=== PATIENT | female | born 1960 | race Caucasian/White ===

== ENCOUNTER 2020-08-01 11:00 | Outpatient (REF) | payer OTHER, SELFPAY ==
--- NOTE | 2020-08-01 | XR_ITS ---
EXAMINATION: XR CALCANEUS, BILATERAL CLINICAL INFORMATION: Bilateral heel pain COMPARISON: None TECHNIQUE: AP and lateral views of the right and left calcaneus FINDINGS: Right calcaneus: Minimal posterior calcaneal enthesophyte. No heel spur. No fracture. Left calcaneus: Small heel spur and posterior calcaneal enthesophyte. No fracture. IMPRESSION: Right calcaneus: Minimal posterior calcaneal enthesophyte. No heel spur. No fracture. Left calcaneus: Small heel spur and posterior calcaneal enthesophyte. No fracture.
== END 2020-08-01 11:01 | disposition home or self-care (01) ==
LOC: HO.HMGCX 11:00
PROVIDERS: PCP Internal Medicine; Visit Provider Hospitalist
DX: M77.51 Other enthesopathy of right foot and ankle (principal); M77.52 Other enthesopathy of left foot and ankle; M79.672 Pain in left foot; M79.671 Pain in right foot
CPT/HCPCS: 73650

== ENCOUNTER 2021-06-16 09:29 | Emergency (ER) | payer OTHER, SELFPAY ==
--- NOTE | ~2021-06-16 | CT_ITS ---
EXAMINATION: CT HEAD WITHOUT CONTRAST CLINICAL INFORMATION: Weakness for 2 weeks. COMPARISON: CT head dated 07/10/2020. TECHNIQUE: Contiguous axial imaging was performed from the skull base to vertex without intravenous administration of contrast. This CT examination was performed using dose optimization techniques as appropriate, variously including the following: *Automated exposure control *Adjustment of mA and/or kV according to patient size (this includes techniques or standardized protocols for targeted exams where dose is matched to indication/reason for exam; i.e. extremities or head) *Use of iterative reconstruction technique DLP: 657 mGy-cm FINDINGS: There is no evidence of acute intracranial hemorrhage or territorial infarction. No abnormal mass effect or midline shift is seen. [place] to white matter differentiation is well preserved. No extra-axial fluid collections are identified. The ventricles are normal in size. There is no abnormal attenuation within the brain parenchyma. The osseous structures and soft tissues are normal. Defects within the maxillary sinus medial tejada, consistent with prior surgery. Opacification of the right maxillary sinus, consistent with chronic sinusitis. CT/CT head/brain wo con IMPRESSION: No acute intracranial hemorrhage or mass effect. Findings consistent with chronic right maxillary sinusitis.
--- NOTE | ~2021-06-16 | XR_ITS ---
EXAMINATION: XR CHEST CLINICAL INFORMATION: Question pneumonia. COMPARISON: Most recent chest radiographs dated 12/28/2019. TECHNIQUE: Frontal view of the chest was obtained. FINDINGS: The lungs are clear. The cardiomediastinal silhouette is normal in size. There is no pleural effusion or pneumothorax. No acute osseous abnormality. XR/XR chest 1V IMPRESSION: No acute cardiopulmonary findings.
[2021-06-16 09:38] VITALS: BP 160/81; BP 161/97; PULSE 86; PULSE 87; RESP 18; TEMP 36.6; O2SAT 95; O2SAT 98; BMI 37.4
--- NOTE | 2021-06-16 10:41 | ED.WEAKNESS ---
HPI - Weakness General Chief complaint: Weakness Stated complaint: GENERAL MALAISE [id number] Time Seen by Provider: 06/16/21 10:02 Source: patient Mode of arrival: ambulatory Limitations: no limitations History of Present Illness HPI Narrative: Patient presents to ED for generalized weakness for the past 2 weeks. Patient does feel tired. Patient denies any slurred speech, facial droop, chest pain, shortness of breath, or paralysis of extremities. Denies any change in diet. Patient states yesterday her glucose was 400 but today has been controlled. Patient admits to having uncontrolled diabetes. Patient states tingling in extremities. MD Complaint: generalized weakness Related Data Home Medications Medication Instructions Recorded Confirmed humidifiers #1 ea 08/29/20 11/28/20 loratadine 10 mg tablet 10 mg PO DAILY 08/29/20 11/28/20 sodium chloride 0.65 % nasal spray 2 spray INTRANASAL Q3H 08/29/20 11/28/20 aerosol Previous Rx's Medication Instructions Recorded albuterol sulfate 90 mcg/actuation 1 puff INHALATION Q4H PRN 30 Days 10/24/20 aerosol inhaler #8.5 g blood sugar diagnostic (FreeStyle #100 ea 11/28/20 Lite Strips) fluticasone propionate 50 1 spray INTRANASAL DAILY 30 Days 11/28/20 mcg/actuation nasal #16 g spray,suspension ibuprofen 800 mg tablet 800 mg PO TID PRN 30 Days #90 tab 11/28/20 lancets 28 gauge #100 ea 11/28/20 melatonin 5 mg capsule 5 mg PO .ONCE A DAY 90 Days #90 cap 11/28/20 metformin 500 mg tablet 500 mg PO BID 30 Days #60 tab 11/28/20 fluconazole 150 mg tablet 150 mg PO Q3D #2 tab 04/11/21 (Diflucan) glipizide 5 mg tablet 5 mg PO .bidcc 30 Days #60 tab 04/11/21 cephalexin 500 mg capsule 500 mg PO QID #28 cap 06/16/21 Allergies Allergy/AdvReac Type Severity Reaction Status Date / Time No Known Allergies Allergy Verified 04/11/21 13:09 Review of Systems Constitutional: Constitutional: Reports as per HPI and Reports no additional constitutional complaints Eyes: Eyes: Reports as per HPI and Reports no additional eye complaints ENT: Reports system reviewed and no additional complaints, except as documented and Reports as per HPI Cardiovascular: Cardiovascular: Reports as per HPI and Reports no additional cardiovascular complaints Respiratory: Respiratory: Reports as per HPI and Reports no additional respiratory complaints Gastrointestinal: Gastrointestinal: Reports as per HPI and Reports no additional gastrointestinal complaints Genitourinary: Genitourinary: Reports no additional female genitourinary complaints and Reports as per HPI Musculoskeletal: Musculoskeletal: Reports no additional musculoskeletal complaints and Reports as per HPI Integumentary/Breasts: Skin/Breast: Reports system reviewed and no additional complaints, except as docu and Reports as per HPI Neurologic: Reports system reviewed and no additional complaints, except as documented and Reports as per HPI Psychiatric: Psychiatric: Reports no additional psychiatric complaints and Reports as per HPI Endocrine: Endocrine: Reports no additional endocrine complaints and Reports as per HPI [facility] Past Medical History Medical History (Updated 06/16/21 @ 15:43 by ANDRES Pena) Obesity (Unknown) Surgical History History of cholecystectomy History of colonoscopy History of tonsillectomy Left patella fracture Family History Family History Father Prostate cancer Parkinsons Mother No problems noted. Son No problems noted. Son No problems noted. Daughter No problems noted. Social History Social History (Updated 11/28/20 @ 14:49 by ERIK Byers) Alcohol intake: never Advance Directives: No Advance Directives Information Provided: No Patient : No Physical Exam Vital Signs: Vital Signs: Last Vital Signs Temp 98.2 F 06/16/21 13:50 Pulse 72 06/16/21 13:50 Resp 18 06/16/21 13:50 BP 124/64 06/16/21 13:50 Pulse Ox 96 06/16/21 13:50 Body Mass Index 37.4 Const: General: cooperative, healthy appearing, comfortable, no acute distress, well developed, alert, awake and Physically active Orientation/consciousness: patient oriented x3 HENMT: Head: Yes normal to inspection, Yes No palpable skull fracture present, Yes normocephalic, Yes atraumatic and No abrasion Eyes: General: appearance normal, both eyes and all related structures Neck: Neck: Yes normal visual inspection, Yes full ROM, Yes no lymphadenopathy, Yes no meningeal signs, Yes trachea midline, Yes supple and No tender Chest: Chest palpation & inspection: normal inspection of the chest and normal palpation of entire chest wall Resp: Effort & Inspection: normal respiratory effort and able to speak in complete sentences Auscultation: clear to auscultation bilaterally Cardio: Jugular venous distension: no JVD Heart sounds: S1 normal heart sound present and S2 normal heart sound present GI: Inspection: Yes normal to inspection and No abdominal wall ecchymosis Palpation (GI): Soft to palpation, not firm, nontender, no guarding and not rigid : General: No CVA tenderness and Yes no CVA tenderness Back/Spine/Pelvis: Back: no CVA tenderness, No CVA tenderness and No back tenderness Skin: General skin exam: no rashes or lesions noted and elasticity normal Neuro: Other: Negative facial droop. Negative slurred speech. All extremities equal strength 5+. [id number] rapid hand movement intact. Negative Romberg General: patient oriented x3, gait normal, no meningeal signs and CN's II-XI intact bilaterally Cranial nerves: Yes CN's II-XII intact bilaterally Extrem: Other: All extremities motor/neural/vascular exam intact. All extremities good color and normal temperature. All extremities negative for any ecchymosis or crepitus to indicate any trauma. Negative for any tenderness. General: Yes normal to inspection and Yes full ROM Course Course Course Narrative: Negative for any neuro deficits. Patient denied any distress. We will look for source of infection, to cardiac evaluation, do a head CT. Reevaluation(s) Reevaluation #1: Patient walking around the ER. Patient alert oriented x3. Patient labs are normal. Patient's EKG negative STEMI. His CT scan came back normal. Chest x-ray negative for Pneumonia. Orthostatics negative. Urine shows mild UTI. patient is mildy hyperglycemic, but not in DKA, patient informed she needs better control of her diabetes and be compliant with a healthy diet. Her partner states patient eats lotsl cake and all types of sweets. Patient states sometimes she has tingling in her extremities. Patient educated on better control of her diabetes unless she will have poor vision, kidney failure, amputations, or peripheral neuropathy Time: 15:34 MDM - Weakness MDM Narrative Medical decision making narrative: Hyperglycemia Lab Data Result diagrams: 06/16/21 10:57 08/16/21 10:57 Labs: Lab Results 06/16/21 06/16/21 06/16/21 Range/Units 10:57 10:57 10:57 WBC 10.0 (4.8-10.8) X10*3/uL RBC 4.83 (4.20-5.50) X10*6/uL Hgb 14.9 (12.0-16.0) g/dl Hct 44.5 (37-47) % MCV 92.1 (80-98) fL MCH 30.8 (27.0-33.0) pg MCHC 33.5 (31.0-35.0) g/dl RDW 12.6 (11.0-16.0) % Plt Count 281 (160-400) X10*3/uL MPV 10.6 (9.4-12.3) fL Immature Gran % (Auto) 0.5 H (0.0-0.4) % Neut % (Auto) 60.0 (45-73) % Lymph % (Auto) 29.2 (20-40) % [place] % (Auto) 8.4 (2-11) % Eos % (Auto) 1.3 (0-4) % Baso % (Auto) 0.6 (0-2) % Lymph # (Auto) 2.9 (1.2-4.9) X10*3/uL [place] # (Auto) 0.8 (0.1-1.2) X10*3/uL Eos # (Auto) 0.1 (0.0-0.4) X10*3/uL Baso # (Auto) 0.1 (0.0-0.2) X10*3/uL Abs Immat Gran (auto) 0.05 H (0.00-0.03) X10*3/uL Absolute Neuts (auto) 6.0 (2.0-8.3) X10*3/uL Absolute Nucleated RBC 0.000 (0.0-0.012) X10*3/uL Nucleated RBC % (auto) 0.0 (0.0-0.2) /100WBC PT 10.2 (9.9-13.0) SEC INR 0.9 (0.9-1.1) APTT 35.6 (24.1-38.0) SEC Sodium 137 (135-145) mmol/L Potassium 4.4 (3.3-5.1) mmol/L Chloride 102 (96-108) mmol/L Carbon Dioxide 21 L (22-29) mmol/L Anion Gap 18 (12-20) BUN 14 (9-16) mg/dL Creatinine 0.84 (0.5-1.4) mg/dL Estim Creat Clear Calc 80.3 Estimated GFR > 60 Random Glucose 255 H (60-115) mg/dL Calcium 10.6 H (8.4-10.2) mg/dL Magnesium 1.8 (1.6-2.6) mg/dL Total Bilirubin 0.3 (0.0-1.0) mg/dL Direct Bilirubin 0.2 (0.0-0.5) mg/dL AST 24 (5-31) U/L ALT 30 (0-31) U/L Alkaline Phosphatase 137 H (39-117) U/L Total Creatine Kinase 51 (26-140) U/L Troponin I High Sens (<3.5-17.0) ng/L Total Protein 7.6 (6.5-8.0) g/dL Albumin 4.3 (3.5-5.0) g/dL Urine Color Urine Appearance Urine pH (5.0-8.0) Ur Specific [place] (1.005-1.025) Urine Protein (NEG-TRACE) MG/DL Urine Glucose (UA) (NEG) MG/DL Urine Ketones (NEG) MG/DL Urine Blood (NEG) Urine Nitrite (NEG) Ur Leukocyte Esterase (NEG) Urine RBC (0) /HPF Urine WBC (0-4) /HPF Ur Squamous Epith Cells /LPF Urine Bacteria /LPF Acetone, Qual Negative (Negative) COVID-19 ([facility]) (Negative) COVID-19 Clin Com 06/16/21 06/16/21 06/16/21 Range/Units 10:57 10:57 10:58 WBC (4.8-10.8) X10*3/uL RBC (4.20-5.50) X10*6/uL Hgb (12.0-16.0) g/dl Hct (37-47) % MCV (80-98) fL MCH (27.0-33.0) pg MCHC (31.0-35.0) g/dl RDW (11.0-16.0) % Plt Count (160-400) X10*3/uL MPV (9.4-12.3) fL Immature Gran % (Auto) (0.0-0.4) % Neut % (Auto) (45-73) % Lymph % (Auto) (20-40) % [place] % (Auto) (2-11) % Eos % (Auto) (0-4) % Baso % (Auto) (0-2) % Lymph # (Auto) (1.2-4.9) X10*3/uL [place] # (Auto) (0.1-1.2) X10*3/uL Eos # (Auto) (0.0-0.4) X10*3/uL Baso # (Auto) (0.0-0.2) X10*3/uL Abs Immat Gran (auto) (0.00-0.03) X10*3/uL Absolute Neuts (auto) (2.0-8.3) X10*3/uL Absolute Nucleated RBC (0.0-0.012) X10*3/uL Nucleated RBC % (auto) (0.0-0.2) /100WBC PT (9.9-13.0) SEC INR (0.9-1.1) APTT (24.1-38.0) SEC Sodium (135-145) mmol/L Potassium (3.3-5.1) mmol/L Chloride (96-108) mmol/L Carbon Dioxide (22-29) mmol/L Anion Gap (12-20) BUN (9-16) mg/dL Creatinine (0.5-1.4) mg/dL Estim Creat Clear Calc Estimated GFR Random Glucose (60-115) mg/dL Calcium (8.4-10.2) mg/dL Magnesium (1.6-2.6) mg/dL Total Bilirubin (0.0-1.0) mg/dL Direct Bilirubin (0.0-0.5) mg/dL AST (5-31) U/L ALT (0-31) U/L Alkaline Phosphatase (39-117) U/L Total Creatine Kinase (26-140) U/L Troponin I High Sens 4.5 (<3.5-17.0) ng/L Total Protein (6.5-8.0) g/dL Albumin (3.5-5.0) g/dL Urine Color YELLOW Urine Appearance CLOUDY Urine pH 6.0 (5.0-8.0) Ur Specific [place] >= 1.030 H (1.005-1.025) Urine Protein NEG (NEG-TRACE) MG/DL Urine Glucose (UA) 500 H (NEG) MG/DL Urine Ketones 5 (NEG) MG/DL Urine Blood NEG (NEG) Urine Nitrite NEG (NEG) Ur Leukocyte Esterase 1+ H (NEG) Urine RBC 0-2 (0) /HPF Urine WBC 10-14 H (0-4) /HPF Ur Squamous Epith Cells 3+ /LPF Urine Bacteria 1+ /LPF Acetone, Qual (Negative) COVID-19 ([facility]) Negative (Negative) COVID-19 Clin Com See Note Discharge Plan Discharge Clinical Impression: Hyperglycemia due to diabetes mellitus, Diabetic peripheral neuropathy Patient Disposition: Home, Self-Care Instructions: Urinary Tract Infection in Women (ED), Diabetic Peripheral Neuropathy (ED), Weakness (ED), Diabetic Hyperglycemia (ED) Additional Instructions: Your EKG and blowing for your heart troponin came back normal. Head CT scan came back for stroke. Urine shows mild UTI. Electrolytes came back normal. X-ray negative for pneumonia. COVID swab came back negative. Your blood cell count came back normal. You need better control of your diabetes. You need a better diet and cut down on carbs, soda, juice, and sweets. Please follow-up with your PCP Prescriptions: New cephalexin 500 mg capsule 500 mg PO QID Qty: 28 RF: 0 No Action albuterol sulfate 90 mcg/actuation HFA aerosol inhaler 1 puff inhalation Q4H PRN (Reason: shortness of breath or wheezing or broncospasm) 30 Days Qty: 8.5 RF: 6 fluticasone propionate 50 mcg/actuation spray,suspension 1 spray intranasal DAILY 30 Days Qty: 16 RF: 6 melatonin 5 mg capsule 5 mg PO .ONCE A DAY 90 Days Qty: 90 RF: 2 ibuprofen 800 mg tablet 800 mg PO TID PRN (Reason: pain) 30 Days Qty: 90 RF: 3 (DME) lancets 28 gauge misc See Rx Instructions ea topical BID Qty: 100 RF: 4 (DME) FreeStyle Lite Strips Strip See Rx Instructions .ROUTE .MEDSUPPLY Qty: 100 RF: 3 metformin 500 mg tablet 500 mg PO BID 30 Days Qty: 60 RF: 3 fluconazole [Diflucan] 150 mg tablet 150 mg PO Q3D Qty: 2 RF: 0 glipizide 5 mg tablet 5 mg PO .bidcc 30 Days Qty: 60 RF: 1 sodium chloride 0.65 % aerosol,spray 2 spray intranasal Q3H RF: 0 loratadine 10 mg tablet 10 mg PO DAILY RF: 0 (DME) humidifiers Misc See Rx Instructions ea .ROUTE DIRECTED Qty: 1 RF: 0 Interventions: ED Discharge Assessment Last Done: 06/16/21 16:28 Discharge Date/Time: 06/16/21 16:28 Print Language: Panamanian
[2021-06-16 11:10] LABS: MANUAL DIFF FLAG NO
[2021-06-16] MEDS: 0.9 % Sodium Chloride 1,000 ML 999 ML IV (11:10)
[2021-06-16 11:12] LABS: Glucose Urine UA 500 MG/DL (NEG); Leukocyte Esterase Urine 1+ (NEG); Nitrite Urine NEG (NEG); Specific Gravity - Urine >= 1.030 (1.005-1.025); UACC Culture Trigger YES; Urine Blood NEG (NEG); Urine Ketones 5 MG/DL (NEG); Urine Protein NEG (NEG-TRACE)
[2021-06-16 11:13] LABS: Basophils Absolute Auto 0.1 X10*3/uL (0.0-0.2); Basophils Percent Auto 0.6 % (0-2); Eosinophils Absolute Auto 0.1 X10*3/uL (0.0-0.4); Eosinophils Percent Auto 1.3 % (0-4); Hematocrit 44.5 % (37-47); Hemoglobin 14.9 g/dl (12.0-16.0); Imm Gran Abs Auto 0.05 X10*3/uL (0.00-0.03); Imm Gran Pct Auto 0.5 % (0.0-0.4); Lymphocytes Absolute Auto 2.9 X10*3/uL (1.2-4.9); Lymphocytes Percent Auto 29.2 % (20-40); Mean Corpuscular HGB Conc 33.5 g/dl (31.0-35.0); Mean Corpuscular Hemoglobin 30.8 pg (27.0-33.0); Mean Corpuscular Volume 92.1 fL (80-98); Mean Platelet Volume 10.6 fL (9.4-12.3); Monocytes Absolute Auto 0.8 X10*3/uL (0.1-1.2); Monocytes Percent Auto 8.4 % (2-11); Platelet Count 281 X10*3/uL (160-400); Red Blood Count 4.83 X10*6/uL (4.20-5.50); Red Cell Distribution Width 12.6 % (11.0-16.0)
[2021-06-16 11:13] LABS: Appearance Urine CLOUDY; Color Urine YELLOW
[2021-06-16 11:24] LABS: INTERNATIONAL NORM RATIO 0.9 (0.9-1.1); Prothrombin Time 10.2 SEC (9.9-13.0)
[2021-06-16 11:26] LABS: Partial Thromboplastin Time 35.6 SEC (24.1-38.0)
[2021-06-16 11:32] LABS: Bacteria Urine 1+ /LPF; RBC Urine 0-2 /HPF (0); Squamous Epithelial Cell Urine 3+ /LPF
[2021-06-16 11:33] LABS: COVID-19 Test Negative (Negative); IDNOW Serial# 9DD0AD1C
[2021-06-16 11:39] LABS: Troponin-I High Sensitivity 4.5 ng/L (<3.5-17.0)
[2021-06-16 11:41] LABS: Alanine Aminotransferase 30 U/L (0-31); Albumin Level 4.3 g/dL (3.5-5.0); Alkaline Phosphatase 137 U/L (39-117); Anion Gap 18 (12-20); Aspartate Amino Transferase 24 U/L (5-31); Bilirubin Direct 0.2 mg/dL (0.0-0.5); Bilirubin Total 0.3 mg/dL (0.0-1.0); Blood Urea Nitrogen 14 mg/dL (9-16); Calcium 10.6 mg/dL (8.4-10.2); Carbon Dioxide 21 mmol/L (22-29); Chloride 102 mmol/L (96-108); Creatinine Clr Calc Pharmacy 80.3; Estimated Glomerular Filt Rate > 60; Glucose Random 255 mg/dL (60-115); Magnesium 1.8 mg/dL (1.6-2.6); Potassium 4.4 mmol/L (3.3-5.1); Sodium 137 mmol/L (135-145); Total Protein 7.6 g/dL (6.5-8.0)
[2021-06-16 12:09] LABS: Acetone, serum QL Negative (Negative)
[2021-06-16 13:44] VITALS: BP 124/64; PULSE 72
[2021-06-16 13:47] VITALS: BP 119/64; PULSE 71
[2021-06-16 13:49] VITALS: BP 127/73; PULSE 79
[2021-06-16 13:50] VITALS: BP 124/64; PULSE 72; RESP 18; TEMP 36.8; O2SAT 96
--- NOTE | 2021-06-16 15:31 | ECG_ITS ---
Test Reason : WEAKNESS Blood Pressure : / mmHG Vent. Rate : 071 BPM Atrial Rate : 071 BPM P-R Int : 142 ms QRS Dur : 084 ms QT Int : 414 ms P-R-T Axes : 017 -39 015 degrees QTc Int : 449 ms Normal sinus rhythm Left axis deviation Abnormal ECG When compared with ECG of 10-JUL-2020 16:05, No significant change was found Referred By: Darrian Stone Electronically Signed By:CHRISTINA SHABAZZ
== END 2021-06-16 16:28 | disposition home or self-care (01) ==
PROVIDERS: Physician Assistant; Emergency Provider Internal Medicine
DX: R53.1 Weakness (principal); E11.65 Type 2 diabetes mellitus with hyperglycemia; E11.42 Type 2 diabetes mellitus with diabetic polyneuropathy; Z20.822 Contact with and (suspected) exposure to COVID-19
CPT/HCPCS: 36415; 70450; 71045; 80053; 81001; 82009; 82248; 82550; 83735; 84484; 85025; 85610; 85730; 87086; 87635; 93005; 96360; 99284

== ENCOUNTER 2021-06-26 10:54 | Outpatient (REF) | payer OTHER, SELFPAY ==
[2021-06-26 14:32] LABS: MANUAL DIFF FLAG NO
[2021-06-26 14:34] LABS: Basophils Absolute Auto 0.1 X10*3/uL (0.0-0.2); Basophils Percent Auto 0.8 % (0-2); Eosinophils Absolute Auto 0.1 X10*3/uL (0.0-0.4); Eosinophils Percent Auto 1.4 % (0-4); Hematocrit 46.5 % (37-47); Hemoglobin 15.2 g/dl (12.0-16.0); Imm Gran Abs Auto 0.02 X10*3/uL (0.00-0.03); Imm Gran Pct Auto 0.2 % (0.0-0.4); Lymphocytes Absolute Auto 3.2 X10*3/uL (1.2-4.9); Lymphocytes Percent Auto 34.8 % (20-40); Mean Corpuscular HGB Conc 32.7 g/dl (31.0-35.0); Mean Corpuscular Hemoglobin 30.6 pg (27.0-33.0); Mean Corpuscular Volume 93.6 fL (80-98); Mean Platelet Volume 10.8 fL (9.4-12.3); Monocytes Absolute Auto 0.9 X10*3/uL (0.1-1.2); Monocytes Percent Auto 9.3 % (2-11); Neutrophils Percent Auto 53.5 % (45-73); Platelet Count 312 X10*3/uL (160-400); Red Blood Count 4.97 X10*6/uL (4.20-5.50); Red Cell Distribution Width 12.6 % (11.0-16.0); White Blood Count 9.3 X10*3/uL (4.8-10.8)
[2021-06-26 15:01] LABS: Anion Gap 15 (12-20); Blood Urea Nitrogen 12 mg/dL (9-16); Calcium 9.8 mg/dL (8.4-10.2); Carbon Dioxide 24 mmol/L (22-29); Chloride 102 mmol/L (96-108); Estimated Glomerular Filt Rate > 60; Glucose Random 283 mg/dL (60-115); Potassium 4.4 mmol/L (3.3-5.1); Sodium 137 mmol/L (135-145)
== END 2021-06-26 10:55 | disposition home or self-care (01) ==
LOC: HO.WFDLDS 10:54
PROVIDERS: Visit Provider Family Medicine
DX: Z13.89 Encounter for screening for other disorder (principal)
CPT/HCPCS: 36415; 80048; 85025

== ENCOUNTER 2021-07-08 15:27 | Outpatient (REF) | payer OTHER, SELFPAY ==
[2021-07-09 07:38] LABS: Estimated Average Glucose 301 mg/dL; Hemoglobin A1c % 12.1 %
== END 2021-07-08 15:28 | disposition home or self-care (01) ==
LOC: HO.LAB 15:27
PROVIDERS: PCP Hospitalist; Visit Provider Family Medicine
DX: E11.65 Type 2 diabetes mellitus with hyperglycemia (principal)
CPT/HCPCS: 36415; 83036

== ENCOUNTER 2021-08-12 09:08 | Outpatient (REF) | payer OTHER, SELFPAY ==
[2021-08-12 12:20] LABS: Erythrocyte Sedimentation Rate 21 MM/HR (0-20)
== END 2021-08-12 09:09 | disposition home or self-care (01) ==
LOC: HO.WFDLDS 09:08
PROVIDERS: Visit Provider Family Medicine
DX: M25.511 Pain in right shoulder (principal); M25.512 Pain in left shoulder
CPT/HCPCS: 36415; 85652

== ENCOUNTER → 2021-09-30 09:59 | Outpatient (BNVA) | payer OTHER, SELFPAY | PROVIDERS: PCP Family Medicine; Referring Provider Family Medicine; Visit Provider Nurse Practitioner Family | DX: G47.19 Other hypersomnia (principal); G47.9 Sleep disorder, unspecified; R06.83 Snoring; E66.9 Obesity, unspecified; R53.83 Other fatigue | CPT/HCPCS: 99202 ==

== ENCOUNTER 2021-10-14 10:31 | Outpatient (REF) | payer OTHER, SELFPAY ==
[2021-10-14 14:05] LABS: Estimated Average Glucose 232 mg/dL; Hemoglobin A1c % 9.7 %
== END 2021-10-14 10:32 | disposition home or self-care (01) ==
LOC: HO.WFDLDS 10:31
PROVIDERS: Visit Provider Family Medicine
DX: R73.01 Impaired fasting glucose (principal)
CPT/HCPCS: 36415; 83036

== ENCOUNTER 2021-10-27 19:18 | Outpatient (REF) | payer OTHER, SELFPAY ==
[2021-10-27 20:01] LABS: Influenza A PCR NEGATIVE (Negative); Influenza B PCR NEGATIVE (Negative); Resp Syncy Virus RNA Qual PCR NEGATIVE (Negative); SARS COV2 PCR INHOUSE POSITIVE (Negative)
== END 2021-10-27 19:19 | disposition home or self-care (01) ==
LOC: HO.LNP 19:18
PROVIDERS: Visit Provider Family Medicine
DX: Z20.822 Contact with and (suspected) exposure to COVID-19 (principal); R05.9 Cough, unspecified
CPT/HCPCS: 0241U

== ENCOUNTER 2021-11-06 13:20 | Inpatient (IN) | payer OTHER, SELFPAY ==
--- NOTE | ~2021-11-06 | XR_ITS ---
EXAMINATION: XR CHEST CLINICAL INFORMATION: Covid 19. COMPARISON: Chest 06/16/2021 TECHNIQUE: Frontal view of the chest was obtained. FINDINGS: The lungs are hypoexpanded with slightly prominent bilateral interstitial markings bilateral peribronchial thickening likely airway disease or bronchitis. No consolidation or pleural effusion seen. Heart size and pulmonary vascularity is normal. No gross bony abnormality seen. XR/XR chest 1V IMPRESSION: Prominent bilateral interstitial markings and peribronchial thickening likely airway disease or bronchitis. No consolidation seen.
[2021-11-06 13:39] VITALS: BP 135/91; BP 136/68; PULSE 111; PULSE 96; RESP 24; TEMP 37.9; O2SAT 89; BMI 36.3
--- NOTE | 2021-11-06 13:41 | ECG_ITS ---
Test Reason : weakness Blood Pressure : / mmHG Vent. Rate : 099 BPM Atrial Rate : 099 BPM P-R Int : 146 ms QRS Dur : 084 ms QT Int : 336 ms P-R-T Axes : 054 -35 029 degrees QTc Int : 431 ms Normal sinus rhythm Left axis deviation Abnormal ECG When compared with ECG of 16-JUN-2021 15:37, No significant change was found Referred By: Cole Mallory Electronically Signed By:ALLAN ORTEGA MD
--- NOTE | 2021-11-06 13:42 | ED_ITS ---
HPI - SOB/Dyspnea General Chief Complaint: Dyspnea Stated Complaint: HEAD CONGESTION,BODY ACHES,+COVID Time Seen by Provider: 11/06/21 13:32 Source: patient and EMS Mode of arrival: EMS Limitations: no limitations History of Present Illness HPI Narrative: 60-year-old female presents emergency department complaining of head congestion body aches known COVID positive. She is unvaccinated. She states she has been thinking about getting the vaccinations so she held off. She states she did have pneumonia back in September as well. She denies any falls or injuries she denies nausea vomiting. States she has been feeling increasingly weak. Per EMS was 80% on room air 1-96 on 2 L. She denies any lung history. MD elicited complaint: shortness of breath, cough and pain with inspiration Related Data Home Medications Medication Instructions Recorded Confirmed loratadine 10 mg tablet 10 mg PO DAILY 08/29/20 09/30/21 sodium chloride 0.65 % nasal spray 2 spray INTRANASAL Q3H 08/29/20 09/30/21 aerosol azithromycin 250 mg tablet 0 mg PO 10/14/21 doxycycline hyclate 100 mg tablet 100 mg PO BID 10/14/21 prednisone 20 mg tablet 20 mg PO BID 10/14/21 Previous Rx's Medication Instructions Recorded albuterol sulfate 90 mcg/actuation 1 puff INHALATION Q4H PRN 30 Days 10/24/20 aerosol inhaler #8.5 g fluticasone propionate 50 1 spray INTRANASAL DAILY 30 Days 11/28/20 mcg/actuation nasal #16 g spray,suspension melatonin 5 mg capsule 5 mg PO .ONCE A DAY 90 Days #90 cap 11/28/20 clotrimazole-betamethasone 1 1 appl TOPICAL BID 14 Days #15 g 06/26/21 %-0.05 % topical cream ibuprofen 800 mg tablet 800 mg PO TID PRN 30 Days #90 tab 08/12/21 metformin 500 mg tablet 500 mg PO BID 30 Days #60 tab 08/12/21 citalopram 20 mg tablet 20 mg PO DAILY 30 Days #30 tab 10/14/21 glipizide 10 mg tablet, extended 10 mg PO DAILY #30 tab 10/20/21 release 24 hr albuterol sulfate 2.5 mg (3 mL) INHALATION Q4-6H PRN 10/27/21 30 Days #180 ml Allergies Allergy/AdvReac Type Severity Reaction Status Date / Time No Known Allergies Allergy Verified 10/27/21 14:11 Review of Systems Review of Systems: Review of systems: General: fever chills recent illness no falls Musculoskeletal: body achesDenies back pain or or other injuries HEENT: denies headache, runny nose, ear pain Respiratory: shortness of breath, cough Cardiovascular: no chest pain or palpitations : denies dysuria, frequency Abdomen: no nausea vomiting denies abdominal pain Extremities: no swelling, no pain Skin: no diaphoresis Yes all other systems are reviewed and are negative [facility] Past Medical History Medical History (Updated 11/06/21 @ 13:46 by Cole Mallory DO) Obesity (Unknown) Surgical History History of cholecystectomy History of colonoscopy History of tonsillectomy Left patella fracture Family History Family History Father Prostate cancer Parkinsons Mother Stroke Son No problems noted. Son No problems noted. Daughter No problems noted. Sister Lung cancer Social History Social History Housing: Apartment Alcohol intake: never Patient Tobacco Use Status: Never used Tobacco e-Cigarette/Vaping Use: Never Used Second Hand Smoke Exposure: No Use of substances other than those prescribed or required for medical reasons: No Advance Directives: No Advance Directives Information Provided: Yes Current occupational status: disabled Cognitive needs: No Hearing needs: No Vision needs: No Physical Exam Vital Signs: Vital Signs: Last Vital Signs Temp 100.2 F 11/06/21 13:39 Pulse 111 H 11/06/21 13:39 Resp 24 H 11/06/21 13:39 BP 136/68 11/06/21 13:39 Pulse Ox 89 L 11/06/21 13:39 BMI result Body Mass Index 36.3 General: Ill-appearing in mild to moderate signs of distress HEENT: Normocephalic atraumatic Neck: No signs of JVD, no masses no tenderness or lymphadenopathy Cardiovascular: Regular rate and rhythm Respiratory: no wheezing bilaterally Abdomen: Soft nontender no masses Extremities: Normal pedal pulses no signs of edema Skin: Dry warm no rashes Back: No tenderness full ROM MDM - SOB/Dyspnea MDM Narrative Medical decision making narrative: concern for COVID pneumonia patient has poorly-controlled diabetic with the benefit from steroids with the patient Tylenol Toradol fluids patient is requiring oxygen upon arrival. 1500 Patient with hypoxia at 89% requiring oxygen patient has been stable in the room x-ray does confirm COVID pneumonia I will admit the patient Medical Records Attestation: I reviewed the patient's medical records. Lab Data Result diagrams: 11/06/21 13:51 11/06/21 13:51 Labs: Lab Results 11/06/21 11/06/21 11/06/21 Range/Units 13:51 13:51 13:51 WBC 6.6 (4.8-10.8) X10*3/uL RBC 4.64 (4.20-5.50) X10*6/uL Hgb 14.0 (12.0-16.0) g/dl Hct 41.7 (37.0-47.0) % MCV 89.9 (80.0-98.0) fL MCH 30.2 (27.0-33.0) pg MCHC 33.6 (31.0-35.0) g/dl RDW 12.7 (11.0-16.0) % Plt Count 199 (160-400) X10*3/uL MPV 11.1 (9.4-12.3) fL Immature Gran % (Auto) 0.5 H (0.0-0.4) % Neut % (Auto) 71.4 (45-73) % Lymph % (Auto) 19.4 L (20-40) % [place] % (Auto) 8.2 (2-11) % Eos % (Auto) 0.2 (0-4) % Baso % (Auto) 0.3 (0-2) % Lymph # (Auto) 1.3 (1.2-4.9) X10*3/uL [place] # (Auto) 0.5 (0.1-1.2) X10*3/uL Eos # (Auto) 0.0 (0.0-0.4) X10*3/uL Baso # (Auto) 0.0 (0.0-0.2) X10*3/uL Abs Immat Gran (auto) 0.03 (0.00-0.03) X10*3/uL Absolute Neuts (auto) 4.6 (2.0-8.3) x10*3/uL Absolute Nucleated RBC 0.000 (0.0-0.012) X10*3/uL Nucleated RBC % (auto) 0.0 (0.0-0.2) /100WBC Smear Tech's Comments VERIFIED Sodium 135 (135-145) mmol/L Potassium 4.3 (3.3-5.1) mmol/L Chloride 99 (96-108) mmol/L Carbon Dioxide 23 (22-29) mmol/L Anion Gap 17 (12-20) BUN 11 (9-16) mg/dL Creatinine 0.77 (0.5-1.4) mg/dL Estim Creat Clear Calc 86.3 Estimated GFR > 60 Random Glucose 276 H (60-115) mg/dL Lactic Acid (0.5-2.0) mmol/L Calcium 8.9 D (8.4-10.2) mg/dL Total Bilirubin 0.5 (0.0-1.0) mg/dL Direct Bilirubin 0.3 (0.0-0.5) mg/dL AST 25 (5-31) U/L ALT 22 (0-31) U/L Alkaline Phosphatase 57 D (39-117) U/L Troponin I High Sens 10.0 (<3.5-17.0) ng/L Total Protein 7.0 (6.5-8.0) g/dL Albumin 3.7 (3.5-5.0) g/dL Lipase 84 H (8-78) U/L COVID-19 ([facility]) (Negative) COVID-19 Clin Com 11/06/21 11/06/21 Range/Units 13:51 14:09 WBC (4.8-10.8) X10*3/uL RBC (4.20-5.50) X10*6/uL Hgb (12.0-16.0) g/dl Hct (37.0-47.0) % MCV (80.0-98.0) fL MCH (27.0-33.0) pg MCHC (31.0-35.0) g/dl RDW (11.0-16.0) % Plt Count (160-400) X10*3/uL MPV (9.4-12.3) fL Immature Gran % (Auto) (0.0-0.4) % Neut % (Auto) (45-73) % Lymph % (Auto) (20-40) % [place] % (Auto) (2-11) % Eos % (Auto) (0-4) % Baso % (Auto) (0-2) % Lymph # (Auto) (1.2-4.9) X10*3/uL [place] # (Auto) (0.1-1.2) X10*3/uL Eos # (Auto) (0.0-0.4) X10*3/uL Baso # (Auto) (0.0-0.2) X10*3/uL Abs Immat Gran (auto) (0.00-0.03) X10*3/uL Absolute Neuts (auto) (2.0-8.3) x10*3/uL Absolute Nucleated RBC (0.0-0.012) X10*3/uL Nucleated RBC % (auto) (0.0-0.2) /100WBC Smear Tech's Comments Sodium (135-145) mmol/L Potassium (3.3-5.1) mmol/L Chloride (96-108) mmol/L Carbon Dioxide (22-29) mmol/L Anion Gap (12-20) BUN (9-16) mg/dL Creatinine (0.5-1.4) mg/dL Estim Creat Clear Calc Estimated GFR Random Glucose (60-115) mg/dL Lactic Acid 3.0 H* (0.5-2.0) mmol/L Calcium (8.4-10.2) mg/dL Total Bilirubin (0.0-1.0) mg/dL Direct Bilirubin (0.0-0.5) mg/dL AST (5-31) U/L ALT (0-31) U/L Alkaline Phosphatase (39-117) U/L Troponin I High Sens (<3.5-17.0) ng/L Total Protein (6.5-8.0) g/dL Albumin (3.5-5.0) g/dL Lipase (8-78) U/L COVID-19 ([facility]) Positive A (Negative) COVID-19 Clin Com See Note Critical Care Time Critical Care Time Critical Care Time: Yes Total Critical Care Time: 35 Attestation: patient hypoxic upon arrival multiple re-evaluations interpretation of x-ray and labs as well as discussion with hospitalist about admission. Discharge Plan Discharge Clinical Impression: 2019 novel coronavirus-infected pneumonia (NCIP), COVID, Hypoxia Patient Disposition: Admitted as Observation
[2021-11-06] MEDS: 0.9 % Sodium Chloride 1,000 ML 999 ML IV ×2 (13:58→16:37)
[2021-11-06] MEDS: Ketorolac Tromethamine 30 MG/ML VIAL 15 MG IVPUSH (13:58)
[2021-11-06] MEDS: dexAMETHasone sod phosphate 10 MG/ML VIAL IVPUSH (13:59)
[2021-11-06] MEDS: Benzonatate 100 MG CAPSULE PO (13:59)
[2021-11-06] MEDS: Acetaminophen 325 MG TABLET 650 MG PO (13:59)
[2021-11-06 14:02] LABS: Eosinophils Percent Auto 0.2 % (0-4); Imm Gran Abs Auto 0.03 X10*3/uL (0.00-0.03); Imm Gran Pct Auto 0.5 % (0.0-0.4); MANUAL DIFF FLAG SCAN; PLT CLUMP 1; Red Cell Distribution Width 12.7 % (11.0-16.0); SCAN SMEAR FLAG 1
[2021-11-06 14:03] LABS: Basophils Percent Auto 0.3 % (0-2); Hematocrit 41.7 % (37.0-47.0); Lymphocytes Absolute Auto 1.3 X10*3/uL (1.2-4.9); Lymphocytes Percent Auto 19.4 % (20-40); Mean Corpuscular HGB Conc 33.6 g/dl (31.0-35.0); Mean Corpuscular Hemoglobin 30.2 pg (27.0-33.0); Mean Corpuscular Volume 89.9 fL (80.0-98.0); Mean Platelet Volume 11.1 fL (9.4-12.3); Monocytes Absolute Auto 0.5 X10*3/uL (0.1-1.2); Monocytes Percent Auto 8.2 % (2-11); Neutrophils Absolute Auto 4.6 x10*3/uL (2.0-8.3); Neutrophils Percent Auto 71.4 % (45-73); Red Blood Count 4.64 X10*6/uL (4.20-5.50)
[2021-11-06 14:19] LABS: Alanine Aminotransferase 22 U/L (0-31); Albumin Level 3.7 g/dL (3.5-5.0); Alkaline Phosphatase 57 U/L (39-117); Anion Gap 17 (12-20); Aspartate Amino Transferase 25 U/L (5-31); Bilirubin Direct 0.3 mg/dL (0.0-0.5); Bilirubin Total 0.5 mg/dL (0.0-1.0); Blood Urea Nitrogen 11 mg/dL (9-16); Calcium 8.9 mg/dL (8.4-10.2); Carbon Dioxide 23 mmol/L (22-29); Chloride 99 mmol/L (96-108); Creatinine Clr Calc Pharmacy 86.3; Estimated Glomerular Filt Rate > 60; Glucose Random 276 mg/dL (60-115); Lipase 84 U/L (8-78); Potassium 4.3 mmol/L (3.3-5.1); Sodium 135 mmol/L (135-145)
[2021-11-06 14:31] LABS: COVID-19 Test Positive (Negative); IDNOW Serial# 9DD0AD1C
[2021-11-06 14:33] LABS: White Blood Count 6.6 X10*3/uL (4.8-10.8)
[2021-11-06 14:34] LABS: Platelet Count 199 X10*3/uL (160-400)
[2021-11-06 14:35] LABS: SLIDE REVIEW VERIFIED
--- NOTE | 2021-11-06 15:48 | PHA.MEDREC ---
Pharmacy Consult ? Medication Reconciliation Pharmacy has completed the medication reconciliation.
[2021-11-06 15:56] LABS: Reflex Lactate? Lactic Acid Added
--- NOTE | 2021-11-06 15:56 | P.HPHOSP_ITS ---
History of Present Illness Date of Service: 11/06/21 Chief Complaint: Shortness of breath and weak 60 year female with diabetes, obesity unvaccinated for covid who tested positive for covid on 10/27/21 and comes in today with weakness, shortness of breath, cough and diaphoressis with low grade fever. Reports no cough. She called EMS and found to have O2 of 80% on room air and improved with O2, has low grade temp , tachy to 111. Normal WBC, lymphopenia Review of Systems Review of Systems: Gen: + fever Resp: + sob, + cough CV: no chest, + FAGAN, no leg edema GI: No n/v, no abd pain Neuro: No confusion Yes all other systems are reviewed and are negative [facility] Medical History (Updated 11/06/21 @ 16:13 by Melvin Galvan MD) Bilateral shoulder pain Chronic back pain Depression with anxiety Diabetes Diabetic peripheral neuropathy Excessive daytime sleepiness Obesity (Unknown) Pneumonia Seasonal allergic rhinitis Sleep apnea Vaginal dryness Family History Father Prostate cancer Parkinsons Mother Stroke Son No problems noted. Son No problems noted. Daughter No problems noted. Sister Lung cancer Surgical History History of cholecystectomy History of colonoscopy History of tonsillectomy Left patella fracture Social History Housing: Apartment Alcohol intake: never Patient Tobacco Use Status: Never used Tobacco e-Cigarette/Vaping Use: Never Used Second Hand Smoke Exposure: No Use of substances other than those prescribed or required for medical reasons: No Advance Directives: No Advance Directives Information Provided: Yes service: No Current occupational status: disabled Cognitive needs: No Hearing needs: No Vision needs: No Meds Allergies Allergy/AdvReac Type Severity Reaction Status Date / Time No Known Allergies Allergy Verified 10/27/21 14:11 Active Medications: Current Medications Pharmacy Consult (Consult Rx Perform Med Rec) 1 each MISCELLANE ONCE PRN PRN Reason: Consult order Home Medications Medication Instructions Recorded Confirmed Last Taken Type loratadine 10 mg tablet 10 mg PO DAILY 08/29/20 11/06/21 Unknown History sodium chloride 0.65 % nasal spray 2 spray INTRANASAL Q3H 08/29/20 11/06/21 Unknown History aerosol Physical Exam Vital Signs and Narrative: Vital Signs: Last Vital Signs Temp 100.2 F 11/06/21 13:39 Pulse 111 H 11/06/21 13:39 Resp 24 H 11/06/21 13:39 BP 136/68 11/06/21 13:39 Pulse Ox 89 L 11/06/21 13:39 BMI result Body Mass Index 36.3 Const: Other: Constitutional: Alert, in no distress, overweight Mental Status: Oriented to person, place and time. Eyes: normal sclera Ear, Nose and Throat:Trachea midline, no nose or ear deformity Respiratory: Auscultation avoded to minimize risk of covid exposure, normal respiratory efforts speeaks in full sentences. Cardiovascular: S1 S2 regular. No murmurs, rubs or gallops. Gastrointestinal: Abdomen soft, non-tender, non-distended. Normal bowel sounds.? Neurologic: Cranial nerves II-XII grossly intact. No focal neurological deficits. Moves all extremities spontaneously.? Skin: No rashes or lesions.? Musculoskeletal: No cyanosis or clubbing. Psychiatric: Normal mood and affect? Results Labs CBC and Chem 7: 11/06/21 13:51 11/06/21 13:51 Labs: Laboratory Results - last 24 hr 11/06/21 11/06/21 11/06/21 13:51 13:51 13:51 MCV 89.9 MCH 30.2 MCHC 33.6 RDW 12.7 Plt Count 199 MPV 11.1 Immature Gran % (Auto) 0.5 H Neut % (Auto) 71.4 Lymph % (Auto) 19.4 L [place] % (Auto) 8.2 Eos % (Auto) 0.2 Baso % (Auto) 0.3 Lymph # (Auto) 1.3 [place] # (Auto) 0.5 Eos # (Auto) 0.0 Baso # (Auto) 0.0 Abs Immat Gran (auto) 0.03 Absolute Neuts (auto) 4.6 Absolute Nucleated RBC 0.000 Nucleated RBC % (auto) 0.0 Smear Tech's Comments VERIFIED Anion Gap 17 Estim Creat Clear Calc 86.3 Estimated GFR > 60 Random Glucose 276 H Lactic Acid Calcium 8.9 D Total Bilirubin 0.5 Direct Bilirubin 0.3 AST 25 ALT 22 Alkaline Phosphatase 57 D Troponin I High Sens 10.0 Total Protein 7.0 Albumin 3.7 Lipase 84 H COVID-19 (ABRAHAM) COVID-19 Clin Com 11/06/21 11/06/21 13:51 14:09 MCV MCH MCHC RDW Plt Count MPV Immature Gran % (Auto) Neut % (Auto) Lymph % (Auto) [place] % (Auto) Eos % (Auto) Baso % (Auto) Lymph # (Auto) [place] # (Auto) Eos # (Auto) Baso # (Auto) Abs Immat Gran (auto) Absolute Neuts (auto) Absolute Nucleated RBC Nucleated RBC % (auto) Smear Tech's Comments Anion Gap Estim Creat Clear Calc Estimated GFR Random Glucose Lactic Acid 3.0 H* Calcium Total Bilirubin Direct Bilirubin AST ALT Alkaline Phosphatase Troponin I High Sens Total Protein Albumin Lipase COVID-19 (ABRAHAM) Positive A COVID-19 Clin Com See Note Imaging Radiologist's Impressions: Impressions Chest X-Ray 11/06/21 13:58 IMPRESSION: Prominent bilateral interstitial markings and peribronchial thickening likely airway disease or bronchitis. No consolidation seen. Assessment and Plan (1) Acute hypoxemic respiratory failure due to COVID-19: Status: Acute (2) Diabetes: Status: Acute (3) Obesity: Qualifiers: Body mass index: BMI 37.0-37.9 Obesity classification: adult class 2 (BMI 35 - 39.9) Obesity type: due to excess calories Serious obesity comorbidity presence: with serious comorbidity Qualified Code(s): E66.01 - Morbid (severe) obesity due to excess calories; Z68.37 - Body mass index [BMI] 37.0-37.9, adult Status: Acute 60 year female with diabetes, obesity unvaccinated for covid who tested positive for covid on 10/27/21 and comes in today with weakness, shortness of breath, cough and diaphoressis with low grade fever and found to be hypOxic 1/Acute Hypoxemic respiratory failure due to COVID-19 -CXR no consolidation -Out of timeframe for effectiveness of Remdesevir -Dexamethasone 6 daily/D1 -O2 by nasal canula and adjust to sat of 90% or better -Incentive spirometry -Proning if able -Vitamins and minieral (Zinc, Vitamin) -Pepcid to mitigate gastritis from steroid. -ID or pulmonology consult if getting worse 2. Diabetes--Uncontrolled -continue Metformin -SSI -Diabetes diet 3. Obesity-Patient is aware of th need to maintain and then make an effort to loose weight DVT prophylaxis--Levenox Quality Stroke Does the patient have a stroke diagnosis?: No VTE Prior VTE?: No VTE Risk Level:: Medical - moderate - high VTE Device Contraindication: Treatment Not Indicated VTE Drug Contraindication: N/A - Med Ordered
[2021-11-06 16:40] VITALS: BP 123/74; PULSE 75; RESP 20; TEMP 36.9; O2SAT 96
[2021-11-06 17:42] LABS: ~Lactic Acid-LAB USE ONLY 1.2 mmol/L (0.5-2.0)
[2021-11-06 18:02] VITALS: BP 108/60; PULSE 71; RESP 24; O2SAT 98
[2021-11-06] MEDS: Famotidine 20 MG TABLET PO (18:03)
[2021-11-06] MEDS: Ascorbic Acid 500 MG TABLET PO (18:03)
[2021-11-06] MEDS: guaiFENesin 100 MG/5 ML LIQUID PO (18:03)
[2021-11-06] MEDS: Enoxaparin Sodium 40 MG/0.4 ML SYRINGE SUBCUT (18:36)
[2021-11-06] MEDS: Zinc Sulfate 220 MG CAPSULE PO (18:37)
[2021-11-06 21:05] LABS: Glucose, Whole Blood 323 mg/dL (60-115)
[2021-11-06] MEDS: metFORMIN HCl 500 MG TABLET PO (21:33)
--- NOTE | 2021-11-06 22:41 | MHC.CM.PN ---
CM met with admitted patient with bed assignment pending. A&Ox3 No IMM necessary. Pt Covid positive on 10/27/2022. Pt is not vaccinated. No HCP on file. HCP reviewed, completed, and signed per protocol. Copies given and uploaded into [employer] and [facility] [employer]. HCP/Son Abel Grover ([phone]) and alternate HCP/son Frank Souza ([phone]). Pt lives alone. Is independent. Has no services or DME. D/C plan is home without services. Will re-assess closer to D/C . May need home oxygen. Will need RT evaluation. Pt will try to arrange transportation home. May need transportation. CM to follow for d/c needs.
[2021-11-06 22:53] VITALS: BP 129/74; PULSE 71; RESP 16; O2SAT 96
[2021-11-07] VITALS (9 sets, daily range): BP systolic 122–159; BP diastolic 65–84; PULSE 64–96; RESP 15–27; TEMP 36.2–36.9; O2SAT 84–98; BMI 36.1
[2021-11-07 07:42] LABS: Glucose, Whole Blood 275 mg/dL (60-115)
[2021-11-07] MEDS: 0.9 % Sodium Chloride Flush 3 ML SYRINGE IVFLUSH ×2 (08:01→21:33)
--- NOTE | 2021-11-07 09:21 | P.CDIC_ITS ---
CDI Concurrent Query Documentation Clarification: PHYSICIAN'S DOCUMENTATION REQUEST Date of Query: 11/07/21920 Patient Name: Emily Lawson Admit Date: 11/06/21 Dear Doctor, A review of the medical record indicates additional documentation may be needed. Please review below and update the documentation accordingly. Clinical Indicators: The diagnosis of [Diagnosis] was documented on [date] but is not consistently noted in subsequent documentation. Risk Factors/Clinical Indicators/Treatments ED: 11/06 novel coronavirus-infected pneumonia. Xray does confirm covid pneumonia. Cxr: bilateral peribronchial thickening likely airway disease or bronchitis. H&P: Acute hypoxic respiratory failure due to Covid-19. Please clarify the following: Pneumonia * [Diagnosis] was present on admission and is now resolved * [Diagnosis] was present on admission and is still being monitored, evaluated, or treated * [Diagnosis] was ruled out * [Diagnosis] is still a likely, suspected, probable diagnosis * Other (please specify) * Unable to determine Use of terms such as suspected, likely, concern for, or probable (associated with a specific diagnosis that is being evaluated, monitored, or treated as if it exists) are acceptable and can be coded in the inpatient setting, when documented at the time of discharge. Thank you, No[address] Way [facility], CDIS Extension: [phone] Please use your independent medical judgment in providing your response. THIS QUERY IS PART OF THE PERMANENT MEDICAL RECORD Provider Response: Other Other Diagnosis: ED assessment is inacurate, go by my H and P
[2021-11-07 09:28] LABS: Appearance Urine CLEAR; Color Urine YELLOW; Glucose Urine UA >=1000 MG/DL (NEG); Leukocyte Esterase Urine NEG (NEG); Nitrite Urine NEG (NEG); Urine Blood NEG (NEG); Urine Ketones 15 MG/DL (NEG); Urine Protein TRACE MG/DL (NEG-TRACE)
[2021-11-07 09:41] LABS: Bacteria Urine TRACE /LPF; RBC Urine 0-2 /HPF (0); Squamous Epithelial Cell Urine 3+ /LPF; WBC Urine 0-2 /HPF (0-4)
[2021-11-07] MEDS: Docusate Sodium 100 MG CAPSULE PO (09:54)
[2021-11-07] MEDS: glipiZIDE XL 10 MG TAB.ER.24 PO (09:54)
[2021-11-07] MEDS: Sodium Chloride 0.65 % Nasal 44 ML SPRBTL 2 SPRAY NOSTRIL-B ×2 (09:54→20:58)
[2021-11-07] MEDS: Zinc Sulfate 220 MG CAPSULE PO (09:55)
[2021-11-07] MEDS: Famotidine 20 MG TABLET PO ×2 (09:55→21:30)
[2021-11-07] MEDS: Escitalopram Oxalate 10 MG TABLET PO (09:55)
[2021-11-07] MEDS: guaiFENesin 100 MG/5 ML LIQUID PO (09:55)
[2021-11-07] MEDS: Ascorbic Acid 500 MG TABLET PO (09:55)
[2021-11-07] MEDS: Fluticasone Propionate Nasal 16 GM SPRAY 1 SPRAY NOSTRIL-B (09:55)
[2021-11-07] MEDS: metFORMIN HCl 500 MG TABLET PO ×2 (09:55→21:30)
[2021-11-07] MEDS: Loratadine 10 MG TABLET PO (09:55)
[2021-11-07] MEDS: Nystatin/Triamcinolone Cream 15 GM TUBE 1 APPL TOPICAL (09:56)
--- NOTE | 2021-11-07 11:18 | HO.PM.IMPN ---
Subjective Subjective Date of Service: 11/07/21 Interval History: f/u on covid, hypoxia, less O2 need Review of Systems no fever sob gen weakness Physical Exam Vital Signs: Vital Signs: Last Vital Signs Temp 98.4 F 11/07/21 09:11 Pulse 81 11/07/21 10:00 Resp 16 11/07/21 10:00 BP 122/70 11/07/21 10:00 Pulse Ox 92 11/07/21 10:00 BMI result Body Mass Index 36.3 Const: Other: General: AO X 3, no acute distress Resp: normal respiratory effort CVS: S1,S2,RRR GI: +BS, NT, no distention Skin: No rash Neuro: motor grossly intact Psych: appropriate affect Objective Data Active Medications Acetaminophen (Acetaminophen 325 Mg Tablet) 650 mg PO Q6H PRN PRN Reason: Pain, Mild (Pain Scale 1-3) Albuterol Sulfate (Albuterol Sulfate (0.083%) 2.5 Mg/3 Ml Vial.Neb) 2.5 mg INHALE Q4H PRN PRN Reason: shortness of breath or wheezing Albuterol Sulfate (Albuterol Sulfate 90 Mcg 8 Gm Inhaler) 1 puff INHALE Q4H PRN PRN Reason: shortness of breath or wheezing or broncospasm Ascorbic Acid (Ascorbic Acid 500 Mg Tablet) 500 mg PO DAILY [facility] Last Admin: 11/07/21 09:55 Dose: 500 mg Documented by: INOCENCIA Docusate Sodium (Docusate Sodium 100 Mg Capsule) 100 mg PO BID [facility] Last Admin: 11/07/21 09:54 Dose: 100 mg Documented by: INOCENCIA Enoxaparin Sodium (Enoxaparin Sodium 40 Mg/0.4 Ml Syringe) 40 mg SUBCUT Q24H [facility] Last Admin: 11/06/21 18:36 Dose: 40 mg Documented by: COOPEB Escitalopram Oxalate (Escitalopram Oxalate 10 Mg Tablet) 10 mg PO DAILY [facility] Last Admin: 11/07/21 09:55 Dose: 10 mg Documented by: INOCENCIA Famotidine (Famotidine 20 Mg Tablet) 20 mg PO BID [facility] Last Admin: 11/07/21 09:55 Dose: 20 mg Documented by: INOCENCIA Fluticasone Propionate (Fluticasone Propionate Nasal 16 Gm [place]) 1 spray NOSTRIL-B DAILY [facility] Last Admin: 11/07/21 09:55 Dose: 1 spray Documented by: INOCENCIA Glipizide (Glipizide Xl 10 Mg Tab.Er.24) 10 mg PO DAILY [facility] Last Admin: 11/07/21 09:54 Dose: 10 mg Documented by: INOCENCIA Guaifenesin (Guaifenesin 100 Mg/5 Ml Liquid) 5 ml PO DAILY [facility] Last Admin: 11/07/21 09:55 Dose: 5 ml Documented by: INOCENCIA Insulin Human Lispro (Insulin Lispro 100 Unit/Ml 3 Ml Vial) 0 unit SUBCUT QIDACHS [facility]; Protocol Last Admin: 11/07/21 08:00 Dose: Not Given Documented by: INOCENCIA Non-Admin Reason: Patient Refused Loratadine (Loratadine 10 Mg Tablet) 10 mg PO DAILY [facility] Last Admin: 11/07/21 09:55 Dose: 10 mg Documented by: INOCENCIA Magnesium Hydroxide (Milk Of Magnesia 30 Ml Oral.Susp) 30 ml PO DAILY PRN PRN Reason: Constipation Melatonin (Melatonin 3 Mg Tablet) 6 mg PO BEDTIME PRN PRN Reason: Insomnia Metformin HCl (Metformin Hcl 500 Mg Tablet) 500 mg PO BID [facility] Last Admin: 11/07/21 09:55 Dose: 500 mg Documented by: INOCENCIA Nystatin/Triamcinolone Acetonide (Nystatin/Triamcinolone Cream 15 Gm Tube) 1 appl TOPICAL BID [facility] Last Admin: 11/07/21 09:56 Dose: 1 appl Documented by: INOCENCIA Oxycodone HCl (Oxycodone Hcl Immed Release 5 Mg Tablet) 5 mg PO Q6H PRN PRN Reason: Pain, Severe (Pain Scale 7-10) Pharmacy Consult (Consult Rx Perform Med Rec) 1 each MISCELLANE ONCE PRN PRN Reason: Consult order Sodium Chloride (0.9 % Sodium Chloride Flush 3 Ml Syringe) 3 ml IVFLUSH QSHIFT [facility] Last Admin: 11/07/21 08:01 Dose: 3 ml Documented by: INOCENCIA Sodium Chloride (Sodium Chloride 0.65 % Nasal 44 Ml Sprbtl) 2 spray NOSTRIL-B Q3H [facility] Last Admin: 11/07/21 09:54 Dose: 2 spray Documented by: INOCENCIA Zinc Sulfate (Zinc Sulfate 220 Mg Capsule) 220 mg PO DAILY [facility] Last Admin: 11/07/21 09:55 Dose: 220 mg Documented by: SCOC Labs CBC & Chem 7: 11/06/21 13:51 11/06/21 13:51 Labs: Laboratory Results - last 24 hr 11/06/21 11/06/21 11/06/21 13:51 13:51 13:51 MCV 89.9 MCH 30.2 MCHC 33.6 RDW 12.7 Plt Count 199 MPV 11.1 Immature Gran % (Auto) 0.5 H Neut % (Auto) 71.4 Lymph % (Auto) 19.4 L [place] % (Auto) 8.2 Eos % (Auto) 0.2 Baso % (Auto) 0.3 Lymph # (Auto) 1.3 [place] # (Auto) 0.5 Eos # (Auto) 0.0 Baso # (Auto) 0.0 Abs Immat Gran (auto) 0.03 Absolute Neuts (auto) 4.6 Absolute Nucleated RBC 0.000 Nucleated RBC % (auto) 0.0 Smear Tech's Comments VERIFIED Anion Gap 17 Estim Creat Clear Calc 86.3 Estimated GFR > 60 POC Glucose Random Glucose 276 H Lactic Acid Lactic Acid F/U @ 2Hr Calcium 8.9 D Total Bilirubin 0.5 Direct Bilirubin 0.3 AST 25 ALT 22 Alkaline Phosphatase 57 D Troponin I High Sens 10.0 Total Protein 7.0 Albumin 3.7 Lipase 84 H Urine Color Urine Appearance Urine pH Ur Specific [place] Urine Protein Urine Glucose (UA) Urine Ketones Urine Blood Urine Nitrite Ur Leukocyte Esterase Urine RBC Urine WBC Ur Squamous Epith Cells Urine Bacteria COVID-19 (ABRAHAM) COVID-19 Clin Com 11/06/21 11/06/21 11/06/21 13:51 14:09 17:12 MCV MCH MCHC RDW Plt Count MPV Immature Gran % (Auto) Neut % (Auto) Lymph % (Auto) [place] % (Auto) Eos % (Auto) Baso % (Auto) Lymph # (Auto) [place] # (Auto) Eos # (Auto) Baso # (Auto) Abs Immat Gran (auto) Absolute Neuts (auto) Absolute Nucleated RBC Nucleated RBC % (auto) Smear Tech's Comments Anion Gap Estim Creat Clear Calc Estimated GFR POC Glucose Random Glucose Lactic Acid 3.0 H* Lactic Acid F/U @ 2Hr 1.2 Calcium Total Bilirubin Direct Bilirubin AST ALT Alkaline Phosphatase Troponin I High Sens Total Protein Albumin Lipase Urine Color Urine Appearance Urine pH Ur Specific [place] Urine Protein Urine Glucose (UA) Urine Ketones Urine Blood Urine Nitrite Ur Leukocyte Esterase Urine RBC Urine WBC Ur Squamous Epith Cells Urine Bacteria COVID-19 (ABRAHAM) Positive A COVID-19 Clin Com See Note 11/06/21 11/07/21 11/07/21 21:02 07:37 09:22 MCV MCH MCHC RDW Plt Count MPV Immature Gran % (Auto) Neut % (Auto) Lymph % (Auto) [place] % (Auto) Eos % (Auto) Baso % (Auto) Lymph # (Auto) [place] # (Auto) Eos # (Auto) Baso # (Auto) Abs Immat Gran (auto) Absolute Neuts (auto) Absolute Nucleated RBC Nucleated RBC % (auto) Smear Tech's Comments Anion Gap Estim Creat Clear Calc Estimated GFR POC Glucose 323 H 275 H Random Glucose Lactic Acid Lactic Acid F/U @ 2Hr Calcium Total Bilirubin Direct Bilirubin AST ALT Alkaline Phosphatase Troponin I High Sens Total Protein Albumin Lipase Urine Color YELLOW Urine Appearance CLEAR Urine pH 6.0 Ur Specific [place] 1.020 Urine Protein TRACE Urine Glucose (UA) >=1000 H Urine Ketones 15 Urine Blood NEG Urine Nitrite NEG Ur Leukocyte Esterase NEG Urine RBC 0-2 Urine WBC 0-2 Ur Squamous Epith Cells 3+ Urine Bacteria TRACE COVID-19 (ABRAHAM) COVID-19 Clin Com Assessment and Plan (1) Acute hypoxemic respiratory failure due to COVID-19: Status: Acute (2) COVID: Status: Acute (3) Diabetes: Status: Acute Assessment and Plan: 60 year female with diabetes, obesity unvaccinated for covid who tested positive for covid on 10/27/21 and comes in today with weakness, shortness of breath, cough and diaphoressis with low grade fever and found to be hypOxic 1/Acute Hypoxemic respiratory failure due to COVID-19 -No PNA on CXR -Out of timeframe for effectiveness of Remdesevir -Dexamethasone 6 daily/D2 -O2 by nasal canula and adjust to sat of 90% or better, wean -Incentive spirometry -Proning if able -Vitamins and minieral (Zinc, Vitamin) -Pepcid to mitigate gastritis from steroid. -ID or pulmonology consult if getting worse 2. Diabetes--Uncontrolled -continue Metformin -SSI -Diabetes diet 3. Obesity-Patient is aware of th need to maintain and then make an effort to loose weight DVT prophylaxis--Levenox Quality Stroke Does the patient have a stroke diagnosis?: No VTE Prior VTE?: No VTE Risk Level:: Medical - moderate - high VTE Device Contraindication: Treatment Not Indicated VTE Drug Contraindication: N/A - Med Ordered
[2021-11-07 12:23] LABS: Glucose, Whole Blood 255 mg/dL (60-115)
--- NOTE | 2021-11-07 14:07 | PC.NURSE ---
ana (rn, caretaker [facility], ) [place] [facility] [place] status. 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
[2021-11-07 17:12] LABS: Glucose, Whole Blood 204 mg/dL (60-115)
--- NOTE | 2021-11-07 19:40 | PC.NURSE ---
patient ate 100 % of supper .
[2021-11-07] MEDS: Enoxaparin Sodium 40 MG/0.4 ML SYRINGE SUBCUT (21:30)
[2021-11-07] MEDS: Acetaminophen 325 MG TABLET 650 MG PO (21:58)
[2021-11-07] MEDS: Melatonin 3 MG TABLET 6 MG PO (21:58)
[2021-11-07 22:46] LABS: Glucose, Whole Blood 277 mg/dL (60-115)
[2021-11-08] VITALS (8 sets, daily range): BP systolic 116–127; BP diastolic 56–89; PULSE 69–108; RESP 16–20; TEMP 36.2–37.4; O2SAT 87–96
[2021-11-08 07:40] LABS: Glucose, Whole Blood 224 mg/dL (60-115)
[2021-11-08] MEDS: Famotidine 20 MG TABLET PO ×2 (08:33→21:15)
[2021-11-08] MEDS: Loratadine 10 MG TABLET PO (08:33)
[2021-11-08] MEDS: 0.9 % Sodium Chloride Flush 3 ML SYRINGE IVFLUSH ×3 (08:33→21:15)
[2021-11-08] MEDS: Zinc Sulfate 220 MG CAPSULE PO (08:33)
[2021-11-08] MEDS: metFORMIN HCl 500 MG TABLET PO ×2 (08:34→21:15)
[2021-11-08] MEDS: glipiZIDE XL 10 MG TAB.ER.24 PO (08:34)
[2021-11-08] MEDS: guaiFENesin 100 MG/5 ML LIQUID PO (08:34)
[2021-11-08] MEDS: Ascorbic Acid 500 MG TABLET PO (08:34)
[2021-11-08] MEDS: Escitalopram Oxalate 10 MG TABLET PO (08:34)
[2021-11-08] MEDS: Sodium Chloride 0.65 % Nasal 44 ML SPRBTL 2 SPRAY NOSTRIL-B ×3 (08:34→21:16)
[2021-11-08] MEDS: Nystatin/Triamcinolone Cream 15 GM TUBE 1 APPL TOPICAL ×2 (08:35→21:16)
--- NOTE | 2021-11-08 10:45 | P.PNIM_ITS ---
Subjective Subjective Date of Service: 11/08/21 Interval History: f/u on covid, hypoxia, feels better and generally well, desat on room air and requiring little O2 Review of Systems no fever sob gen weakness Physical Exam Vital Signs: Vital Signs: Last Vital Signs Temp 99.4 F 11/08/21 07:24 Pulse 82 11/08/21 07:24 Resp 16 11/08/21 07:24 BP 118/56 L 11/08/21 07:24 Pulse Ox 91 L 11/08/21 08:45 BMI result Body Mass Index 36.1 Const: Other: General: AO X 3, no acute distress Resp: normal respiratory effort CVS: S1,S2,RRR GI: +BS, NT, no distention Skin: No rash Neuro: motor grossly intact Psych: appropriate affect Objective Data Active Medications Acetaminophen (Acetaminophen 325 Mg Tablet) 650 mg PO Q6H PRN PRN Reason: Pain, Mild (Pain Scale 1-3) Last Admin: 11/07/21 21:58 Dose: 650 mg Documented by: REAL Albuterol Sulfate (Albuterol Sulfate (0.083%) 2.5 Mg/3 Ml Vial.Neb) 2.5 mg INHALE Q4H PRN PRN Reason: shortness of breath or wheezing Albuterol Sulfate (Albuterol Sulfate 90 Mcg 8 Gm Inhaler) 1 puff INHALE Q4H PRN PRN Reason: shortness of breath or wheezing or broncospasm Ascorbic Acid (Ascorbic Acid 500 Mg Tablet) 500 mg PO DAILY [facility] Last Admin: 11/08/21 08:34 Dose: 500 mg Documented by: BERT Docusate Sodium (Docusate Sodium 100 Mg Capsule) 100 mg PO BID [facility] Last Admin: 11/08/21 08:39 Dose: Not Given Documented by: BERT Non-Admin Reason: diarrhea Enoxaparin Sodium (Enoxaparin Sodium 40 Mg/0.4 Ml Syringe) 40 mg SUBCUT Q24H [facility] Last Admin: 11/07/21 21:30 Dose: 40 mg Documented by: REAL Escitalopram Oxalate (Escitalopram Oxalate 10 Mg Tablet) 10 mg PO DAILY [facility] Last Admin: 11/08/21 08:34 Dose: 10 mg Documented by: BERT Famotidine (Famotidine 20 Mg Tablet) 20 mg PO BID [facility] Last Admin: 11/08/21 08:33 Dose: 20 mg Documented by: BERT Fluticasone Propionate (Fluticasone Propionate Nasal 16 Gm [place]) 1 spray NOSTRIL-B DAILY [facility] Last Admin: 11/08/21 08:35 Dose: Not Given Documented by: BERT Non-Admin Reason: Patient Refused Glipizide (Glipizide Xl 10 Mg Tab.Er.24) 10 mg PO DAILY [facility] Last Admin: 11/08/21 08:34 Dose: 10 mg Documented by: BERT Guaifenesin (Guaifenesin 100 Mg/5 Ml Liquid) 5 ml PO DAILY [facility] Last Admin: 11/08/21 08:34 Dose: 5 ml Documented by: BERT Insulin Human Lispro (Insulin Lispro 100 Unit/Ml 3 Ml Vial) 0 unit SUBCUT QIDACHS [facility]; Protocol Last Admin: 11/08/21 08:32 Dose: Not Given Documented by: BERT Non-Admin Reason: Patient Refused Loratadine (Loratadine 10 Mg Tablet) 10 mg PO DAILY [facility] Last Admin: 11/08/21 08:33 Dose: 10 mg Documented by: BERT Magnesium Hydroxide (Milk Of Magnesia 30 Ml Oral.Susp) 30 ml PO DAILY PRN PRN Reason: Constipation Melatonin (Melatonin 3 Mg Tablet) 6 mg PO BEDTIME PRN PRN Reason: Insomnia Last Admin: 11/07/21 21:58 Dose: 6 mg Documented by: REAL Metformin HCl (Metformin Hcl 500 Mg Tablet) 500 mg PO BID [facility] Last Admin: 11/08/21 08:34 Dose: 500 mg Documented by: BERT Nystatin/Triamcinolone Acetonide (Nystatin/Triamcinolone Cream 15 Gm Tube) 1 appl TOPICAL BID [facility] Last Admin: 11/08/21 08:35 Dose: 1 appl Documented by: BERT Oxycodone HCl (Oxycodone Hcl Immed Release 5 Mg Tablet) 5 mg PO Q6H PRN PRN Reason: Pain, Severe (Pain Scale 7-10) Pharmacy Consult (Consult Rx Perform Med Rec) 1 each MISCELLANE ONCE PRN PRN Reason: Consult order Sodium Chloride (0.9 % Sodium Chloride Flush 3 Ml Syringe) 3 ml IVFLUSH QSHIFT [facility] Last Admin: 11/08/21 08:33 Dose: 3 ml Documented by: BERT Sodium Chloride (Sodium Chloride 0.65 % Nasal 44 Ml Sprbtl) 2 spray NOSTRIL-B Q3H [facility] Last Admin: 11/08/21 08:34 Dose: 2 spray Documented by: BERT Zinc Sulfate (Zinc Sulfate 220 Mg Capsule) 220 mg PO DAILY [facility] Last Admin: 11/08/21 08:33 Dose: 220 mg Documented by: BERT Labs CBC & Chem 7: 11/06/21 13:51 11/06/21 13:51 Labs: Laboratory Results - last 24 hr 11/07/21 11/07/21 11/07/21 12:13 16:52 21:27 POC Glucose 255 H 204 H 277 H 11/08/21 07:23 POC Glucose 224 H Microbiology Microbiology Results: Microbiology 11/06/21 14:09 Blood Culture - Preliminary Blood - Venous No growth after 24 hours. 11/06/21 13:51 Blood Culture - Preliminary Blood - Venous No growth after 24 hours. Assessment and Plan (1) Acute hypoxemic respiratory failure due to COVID-19: Status: Acute (2) COVID: Status: Acute (3) Diabetes: Status: Acute Assessment and Plan: 60 year female with diabetes, obesity unvaccinated for covid who tested positive for covid on 10/27/21 and comes in today with weakness, shortness of breath, cough and diaphoressis with low grade fever and found to be hypOxic 1/Acute Hypoxemic respiratory failure due to COVID-19 -No PNA on CXR -Out of timeframe for effectiveness of Remdesevir -Dexamethasone 6 daily/D3 -O2 by nasal canula and adjust to sat of 90% or better, wean -Incentive spirometry -Proning if able -Vitamins and minieral (Zinc, Vitamin) -Pepcid to mitigate gastritis from steroid. -Home O2 eval and possible home today 2. Diabetes--Uncontrolled -continue Metformin -SSI -Diabetes diet 3. Obesity-Patient is aware of th need to maintain and then make an effort to loose weight DVT prophylaxis--Levenox Quality Stroke Does the patient have a stroke diagnosis?: No VTE Prior VTE?: No VTE Risk Level:: Medical - moderate - high VTE Device Contraindication: Treatment Not Indicated VTE Drug Contraindication: N/A - Med Ordered
[2021-11-08 11:46] LABS: Glucose, Whole Blood 189 mg/dL (60-115)
--- NOTE | 2021-11-08 12:07 | PM.DS ---
DS: Providers Provider Date of Service: 11/08/21 Date of admission: 11/06/21 16:24 Primary care physician: Jean Carlos Page MD DS: Diagnosis Discharge Diagnosis (1) Acute hypoxemic respiratory failure due to COVID-19: Status: Acute (2) COVID: Status: Acute (3) Diabetes: Status: Acute DS: Summary Hospital Course Hospital Course: Admission HPI: Chief Complaint: Shortness of breath and weak 60 year female with diabetes, obesity unvaccinated for covid who tested positive for covid on 10/27/21 and comes in today with weakness, shortness of breath, cough and diaphoressis with low grade fever. Reports no cough. She called EMS and found to have O2 of 80% on room air and improved with O2, has low grade temp, tachy to 111. Normal WBC, lymphopenia Patient was admitted and treated with O2, IV steroid and has been doing well, feeling good, breathing easy and is weaned to 1 liter of oxygenand feels comfortable going home. Will discharge to complete course of Dexamethasone and home O2 at 1 liters and probably be able get off fairly soon. Final diagnoses: Acute hypoxic respiratory failure due to covid-19 Time Spent with Patient Time attestation: Total time spent providing and/or coordinating discharge services: Discharge coordination time: Greater than 30 minutes Quality: Stroke Does the patient have a stroke diagnosis?: No Physical Exam Vital Signs: Vital Signs: Last Vital Signs Temp 98.7 F 11/08/21 11:45 Pulse 98 11/08/21 11:45 Resp 18 11/08/21 11:45 BP 116/59 L 11/08/21 11:45 Pulse Ox 94 11/08/21 11:45 BMI result Body Mass Index 36.1 General: AO X 3, no acute distress Resp: CTA bilateral CVS: S1,S2,RRR GI: +BS, NT, no distention Skin: No rash Neuro: motor grossly intact Psych: appropriate affect DS: Data Data Completed and Pending Labs on day of discharge: Laboratory Results - last 24 hr 11/07/21 11/07/21 11/07/21 12:13 16:52 21:27 POC Glucose 255 H 204 H 277 H 11/08/21 11/08/21 07:23 11:43 POC Glucose 224 H 189 H Preliminary micro results at discharge 11/06/21 14:09 Blood Culture - Preliminary Blood - Venous No growth after 24 hours. 11/06/21 13:51 Blood Culture - Preliminary Blood - Venous No growth after 24 hours. Discharge Plan Discharge Anticipated Discharge Date/Time: 11/08/21 11:57 Patient Disposition: Home, Self-Care Discharge Diagnosis: hypoxia due to covid Referrals: Jean Carlos Page MD [Primary Care Provider] - 1 Week Discharge Medications: New dexamethasone [Decadron] 6 mg tablet 6 mg PO DAILY Qty: 7 RF: 0 Continued albuterol sulfate 90 mcg/actuation HFA aerosol inhaler 1 puff inhalation Q4H PRN (Reason: shortness of breath or wheezing or broncospasm) 30 Days Qty: 8.5 RF: 6 fluticasone propionate 50 mcg/actuation spray,suspension 1 spray intranasal DAILY 30 Days Qty: 16 RF: 6 melatonin 5 mg capsule 5 mg PO .ONCE A DAY 90 Days Qty: 90 RF: 2 metformin 500 mg tablet 500 mg PO BID 30 Days Qty: 60 RF: 3 glipizide 10 mg tablet extended release 24hr 10 mg PO DAILY Qty: 30 RF: 2 sodium chloride 0.65 % aerosol,spray 2 spray intranasal Q3H RF: 0 loratadine 10 mg tablet 10 mg PO DAILY RF: 0 clotrimazole-betamethasone 1-0.05 % cream 1 appl topical BID 14 Days Qty: 15 RF: 0 ibuprofen 800 mg tablet 800 mg PO TID PRN (Reason: pain) 30 Days Qty: 90 RF: 3 citalopram 20 mg tablet 20 mg PO DAILY 30 Days Qty: 30 RF: 2 albuterol sulfate 2.5 mg /3 mL (0.083 %) solution for nebulization 2.5 mg inhalation Q4-6H PRN (Reason: shortness of breath or wheezing) 30 Days Qty: 180 RF: 1 Diet: advance to usual diet Activity on Discharge: As tolerated Stand Alone Forms: Patient Portal Discharge page Care Plan Goals: Ful recovery from covid Health Concerns: covid Plan of Treatment: Take Dexamethasone as directed, follow isolation guidelines and follow up with your Doctor in a week Use oxygen as directed and follow up with your Doctor in a week Follow CDC covid isolation guidiline, isolation for 5 days Assessment: as above
[2021-11-08] MEDS: Enoxaparin Sodium 40 MG/0.4 ML SYRINGE SUBCUT (18:02)
[2021-11-08] MEDS: Acetaminophen 325 MG TABLET 650 MG PO (18:03)
[2021-11-08 20:58] LABS: Glucose, Whole Blood 108 mg/dL (60-115)
[2021-11-08] MEDS: Melatonin 3 MG TABLET 6 MG PO (21:15)
[2021-11-09 03:50] VITALS: BP 109/67; PULSE 73; RESP 18; TEMP 36.2; O2SAT 94
[2021-11-09] MEDS: Acetaminophen 325 MG TABLET 650 MG PO (04:00)
[2021-11-09] MEDS: Sodium Chloride 0.65 % Nasal 44 ML SPRBTL 2 SPRAY NOSTRIL-B ×2 (04:01→09:37)
[2021-11-09 07:42] LABS: Glucose, Whole Blood 112 mg/dL (60-115)
[2021-11-09 08:00] VITALS: BP 123/56; PULSE 72; RESP 16; TEMP 36.4; O2SAT 94
--- NOTE | 2021-11-09 08:41 | P.EN_ITS ---
Event Note Date of Service: 11/09/21 Event Note: Patient was discharged on 11/08/21 and last minutes said her ride co uld not get and stay overnight for that purpose, no issue overnight. Vitals reviewed and stable. Her effective discharge date remains 11/08/21.
[2021-11-09] MEDS: Ascorbic Acid 500 MG TABLET PO (09:35)
[2021-11-09] MEDS: Zinc Sulfate 220 MG CAPSULE PO (09:35)
[2021-11-09] MEDS: guaiFENesin 100 MG/5 ML LIQUID PO (09:35)
[2021-11-09] MEDS: glipiZIDE XL 10 MG TAB.ER.24 PO (09:35)
[2021-11-09] MEDS: 0.9 % Sodium Chloride Flush 3 ML SYRINGE IVFLUSH (09:36)
[2021-11-09] MEDS: Famotidine 20 MG TABLET PO (09:36)
[2021-11-09] MEDS: Loratadine 10 MG TABLET PO (09:36)
[2021-11-09] MEDS: Escitalopram Oxalate 10 MG TABLET PO (09:36)
[2021-11-09] MEDS: metFORMIN HCl 500 MG TABLET PO (09:37)
[2021-11-09] MEDS: Fluticasone Propionate Nasal 16 GM SPRAY 1 SPRAY NOSTRIL-B (09:37)
[2021-11-09] MEDS: Nystatin/Triamcinolone Cream 15 GM TUBE 1 APPL TOPICAL (09:37)
--- NOTE | 2021-11-09 10:05 | MHC.CM.PN ---
CM INFORMED PT WAS DISCHARGED YESTERDAY HOWEVER WAS UNABLE TO FIND A RIDE HOME. PT APPEARS TO QUALIFY FOR BLS TRANSPORT BLS WAS REQUESTED FOR 1100 HOURS.
== END 2021-11-09 11:50 | disposition home or self-care (01) | DRG 137 ==
LOC: HO.ED 14:23 → HO.EDOVER 16:46 → HO.IMC 11-07 19:31
PROVIDERS: Admitting Provider Internal Medicine; Emergency Provider Student in an Organized Health Care Education/Training Program; PCP Family Medicine; Visit Provider Internal Medicine
DX: U07.1 COVID-19 (principal); J96.01 Acute respiratory failure with hypoxia; E11.9 Type 2 diabetes mellitus without complications; E66.9 Obesity, unspecified; Z68.36 Body mass index [BMI] 36.0-36.9, adult; Z79.1 Long term (current) use of non-steroidal anti-inflammatories (NSAID); Z87.01 Personal history of pneumonia (recurrent); Z79.51 Long term (current) use of inhaled steroids; Z79.84 Long term (current) use of oral hypoglycemic drugs; Z79.899 Other long term (current) drug therapy
CPT/HCPCS: 36415; 71045; 80048; 80076; 81001; 82947; 83605; 83690; 84484; 85025; 87040; 87635; 93005; 96361; 96374; 96375; 99285; 99291; J1100; J1650; J1885

== ENCOUNTER 2022-02-05 03:26 | Emergency (ER) | payer OTHER, SELFPAY ==
[2022-02-05 03:33] VITALS: BP 152/85; PULSE 85; RESP 16; TEMP 36.6; O2SAT 95; BMI 35.6
[2022-02-05 03:50] LABS: Glucose, Whole Blood 441 mg/dL (60-115)
--- NOTE | 2022-02-05 03:58 | ED.GENADULT ---
HPI - General Adult General Chief complaint: General Medical Stated complaint: high blood glucose 500+ ; urinating frequently Time Seen by Provider: 02/05/22 03:47 Source: patient Mode of arrival: ambulatory Limitations: no limitations History of Present Illness MD complaint: hyperglycemia reading HI at home Onset (ago): hour(s) (approx 12 hours) Severity: moderate Relieving factors: none Exacerbating factors: eating and other (hasn't been good with her DM diet, didn't take metformin at night) Associated symptoms: other (frequent urination) Treatments prior to arrival: none Related Data Previous Rx's Medication Instructions Recorded albuterol sulfate 90 mcg/actuation 1 puff INHALATION Q4H PRN 30 Days 10/24/20 aerosol inhaler #8.5 g albuterol sulfate 2.5 mg (3 mL) INHALATION Q4-6H PRN 10/27/21 30 Days #180 ml melatonin 5 mg capsule 5 mg PO .ONCE A DAY 90 Days #90 cap 11/20/21 nebulizers #1 ea 11/24/21 metformin 500 mg tablet 500 mg PO BID 30 Days #60 tab 12/15/21 lancets 28 gauge (FreeStyle #100 ea 12/18/21 Lancets) ibuprofen 800 mg tablet 800 mg PO TID PRN 30 Days #90 tab 12/23/21 glipizide 10 mg tablet, extended 10 mg PO DAILY #30 tab 01/20/22 release 24 hr Allergies Allergy/AdvReac Type Severity Reaction Status Date / Time No Known Allergies Allergy Verified 01/22/22 11:27 Review of Systems Review of Systems: Constitutional : No Weight loss, No Fever, No Chills, No Fatigue, No Malaise ENT/Mouth : No sore throat, No Rhinorrhea Eyes: No Eye Pain, No Swelling, No Redness Cardiovascular : No Chest Pain, No SOB, No Dyspnea on Exertion, No Orthopnea, No Edema, No Palpitations Respiratory : No Cough, No Sputum, No Wheezing Gastrointestinal : No Nausea, No Vomiting, No Diarrhea, No Constipation, No abdominal Pain, No Hematochezia, No Melena Genitourinary : No Dysuria, No Urinary Frequency, No Hematuria, Musculoskeletal : No joint pain, No Myalgias, No Joint Swelling Skin : No Skin Lesions, No rash Neuro : No Weakness, No Numbness, No Dizziness, No Headache Psych : No Anxiety/Panic, No Depression Heme/Lymph: No Bruising, No Bleeding,No Lymphadenopathy Endocrine : pos Polyuria, pos Polydipsia All other systems reviewed and are negative [facility] Past Medical History Attestation statement: The following information was validated with the patient. Medical History Bilateral shoulder pain Chronic back pain Depression with anxiety Diabetes Diabetic peripheral neuropathy Excessive daytime sleepiness Obesity (Unknown) Pneumonia Seasonal allergic rhinitis Sleep apnea Vaginal dryness Surgical History History of cholecystectomy History of colonoscopy History of tonsillectomy Left patella fracture Family History Family History Father Prostate cancer Parkinsons Mother Stroke Son No problems noted. Son No problems noted. Daughter No problems noted. Sister Lung cancer Social History Social History Household Members: None Housing: Apartment Do you presently have visiting nurse or other home services: No Alcohol intake: never Patient Tobacco Use Status: Never used Tobacco e-Cigarette/Vaping Use: Never Used Second Hand Smoke Exposure: No Advance Directives: Yes Advance Directives on File: Yes Advance Directives Date on File: 11/07/21 Patient : No service: No Current occupational status: disabled Cognitive needs: No Hearing needs: No Vision needs: No Physical Exam ED Vital Signs: Vital Signs - 24 hr 02/05/22 03:33 02/05/22 04:06 Temperature 97.9 F 97.7 F Pulse Rate 85 86 Respiratory Rate 16 12 Blood Pressure 152/85 H 132/83 Pulse Oximetry 95 98 BMI result Body Mass Index 35.6 Appearance: Alert. Oriented X3. No acute distress. Eyes: Pupils equal, round and reactive to light. ENT: Pharynx normal. Neck: Normal inspection. Neck supple. CVS: Normal heart rate and rhythm. Pulses normal. Respiratory: No respiratory distress. Breath sounds normal. Abdomen: Soft and non-tender. Skin: Skin warm and dry. Normal skin color. Normal skin turgor. Extremities: No lower extremity edema. No calf ttp Neuro: Oriented X 3. No motor deficit. No sensory deficit. Course Course Course Narrative: BS decreased. stable for DC Medical Decision Making MDM Narrative Medical decision making narrative: 61 yo female with hx of poorly controlled DM due to diet comes in with blood sugar reading high - denies CP or infectious symptoms she notes she is not eating well and missed taking her metformin at night. At this time will obtain basic labs, UA, IVF and IV insulin. Discussed eating better and taking her metformin, c/o some vaginal itching - will order diflucan. Lab Data Result diagrams: 02/05/22 03:58 02/05/22 03:58 Labs: Lab Results 02/05/22 02/05/22 02/05/22 Range/Units 03:46 03:58 03:58 WBC 8.5 (4.8-10.8) X10*3/uL RBC 4.93 (4.20-5.50) X10*6/uL Hgb 14.8 (12.0-16.0) g/dl Hct 44.2 (37.0-47.0) % MCV 89.7 (80.0-98.0) fL MCH 30.0 (27.0-33.0) pg MCHC 33.5 (31.0-35.0) g/dl RDW 12.7 (11.0-16.0) % Plt Count 246 (160-400) X10*3/uL MPV 11.0 (9.4-12.3) fL Immature Gran % (Auto) 0.2 (0.0-0.4) % Neut % (Auto) 47.5 (45-73) % Lymph % (Auto) 41.0 H (20-40) % [place] % (Auto) 9.4 (2-11) % Eos % (Auto) 1.3 (0-4) % Baso % (Auto) 0.6 (0-2) % Lymph # (Auto) 3.5 (1.2-4.9) X10*3/uL [place] # (Auto) 0.8 (0.1-1.2) X10*3/uL Eos # (Auto) 0.1 (0.0-0.4) X10*3/uL Baso # (Auto) 0.1 (0.0-0.2) X10*3/uL Abs Immat Gran (auto) 0.02 (0.00-0.03) X10*3/uL Absolute Neuts (auto) 4.0 (2.0-8.3) x10*3/uL Absolute Nucleated RBC 0.000 (0.0-0.012) X10*3/uL Nucleated RBC % (auto) 0.0 (0.0-0.2) /100WBC Sodium 134 L (135-145) mmol/L Potassium 4.2 (3.3-5.1) mmol/L Chloride 97 (96-108) mmol/L Carbon Dioxide 24 (22-29) mmol/L Anion Gap 17 (12-20) BUN 12 (9-16) mg/dL Creatinine 0.86 (0.5-1.4) mg/dL Estim Creat Clear Calc 75.5 Estimated GFR > 60 POC Glucose 441 H* (60-115) mg/dL Random Glucose 480 H* (60-115) mg/dL Calcium 9.8 D (8.4-10.2) mg/dL Magnesium 2.0 (1.6-2.6) mg/dL Total Bilirubin 0.5 (0.0-1.0) mg/dL Direct Bilirubin 0.2 (0.0-0.5) mg/dL AST 20 (5-31) U/L ALT 27 (0-31) U/L Alkaline Phosphatase 149 H D (39-117) U/L Total Protein 7.5 (6.5-8.0) g/dL Albumin 4.2 (3.5-5.0) g/dL Urine Color Urine Appearance Urine pH (5.0-8.0) Ur Specific [place] (1.005-1.025) Urine Protein (NEG-TRACE) MG/DL Urine Glucose (UA) (NEG) MG/DL Urine Ketones (NEG) MG/DL Urine Blood (NEG) Urine Nitrite (NEG) Ur Leukocyte Esterase (NEG) Urine RBC (0) /HPF Urine WBC (0-4) /HPF Ur Squamous Epith Cells /LPF Urine Bacteria /LPF 02/05/22 Range/Units 04:12 WBC (4.8-10.8) X10*3/uL RBC (4.20-5.50) X10*6/uL Hgb (12.0-16.0) g/dl Hct (37.0-47.0) % MCV (80.0-98.0) fL MCH (27.0-33.0) pg MCHC (31.0-35.0) g/dl RDW (11.0-16.0) % Plt Count (160-400) X10*3/uL MPV (9.4-12.3) fL Immature Gran % (Auto) (0.0-0.4) % Neut % (Auto) (45-73) % Lymph % (Auto) (20-40) % [place] % (Auto) (2-11) % Eos % (Auto) (0-4) % Baso % (Auto) (0-2) % Lymph # (Auto) (1.2-4.9) X10*3/uL [place] # (Auto) (0.1-1.2) X10*3/uL Eos # (Auto) (0.0-0.4) X10*3/uL Baso # (Auto) (0.0-0.2) X10*3/uL Abs Immat Gran (auto) (0.00-0.03) X10*3/uL Absolute Neuts (auto) (2.0-8.3) x10*3/uL Absolute Nucleated RBC (0.0-0.012) X10*3/uL Nucleated RBC % (auto) (0.0-0.2) /100WBC Sodium (135-145) mmol/L Potassium (3.3-5.1) mmol/L Chloride (96-108) mmol/L Carbon Dioxide (22-29) mmol/L Anion Gap (12-20) BUN (9-16) mg/dL Creatinine (0.5-1.4) mg/dL Estim Creat Clear Calc Estimated GFR POC Glucose (60-115) mg/dL Random Glucose (60-115) mg/dL Calcium (8.4-10.2) mg/dL Magnesium (1.6-2.6) mg/dL Total Bilirubin (0.0-1.0) mg/dL Direct Bilirubin (0.0-0.5) mg/dL AST (5-31) U/L ALT (0-31) U/L Alkaline Phosphatase (39-117) U/L Total Protein (6.5-8.0) g/dL Albumin (3.5-5.0) g/dL Urine Color YELLOW Urine Appearance CLEAR Urine pH 5.5 (5.0-8.0) Ur Specific [place] 1.010 (1.005-1.025) Urine Protein NEG (NEG-TRACE) MG/DL Urine Glucose (UA) >=1000 H (NEG) MG/DL Urine Ketones NEG (NEG) MG/DL Urine Blood NEG (NEG) Urine Nitrite NEG (NEG) Ur Leukocyte Esterase NEG (NEG) Urine RBC 0 (0) /HPF Urine WBC 0-2 (0-4) /HPF Ur Squamous Epith Cells 1+ /LPF Urine Bacteria NONE /LPF Discharge Plan Discharge Clinical Impression: Acute hyperglycemia, Vaginal yeast infection Patient Disposition: Home, Self-Care Instructions: Yeast Infection (ED), Diabetic Hyperglycemia (ED), Diabetes and Nutrition (ED) Additional Instructions: take your medications today. please try to eat a better diet follow up with your doctor as needed Prescriptions: No Action albuterol sulfate 90 mcg/actuation HFA aerosol inhaler 1 puff inhalation Q4H PRN (Reason: shortness of breath or wheezing or broncospasm) 30 Days Qty: 8.5 6RF (DME) nebulizers Misc See Rx Instructions .Route Qty: 1 0RF Rx Instructions: Use every 4-6 hours prn for wheezing, shortness of breath metformin 500 mg tablet 500 mg PO BID 30 Days Qty: 60 3RF (DME) lancets [FreeStyle Lancets] [facility] See Rx Instructions .ROUTE .MEDSUPPLY Qty: 100 5RF Rx Instructions: bid and prn glucose testing glipizide 10 mg tablet extended release 24hr 10 mg PO DAILY Qty: 30 2RF melatonin 5 mg capsule 5 mg PO .ONCE A DAY 90 Days Qty: 90 2RF albuterol sulfate 2.5 mg /3 mL (0.083 %) solution for nebulization 2.5 mg inhalation Q4-6H PRN (Reason: shortness of breath or wheezing) 30 Days Qty: 180 1RF ibuprofen 800 mg tablet 800 mg PO TID PRN (Reason: pain) 30 Days Qty: 90 3RF
[2022-02-05 04:04] LABS: Basophils Absolute Auto 0.1 X10*3/uL (0.0-0.2); Basophils Percent Auto 0.6 % (0-2); Eosinophils Absolute Auto 0.1 X10*3/uL (0.0-0.4); Eosinophils Percent Auto 1.3 % (0-4); Hematocrit 44.2 % (37.0-47.0); Hemoglobin 14.8 g/dl (12.0-16.0); Imm Gran Abs Auto 0.02 X10*3/uL (0.00-0.03); Imm Gran Pct Auto 0.2 % (0.0-0.4); Lymphocytes Absolute Auto 3.5 X10*3/uL (1.2-4.9); MANUAL DIFF FLAG NO; Mean Corpuscular HGB Conc 33.5 g/dl (31.0-35.0); Mean Corpuscular Volume 89.7 fL (80.0-98.0); Monocytes Absolute Auto 0.8 X10*3/uL (0.1-1.2); Monocytes Percent Auto 9.4 % (2-11); Neutrophils Percent Auto 47.5 % (45-73); Platelet Count 246 X10*3/uL (160-400); Red Blood Count 4.93 X10*6/uL (4.20-5.50); Red Cell Distribution Width 12.7 % (11.0-16.0); White Blood Count 8.5 X10*3/uL (4.8-10.8)
[2022-02-05 04:06] VITALS: BP 132/83; PULSE 86; RESP 12; TEMP 36.5; O2SAT 98
[2022-02-05] MEDS: Insulin Regular, Human 100 UNIT/ML 3 ML VIAL IVPUSH (04:14)
[2022-02-05] MEDS: 0.9 % Sodium Chloride 1,000 ML 999 ML IVCONT (04:15)
[2022-02-05 04:19] LABS: Appearance Urine CLEAR; Color Urine YELLOW; Glucose Urine UA >=1000 MG/DL (NEG); Leukocyte Esterase Urine NEG (NEG); Nitrite Urine NEG (NEG); PH 5.5 (5.0-8.0); Urine Blood NEG (NEG); Urine Ketones NEG (NEG); Urine Protein NEG (NEG-TRACE)
[2022-02-05 04:24] LABS: RBC Urine 0 /HPF (0); Squamous Epithelial Cell Urine 1+ /LPF; WBC Urine 0-2 /HPF (0-4)
[2022-02-05 04:31] LABS: Alanine Aminotransferase 27 U/L (0-31); Albumin Level 4.2 g/dL (3.5-5.0); Alkaline Phosphatase 149 U/L (39-117); Anion Gap 17 (12-20); Aspartate Amino Transferase 20 U/L (5-31); Bilirubin Direct 0.2 mg/dL (0.0-0.5); Bilirubin Total 0.5 mg/dL (0.0-1.0); Blood Urea Nitrogen 12 mg/dL (9-16); Calcium 9.8 mg/dL (8.4-10.2); Carbon Dioxide 24 mmol/L (22-29); Chloride 97 mmol/L (96-108); Creatinine Clr Calc Pharmacy 75.5; Estimated Glomerular Filt Rate > 60; Glucose Random 480 mg/dL (60-115); Potassium 4.2 mmol/L (3.3-5.1); Sodium 134 mmol/L (135-145); Total Protein 7.5 g/dL (6.5-8.0)
[2022-02-05] MEDS: Fluconazole 100 MG TABLET PO (04:35)
[2022-02-05 05:07] LABS: Glucose, Whole Blood 294 mg/dL (60-115)
[2022-02-05 05:28] VITALS: BP 124/78; PULSE 75; RESP 16; TEMP 37.1; O2SAT 96
== END 2022-02-05 05:33 | disposition home or self-care (01) ==
PROVIDERS: Emergency Provider Emergency Medicine; PCP Family Medicine
DX: E11.65 Type 2 diabetes mellitus with hyperglycemia (principal); B37.3 Candidiasis of vulva and vagina
CPT/HCPCS: 36415; 80048; 80076; 81001; 82947; 83735; 85025; 96361; 96374; 99283; 99284

== ENCOUNTER 2022-03-16 15:22 | Emergency (ER) | payer OTHER, SELFPAY ==
--- NOTE | 2022-03-16 | ECG_ITS ---
Test Reason : diffivulty breathing Blood Pressure : / mmHG Vent. Rate : 088 BPM Atrial Rate : 088 BPM P-R Int : 148 ms QRS Dur : 086 ms QT Int : 362 ms P-R-T Axes : 032 -48 026 degrees QTc Int : 438 ms Normal sinus rhythm Left axis deviation Abnormal ECG When compared with ECG of 06-NOV-2021 14:11, No significant change was found Referred By: Generic ED Physician Electronically Signed By:KAVON EASON
--- NOTE | ~2022-03-16 | XR_ITS ---
EXAMINATION: XR CHEST CLINICAL INFORMATION: Pain COMPARISON: 11/06/2021 TECHNIQUE: Frontal view of the chest was obtained. FINDINGS: Normal symmetric lung volumes. No parenchymal consolidation. No pleural effusion. No pneumothorax. Cardiomediastinal silhouette and pulmonary vascularity are within normal limits. Aorta is atherosclerotic. No acute osseous abnormalities. XR/XR chest 1V IMPRESSION: No acute findings
[2022-03-16 15:44] VITALS: BP 128/74; PULSE 97; RESP 18; TEMP 36.9; O2SAT 95; BMI 34.3
[2022-03-16 16:20] LABS: MANUAL DIFF FLAG NO
[2022-03-16 16:24] LABS: Basophils Absolute Auto 0.1 X10*3/uL (0.0-0.2); Basophils Percent Auto 0.5 % (0-2); Eosinophils Absolute Auto 0.1 X10*3/uL (0.0-0.4); Eosinophils Percent Auto 0.9 % (0-4); Hematocrit 44.8 % (37.0-47.0); Imm Gran Abs Auto 0.03 X10*3/uL (0.00-0.03); Imm Gran Pct Auto 0.3 % (0.0-0.4); Lymphocytes Absolute Auto 3.5 X10*3/uL (1.2-4.9); Lymphocytes Percent Auto 35.5 % (20-40); Mean Corpuscular HGB Conc 33.5 g/dl (31.0-35.0); Mean Corpuscular Hemoglobin 30.1 pg (27.0-33.0); Mean Corpuscular Volume 89.8 fL (80.0-98.0); Mean Platelet Volume 10.5 fL (9.4-12.3); Monocytes Absolute Auto 0.9 X10*3/uL (0.1-1.2); Monocytes Percent Auto 8.7 % (2-11); Neutrophils Absolute Auto 5.3 x10*3/uL (2.0-8.3); Neutrophils Percent Auto 54.1 % (45-73); Platelet Count 290 X10*3/uL (160-400); Red Blood Count 4.99 X10*6/uL (4.20-5.50); Red Cell Distribution Width 12.8 % (11.0-16.0); White Blood Count 9.7 X10*3/uL (4.8-10.8)
[2022-03-16 16:37] LABS: D Dimer High Sensitivity 170 NG/ML
[2022-03-16 16:43] LABS: Anion Gap 15 (12-20); Blood Urea Nitrogen 17 mg/dL (9-16); Calcium 10.8 mg/dL (8.4-10.2); Carbon Dioxide 23 mmol/L (22-29); Chloride 105 mmol/L (96-108); Creatinine Clr Calc Pharmacy 66.2; Estimated Glomerular Filt Rate 59; Glucose Random 274 mg/dL (60-115); Potassium 4.5 mmol/L (3.3-5.1); Sodium 138 mmol/L (135-145)
[2022-03-17 00:19] LABS: COVID-19 Test Negative (Negative); IDNOW Serial# 55D5AD1C
[2022-03-17 00:20] LABS: Influenza A Negative (Negative); Influenza B2 Negative (Negative)
[2022-03-17 01:50] VITALS: BP 130/65; PULSE 74; RESP 18; O2SAT 99
[2022-03-17 02:41] VITALS: BP 132/68; PULSE 71; RESP 18; O2SAT 99
--- NOTE | 2022-03-17 02:45 | ED_ITS ---
HPI - SOB/Dyspnea General Chief Complaint: Dyspnea Stated Complaint: diff breathing Time Seen by Provider: 03/17/22 02:32 Source: patient Mode of arrival: ambulatory History of Present Illness HPI Narrative: 61-year-old female with right posterior chest wall pain that is been chronic in nature for months and then over the past 3 weeks the patient states it has worsened. Patient is status post cholecystectomy, and denies any associated fever, chills, nausea, vomiting and denies any chest pain/palpitations/shortness of breath but states that sometimes the pain makes her ?catch her breath?. Related Data Previous Rx's Medication Instructions Recorded albuterol sulfate 90 mcg/actuation 1 puff INHALATION Q4H PRN 30 Days 10/24/20 aerosol inhaler #8.5 g albuterol sulfate 2.5 mg (3 mL) INHALATION Q4-6H PRN 10/27/21 30 Days #180 ml melatonin 5 mg capsule 5 mg PO .ONCE A DAY 90 Days #90 cap 11/20/21 nebulizers #1 ea 11/24/21 metformin 500 mg tablet 500 mg PO BID 30 Days #60 tab 12/15/21 lancets 28 gauge (FreeStyle #100 ea 12/18/21 Lancets) ibuprofen 800 mg tablet 800 mg PO TID PRN 30 Days #90 tab 12/23/21 glipizide 10 mg tablet, extended 10 mg PO DAILY #30 tab 01/20/22 release 24 hr cyclobenzaprine 5 mg tablet 5 mg PO BEDTIME PRN #4 tab 03/17/22 ketorolac 10 mg tablet 10 mg PO Q6H PRN 5 Days #20 tab 03/17/22 Allergies Allergy/AdvReac Type Severity Reaction Status Date / Time No Known Allergies Allergy Verified 03/16/22 15:44 Review of Systems Review of Systems: Pertinent positives and negatives as stated in HPI and 10 point review of systems is otherwise negative. [facility] Past Medical History Source: nursing notes reviewed Medical History Bilateral shoulder pain Chronic back pain Depression with anxiety Diabetes Diabetic peripheral neuropathy Excessive daytime sleepiness Obesity (Unknown) Pneumonia Seasonal allergic rhinitis Sleep apnea Vaginal dryness Surgical History History of cholecystectomy History of colonoscopy History of tonsillectomy Left patella fracture Family History Family History Father Prostate cancer Parkinsons Mother Stroke Son No problems noted. Son No problems noted. Daughter No problems noted. Sister Lung cancer Social History Social History Household Members: None Housing: Apartment Do you presently have visiting nurse or other home services: No Alcohol intake: never Patient Tobacco Use Status: Never used Tobacco e-Cigarette/Vaping Use: Never Used Second Hand Smoke Exposure: No Advance Directives: Yes Advance Directives on File: Yes Advance Directives Date on File: 11/07/21 service: No Current occupational status: disabled Cognitive needs: No Hearing needs: No Vision needs: No Physical Exam Vital Signs: Vital Signs: Last Vital Signs Temp 98.5 F 03/16/22 15:44 Pulse 71 03/17/22 02:41 Resp 18 03/17/22 02:41 BP 132/68 03/17/22 02:41 Pulse Ox 99 03/17/22 02:41 BMI result Body Mass Index 34.3 VITAL SIGNS: Reviewed. GENERAL: Well developed, well nourished, in no acute distress. HEAD: Normocephalic/atraumatic EYES: PERRLA, EOMI EARS: Ext canals without abnormality OROPHARYNX: no oral lesions noted, posterior pharynx clear LUNGS: Normal breath sounds. No adventitious sounds or accessory muscle use. SpO2<99> CARDIOVASCULAR: Regular rate and rhythm without noted murmurs ABDOMEN: Soft, non-tender, non-distended with bowel sounds, no CVA tenderness BACK: No midline vertebral tenderness, muscle spasm noted at the infra scapular area at the posterior axillary line MUSCULOSKELETAL: No tenderness, deformities, or effusions noted on gross inspection. EXTREMITIES: No cyanosis, clubbing or edema. SKIN: Inspection of the skin reveals no rashes NEUROLOGIC: Alert and oriented x 4. Strength and sensation to light touch were grossly intact x 4. Course Course Course Narrative: This is a 61-year-old female with history and clinical presentation most consistent with muscle spasm/back pain and low clinical suspicion after review of all investigations of any pyelonephritis, renal colic, pneumonia, pancreatitis or gastritis. Review of all investigations otherwise negative for acute findings, results discussed with patient at bedside and she was otherwise discharged home in stable condition MDM - SOB/Dyspnea Lab Data Result diagrams: 03/16/22 16:13 03/16/22 16:13 Labs: Lab Results 03/16/22 03/16/22 03/16/22 Range/Units 16:13 16:13 16:13 WBC 9.7 (4.8-10.8) X10*3/uL RBC 4.99 (4.20-5.50) X10*6/uL Hgb 15.0 (12.0-16.0) g/dl Hct 44.8 (37.0-47.0) % MCV 89.8 (80.0-98.0) fL MCH 30.1 (27.0-33.0) pg MCHC 33.5 (31.0-35.0) g/dl RDW 12.8 (11.0-16.0) % Plt Count 290 (160-400) X10*3/uL MPV 10.5 (9.4-12.3) fL Immature Gran % (Auto) 0.3 (0.0-0.4) % Neut % (Auto) 54.1 (45-73) % Lymph % (Auto) 35.5 (20-40) % [place] % (Auto) 8.7 (2-11) % Eos % (Auto) 0.9 (0-4) % Baso % (Auto) 0.5 (0-2) % Lymph # (Auto) 3.5 (1.2-4.9) X10*3/uL [place] # (Auto) 0.9 (0.1-1.2) X10*3/uL Eos # (Auto) 0.1 (0.0-0.4) X10*3/uL Baso # (Auto) 0.1 (0.0-0.2) X10*3/uL Abs Immat Gran (auto) 0.03 (0.00-0.03) X10*3/uL Absolute Neuts (auto) 5.3 (2.0-8.3) x10*3/uL Absolute Nucleated RBC 0.000 (0.0-0.012) X10*3/uL Nucleated RBC % (auto) 0.0 (0.0-0.2) /100WBC D-Dimer High Sensitivty 170 NG/ML Sodium 138 (135-145) mmol/L Potassium 4.5 (3.3-5.1) mmol/L Chloride 105 (96-108) mmol/L Carbon Dioxide 23 (22-29) mmol/L Anion Gap 15 (12-20) BUN 17 H (9-16) mg/dL Creatinine 0.96 (0.5-1.4) mg/dL Estim Creat Clear Calc 66.2 Estimated GFR 59 Random Glucose 274 H (60-115) mg/dL Calcium 10.8 H D (8.4-10.2) mg/dL B-Natriuretic Peptide (<100) pg/mL Urine Color Urine Appearance Urine pH (5.0-8.0) Ur Specific [place] (1.005-1.025) Urine Protein (NEG-TRACE) MG/DL Urine Glucose (UA) (NEG) MG/DL Urine Ketones (NEG) MG/DL Urine Blood (NEG) Urine Nitrite (NEG) Ur Leukocyte Esterase (NEG) COVID-19 (ABRAHAM) (Negative) COVID-19 Clin Com Influenza Type A (STEVEN) (Negative) Influenza Type B (STEVEN) (Negative) Influenza A & B Note 03/16/22 03/16/22 03/17/22 Range/Units 23:28 23:28 02:51 WBC (4.8-10.8) X10*3/uL RBC (4.20-5.50) X10*6/uL Hgb (12.0-16.0) g/dl Hct (37.0-47.0) % MCV (80.0-98.0) fL MCH (27.0-33.0) pg MCHC (31.0-35.0) g/dl RDW (11.0-16.0) % Plt Count (160-400) X10*3/uL MPV (9.4-12.3) fL Immature Gran % (Auto) (0.0-0.4) % Neut % (Auto) (45-73) % Lymph % (Auto) (20-40) % [place] % (Auto) (2-11) % Eos % (Auto) (0-4) % Baso % (Auto) (0-2) % Lymph # (Auto) (1.2-4.9) X10*3/uL [place] # (Auto) (0.1-1.2) X10*3/uL Eos # (Auto) (0.0-0.4) X10*3/uL Baso # (Auto) (0.0-0.2) X10*3/uL Abs Immat Gran (auto) (0.00-0.03) X10*3/uL Absolute Neuts (auto) (2.0-8.3) x10*3/uL Absolute Nucleated RBC (0.0-0.012) X10*3/uL Nucleated RBC % (auto) (0.0-0.2) /100WBC D-Dimer High Sensitivty NG/ML Sodium (135-145) mmol/L Potassium (3.3-5.1) mmol/L Chloride (96-108) mmol/L Carbon Dioxide (22-29) mmol/L Anion Gap (12-20) BUN (9-16) mg/dL Creatinine (0.5-1.4) mg/dL Estim Creat Clear Calc Estimated GFR Random Glucose (60-115) mg/dL Calcium (8.4-10.2) mg/dL B-Natriuretic Peptide < 10 (<100) pg/mL Urine Color Urine Appearance Urine pH (5.0-8.0) Ur Specific [place] (1.005-1.025) Urine Protein (NEG-TRACE) MG/DL Urine Glucose (UA) (NEG) MG/DL Urine Ketones (NEG) MG/DL Urine Blood (NEG) Urine Nitrite (NEG) Ur Leukocyte Esterase (NEG) COVID-19 (ABRAHAM) Negative (Negative) COVID-19 Clin Com See Note Influenza Type A (STEVEN) Negative (Negative) Influenza Type B (STEVEN) Negative (Negative) Influenza A & B Note See Note 03/17/22 Range/Units 03:02 WBC (4.8-10.8) X10*3/uL RBC (4.20-5.50) X10*6/uL Hgb (12.0-16.0) g/dl Hct (37.0-47.0) % MCV (80.0-98.0) fL MCH (27.0-33.0) pg MCHC (31.0-35.0) g/dl RDW (11.0-16.0) % Plt Count (160-400) X10*3/uL MPV (9.4-12.3) fL Immature Gran % (Auto) (0.0-0.4) % Neut % (Auto) (45-73) % Lymph % (Auto) (20-40) % [place] % (Auto) (2-11) % Eos % (Auto) (0-4) % Baso % (Auto) (0-2) % Lymph # (Auto) (1.2-4.9) X10*3/uL [place] # (Auto) (0.1-1.2) X10*3/uL Eos # (Auto) (0.0-0.4) X10*3/uL Baso # (Auto) (0.0-0.2) X10*3/uL Abs Immat Gran (auto) (0.00-0.03) X10*3/uL Absolute Neuts (auto) (2.0-8.3) x10*3/uL Absolute Nucleated RBC (0.0-0.012) X10*3/uL Nucleated RBC % (auto) (0.0-0.2) /100WBC D-Dimer High Sensitivty NG/ML Sodium (135-145) mmol/L Potassium (3.3-5.1) mmol/L Chloride (96-108) mmol/L Carbon Dioxide (22-29) mmol/L Anion Gap (12-20) BUN (9-16) mg/dL Creatinine (0.5-1.4) mg/dL Estim Creat Clear Calc Estimated GFR Random Glucose (60-115) mg/dL Calcium (8.4-10.2) mg/dL B-Natriuretic Peptide (<100) pg/mL Urine Color YELLOW Urine Appearance HAZY Urine pH 5.5 (5.0-8.0) Ur Specific [place] >= 1.030 H (1.005-1.025) Urine Protein NEG (NEG-TRACE) MG/DL Urine Glucose (UA) 100 H (NEG) MG/DL Urine Ketones NEG (NEG) MG/DL Urine Blood NEG (NEG) Urine Nitrite NEG (NEG) Ur Leukocyte Esterase NEG (NEG) COVID-19 (ABRAHAM) (Negative) COVID-19 Clin Com Influenza Type A (STEVEN) (Negative) Influenza Type B (STEVEN) (Negative) Influenza A & B Note Discharge Plan Discharge Clinical Impression: Back pain, Muscle spasm Patient Disposition: Home, Self-Care Instructions: Muscle Spasm (ED), Back Pain (ED) Additional Instructions: 1. Resume all home medications as prescribed. 2. Tylenol 1000 mg, orally, every 6 hours as needed for pain control. Do not exceed 4000 mg within 24 hours. 3. Lidocaine patch, apply to area of maximal tenderness as directed on the outside packaging. 4. Follow-up with your primary care provider in the next 1-2 days for re- evaluation further outpatient management. Return to the ER for worsening symptoms. Prescriptions: New cyclobenzaprine 5 mg tablet 5 mg PO BEDTIME PRN (Reason: muscle spasm) Qty: 4 0RF ketorolac 10 mg tablet 10 mg PO Q6H PRN (Reason: pain) 5 Days Qty: 20 0RF Rx Instructions: Patient received medication in the emergency room. Please direct patient to avoid all other NSAIDs while taking this medication. No Action albuterol sulfate 90 mcg/actuation HFA aerosol inhaler 1 puff inhalation Q4H PRN (Reason: shortness of breath or wheezing or broncospasm) 30 Days Qty: 8.5 6RF (DME) nebulizers Misc See Rx Instructions .Route Qty: 1 0RF Rx Instructions: Use every 4-6 hours prn for wheezing, shortness of breath metformin 500 mg tablet 500 mg PO BID 30 Days Qty: 60 3RF (DME) lancets [FreeStyle Lancets] 28 gauge misc See Rx Instructions .ROUTE .MEDSUPPLY Qty: 100 5RF Rx Instructions: bid and prn glucose testing glipizide 10 mg tablet extended release 24hr 10 mg PO DAILY Qty: 30 2RF melatonin 5 mg capsule 5 mg PO .ONCE A DAY 90 Days Qty: 90 2RF albuterol sulfate 2.5 mg /3 mL (0.083 %) solution for nebulization 2.5 mg inhalation Q4-6H PRN (Reason: shortness of breath or wheezing) 30 Days Qty: 180 1RF ibuprofen 800 mg tablet 800 mg PO TID PRN (Reason: pain) 30 Days Qty: 90 3RF Referrals: Jean Carlos Page MD [Primary Care Provider] -
[2022-03-17 03:09] LABS: Appearance Urine HAZY; Color Urine YELLOW; Glucose Urine UA 100 MG/DL (NEG); Leukocyte Esterase Urine NEG (NEG); Nitrite Urine NEG (NEG); PH 5.5 (5.0-8.0); Specific Gravity - Urine >= 1.030 (1.005-1.025); Urine Blood NEG (NEG); Urine Ketones NEG (NEG); Urine Protein NEG (NEG-TRACE)
[2022-03-17 03:14] LABS: B Type Natriuretic Peptide < 10 pg/mL (<100)
[2022-03-17] MEDS: Acetaminophen 325 MG TABLET 975 MG PO (03:50)
[2022-03-17] MEDS: Ibuprofen 400 MG TABLET PO (03:50)
[2022-03-17] MEDS: Lidocaine 4 % Patch ADH..PATCH 1 PATCH TRANSDERMA (03:51)
[2022-03-17] MEDS: Cyclobenzaprine HCl 5 MG TABLET PO (03:51)
== END 2022-03-17 04:08 | disposition home or self-care (01) ==
PROVIDERS: Emergency Provider Student in an Organized Health Care Education/Training Program; PCP Family Medicine
DX: R07.89 Other chest pain (principal); M54.50 Low back pain, unspecified; R06.02 Shortness of breath; M62.838 Other muscle spasm; Z79.899 Other long term (current) drug therapy; Z20.822 Contact with and (suspected) exposure to COVID-19
CPT/HCPCS: 36415; 71045; 80048; 81003; 83880; 85025; 85379; 87502; 87635; 93005; 99283; 99284

== ENCOUNTER 2022-06-17 11:05 | Outpatient (REF) | payer OTHER, SELFPAY ==
[2022-06-17 12:16] LABS: Estimated Average Glucose 278 mg/dL; Hemoglobin A1c % 11.3 %
== END 2022-06-17 11:06 | disposition home or self-care (01) ==
LOC: HO.LAB 11:05
PROVIDERS: PCP Family Medicine; Visit Provider Family Medicine
DX: R73.01 Impaired fasting glucose (principal)
CPT/HCPCS: 36415; 83036

== ENCOUNTER → 2022-07-24 10:43 | Outpatient (BNVA) | payer OTHER, SELFPAY | PROVIDERS: PCP Family Medicine; Visit Provider Internal Medicine Endocrinology, Diabetes & Metabolism | DX: E11.65 Type 2 diabetes mellitus with hyperglycemia (principal) | CPT/HCPCS: 82947; 99202 ==

== ENCOUNTER 2022-07-27 12:12 | Outpatient (REF) | payer OTHER, SELFPAY ==
[2022-07-27 14:40] LABS: Creatinine Urine 96.95 mg/dL; Microalbum/Creatinine Ratio Ur 17.5 ug/mg cr
[2022-07-27 14:43] LABS: Cholesterol 184 mg/dL; HDL Cholesterol 37 mg/dL; LDL Cholesterol Calculated 112 mg/dl; Triglycerides 176 mg/dL
[2022-07-30 13:22] LABS: Glutamic acid decarboxylase Ab <5 IU/mL (<5)
== END 2022-07-27 12:13 | disposition home or self-care (01) ==
LOC: HO.WFDLDS 12:12
PROVIDERS: Visit Provider Internal Medicine Endocrinology, Diabetes & Metabolism
DX: E11.65 Type 2 diabetes mellitus with hyperglycemia (principal)
CPT/HCPCS: 36415; 80061; 82043; 86341

== ENCOUNTER 2022-08-03 12:39 | Outpatient (REF) | payer OTHER, SELFPAY ==
[2022-08-03 13:00] LABS: MANUAL DIFF FLAG NO
[2022-08-03 13:32] LABS: Basophils Absolute Auto 0.1 X10*3/uL (0.0-0.2); Basophils Percent Auto 0.6 % (0-2); Eosinophils Absolute Auto 0.1 X10*3/uL (0.0-0.4); Eosinophils Percent Auto 1.2 % (0-4); Hematocrit 47.4 % (37.0-47.0); Hemoglobin 15.5 g/dl (12.0-16.0); Imm Gran Abs Auto 0.05 X10*3/uL (0.00-0.03); Imm Gran Pct Auto 0.5 % (0.0-0.4); Lymphocytes Absolute Auto 3.5 X10*3/uL (1.2-4.9); Lymphocytes Percent Auto 32.4 % (20-40); Mean Corpuscular HGB Conc 32.7 g/dl (31.0-35.0); Mean Corpuscular Hemoglobin 30.2 pg (27.0-33.0); Mean Corpuscular Volume 92.4 fL (80.0-98.0); Mean Platelet Volume 10.1 fL (9.4-12.3); Monocytes Absolute Auto 0.7 X10*3/uL (0.1-1.2); Monocytes Percent Auto 6.6 % (2-11); Neutrophils Absolute Auto 6.4 x10*3/uL (2.0-8.3); Neutrophils Percent Auto 58.7 % (45-73); Platelet Count 342 X10*3/uL (160-400); Red Blood Count 5.13 X10*6/uL (4.20-5.50); Red Cell Distribution Width 12.5 % (11.0-16.0); White Blood Count 10.8 X10*3/uL (4.8-10.8)
[2022-08-03 14:00] LABS: Alanine Aminotransferase 26 U/L (0-31); Albumin Level 4.8 g/dL (3.5-5.0); Alkaline Phosphatase 73 U/L (39-117); Anion Gap 16 (12-20); Aspartate Amino Transferase 23 U/L (5-31); Bilirubin Total 0.5 mg/dL (0.0-1.0); Blood Urea Nitrogen 13 mg/dL (9-16); Calcium 10.3 mg/dL (8.4-10.2); Carbon Dioxide 25 mmol/L (22-29); Chloride 102 mmol/L (96-108); Estimated Glomerular Filt Rate > 60; Glucose Random 149 mg/dL (60-115); Lipase 38 U/L (8-78); Potassium 4.6 mmol/L (3.3-5.1); Sodium 138 mmol/L (135-145); Total Protein 8.1 g/dL (6.5-8.0)
[2022-08-03 14:13] LABS: TSH reflex Free T4 4.61 uIU/mL (0.32-4.0)
[2022-08-03 15:00] LABS: Free T4 (Free Thyroxine) 0.89 ng/dL (0.71-1.85)
[2022-08-04 08:10] LABS: HBS Num1 1.17 mIU/mL (0-7.99); HBc Num1 0.07 S/CO (0.00-0.79); HBsAGNum1 0.16 S/CO (0.00-0.99); HIV AB/AG Nonreactive (Nonreactive); HIV Num 1 0.06 S/CO (0.00-0.99); Hepatitis B Core Antibody Nonreactive (Nonreactive); Hepatitis B Surface Antigen Negative (Negative); ~HepC Num1 5.17 S/CO (0.00-0.79); ~Hepatitis B Surface Antibody NONREACTIVE (Nonreactive); ~Hepatitis C Antibody Reactive (Nonreactive)
[2022-08-04 14:48] LABS: H Pylori Breath Test Negative (Negative)
[2022-08-05 08:20] LABS: Hepatitis A Antibody IgM 0.11 Index (0-0.79); ~Hepatitis A Antibody IgM Nonreactive (Nonreactive)
[2022-08-05 20:51] LABS: HCV Log PCR <1.18 NOT DETECTED Log IU/mL (NOT DETECTED); HepC Viral Load <15 NOT DETECTED IU/mL (NOT DETECTED)
[2022-08-06 10:32] LABS: Transglutaminase IgA <1.0 U/mL
== END 2022-08-03 12:40 | disposition home or self-care (01) ==
LOC: HO.LAB 12:39
PROVIDERS: PCP Family Medicine; Visit Provider Nurse Practitioner Family
DX: Z00.00 Encounter for general adult medical examination without abnormal findings (principal); R79.89 Other specified abnormal findings of blood chemistry; R40.0 Somnolence; R19.7 Diarrhea, unspecified; E78.5 Hyperlipidemia, unspecified; R10.31 Right lower quadrant pain; K58.2 Mixed irritable bowel syndrome; K21.9 Gastro-esophageal reflux disease without esophagitis; K59.00 Constipation, unspecified; Z86.19 Personal history of other infectious and parasitic diseases
CPT/HCPCS: 36415; 80053; 83013; 83690; 84439; 84443; 85025; 86364; 86704; 86706; 86709; 86803; 87340; 87389; 87522; 99202; 99212

== ENCOUNTER 2022-08-04 10:49 | Outpatient (REF) | payer OTHER, SELFPAY ==
--- NOTE | ~2022-08-04 | CT_ITS ---
EXAMINATION: CT ABDOMEN AND PELVIS WITH CONTRAST CLINICAL INFORMATION: Unspecified abdominal pain COMPARISON: None TECHNIQUE: Multidetector volumetric images were obtained from the superior aspect of the liver through the pubic symphysis following administration 85 mL of Omnipaque 350 intravenous contrast. Sagittal and coronal reformatted images were obtained on the technologist's workstation. Oral contrast: Yes This CT examination was performed using dose optimization techniques as appropriate, variously including the following: *Automated exposure control *Adjustment of mA and/or kV according to patient size (this includes techniques or standardized protocols for targeted exams where dose is matched to indication/reason for exam; i.e. extremities or head) *Use of iterative reconstruction technique DLP: 576 mGy-cm FINDINGS: LUNG BASES: The visualized lung bases are unremarkable. LIVER, GALLBLADDER, AND BILIARY TREE: Hepatic enlargement at 19 cm craniocaudal. Hepatic fatty infiltration. Status post cholecystectomy. PANCREAS: Unremarkable. SPLEEN: 2 splenic hypodense foci, largest at 2.2 cm and 27 Hounsfield units. If no cancer history, follow-up CT/MRI in 6 months suggested. ADRENAL GLANDS: Unremarkable. KIDNEYS AND URETERS: Occasional tiny hypodense foci, too small to characterize. No nephrolithiasis or distinct abnormal enhancing mass. BLADDER: Unremarkable. GASTROINTESTINAL TRACT: Colonic diverticula without any inflammatory changes. Moderate to large colonic fecal material. No focal appendix abnormality. Small sliding-type hiatal hernia. No small bowel obstructive process or abnormal omental thickening. ABDOMINAL WALL: Small fatty paraumbilical and inguinal hernias. LYMPH NODES: No suspiciously enlarged lymphadenopathy. VASCULAR: Unremarkable. PELVIC VISCERA: No suspicious ovarian masses. Right lateral 2 cm calcific fibroid. OSSEOUS STRUCTURES: Degenerative disc space narrowing L5-S1. CT/CT abdomen pelvis w IV con IMPRESSION: No CT evidence for acute inflammatory or obstructive process. Hepatomegaly with fatty infiltration. Right lateral partially calcific uterine fibroid. 2 splenic hypodense foci as noted above. If no history of malignancy, follow-up CT/MRI in 6 months recommended to assess stability. Other incidental findings as noted above. Fleischner guidelines were followed.
[2022-08-04] MEDS: Barium Sulfate Oral (Vanilla) 450 ML ORAL.SUSP 900 ML PO (13:57)
[2022-08-04] MEDS: iohexoL 350 MG/ML 100 ML INFUS..BTL IV (13:58)
[2022-08-11 21:47] LABS: Pancreatic Elastase-1 >500 mcg/g
== END 2022-08-04 10:50 | disposition home or self-care (01) ==
LOC: HO.CT 10:49
PROVIDERS: PCP Family Medicine; Visit Provider Nurse Practitioner Family
DX: R10.31 Right lower quadrant pain (principal)
CPT/HCPCS: 74177; 82656; Q9967

== ENCOUNTER → 2022-08-12 10:36 | Outpatient (BNVA) | payer OTHER, SELFPAY | PROVIDERS: PCP Family Medicine; Visit Provider Registered Nurse Diabetes Educator | DX: E11.65 Type 2 diabetes mellitus with hyperglycemia (principal) | CPT/HCPCS: 99211 ==

== ENCOUNTER → 2022-08-31 10:43 | Outpatient (BNVA) | payer OTHER, SELFPAY | PROVIDERS: PCP Family Medicine; Referring Provider Family Medicine; Visit Provider Nurse Practitioner Family | DX: Z23 Encounter for immunization (principal); K58.2 Mixed irritable bowel syndrome; K21.9 Gastro-esophageal reflux disease without esophagitis | CPT/HCPCS: 90471; 90746; 99212 ==

== ENCOUNTER 2022-09-18 14:53 | Outpatient (REF) | payer OTHER, SELFPAY ==
[2022-09-18 15:44] LABS: Estimated Average Glucose 180 mg/dL; Hemoglobin A1c % 7.9 %
[2022-09-18 16:29] LABS: Anion Gap 14 (12-20); Blood Urea Nitrogen 10 mg/dL (9-16); Calcium 10.3 mg/dL (8.4-10.2); Carbon Dioxide 27 mmol/L (22-29); Chloride 104 mmol/L (96-108); Cholesterol 139 mg/dL; Estimated Glomerular Filt Rate > 60; Glucose Random 196 mg/dL (60-115); HDL Cholesterol 34 mg/dL; LDL Cholesterol Calculated 66 mg/dl; Potassium 4.5 mmol/L (3.3-5.1); Sodium 140 mmol/L (135-145); Thyroid Stimulating Hormone 4.68 uIU/mL (0.32-4.0); Triglycerides 195 mg/dL
[2022-09-18 16:31] LABS: Free T4 (Free Thyroxine) 0.79 ng/dL (0.71-1.85)
[2022-09-19 20:47] LABS: Triiodothyronine T3 Total 125 ng/dL (76-181)
== END 2022-09-18 14:54 | disposition home or self-care (01) ==
LOC: HO.LAB 14:53
PROVIDERS: Internal Medicine Endocrinology, Diabetes & Metabolism; PCP Family Medicine; Visit Provider Family Medicine
DX: Z00.00 Encounter for general adult medical examination without abnormal findings (principal); E11.65 Type 2 diabetes mellitus with hyperglycemia; E03.9 Hypothyroidism, unspecified
CPT/HCPCS: 36415; 80048; 80061; 83036; 84439; 84443; 84480

== ENCOUNTER → 2022-09-22 09:41 | Outpatient (BNVA) | payer OTHER, SELFPAY | PROVIDERS: PCP Family Medicine; Visit Provider Nurse Practitioner Family | DX: M54.2 Cervicalgia (principal); R40.0 Somnolence; G47.9 Sleep disorder, unspecified; R06.83 Snoring | CPT/HCPCS: 99202 ==

== ENCOUNTER 2022-09-28 04:39 | Emergency (ER) | payer OTHER, SELFPAY ==
--- NOTE | ~2022-09-28 | CT_ITS ---
EXAMINATION: CT ABDOMEN AND PELVIS WITH CONTRAST CLINICAL INFORMATION: Right upper quadrant, right lower quadrant, and left lower quadrant tenderness. COMPARISON: 08/04/2022 TECHNIQUE: Multidetector volumetric images were obtained from the superior aspect of the liver through the pubic symphysis following administration 85 mL of Omnipaque 350 intravenous contrast. Sagittal and coronal reformatted images were obtained on the technologist's workstation. Oral contrast: No This CT examination was performed using dose optimization techniques as appropriate, variously including the following: *Automated exposure control *Adjustment of mA and/or kV according to patient size (this includes techniques or standardized protocols for targeted exams where dose is matched to indication/reason for exam; i.e. extremities or head) *Use of iterative reconstruction technique DLP: 878 mGy-cm FINDINGS: LUNG BASES: The visualized lung bases are unremarkable. LIVER, GALLBLADDER, AND BILIARY TREE: The liver is normal in size and shape with decreased attenuation. No focal hepatic lesion or biliary ductal dilatation is present. Cholecystectomy. PANCREAS: Unremarkable. SPLEEN: Normal size spleen. 2.1 cm hypoattenuating lesion within the spleen is unchanged from prior. Additional smaller more superior hypoattenuating lesion is also unchanged. ADRENAL GLANDS: Unremarkable. KIDNEYS AND URETERS: The kidneys are normal in size, shape, and attenuation. No hydronephrosis, hydroureter, or calculi seen. No perinephric stranding. A few subcentimeter hypoattenuating lesions are noted which are too small to fully characterize, unchanged. BLADDER: Unremarkable. GASTROINTESTINAL TRACT: Tiny hiatal hernia. The stomach is otherwise unremarkable. Normal caliber small bowel. No obstruction. Normal appendix. No colonic wall thickening or acute inflammation. Diverticulosis scattered throughout the left hemicolon. No diverticulitis. No free air or free fluid. ABDOMINAL WALL: No significant hernia is appreciated. LYMPH NODES: Normal. VASCULAR: Normal caliber aorta with mild atherosclerotic calcification. PELVIC VISCERA: Anteverted uterus. No adnexal mass. Bilateral tubal ligation clips. Multiple pelvic phleboliths. OSSEOUS STRUCTURES: No acute or suspicious osseous abnormality. Mild degenerative change throughout the spine. CT/CT abdomen pelvis w IV con IMPRESSION: 1. No acute findings in the abdomen or pelvis. No inflammatory changes. Normal appendix. 2. Hepatic steatosis. Fleischner guidelines were followed.
[2022-09-28 04:48] VITALS: BP 139/82; PULSE 111; RESP 16; TEMP 36.4; O2SAT 93; BMI 35.3
--- NOTE | 2022-09-28 05:23 | ED.ABDPAIN ---
HPI - Abdominal Pain General Chief Complaint: Abdominal Pain Stated Complaint: abd pain Time Seen by Provider: 09/28/22 05:06 Source: patient Mode of arrival: ambulatory Limitations: no limitations History of Present Illness HPI narrative: 61-year-old female who presents emergency department for evaluation of abdominal pain. She states that she had a sudden onset of abdominal pain yesterday at around 17:30 hours. She describes the pain as a ?pain ?. The pain is constant but waxes wanes in intensity. The pain is 10/10 at its worst. The patient points to her umbilical area and her left and right lower quadrant areas when asked to localize the pain. The patient states that she also developed diarrhea yesterday. She states she had frequent watery brown stools and now her stools are yellow. She did not notice any blood in the diarrhea. She denied fever but has been experiencing chills. She denied chest pain shortness of breath dyspnea on exertion. She states she had nausea and had 1 or 2 episodes of vomiting. The patient is followed by GI for abdominal pain and diarrhea. She had a CT scan of the abdomen pelvis on 08/04/2022 with IV contrast which revealed 2 splenic hypodense foci, largest at 2.2 cm, hepatomegaly with fatty infiltration, colonic diverticula with diverticulitis. Related Data Home Medications Medication Instructions Recorded Confirmed blood sugar diagnostic (FreeStyle #10 ea 06/17/22 09/22/22 Lite Strips) blood-glucose meter (FreeStyle 07/24/22 09/22/22 Lite Meter kit) Previous Rx's Medication Instructions Recorded albuterol sulfate 90 mcg/actuation 1 puff inhalation Q4H PRN 10/24/20 aerosol inhaler shortness of breath or wheezing or broncospasm 1 month #8.5 grams albuterol sulfate 2.5 mg/3 mL 2.5 mg (3 mL) inhalation Q4-6H PRN 10/27/21 (0.083 %) solution for nebulization shortness of breath or wheezing 30 days #180 mL nebulizers #1 ea 11/24/21 lancets 28 gauge (FreeStyle #100 ea 12/18/21 Lancets) fluticasone propionate 50 1 spray intranasal Q12H 30 days 06/17/22 mcg/actuation nasal #16 grams spray,suspension (Flonase Allergy Relief) atorvastatin 10 mg tablet 10 mg PO DAILY #30 tabs 07/28/22 glipizide 5 mg tablet, extended 5 mg PO DAILY #90 tabs 08/07/22 release 24 hr bisacodyl 5 mg tablet,delayed 10 mg PO BEDTIME #180 tabs 08/31/22 release (Dulcolax (bisacodyl)) methylcellulose (laxative) 500 mg 1,000 mg PO DAILY #60 tabs 08/31/22 tablet (Citrucel) metformin 1,000 mg tablet,extended 1,000 mg PO DAILY 90 days #90 tabs 09/11/22 release 24hr cetirizine 10 mg tablet (Zyrtec) 10 mg PO DAILY 30 days #30 tabs 09/14/22 dulaglutide 0.75 mg/0.5 mL 0.75 mg (0.5 mL) subcut QWEEK #2 mL 09/16/22 subcutaneous pen injector (Trulicity) amitriptyline 10 mg tablet 10 mg PO BEDTIME 30 days #30 tabs 09/22/22 Allergies Allergy/AdvReac Type Severity Reaction Status Date / Time No Known Allergies Allergy Verified 09/22/22 10:12 Review of Systems Review of Systems Yes all other systems are reviewed and are negative [facility] Past Medical History [facility] Narrative: Social history: She denies tobacco, alcohol and drug use. Medical History Bilateral shoulder pain Chronic back pain Depression with anxiety Diabetes Diabetic peripheral neuropathy Excessive daytime sleepiness History of hepatitis C Obesity (Unknown) Pneumonia Seasonal allergic rhinitis Sleep apnea Vaginal dryness Surgical History History of cholecystectomy History of colonoscopy History of tonsillectomy Left patella fracture Family History Family History Father Prostate cancer Parkinsons Mother Stroke Son No problems noted. Son No problems noted. Daughter No problems noted. Sister Lung cancer Social History Social History Household Members: None Housing: Apartment Do you presently have visiting nurse or other home services: No Alcohol intake: never Patient Tobacco Use Status: Never used Tobacco e-Cigarette/Vaping Use: Never Used Second Hand Smoke Exposure: No Advance Directives: Yes Advance Directives on File: Yes Advance Directives Date on File: 11/07/21 service: No Current occupational status: disabled Current occupational exposures/hazards: No Cognitive needs: No Hearing needs: No Vision needs: No Physical Exam ED Vital Signs: Vital Signs - 24 hr 09/28/22 04:48 Temperature 97.6 F Pulse Rate 111 H Respiratory Rate 16 Blood Pressure 139/82 Pulse Oximetry 93 Oxygen Delivery Method Room Air BMI result Body Mass Index 35.3 Const General: cooperative and no acute distress Orientation/consciousness: oriented to person and oriented to place Limitations: no limitations HENMT Head: Yes normal to inspection, Yes normocephalic and Yes atraumatic Ears: external ears normal General nose exam: Normal external nose present Face and sinus: Yes normal facial exam Mouth: Normal oral and palatal mucosa present Throat: Yes posterior oropharynx normal Eyes General: appearance normal, both eyes and all related structures Pupils: Equal, round and reactive pupils present Neck Neck: Yes normal visual inspection, Yes no lymphadenopathy, Yes trachea midline and Yes supple Chest Chest palpation & inspection: normal inspection of the chest and normal palpation of entire chest wall Resp Effort & Inspection: normal respiratory effort and able to speak in complete sentences Auscultation: clear to auscultation bilaterally Cardio Rate: regular rate Rhythm: regular rhythm Heart sounds: S1 normal heart sound present, S2 normal heart sound present and no murmurs GI Inspection: Yes normal to inspection Palpation (GI): Soft to palpation, Tenderness to palpation present (GI) in the LLQ (Moderate), in the RLQ (Moderate to severe) and in the RUQ ([id number]) and no guarding Auscultation: normal bowel sounds General: Yes no CVA tenderness Back/Spine/Pelvis Back: no CVA tenderness Skin General skin exam: no rashes or lesions noted Neuro General: oriented to person and oriented to place Cranial nerves: Yes CN's II-XII intact bilaterally and Yes Equal, round and reactive pupils present Cognition (Neuro): normal cognition Motor exam (neuro): 5/5 motor strength present throughout Extrem General: Yes normal to inspection Psych Appearance: grossly normal Speech and movement: Normal speech and movement present Affect: normal affect Attitude: cooperative Thought process: Normal thought process present Thought content: Normal thought content present Course Course Course Narrative: 61-year-old female who presents emergency department for evaluation of sudden onset of abdominal pain that occurred yesterday at around 17:30 hours. Patient states that the pain is been constant but waxing and waning intensity with the pain being 10/10 at its worst. Patient had associated nausea and vomiting. She also had watery diarrheal stools. The patient denied being on antibiotics for traveling anywhere recently. In reviewing her record, the patient has been seen by GI for abdominal pain and diarrhea and had a CT scan on 08/04/2022 which revealed to splenic lesions, diverting and fatty liver otherwise there was no specific cause for her pain. I did order laboratory evaluation to include CBC, BMP, lipase, urinalysis, C diff, COVID, flu, RSV. The patient's pain will be treated with Toradol 15 mg IV and Zofran 4 mg IV. She is also ordered to get normal saline x1 L. I will obtain a CT scan of the abdomen pelvis with IV contrast. 0645: Patient did get improvement with the IV Toradol and Zofran, her pain is now 5/10[place] [address], labs are still pending. Patient's CT scan of the abdomen pelvis is also pending. At the end of my shift, the patient's care was turned over to my colleague, Dr. Thomas Masters. Medications Administered Discontinued Medications Generic Name Dose Route Start Last Admin Trade Name Freq PRN Reason Stop Dose Admin Ketorolac Tromethamine 15 mg 09/28/22 05:21 09/28/22 06:14 Ketorolac Tromethamine 15 Mg/Ml Vial IVPUSH 09/28/22 05:22 15 mg ONCE STA Administration Ondansetron HCl 4 mg 09/28/22 05:21 09/28/22 06:15 Ondansetron Hcl 4 Mg/2 Ml Vial IVPUSH 09/28/22 05:22 4 mg ONCE ONE Administration MDM - Abdominal Pain Lab Data Result diagrams: 09/28/22 05:18 09/28/22 05:18 Labs: Lab Results 09/28/22 09/28/22 09/28/22 Range/Units 05:18 05:18 05:27 WBC 15.8 H (4.8-10.8) X10*3/uL RBC 5.12 (4.20-5.50) X10*6/uL Hgb 15.4 (12.0-16.0) g/dl Hct 47.1 H (37.0-47.0) % MCV 92.0 (80.0-98.0) fL MCH 30.1 (27.0-33.0) pg MCHC 32.7 (31.0-35.0) g/dl RDW 12.6 (11.0-16.0) % Plt Count 290 (160-400) X10*3/uL MPV 10.3 (9.4-12.3) fL Immature Gran % (Auto) 0.4 (0.0-0.4) % Neut % (Auto) 70.1 (45-73) % Lymph % (Auto) 20.2 (20-40) % [place] % (Auto) 7.1 (2-11) % Eos % (Auto) 1.8 (0-4) % Baso % (Auto) 0.4 (0-2) % Lymph # (Auto) 3.2 (1.2-4.9) X10*3/uL [place] # (Auto) 1.1 (0.1-1.2) X10*3/uL Eos # (Auto) 0.3 (0.0-0.4) X10*3/uL Baso # (Auto) 0.1 (0.0-0.2) X10*3/uL Abs Immat Gran (auto) 0.07 H (0.00-0.03) X10*3/uL Absolute Neuts (auto) 11.0 H (2.0-8.3) x10*3/uL Absolute Nucleated RBC 0.000 (0.0-0.012) X10*3/uL Nucleated RBC % (auto) 0.0 (0.0-0.2) /100WBC Sodium 137 (135-145) mmol/L Potassium 3.8 (3.3-5.1) mmol/L Chloride 103 (96-108) mmol/L Carbon Dioxide 23 (22-29) mmol/L Anion Gap 15 (12-20) BUN 16 (9-16) mg/dL Creatinine 0.83 (0.5-1.4) mg/dL Estim Creat Clear Calc 77.9 Estimated GFR > 60 Random Glucose 253 H (60-115) mg/dL Calcium 9.9 (8.4-10.2) mg/dL Lipase 43 (8-78) U/L Urine Color Yellow Urine Appearance Clear Urine pH 5.5 (5.0-9.0) Ur Specific [place] >= 1.030 H (1.005-1.025) Urine Protein Trace (Neg-Trace) mg/dL Urine Glucose (UA) Negative (Negative) mg/dL Urine Ketones Trace (Negative) mg/dL Urine Blood Negative (Negative) Urine Nitrite Negative (Negative) Ur Leukocyte Esterase Small (1+) H (Negative) Urine RBC 3-5 H (0-2) /HPF Urine WBC 6-10 H (0-5) /HPF Ur Squamous Epith Cells 11-20 (0-2) /HPF Urine Bacteria Trace (None Seen) Hyaline Casts 0-2 (0-2) /LPF Influenza Type A (PCR) (Negative) Influenza Type B (PCR) (Negative) RSV RNA Qual (PCR) (Negative) SARS-CoV-2 RNA (RT-PCR) (Negative) 09/28/22 Range/Units 05:27 WBC (4.8-10.8) X10*3/uL RBC (4.20-5.50) X10*6/uL Hgb (12.0-16.0) g/dl Hct (37.0-47.0) % MCV (80.0-98.0) fL MCH (27.0-33.0) pg MCHC (31.0-35.0) g/dl RDW (11.0-16.0) % Plt Count (160-400) X10*3/uL MPV (9.4-12.3) fL Immature Gran % (Auto) (0.0-0.4) % Neut % (Auto) (45-73) % Lymph % (Auto) (20-40) % [place] % (Auto) (2-11) % Eos % (Auto) (0-4) % Baso % (Auto) (0-2) % Lymph # (Auto) (1.2-4.9) X10*3/uL [place] # (Auto) (0.1-1.2) X10*3/uL Eos # (Auto) (0.0-0.4) X10*3/uL Baso # (Auto) (0.0-0.2) X10*3/uL Abs Immat Gran (auto) (0.00-0.03) X10*3/uL Absolute Neuts (auto) (2.0-8.3) x10*3/uL Absolute Nucleated RBC (0.0-0.012) X10*3/uL Nucleated RBC % (auto) (0.0-0.2) /100WBC Sodium (135-145) mmol/L Potassium (3.3-5.1) mmol/L Chloride (96-108) mmol/L Carbon Dioxide (22-29) mmol/L Anion Gap (12-20) BUN (9-16) mg/dL Creatinine (0.5-1.4) mg/dL Estim Creat Clear Calc Estimated GFR Random Glucose (60-115) mg/dL Calcium (8.4-10.2) mg/dL Lipase (8-78) U/L Urine Color Urine Appearance Urine pH (5.0-9.0) Ur Specific [place] (1.005-1.025) Urine Protein (Neg-Trace) mg/dL Urine Glucose (UA) (Negative) mg/dL Urine Ketones (Negative) mg/dL Urine Blood (Negative) Urine Nitrite (Negative) Ur Leukocyte Esterase (Negative) Urine RBC (0-2) /HPF Urine WBC (0-5) /HPF Ur Squamous Epith Cells (0-2) /HPF Urine Bacteria (None Seen) Hyaline Casts (0-2) /LPF Influenza Type A (PCR) NEGATIVE (Negative) Influenza Type B (PCR) NEGATIVE (Negative) RSV RNA Qual (PCR) NEGATIVE (Negative) SARS-CoV-2 RNA (RT-PCR) NEGATIVE (Negative) Discharge Plan Discharge Clinical Impression: Abdominal pain Patient Disposition: Still a Patient Prescriptions: No Action albuterol sulfate 90 mcg/actuation HFA aerosol inhaler 1 puff inhalation Q4H PRN (Reason: shortness of breath or wheezing or broncospasm) 30 Days Qty: 8.5 6RF (DME) nebulizers Misc See Rx Instructions .Route Qty: 1 0RF Rx Instructions: Use every 4-6 hours prn for wheezing, shortness of breath (DME) lancets [FreeStyle Lancets] 28 gauge misc See Rx Instructions .ROUTE .MEDSUPPLY Qty: 100 5RF Rx Instructions: bid and prn glucose testing atorvastatin 10 mg tablet 10 mg PO DAILY Qty: 30 5RF glipizide 5 mg tablet extended release 24hr 5 mg PO DAILY Qty: 90 0RF metformin 1,000 mg tablet extended release 24 hr 1,000 mg PO DAILY 90 Days Qty: 90 3RF cetirizine [Zyrtec] 10 mg tablet 10 mg PO DAILY 30 Days Qty: 30 0RF Trulicity 0.75 mg/0.5 mL pen injector 0.75 mg subcut QWEEK Qty: 2 2RF albuterol sulfate 2.5 mg /3 mL (0.083 %) solution for nebulization 2.5 mg inhalation Q4-6H PRN (Reason: shortness of breath or wheezing) 30 Days Qty: 180 1RF (DME) FreeStyle Lite Strips Strip See Rx Instructions Not Applicable BID Qty: 10 Rx Instructions: As directed fluticasone propionate [Flonase Allergy Relief] 50 mcg/actuation spray,suspension 1 spray intranasal Q12H 30 Days Qty: 16 0RF Rx Instructions: administer into each nostril (DME) blood-glucose meter [FreeStyle Lite Meter] Kit See Rx Instructions .Route Rx Instructions: As directed amitriptyline 10 mg tablet 10 mg PO BEDTIME 30 Days Qty: 30 2RF Citrucel 500 mg tablet 1,000 mg PO DAILY Qty: 60 2RF Rx Instructions: take it with full glass of water bisacodyl [Dulcolax (bisacodyl)] 5 mg tablet,delayed release (DR/EC) 10 mg PO BEDTIME Qty: 180 4RF
[2022-09-28 05:34] LABS: MANUAL DIFF FLAG NO
[2022-09-28 05:36] LABS: Basophils Absolute Auto 0.1 X10*3/uL (0.0-0.2); Basophils Percent Auto 0.4 % (0-2); Eosinophils Absolute Auto 0.3 X10*3/uL (0.0-0.4); Eosinophils Percent Auto 1.8 % (0-4); Hematocrit 47.1 % (37.0-47.0); Hemoglobin 15.4 g/dl (12.0-16.0); Imm Gran Abs Auto 0.07 X10*3/uL (0.00-0.03); Imm Gran Pct Auto 0.4 % (0.0-0.4); Lymphocytes Absolute Auto 3.2 X10*3/uL (1.2-4.9); Lymphocytes Percent Auto 20.2 % (20-40); Mean Corpuscular HGB Conc 32.7 g/dl (31.0-35.0); Mean Corpuscular Hemoglobin 30.1 pg (27.0-33.0); Mean Platelet Volume 10.3 fL (9.4-12.3); Monocytes Absolute Auto 1.1 X10*3/uL (0.1-1.2); Monocytes Percent Auto 7.1 % (2-11); Neutrophils Percent Auto 70.1 % (45-73); Platelet Count 290 X10*3/uL (160-400); Red Blood Count 5.12 X10*6/uL (4.20-5.50); Red Cell Distribution Width 12.6 % (11.0-16.0); White Blood Count 15.8 X10*3/uL (4.8-10.8)
[2022-09-28 05:44] LABS: Appearance Urine Clear; Color Urine Yellow; Glucose Urine UA Negative (Negative); Leukocyte Esterase Urine Small (1+) (Negative); Nitrite Urine Negative (Negative); PH 5.5 (5.0-9.0); Specific Gravity - Urine >= 1.030 (1.005-1.025); UMIC TRIGGER UACC YES; Urine Blood Negative (Negative); Urine Ketones Trace mg/dL (Negative); Urine Protein Trace mg/dL (Neg-Trace)
[2022-09-28 05:46] LABS: Bacteria Urine Trace (None Seen); Hyaline Casts Urine 0-2 /LPF (0-2); UACC Culture Trigger YES
[2022-09-28 05:56] LABS: Anion Gap 15 (12-20); Blood Urea Nitrogen 16 mg/dL (9-16); Calcium 9.9 mg/dL (8.4-10.2); Carbon Dioxide 23 mmol/L (22-29); Chloride 103 mmol/L (96-108); Creatinine Clr Calc Pharmacy 77.9; Estimated Glomerular Filt Rate > 60; Glucose Random 253 mg/dL (60-115); Lipase 43 U/L (8-78); Potassium 3.8 mmol/L (3.3-5.1); Sodium 137 mmol/L (135-145)
[2022-09-28 06:14] LABS: Influenza A PCR NEGATIVE (Negative); Influenza B PCR NEGATIVE (Negative); Resp Syncy Virus RNA Qual PCR NEGATIVE (Negative); SARS COV2 PCR INHOUSE NEGATIVE (Negative)
[2022-09-28] MEDS: Ketorolac Tromethamine 15 MG/ML VIAL IVPUSH (06:14)
[2022-09-28] MEDS: ondansetron HCL 4 MG/2 ML VIAL IVPUSH (06:15)
--- NOTE | 2022-09-28 06:17 | PC.NURSE ---
Administered ketorolac and zofran IV push per DEC.
--- NOTE | 2022-09-28 06:39 | PC.NURSE ---
Pt currently with CT will begin NS per MAR upon her return to her room.
[2022-09-28 06:45] LABS: Alanine Aminotransferase 25 U/L (0-31); Albumin Level 4.4 g/dL (3.5-5.0); Alkaline Phosphatase 77 U/L (39-117); Aspartate Amino Transferase 19 U/L (5-31); Bilirubin Direct 0.2 mg/dL (0.0-0.5); Bilirubin Total 0.5 mg/dL (0.0-1.0); Total Protein 7.8 g/dL (6.5-8.0)
[2022-09-28] MEDS: iohexoL 350 MG/ML 100 ML INFUS..BTL 85 ML IV (06:46)
[2022-09-28 07:14] LABS: CDiff Gene PCR NEGATIVE (Negative)
[2022-09-28] MEDS: 0.9 % Sodium Chloride 1,000 ML 999 ML IV (07:25)
--- NOTE | 2022-09-28 07:25 | PC.NURSE ---
NS IV started per DEC.
[2022-09-28 07:30] VITALS: BP 98/59; PULSE 89; RESP 17; TEMP 36.9; O2SAT 95
== END 2022-09-28 09:52 | disposition home or self-care (01) ==
PROVIDERS: Emergency Provider Emergency Medicine Emergency Medical Services; PCP Family Medicine
DX: R10.9 Unspecified abdominal pain (principal); E11.9 Type 2 diabetes mellitus without complications; Z79.84 Long term (current) use of oral hypoglycemic drugs; Z79.899 Other long term (current) drug therapy; Z20.822 Contact with and (suspected) exposure to COVID-19
CPT/HCPCS: 0241U; 36415; 74177; 80048; 80076; 81001; 83690; 85025; 87086; 87493; 96361; 96374; 96375; 99284; 99285; J1885; J2405; Q9967

== ENCOUNTER → 2022-10-01 11:03 | Outpatient (BNVA) | payer OTHER, SELFPAY | PROVIDERS: PCP Family Medicine; Visit Provider Internal Medicine Gastroenterology | DX: Z23 Encounter for immunization (principal); Z72.89 Other problems related to lifestyle | CPT/HCPCS: 90471; 90746 ==

== ENCOUNTER → 2022-10-28 09:46 | Outpatient (BNVA) | payer OTHER, SELFPAY | PROVIDERS: PCP Family Medicine; Visit Provider Registered Nurse Diabetes Educator | DX: E11.65 Type 2 diabetes mellitus with hyperglycemia (principal); Z79.84 Long term (current) use of oral hypoglycemic drugs; Z79.85 Long-term (current) use of injectable non-insulin antidiabetic drugs | CPT/HCPCS: 82947; 99211; 99212 ==

== ENCOUNTER 2022-11-06 11:24 | Outpatient (REF) | payer OTHER, SELFPAY ==
[2022-11-06 14:22] LABS: Alanine Aminotransferase 21 U/L (0-31); Albumin Level 4.6 g/dL (3.5-5.0); Alkaline Phosphatase 83 U/L (39-117); Aspartate Amino Transferase 22 U/L (5-31); Bilirubin Direct 0.2 mg/dL (0.0-0.5); Bilirubin Total 0.5 mg/dL (0.0-1.0); Lipase 30 U/L (8-78); Total Protein 7.9 g/dL (6.5-8.0)
[2022-11-06 18:56] LABS: CDiff Gene PCR NEGATIVE (Negative)
[2022-11-06 19:02] LABS: Leukocytes Stool Qualitative NEGATIVE (NEGATIVE)
[2022-11-07 10:11] LABS: Campylobacter Not Detected (Not Detect.); E. coli EAEC Not Detected (Not Detect.); E. coli EPEC Not Detected (Not Detect.); E. coli ETEC Not Detected (Not Detect.); E. coli STEC Not Detected (Not Detect.); Plesiomonas shigelloides Not Detected (Not Detect.); Salmonella Not Detected (Not Detect.); Vibrio Not Detected (Not Detect.); Vibrio Cholerae Not Detected (Not Detect.); Yersinia enterocolitica Not Detected (Not Detect.)
[2022-11-07 10:12] LABS: Adenovirus F 40/41 Not Detected (Not Detect.); Astrovirus Not Detected (Not Detect.); Cryptosporidium Not Detected (Not Detect.); Cyclospora cayetanensis Not Detected (Not Detect.); Entamoeba histolytica Not Detected (Not Detect.); Giardia lamblia Not Detected (Not Detect.); Norovirus GI/GII Not Detected (Not Detect.); Rotavirus A Not Detected (Not Detect.); Sapovirus Not Detected (Not Detect.); Shigella sp./EIEC Not Detected (Not Detect.)
== END 2022-11-06 11:25 | disposition home or self-care (01) ==
LOC: HO.LAB 11:24
PROVIDERS: PCP Family Medicine; Visit Provider Nurse Practitioner Family
DX: R10.9 Unspecified abdominal pain (principal); R19.7 Diarrhea, unspecified
CPT/HCPCS: 36415; 80076; 83690; 87177; 87209; 87493; 87507; 89055; 99212

== ENCOUNTER 2023-01-01 11:13 | Emergency (ER) | payer OTHER, SELFPAY ==
--- NOTE | ~2023-01-01 | XR_ITS ---
EXAMINATION: XR CHEST CLINICAL INFORMATION: Posterior rib pain. COMPARISON: 01/14/2022 chest radiographs. TECHNIQUE: 2 views of the chest were obtained. FINDINGS: No significant abnormality is noted involving the heart, lungs, mediastinum, bony thorax or soft tissues. XR/XR chest 2V IMPRESSION: No acute cardiopulmonary process. No acute rib fracture. If suspicion remains high for acute rib fracture, a dedicated right rib series is recommended.
--- NOTE | 2023-01-01 11:55 | ED.CHESTPAIN ---
HPI - Chest Pain General Chief Complaint: Back Pain/Injury <Britta Wilder CNP - Last Filed: 01/01/23 12:00> Stated Complaint: severe L rib pain <Britta Wilder CNP - Last Filed: 01/01/23 12:00> Time Seen by Provider: 01/01/23 12:05 <Britta Wilder CNP - Last Filed: 01/01/23 12:00> Source: patient <ANDRES Guardado - Last Filed: 01/01/23 17:58> Mode of arrival: ambulatory <ANDRES Guardado - Last Filed: 01/01/23 17:58> Limitations: no limitations <ANDRES Guardado Last Filed: 01/01/23 17:58> History of Present Illness HPI narrative: Patient is a 62 year old assigned female at with a history of chronic dizziness and DM presenting to the emergency department today with left sided back pain. Patient states that over the last 2 days she has had left sided back pain and rib pain. Patient denies any current dizziness, lightheadedness, abdominal pain, nausea, vomiting, fever, chills, blurry vision, double vision, loss of vision, chest pain, difficulty breathing, shortness of breath, night sweats, pain with urination, increased urinary frequency, increased urinary urgency, blood in her urine or stool, syncope or a near syncopal episode, recent trauma or falls, bowel incontinence, bladder incontinence, bowel retention, bladder retention, or any other complaints at this time. <ANDRES Guardado - Last Filed: 01/01/23 17:58> Severity: mild <ANDRES Guardado - Last Filed: 01/01/23 17:58> Pain scale (0-10): 3 <ANDRES Guardado - Last Filed: 01/01/23 17:58> Treatment prior to arrival: none <ANDRES Guardado Last Filed: 01/01/23 17:58> Related Data Home Medications: Home Medications Medication Instructions Recorded Confirmed blood-glucose meter (FreeStyle 07/24/22 09/22/22 Lite Meter kit) blood sugar diagnostic (FreeStyle #10 ea 10/28/22 Lite Strips) Previous Rx's Medication Instructions Recorded nebulizers #1 ea 11/24/21 lancets 28 gauge (FreeStyle #100 ea 12/18/21 Lancets) fluticasone propionate 50 1 spray intranasal Q12H 30 days 06/17/22 mcg/actuation nasal #16 grams spray,suspension (Flonase Allergy Relief) atorvastatin 10 mg tablet 10 mg PO DAILY #30 tabs 07/28/22 bisacodyl 5 mg tablet,delayed 10 mg PO BEDTIME #180 tabs 08/31/22 release (Dulcolax (bisacodyl)) methylcellulose (laxative) 500 mg 1,000 mg PO DAILY #60 tabs 08/31/22 tablet (Citrucel) metformin 1,000 mg tablet,extended 1,000 mg PO DAILY 90 days #90 tabs 09/11/22 release 24hr cetirizine 10 mg tablet (Zyrtec) 10 mg PO DAILY 30 days #30 tabs 09/14/22 dulaglutide 0.75 mg/0.5 mL 0.75 mg (0.5 mL) subcut QWEEK #2 mL 09/16/22 subcutaneous pen injector (Trulicity) amitriptyline 10 mg tablet 10 mg PO BEDTIME 30 days #30 tabs 09/22/22 miscellaneous medical supply See Rx Instructions miscellaneous 10/01/22 .COMPLEX #2 ea albuterol sulfate 2.5 mg/3 mL 2.5 mg (3 mL) inhalation Q4-6H PRN 10/08/22 (0.083 %) solution for nebulization shortness of breath or wheezing 30 days #180 mL albuterol sulfate 90 mcg/actuation 1 puff inhalation Q4H PRN 10/08/22 aerosol inhaler shortness of breath or wheezing or broncospasm 1 month #8.5 grams diabetic shoes #1 ea 10/28/22 dulaglutide 1.5 mg/0.5 mL 1.5 mg (0.5 mL) subcut QWEEK #2 mL 10/28/22 subcutaneous pen injector (Trulicity) glipizide 5 mg tablet, extended 5 mg PO DAILY #90 tabs 12/25/22 release 24 hr cyclobenzaprine 5 mg tablet 5 mg PO TID PRN muscle spasm 7 01/01/23 days #21 tabs <Britta Wilder, [facility] - Last Filed: 01/01/23 12:00> Allergies/Adverse Reactions: Allergies Allergy/AdvReac Type Severity Reaction Status Date / Time No Known Allergies Allergy Verified 11/06/22 11:58 <Britta Wilder CNP - Last Filed: 01/01/23 12:00> Review of Systems Constitutional: Constitutional: Reports no additional constitutional complaints, Denies chills, Denies fever(s) and Denies night sweats <ANDRES Guardado - Last Filed: 01/01/23 17:58> Eyes: Eyes: Reports no additional eye complaints, Denies blurry vision, Denies change in vision, Denies diplopia, Denies eye discharge, Denies loss of vision and Denies eye pain <ANDRES Guardado - Last Filed: 01/01/23 17:58> ENT: Denies dizziness <ANDRES Guardado - Last Filed: 01/01/23 17:58> Cardiovascular: Cardiovascular: Reports no additional cardiovascular complaints, Denies chest pain, Denies lightheadedness, Denies Loss of Consciousness and Denies dyspnea <ANDRES Guardado - Last Filed: 01/01/23 17:58> Respiratory: Respiratory: Reports no additional respiratory complaints and Denies dyspnea <ANDRES Guardado - Last Filed: 01/01/23 17:58> Gastrointestinal: Gastrointestinal: Reports no additional gastrointestinal complaints, Denies abdominal pain, Denies melena, Denies hematochezia, Denies change in bowel habits and Denies change in stool character <ANDRES Guardado - Last Filed: 01/01/23 17:58> Genitourinary: Genitourinary: Denies hematuria, Denies urinary frequency, Denies dysuria, Denies urinary incontinence, Denies urinary hesitancy and Denies urinary urgency <ANDRES Guardado - Last Filed: 01/01/23 17:58> Musculoskeletal: Musculoskeletal: Reports no additional musculoskeletal complaints, Reports back pain, Denies numbness and Denies tingling <ANDRES Guardado Last Filed: 01/01/23 17:58> Neurologic: Denies dizziness, Denies loss of vision, Denies numbness and Denies tingling <ANDRES Guardado - Last Filed: 01/01/23 17:58> Psychiatric: Psychiatric: Reports no additional psychiatric complaints <ANDRES Guardado - Last Filed: 01/01/23 17:58> Endocrine: Endocrine: Reports no additional endocrine complaints <ANDRES Guardado - Last Filed: 01/01/23 17:58> Hematologic/Lymphatic: Hematologic/Lymphatic: Reports no additional hematologic/lymphatic complaints <ANDRES Guardado - Last Filed: 01/01/23 17:58> Allergic/Immunologic: Allergic/Immunologic: Reports no additional allergic/immunologic complaints <ANDRES Guardado - Last Filed: 01/01/23 17:58> [facility]LY [facility] Past Medical History Attestation statement: The following information was validated with the patient. <ANDRES Guardado - Last Filed: 01/01/23 17:58> Source: old records reviewed and nursing notes reviewed <ANDRES Guardado - Last Filed: 01/01/23 17:58> Medical History: Medical History Bilateral shoulder pain Chronic back pain Depression with anxiety Diabetes Diabetic peripheral neuropathy Excessive daytime sleepiness History of hepatitis C Obesity (Unknown) Pneumonia Seasonal allergic rhinitis Sleep apnea Vaginal dryness <Britta Wilder CNP - Last Filed: 01/01/23 12:00> Surgical History: Surgical History History of cholecystectomy History of colonoscopy History of tonsillectomy Left patella fracture <Britta Wilder CNP - Last Filed: 01/01/23 12:00> Family History Family History: Family History Father Prostate cancer Parkinsons Mother Stroke Son No problems noted. Son No problems noted. Daughter No problems noted. Sister Lung cancer <Britta Wilder CNP - Last Filed: 01/01/23 12:00> Social History Social History: Social History Household Members: None Housing: Apartment Do you presently have visiting nurse or other home services: No Alcohol intake: never Patient Tobacco Use Status: Never used Tobacco Smoked in Last 30 Days: No e-Cigarette/Vaping Use: Never Used Second Hand Smoke Exposure: No Use of substances other than those prescribed or required for medical reasons: No Any prior treatment program specific to substance use: No Advance Directives: Yes Advance Directives on File: Yes Advance Directives Date on File: 11/07/21 Patient : No service: No Current occupational status: disabled Current occupational exposures/hazards: No Cognitive needs: No Hearing needs: No Vision needs: No <Britta Wilder CNP - Last Filed: 01/01/23 12:00> Physical Exam Vital Signs: Vital Signs: Last Vital Signs Temp 96.7 F L 01/01/23 11:57 Pulse 88 01/01/23 11:57 Resp 20 01/01/23 11:57 BP 188/88 H 01/01/23 11:57 Pulse Ox 96 01/01/23 11:57 O2 Del Method 01/01/23 11:57 BMI result Body Mass Index 35.0 <Britta Wilder CNP - Last Filed: 01/01/23 12:00> Vital Signs: Last Vital Signs Temp 96.7 F L 01/01/23 11:57 Pulse 88 01/01/23 11:57 Resp 20 01/01/23 11:57 BP 188/88 H 01/01/23 11:57 Pulse Ox 96 01/01/23 11:57 O2 Del Method 01/01/23 11:57 BMI result Body Mass Index 35.0 <ANDRES Guardado - Last Filed: 01/01/23 17:58> Const: General: cooperative, no acute distress, alert and awake <ANDRES Guardado Last Filed: 01/01/23 17:58> Nutritional Appearance: well nourished <ANDRES Guardado Last Filed: 01/01/23 17:58> Orientation/consciousness: patient oriented x3 <ANDRES Guardado Last Filed: 01/01/23 17:58> Limitations: no limitations <ANDRES Guardado Last Filed: 01/01/23 17:58> HEENT: Head: Yes normal to inspection and Yes atraumatic <ANDRES Guardado Last Filed: 01/01/23 17:58> Ears: hearing grossly normal bilaterally and external ears normal <ANDRES Guardado Last Filed: 01/01/23 17:58> General nose exam: Normal external nose present, no nasal discharge noted and no epistaxis <Heather Denise [facility] - Last Filed: 01/01/23 17:58> Face and sinus: Yes normal facial exam, No abrasion and No laceration <Heather Denise [facility] - Last Filed: 01/01/23 17:58> Mouth: Normal oral and palatal mucosa present, no drooling and no muffled voice <Heather Denise [facility] - Last Filed: 01/01/23 17:58> Eyes: General: appearance normal, both eyes and all related structures <Heather Denise [facility] - Last Filed: 01/01/23 17:58> Periorbital: periorbital findings normal <Heather Denise [facility] - Last Filed: 01/01/23 17:58> Eyelids: Yes eyelids normal <Heather Denise VA - Last Filed: 01/01/23 17:58> Conjunctivae: conjunctivae normal <Heather Denise [facility] - Last Filed: 01/01/23 17:58> Pupils: Equal, round and reactive pupils present <Heather Denise [facility] - Last Filed: 01/01/23 17:58> EOM: EOMs intact bilaterally <Heather Denise [facility] - Last Filed: 01/01/23 17:58> Neck: Neck: Yes normal visual inspection, Yes full ROM and Yes no lymphadenopathy <Heather Denise [facility] - Last Filed: 01/01/23 17:58> Chest: Chest palpation & inspection: normal inspection of the chest <Heather Denise VA - Last Filed: 01/01/23 17:58> Resp: Effort & Inspection: normal respiratory effort and able to speak in complete sentences <ANDRES Guardado - Last Filed: 01/01/23 17:58> Auscultation: clear to auscultation bilaterally <ANDRES Guardado - Last Filed: 01/01/23 17:58> Cardio: Rate: regular rate <Heather Denise [facility] - Last Filed: 01/01/23 17:58> Rhythm: regular rhythm <Heather Denise [facility] - Last Filed: 01/01/23 17:58> GI: Inspection: Yes normal to inspection <Heather Denise PA - Last Filed: 01/01/23 17:58> : General: Yes no CVA tenderness <Heather Denise PA - Last Filed: 01/01/23 17:58> Back/Spine/Pelvis: Back: no CVA tenderness <Heather Denise PA - Last Filed: 01/01/23 17:58> Cervical Spine: normal cervical lordosis and cervical ROM normal <Heather Denise PA - Last Filed: 01/01/23 17:58> Thoracic/Lumbar Spine: thoracic and lumbar spine normal to inspection and thoraco-lumbar ROM normal <Heather Denise PA - Last Filed: 01/01/23 17:58> Neuro: General: patient oriented x3 and moves all extremities <Heather Denise PA - Last Filed: 01/01/23 17:58> Cranial nerves: Yes Equal, round and reactive pupils present <Heather Denise PA - Last Filed: 01/01/23 17:58> Cognition (Neuro): normal cognition <Heather Denise PA - Last Filed: 01/01/23 17:58> Motor exam (neuro): 5/5 motor strength present throughout <Heather Denise PA - Last Filed: 01/01/23 17:58> Sensory Exam: Normal double simultaneous stimulation for sensation <Heather Denise PA - Last Filed: 01/01/23 17:58> Coordination: [id number] test normal <Heather Denise PA - Last Filed: 01/01/23 17:58> Extrem: General: Yes normal to inspection, Yes full ROM and Yes capillary refill normal <Heather Denise PA - Last Filed: 01/01/23 17:58> Psych: Appearance: grossly normal <Heather Terrellodalys PA - Last Filed: 01/01/23 17:58> Mental Status: mental status grossly normal <Heather TerrellANDRES morrow - Last Filed: 01/01/23 17:58> Affect: normal affect <Heather Terrellodalys PA - Last Filed: 01/01/23 17:58> Attitude: cooperative <Heathersean Terrellodalys PA - Last Filed: 01/01/23 17:58> Thought process: Normal thought process present <ANDRES Guardado - Last Filed: 01/01/23 17:58> Thought content: Normal thought content present <ANDRES Guardado - Last Filed: 01/01/23 17:58> Insight: Good insight present (Psych) <ANDRES Guardado - Last Filed: 01/01/23 17:58> Course Course Course Narrative: This is an RME: Additional HPI, ROS, PE not included below will be deferred to primary provider. Patient is a 62 year old female who presents to the ED for evaluation of left posterior rib pain. Onset was 3 days ago, but reports today that it is severe. Denies any injury or fall. When asked if she is experiencing shortness of breath she states that it feels ?tight?. In addition she expresses that her left arm feels cold, this is been ongoing for the past 3 days as well. Denies personal history of DVT/PE, malignancy, tobacco usage. Denies anterior chest pain, URI symptoms PE: bilateral upper extremities neurovascularly intact distally Plan: labs, EKG, CXR, viral testing <Britta Wilder CNP - Last Filed: 01/01/23 12:00> Medications Administered Discontinued Medications Generic Name Dose Route Start Last Admin Trade Name Freq PRN Reason Stop Dose Admin Cyclobenzaprine HCl 5 mg 01/01/23 13:05 01/01/23 13:11 Cyclobenzaprine Hcl 5 Mg Tablet PO 01/01/23 13:06 5 mg ONCE ONE Administration Ketorolac Tromethamine 15 mg 01/01/23 13:05 01/01/23 13:11 Ketorolac Tromethamine 15 Mg/Ml Vial IM 01/01/23 13:06 15 mg ONCE ONE Administration <Britta Wilder CNP - Last Filed: 01/01/23 12:00> Medications Administered Discontinued Medications Generic Name Dose Route Start Last Admin Trade Name Freq PRN Reason Stop Dose Admin Cyclobenzaprine HCl 5 mg 01/01/23 13:05 01/01/23 13:11 Cyclobenzaprine Hcl 5 Mg Tablet PO 01/01/23 13:06 5 mg ONCE ONE Administration Ketorolac Tromethamine 15 mg 01/01/23 13:05 01/01/23 13:11 Ketorolac Tromethamine 15 Mg/Ml Vial IM 01/01/23 13:06 15 mg ONCE ONE Administration <ANDRES Guardado - Last Filed: 01/01/23 17:58> Medical Decision Making Medical Decision Making [facility] Narrative: Patient is a 62 year old assigned female at with a history of DM and chronic dizziness presenting to the emergency department today with left sided back and rib pain. Patient's physical exam was unremarkable. Patient's blood work was unremarkable. Patient's EKG was unremarkable. Patient's chest x-ray showed no acute process. I explained my physical exam findings as well as all test results to the patient. I answered all questions asked by the patient. I stressed the importance of the patient taking her medication as prescribed. I stressed the importance of the patient following up with her primary care provider. I stressed the importance of the patient returning to the emergency department immediately if her symptoms were to worsen or if she were to develop any dizziness, shortness of breath, difficulty breathing, chest pain, blurry vision, loss of vision, nausea, vomiting, abdominal pain, fever, chills, back pain, or any other complaints. Patient verbalized agreement and understanding with this treatment plan and discharge. <ANDRES Guardado - Last Filed: 01/01/23 17:58> Differential Diagnosis Differential Diagnoses: The differential diagnosis associated with the presentation includes <ANDRES Guardado - Last Filed: 01/01/23 17:58> muscle spasm <ANDRES Guardado - Last Filed: 01/01/23 17:58> Lab Data [facility] Lab Attestation statement: I reviewed the patient's lab results. <ANDRES Guardado - Last Filed: 01/01/23 17:58> Result Diagrams: 01/01/23 12:18 01/01/23 12:18 <Britta Wilder CNP - Last Filed: 01/01/23 12:00> Labs: Lab Results 01/01/23 01/01/23 01/01/23 Range/Units 12:18 12:18 12:18 WBC 10.6 (4.8-10.8) X10*3/uL RBC 4.87 (4.20-5.50) X10*6/uL Hgb 14.7 (12.0-16.0) g/dl Hct 44.7 (37.0-47.0) % MCV 91.8 (80.0-98.0) fL MCH 30.2 (27.0-33.0) pg MCHC 32.9 (31.0-35.0) g/dl RDW 12.6 (11.0-16.0) % Plt Count 294 (160-400) X10*3/uL MPV 10.1 (9.4-12.3) fL Immature Gran % (Auto) 0.3 (0.0-0.4) % Neut % (Auto) 58.8 (45-73) % Lymph % (Auto) 31.5 (20-40) % Martin % (Auto) 7.7 (2-11) % Eos % (Auto) 1.0 (0-4) % Baso % (Auto) 0.7 (0-2) % Lymph # (Auto) 3.3 (1.2-4.9) X10*3/uL Martin # (Auto) 0.8 (0.1-1.2) X10*3/uL Eos # (Auto) 0.1 (0.0-0.4) X10*3/uL Baso # (Auto) 0.1 (0.0-0.2) X10*3/uL Abs Immat Gran (auto) 0.03 (0.00-0.03) X10*3/uL Absolute Neuts (auto) 6.2 (2.0-8.3) x10*3/uL Absolute Nucleated RBC 0.000 (0.0-0.012) X10*3/uL Nucleated RBC % (auto) 0.0 (0.0-0.2) /100WBC Sodium 140 (135-145) mmol/L Potassium 4.4 (3.3-5.1) mmol/L Chloride 102 (96-108) mmol/L Carbon Dioxide 29 (22-29) mmol/L Anion Gap 13 (12-20) BUN 19 H (9-16) mg/dL Creatinine 0.87 (0.5-1.4) mg/dL Estim Creat Clear Calc 72.9 Estimated GFR > 60 Random Glucose 213 H (60-115) mg/dL Calcium 9.8 (8.4-10.2) mg/dL Total Bilirubin 0.4 (0.0-1.0) mg/dL AST 17 (5-31) U/L ALT 20 (0-31) U/L Alkaline Phosphatase 109 (39-117) U/L Troponin I High Sens (<3.5-17.0) ng/L Total Protein 7.6 (6.5-8.0) g/dL Albumin 4.4 (3.5-5.0) g/dL COVID-19 (ABRAHAM) Negative (Negative) COVID-19 Clin Com See Note Influenza Type A (STEVEN) (Negative) Influenza Type B (STEVEN) (Negative) Influenza A & B Note 01/01/23 01/01/23 Range/Units 12:18 12:18 WBC (4.8-10.8) X10*3/uL RBC (4.20-5.50) X10*6/uL Hgb (12.0-16.0) g/dl Hct (37.0-47.0) % MCV (80.0-98.0) fL MCH (27.0-33.0) pg MCHC (31.0-35.0) g/dl RDW (11.0-16.0) % Plt Count (160-400) X10*3/uL MPV (9.4-12.3) fL Immature Gran % (Auto) (0.0-0.4) % Neut % (Auto) (45-73) % Lymph % (Auto) (20-40) % Martin % (Auto) (2-11) % Eos % (Auto) (0-4) % Baso % (Auto) (0-2) % Lymph # (Auto) (1.2-4.9) X10*3/uL Martin # (Auto) (0.1-1.2) X10*3/uL Eos # (Auto) (0.0-0.4) X10*3/uL Baso # (Auto) (0.0-0.2) X10*3/uL Abs Immat Gran (auto) (0.00-0.03) X10*3/uL Absolute Neuts (auto) (2.0-8.3) x10*3/uL Absolute Nucleated RBC (0.0-0.012) X10*3/uL Nucleated RBC % (auto) (0.0-0.2) /100WBC Sodium (135-145) mmol/L Potassium (3.3-5.1) mmol/L Chloride (96-108) mmol/L Carbon Dioxide (22-29) mmol/L Anion Gap (12-20) BUN (9-16) mg/dL Creatinine (0.5-1.4) mg/dL Estim Creat Clear Calc Estimated GFR Random Glucose (60-115) mg/dL Calcium (8.4-10.2) mg/dL Total Bilirubin (0.0-1.0) mg/dL AST (5-31) U/L ALT (0-31) U/L Alkaline Phosphatase (39-117) U/L Troponin I High Sens < 3.5 (<3.5-17.0) ng/L Total Protein (6.5-8.0) g/dL Albumin (3.5-5.0) g/dL COVID-19 (ABRAHAM) (Negative) COVID-19 Clin Com Influenza Type A (STEVEN) Negative (Negative) Influenza Type B (STEVEN) Negative (Negative) Influenza A & B Note See Note <Britta Wilder, [employer] - Last Filed: 01/01/23 12:00> Lab Results 01/01/23 01/01/23 01/01/23 Range/Units 12:18 12:18 12:18 WBC 10.6 (4.8-10.8) X10*3/uL RBC 4.87 (4.20-5.50) X10*6/uL Hgb 14.7 (12.0-16.0) g/dl Hct 44.7 (37.0-47.0) % MCV 91.8 (80.0-98.0) fL MCH 30.2 (27.0-33.0) pg MCHC 32.9 (31.0-35.0) g/dl RDW 12.6 (11.0-16.0) % Plt Count 294 (160-400) X10*3/uL MPV 10.1 (9.4-12.3) fL Immature Gran % (Auto) 0.3 (0.0-0.4) % Neut % (Auto) 58.8 (45-73) % Lymph % (Auto) 31.5 (20-40) % Martin % (Auto) 7.7 (2-11) % Eos % (Auto) 1.0 (0-4) % Baso % (Auto) 0.7 (0-2) % Lymph # (Auto) 3.3 (1.2-4.9) X10*3/uL Martin # (Auto) 0.8 (0.1-1.2) X10*3/uL Eos # (Auto) 0.1 (0.0-0.4) X10*3/uL Baso # (Auto) 0.1 (0.0-0.2) X10*3/uL Abs Immat Gran (auto) 0.03 (0.00-0.03) X10*3/uL Absolute Neuts (auto) 6.2 (2.0-8.3) x10*3/uL Absolute Nucleated RBC 0.000 (0.0-0.012) X10*3/uL Nucleated RBC % (auto) 0.0 (0.0-0.2) /100WBC Sodium 140 (135-145) mmol/L Potassium 4.4 (3.3-5.1) mmol/L Chloride 102 (96-108) mmol/L Carbon Dioxide 29 (22-29) mmol/L Anion Gap 13 (12-20) BUN 19 H (9-16) mg/dL Creatinine 0.87 (0.5-1.4) mg/dL Estim Creat Clear Calc 72.9 Estimated GFR > 60 Random Glucose 213 H (60-115) mg/dL Calcium 9.8 (8.4-10.2) mg/dL Total Bilirubin 0.4 (0.0-1.0) mg/dL AST 17 (5-31) U/L ALT 20 (0-31) U/L Alkaline Phosphatase 109 (39-117) U/L Troponin I High Sens (<3.5-17.0) ng/L Total Protein 7.6 (6.5-8.0) g/dL Albumin 4.4 (3.5-5.0) g/dL COVID-19 (ABRAHAM) Negative (Negative) COVID-19 Clin Com See Note Influenza Type A (STEVEN) (Negative) Influenza Type B (STEVEN) (Negative) Influenza A & B Note 01/01/23 01/01/23 Range/Units 12:18 12:18 WBC (4.8-10.8) X10*3/uL RBC (4.20-5.50) X10*6/uL Hgb (12.0-16.0) g/dl Hct (37.0-47.0) % MCV (80.0-98.0) fL MCH (27.0-33.0) pg MCHC (31.0-35.0) g/dl RDW (11.0-16.0) % Plt Count (160-400) X10*3/uL MPV (9.4-12.3) fL Immature Gran % (Auto) (0.0-0.4) % Neut % (Auto) (45-73) % Lymph % (Auto) (20-40) % Martin % (Auto) (2-11) % Eos % (Auto) (0-4) % Baso % (Auto) (0-2) % Lymph # (Auto) (1.2-4.9) X10*3/uL Martin # (Auto) (0.1-1.2) X10*3/uL Eos # (Auto) (0.0-0.4) X10*3/uL Baso # (Auto) (0.0-0.2) X10*3/uL Abs Immat Gran (auto) (0.00-0.03) X10*3/uL Absolute Neuts (auto) (2.0-8.3) x10*3/uL Absolute Nucleated RBC (0.0-0.012) X10*3/uL Nucleated RBC % (auto) (0.0-0.2) /100WBC Sodium (135-145) mmol/L Potassium (3.3-5.1) mmol/L Chloride (96-108) mmol/L Carbon Dioxide (22-29) mmol/L Anion Gap (12-20) BUN (9-16) mg/dL Creatinine (0.5-1.4) mg/dL Estim Creat Clear Calc Estimated GFR Random Glucose (60-115) mg/dL Calcium (8.4-10.2) mg/dL Total Bilirubin (0.0-1.0) mg/dL AST (5-31) U/L ALT (0-31) U/L Alkaline Phosphatase (39-117) U/L Troponin I High Sens < 3.5 (<3.5-17.0) ng/L Total Protein (6.5-8.0) g/dL Albumin (3.5-5.0) g/dL COVID-19 (ABRAHAM) (Negative) COVID-19 Clin Com Influenza Type A (STEVEN) Negative (Negative) Influenza Type B (STEVEN) Negative (Negative) Influenza A & B Note See Note <ANDRES Guardado - Last Filed: 01/01/23 17:58> Independent Interpretation I performed an independent interpretation of an: EKG <ANDRES Guardado - Last Filed: 01/01/23 17:58> Interpretation: Vent. Rate: 078 BPM ? ? Atrial Rate: 078 BPM P-R Int: 158 ms? QRS Dur: 088 ms QT Int: 376 ms ? ? ? P-R-T Axes: 052 -42 045 degrees QTc Int: 428 ms ? Normal sinus rhythm Left axis deviation Pulmonary disease pattern Abnormal ECG When compared with ECG of 16-MAR-2022 16:03, No significant change was found ? DD/ 1226 <ANDRES Guardado - Last Filed: 01/01/23 17:58> Radiology Impression Radiologist Impression: My interpretation is in agreement with the radiologist's impression of this imaging study. EXAMINATION: XR CHEST CLINICAL INFORMATION: Posterior rib pain. COMPARISON: 01/14/2022 chest radiographs. TECHNIQUE: 2 views of the chest were obtained. FINDINGS: No significant abnormality is noted involving the heart, lungs, mediastinum, bony thorax or soft tissues. XR/XR chest 2V IMPRESSION: No acute cardiopulmonary process. No acute rib fracture. If suspicion remains high for acute rib fracture, a dedicated right rib series is recommended. Dictated By: Porter Lr MD Signed By: Electronically signed by Porter Lr MD 01/01/23 1220 <ANDRES Guardado - Last Filed: 01/01/23 17:58> Discharge Plan Discharge Clinical Impression: Muscle spasm <Britta Wilder CNP - Last Filed: 01/01/23 12:00> Patient Disposition: Home, Self-Care <Britta Wilder CNP - Last Filed: 01/01/23 12:00> Instructions: Muscle Spasm (ED) <Britta Wilder CNP - Last Filed: 01/01/23 12:00> Additional Instructions: Follow up with your primary care provider. Return to the emergency department immediately if your symptoms worsen or if you develop any dizziness, shortness of breath, difficulty breathing, chest pain, blurry vision, loss of vision, nausea, vomiting, abdominal pain, fever, chills, back pain, or any other complaints. <Britta Wilder CNP - Last Filed: 01/01/23 12:00> Prescriptions: New cyclobenzaprine 5 mg tablet 5 mg PO TID PRN (Reason: muscle spasm) 7 Days Qty: 21 0RF No Action (DME) nebulizers [facility] See Rx Instructions .Route Qty: 1 0RF Rx Instructions: Use every 4-6 hours prn for wheezing, shortness of breath (DME) lancets [FreeStyle Lancets] 28 gauge misc See Rx Instructions .ROUTE .MEDSUPPLY Qty: 100 5RF Rx Instructions: bid and prn glucose testing atorvastatin 10 mg tablet 10 mg PO DAILY Qty: 30 5RF metformin 1,000 mg tablet extended release 24 hr 1,000 mg PO DAILY 90 Days Qty: 90 3RF cetirizine [Zyrtec] 10 mg tablet 10 mg PO DAILY 30 Days Qty: 30 0RF Trulicity 0.75 mg/0.5 mL pen injector 0.75 mg subcut QWEEK Qty: 2 2RF miscellaneous medical supply Misc See Rx Instructions miscellaneous .COMPLEX Qty: 2 1RF Rx Instructions: diabetic shoes as directed; albuterol sulfate 2.5 mg /3 mL (0.083 %) solution for nebulization 2.5 mg inhalation Q4-6H PRN (Reason: shortness of breath or wheezing) 30 Days Qty: 180 1RF albuterol sulfate 90 mcg/actuation HFA aerosol inhaler 1 puff inhalation Q4H PRN (Reason: shortness of breath or wheezing or broncospasm) 30 Days Qty: 8.5 6RF (DME) diabetic shoes See Rx Instructions .ROUTE .MEDSUPPLY Qty: 1 0RF Rx Instructions: extra depth orthopedic shoes ( 1 pair ) with customize heat molded multi density inner soles ( 3 pair) Dispense 1 Sig: As directed DX: And IDDM /polyneuropathy ( E11 0.42 ); hammertoe foot deformity ( M 20.41, and 20.42 ) pre ulcerative skin lesion ( L 85.1 ) Diagnosis ( E11 0.42 ) type 2 diabetes with polyneuropathy glipizide 5 mg tablet extended release 24hr 5 mg PO DAILY Qty: 90 0RF fluticasone propionate [Flonase Allergy Relief] 50 mcg/actuation spray,suspension 1 spray intranasal Q12H 30 Days Qty: 16 0RF Rx Instructions: administer into each nostril (DME) FreeStyle Lite Strips Strip See Rx Instructions Not Applicable BID Qty: 10 Rx Instructions: As directed twice a day (DME) blood-glucose meter [FreeStyle Lite Meter] Kit See Rx Instructions .Route Rx Instructions: As directed Trulicity 1.5 mg/0.5 mL pen injector 1.5 mg subcut QWEEK Qty: 2 5RF amitriptyline 10 mg tablet 10 mg PO BEDTIME 30 Days Qty: 30 2RF Citrucel 500 mg tablet 1,000 mg PO DAILY Qty: 60 2RF Rx Instructions: take it with full glass of water bisacodyl [Dulcolax (bisacodyl)] 5 mg tablet,delayed release (DR/EC) 10 mg PO BEDTIME Qty: 180 4RF <Britta Wilder CNP - Last Filed: 01/01/23 12:00> Referrals: Jean Carlos Page MD [Primary Care Provider] - <Britta Wilder CNP - Last Filed: 01/01/23 12:00> Interventions: ED Discharge Assessment Last Done: 01/01/23 13:17 <Britta Wilder CNP - Last Filed: 01/01/23 12:00> Discharge Date/Time: 01/01/23 13:17 <Britta Wilder CNP - Last Filed: 01/01/23 12:00> Print Language: Singaporean <Britta Wilder CNP - Last Filed: 01/01/23 12:00>
[2023-01-01 11:57] VITALS: BP 188/88; PULSE 88; RESP 20; TEMP 35.9; O2SAT 96; BMI 35.0
--- NOTE | 2023-01-01 11:59 | ECG_ITS ---
Test Reason : BACK PAIN Blood Pressure : / mmHG Vent. Rate : 078 BPM Atrial Rate : 078 BPM P-R Int : 158 ms QRS Dur : 088 ms QT Int : 376 ms P-R-T Axes : 052 -42 045 degrees QTc Int : 428 ms Normal sinus rhythm Left axis deviation Pulmonary disease pattern Abnormal ECG When compared with ECG of 16-MAR-2022 16:03, No significant change was found Referred By: Britta Wilder Electronically Signed By:ALLAN ORTEGA MD
[2023-01-01 12:24] LABS: MANUAL DIFF FLAG NO
[2023-01-01 12:29] LABS: Basophils Absolute Auto 0.1 X10*3/uL (0.0-0.2); Basophils Percent Auto 0.7 % (0-2); Eosinophils Absolute Auto 0.1 X10*3/uL (0.0-0.4); Hematocrit 44.7 % (37.0-47.0); Hemoglobin 14.7 g/dl (12.0-16.0); Imm Gran Abs Auto 0.03 X10*3/uL (0.00-0.03); Imm Gran Pct Auto 0.3 % (0.0-0.4); Lymphocytes Absolute Auto 3.3 X10*3/uL (1.2-4.9); Lymphocytes Percent Auto 31.5 % (20-40); Mean Corpuscular HGB Conc 32.9 g/dl (31.0-35.0); Mean Corpuscular Hemoglobin 30.2 pg (27.0-33.0); Mean Corpuscular Volume 91.8 fL (80.0-98.0); Mean Platelet Volume 10.1 fL (9.4-12.3); Monocytes Absolute Auto 0.8 X10*3/uL (0.1-1.2); Monocytes Percent Auto 7.7 % (2-11); Neutrophils Absolute Auto 6.2 x10*3/uL (2.0-8.3); Neutrophils Percent Auto 58.8 % (45-73); Platelet Count 294 X10*3/uL (160-400); Red Blood Count 4.87 X10*6/uL (4.20-5.50); Red Cell Distribution Width 12.6 % (11.0-16.0); White Blood Count 10.6 X10*3/uL (4.8-10.8)
[2023-01-01 12:45] LABS: Alanine Aminotransferase 20 U/L (0-31); Albumin Level 4.4 g/dL (3.5-5.0); Alkaline Phosphatase 109 U/L (39-117); Anion Gap 13 (12-20); Aspartate Amino Transferase 17 U/L (5-31); Bilirubin Total 0.4 mg/dL (0.0-1.0); Blood Urea Nitrogen 19 mg/dL (9-16); Calcium 9.8 mg/dL (8.4-10.2); Carbon Dioxide 29 mmol/L (22-29); Chloride 102 mmol/L (96-108); Creatinine Clr Calc Pharmacy 72.9; Estimated Glomerular Filt Rate > 60; Glucose Random 213 mg/dL (60-115); IDNOW Serial# 9DB6401D; Potassium 4.4 mmol/L (3.3-5.1); Sodium 140 mmol/L (135-145); Total Protein 7.6 g/dL (6.5-8.0)
[2023-01-01 12:46] LABS: COVID-19 Test Negative (Negative)
[2023-01-01 12:52] LABS: IDNOW Serial# 08D9AD1C; Influenza A Negative (Negative); Influenza B2 Negative (Negative)
[2023-01-01 12:53] LABS: Troponin-I High Sensitivity < 3.5 ng/L (<3.5-17.0)
[2023-01-01] MEDS: Ketorolac Tromethamine 15 MG/ML VIAL IM (13:11)
[2023-01-01] MEDS: Cyclobenzaprine HCl 5 MG TABLET PO (13:11)
== END 2023-01-01 13:17 | disposition home or self-care (01) ==
PROVIDERS: Nurse Practitioner Family; Emergency Provider Emergency Medicine Emergency Medical Services; PCP Family Medicine
DX: M54.50 Low back pain, unspecified (principal); R07.81 Pleurodynia; M62.838 Other muscle spasm; Z20.822 Contact with and (suspected) exposure to COVID-19; Z20.828 Contact with and (suspected) exposure to other viral communicable diseases; Z79.899 Other long term (current) drug therapy
CPT/HCPCS: 71046; 80053; 84484; 85025; 87502; 87635; 93005; 96372; 99284; 99285; J1885

== ENCOUNTER → 2023-02-26 09:57 | Outpatient (BNVA) | payer OTHER, SELFPAY | PROVIDERS: PCP Family Medicine; Visit Provider Internal Medicine Endocrinology, Diabetes & Metabolism | DX: E11.65 Type 2 diabetes mellitus with hyperglycemia (principal) | CPT/HCPCS: 82947; 83036; 99212 ==

== ENCOUNTER → 2023-03-01 11:19 | Outpatient (BNVA) | payer OTHER, SELFPAY | PROVIDERS: PCP Family Medicine; Visit Provider Nurse Practitioner Family | DX: Z23 Encounter for immunization (principal) | CPT/HCPCS: 90471; 90746; 99211 ==

== ENCOUNTER 2023-04-12 10:14 | Day surgery (SDC) | payer OTHER, SELFPAY ==
[2023-04-12 10:25] VITALS: BP 122/78; PULSE 77; RESP 16; TEMP 36.6; O2SAT 96; BMI 34.1; BMI 34.3
--- NOTE | 2023-04-12 10:32 | MHC.SHP ---
Pre-Procedural Eval Section A Date of Service: 04/12/23 The patient is an INPATIENT: No The History & Physical has been completed within 30 days and I have reviewed it.: No Section B Chief Complaint: Dysphagia, abdominal cramps, diarrhea Relevant Family History (Specify if Yes): No Relevant Social History: None Present Medications: see Short Stay Collaborative assessment Medical History: Significant History (Bilateral shoulder pain Chronic back pain Depression with anxiety Diabetes Diabetic peripheral neuropathy Excessive daytime sleepiness History of hepatitis C Obesity (Unknown) Pneumonia Seasonal allergic rhinitis Sleep apnea Vaginal dryness) History of Previous Operations: Relevant previous surgery/procedure and date(s) (History of cholecystectomy History of colonoscopy History of tonsillectomy Left patella fracture) Allergies: Allergies Allergy/AdvReac Type Severity Reaction Status Date / Time No Known Allergies Allergy Verified 02/26/23 10:04 Review of Systems Sugical H&P ROS: Negative: Constitution, Cardiovascular and Respiratory and Yes, Specify: Gastrointestinal (dysphagia) Exam Surgical H&P Exam: Normal: Heart, Normal: Lungs, Normal: Extremities and Normal: Abdomen Plan Diagnosis/Plan: Change (schedule EGD with possible dilation for dysphagia) I have reviewed the history and physical and performed a pertinent physical examination on my patient. No changes have occurred unless specified. Time Spent With Patient Time: Total time managing care of this patient today ____ minutes.
[2023-04-12 10:37] LABS: Glucose, Whole Blood 138 mg/dL (60-115)
--- NOTE | 2023-04-12 10:39 | P.OP_ITS ---
Operative Note Operative Note Date of Service: 04/12/23 Narrative: FLEXIBLE TRANSORAL UPPER GASTROINTESTINAL ENDOSCOPY WITH BIOPSIES AND ESOPHAGEAL BALLOON DILATION Pre-op diagnosis: Dysphagia to solids, abdominal cramps and diarrhea Post-op diagnosis: GERD, gastritis, gastric polyp Endoscopist:? Anna Vigil MD Anesthesia:?MAC Consent: Indications for the procedure and potential complications of bleeding, perforation, reaction to medications and missed diagnosis were discussed with the patient and informed consent was obtained. Instrument: Olympus GIF H 190 mid size upper endoscope Monitoring: Vital signs and clinical assessment, continuous EKG monitoring, Pulse oximetry, Carbon Dioxide monitoring and blood pressure monitoring were done throughout the procedure. Procedure: The patient was placed in the left lateral decubitis position and pre-procedure medications were administered and a bite block was placed. The endoscope was inserted into the mouth and advanced under direct vision to the third part of duodenum. A careful inspection was made as the upper endoscope was withdrawn including a retroflexed examination of the proximal stomach; Findings and interventions are described below. Findings: Larynx: Normal Esophagus: GE junction at 35 cms. Minimal focal esophagitis at GE junction. No stricture or ring noted. Biopsies were obtained from proximal esophagus to check for EOE. Esophageal balloon dilation was performed with a 20 mm CRE balloon x 60 seconds Stomach: Moderate diffuse gastric erythema. Biopsies were obtained from the gastric antrum and body. A 10-15 mm benign appearing polyp/nodule at 50 cms in the gastric body - biopsied. Grade 2 flap valve on retroflexed examination of the cardia. Duodenum: Normal bulb and descending duodenum. Biopsies were obtained from 3rd part of the duodenum to check for celiac sprue Intervention: Biopsies and esophageal balloon dilation as noted above Impression and Post Procedure Diagnosis: Endoscopy Findings: ESOPHAGUS: Minimal focal esophagitis at GE junction. No stricture or ring noted. Biopsies were obtained from proximal esophagus to check for EOE. Esophageal balloon dilation was performed with a 20 mm CRE balloon x 60 seconds STOMACH: moderate diffuse gastritis and benign-appearing gastric polyp/ nodule. DUODENUM: Normal - biopsied to check for celiac sprue Plan: Await pathology results Patient to schedule a FU appointment in the GI Clinic with Violet Vaughan FNP- [facility]. Above findings were reviewed with the patient and GERD and Gastric polyps handouts were given in the discharge area
--- NOTE | 2023-04-12 10:40 | HO.ANESPROP2 ---
Documented by User: Roshni Post NP 04/09/23 12:52 HPI - Anesthesia Eval Consult details Narrative: 62yo F for Upper Endoscopy PMFSH Active Problems Active Problems: All Active Problems (Updated 02/18/23 @ 17:40 by Jean Carlos Page MD) Lower extremity weakness (Acute) Diabetic neuropathy (Acute) Chronic back pain (Acute) Restless legs syndrome (Acute) Cervicalgia (Acute) Elevated TSH (Acute) Low HDL (under 40) (Acute) History of hepatitis C (Acute) Elbow pain (Acute) Daytime sleepiness (Acute) Weakness of upper extremity (Acute) Otitis media (Acute) Viral upper respiratory illness (Acute) Back pain (Acute) 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 hauler manifesting chronic dyspnea (Acute) Physical deconditioning (Acute) Supplemental oxygen dependent (Acute) COVID (Acute) Left arm weakness (Acute) Cough (Acute) Sleep disorder (Acute) Snoring (Acute) Fatigue (Acute) Dizziness (Acute) Poorly controlled diabetes mellitus (Acute) Rash (Acute) Vaginal yeast infection (Acute) Blepharitis (Acute) Diarrhea (Acute ~12/2018) Poorly controlled diabetes mellitus (Acute ~08/01/20) Past Medical History Medical History (Updated 02/18/23 @ 17:40 by Jean Carlos Page MD) Bilateral shoulder pain Chronic back pain Depression with anxiety Diabetes Diabetic peripheral neuropathy Excessive daytime sleepiness History of hepatitis C Obesity (Unknown) Pneumonia Seasonal allergic rhinitis Sleep apnea Vaginal dryness Family History Family History Father Prostate cancer Parkinsons Mother Stroke Son No problems noted. Son No problems noted. Daughter No problems noted. Sister Lung cancer Surgical History Surgical History History of cholecystectomy History of colonoscopy History of tonsillectomy Left patella fracture Social History Social History Household Members: None Housing: Apartment Do you presently have visiting nurse or other home services: No Alcohol intake: never Patient Tobacco Use Status: Never used Tobacco e-Cigarette/Vaping Use: Never Used Second Hand Smoke Exposure: No Advance Directives: No Advance Directives Information Provided: Yes Advance Directives Date on File: 11/07/21 service: No Current occupational status: disabled Current occupational exposures/hazards: No Cognitive needs: No Hearing needs: No Vision needs: No Meds Allergies Allergy/AdvReac Type Severity Reaction Status Date / Time No Known Allergies Allergy Verified 02/26/23 10:04 Exam Exam Date and Time: April 09, 2023 1251 Pertinent Lab Results Pertinent Lab Results: Laboratory Tests 01/01/23 01/01/23 12:18 12:18 WBC 10.6 Hgb 14.7 Hct 44.7 Plt Count 294 Sodium 140 Potassium 4.4 Chloride 102 Carbon Dioxide 29 BUN 19 H Creatinine 0.87 Narrative Narrative: EKG 12/2022 Vent. Rate : 078 BPM ? ? Atrial Rate : 078 BPM ?? P-R Int : 158 ms? QRS Dur : 088 ms ? ? QT Int : 376 ms ? ? ? P-R-T Axes : 052 -42 045 degrees ?? QTc Int : 428 ms ? Normal sinus rhythm Left axis deviation Pulmonary disease pattern Abnormal ECG When compared with ECG of 16-MAR-2022 16:03, No significant change was found Assessment and Plan Assessment Anesthesia Assessment: Chart Reviewed Documented by User: Rosemarie Rdogers DO 04/12/23 10:41 PMFSH Past Medical History Medical History (Updated 02/18/23 @ 17:40 by Jean Carlos Page MD) Bilateral shoulder pain Chronic back pain Depression with anxiety Diabetes Diabetic peripheral neuropathy Excessive daytime sleepiness History of hepatitis C Obesity (Unknown) Pneumonia Seasonal allergic rhinitis Sleep apnea Vaginal dryness Family History Family History Father Prostate cancer Parkinsons Mother Stroke Son No problems noted. Son No problems noted. Daughter No problems noted. Sister Lung cancer Surgical History Surgical History History of cholecystectomy History of colonoscopy History of tonsillectomy Left patella fracture History of Problems with Anesthesia: No Social History Social History Household Members: None Housing: Apartment Do you presently have visiting nurse or other home services: No Alcohol intake: never Patient Tobacco Use Status: Never used Tobacco e-Cigarette/Vaping Use: Never Used Second Hand Smoke Exposure: No Advance Directives: No Advance Directives Information Provided: Yes Advance Directives Date on File: 11/07/21 service: No Current occupational status: disabled Current occupational exposures/hazards: No Cognitive needs: No Hearing needs: No Vision needs: No Meds Allergies Allergy/AdvReac Type Severity Reaction Status Date / Time No Known Allergies Allergy Verified 02/26/23 10:04 Exam Exam Date and Time: April 12, 2023 1036 Airway Mallampati Class: I TM Dist: >3cm Neck ROM: Full Loose/Missing/Broken Teeth: No Heart: S1S2 Lungs: CTAB Assessment and Plan Assessment Anesthesia Assessment: Anesthesia Plan Discussed and Chart Reviewed Final Anesthetic Review History of Problems with Anesthesia: No NPO: Yes ASA Class: III Final Preanesthetic Review: No Changes in Pt Med Stat, Meds/Allgs Chart Reviewed, Consent Obtained/Reviewed and Anes Risks/Benef Reviewed Patient Risk: Intermediate Procedure Risk: Low Anesthetic Plan Anesthetic Plan: MAC: and Agree w/ Assess. and Plan Disposition: Standard PACU
[2023-04-12 11:12] VITALS: BP 97/58; PULSE 90; RESP 14; TEMP 36.1; O2SAT 95
[2023-04-12 11:27] VITALS: BP 107/57; PULSE 84; RESP 15; O2SAT 94
[2023-04-12 11:42] VITALS: BP 116/60; PULSE 77; RESP 17; TEMP 36.3; O2SAT 96
--- NOTE | 2023-04-12 12:47 | PC.NURSE ---
discharge instructions given by sherly lee rn.
== END 2023-04-12 12:20 | disposition home or self-care (01) ==
PROVIDERS: PCP Family Medicine; Visit Provider Internal Medicine Gastroenterology
PROC: 0DJ08ZZ Inspection of Upper Intestinal Tract, Via Natural or Artificial Opening Endoscopic (ICD-10-PCS; CPT 43235; principal; 2023-04-12 13:40)
DX: R13.10 Dysphagia, unspecified (principal); K20.80 Other esophagitis without bleeding; C7A.092 Malignant carcinoid tumor of the stomach; K29.50 Unspecified chronic gastritis without bleeding; K21.9 Gastro-esophageal reflux disease without esophagitis; K58.2 Mixed irritable bowel syndrome; E11.40 Type 2 diabetes mellitus with diabetic neuropathy, unspecified; J30.9 Allergic rhinitis, unspecified; Z86.19 Personal history of other infectious and parasitic diseases; Z79.85 Long-term (current) use of injectable non-insulin antidiabetic drugs; Z79.899 Other long term (current) drug therapy; Z90.49 Acquired absence of other specified parts of digestive tract
CPT/HCPCS: 43249; 43239; 82947; 88305; 88341; 88342; 88360; C1726

== ENCOUNTER → 2023-04-13 14:42 | Outpatient (BNVA) | payer OTHER, SELFPAY | PROVIDERS: PCP Family Medicine; Visit Provider Internal Medicine Endocrinology, Diabetes & Metabolism | DX: E11.65 Type 2 diabetes mellitus with hyperglycemia (principal); E11.42 Type 2 diabetes mellitus with diabetic polyneuropathy; E03.9 Hypothyroidism, unspecified; R79.89 Other specified abnormal findings of blood chemistry; Z79.4 Long term (current) use of insulin | CPT/HCPCS: 82947; 99212 ==

== ENCOUNTER 2023-04-21 12:57 | Outpatient (REF) | payer OTHER, SELFPAY ==
[2023-04-21 15:02] LABS: Free T4 (Free Thyroxine) 0.91 ng/dL (0.71-1.85); Thyroid Stimulating Hormone 4.21 uIU/mL (0.32-4.0)
[2023-04-23 10:13] LABS: Triiodothyronine T3 Total 121 ng/dL (76-181)
[2023-04-28 22:49] LABS: Gastrin <15 pg/mL (<=100)
[2023-04-29 11:44] LABS: Chromogranin A 151 ng/mL (ADULTS: <311)
== END 2023-04-21 12:58 | disposition home or self-care (01) ==
LOC: HO.LAB 12:57
PROVIDERS: Absent Provider Family Medicine; PCP Family Medicine; Visit Provider Internal Medicine Gastroenterology
DX: E03.9 Hypothyroidism, unspecified (principal); R79.89 Other specified abnormal findings of blood chemistry
CPT/HCPCS: 36415; 82941; 84439; 84443; 84480; 86316

== ENCOUNTER 2023-05-07 14:14 | Outpatient (AMB) | payer OTHER, SELFPAY ==
--- NOTE | 2023-05-07 14:19 | A.OFFVIS_ITS ---
Intake Vital Signs 05/07/23 14:22 Height 5 ft 5 in Weight 208 lb 8.917 oz BMI 34.7 BP 137/74 Blood Pressure Location Lt brachial Position Sitting Pulse 90 Intake Visit Reasons: Follow up Intake Note: Emily presents in office as a est.patient for a f/u diarrhea PT CC: Pt states that she is nervous after her endoscopy. Here for the results and complains of stomach pain. Goes back and forthetween constipation and diarrhea. 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 Patient states that that stool is foul smelling. Even though she has a history of diarrhea since going back to 2019 this could be infectious. Will rule out by doing GI panel, ova, parasite C diff, leukocyte stool qualitative. Discussed with patient again the diet and possibility that t his is related also to the food that she eats. New list of low FODMAP diet recommendations given to patient's that included also food that is not recommended. IBS (irritable bowel syndrome) Continue Citrucel and laxatives. Low FODMAP diet discussed again with patient. Last 3 days diarrhea with abdominal cramping. As mentioned above will do stool studies, however I do believe that this is related to the food the patient eat and poor glucose control. Discussed with patient better food choices. I will see her in 2 months, sooner on as needed basis. Patient is agreeable to this plan and verbalizes understanding of instructions. She was given the opportunity to ask questions and all questions answered. ? Thank you for allowing me to participate in her care Plan Orders Orders Ova and Parasite Today R19.7 Lipase Today R10.9 Liver Panel Today R10.9 CDiff Gene PCR Today R19.7 GI Panel Today R19.7 Leukocytes Stool Qualitative Today R19.7 UPPER ENDOSCOPY ADDENDUMBiopsies showed: A.? Small bowel, biopsy:? Small intestinal mucosa within normal limits; negative for celiac disease. B.? Stomach, antrum, biopsy:? Antral-type and oxyntic mucosa with mild chronic inactive inflammation; no Helicobacter organisms seen. C.? Stomach, body, biopsy:? Oxyntic mucosa with mild chronic inactive inflamma tion; no Helicobacter organisms seen. D.? Esophagus, proximal, biopsy:? Squamous epithelium within normal limits; no inflammation seen; negative for eosinophilic esophagitis. E.? Stomach, polyp:??Well-differentiated neuroendocrine tumor (carcinoid); negative for H pylori. Pt called to discuss bx results, LMTCB. Pt likely has type 1 or type 2 gastric carcinoid. Needs to have a fasting serum gastrin checked and a contrast enhanced CT scan - order placed Repeat EGD in 3-4 weeks for endoscopic resection. From UTD: Stomach???Gastric NETs are subdivided into three categories, with differing biologic behavior and prognoses: ?Type 1 gastric NETs, which represent 70 to 80 percent of all gastric NETs, are associated with chronic atrophic gastritis. In this condition, serum gastrin rises in response to gastric achlorhydria. The elevated gastrin, in turn, stimulates neuroendocrine cell hyperplasia in the stomach and development of multifocal polypoid NETs. The clinical behavior of these tumors is usually indolent. Most are grade 1 tumors with stage I (superficially invasive and/or <1 cm in diameter) disease and no mortality with prolonged follow-up ?Type 2 gastric NETs, which represent approximately 5 percent of gastric NETs, also occur as a result of elevated serum gastrin levels stimulating multifocal gastric NETs. The underlying cause of type 2 gastric NETs is a pancreatic or duodenal gastrinoma (Placido-Zuluaga syndrome). The clinical behavior is usually indolent. ?Type 3 (sporadic) gastric NETs occur in the absence of atrophic gastritis or the Placido-Zuluaga syndrome. They account for 20 percent of gastric NETs and are the most aggressive; local or hepatic metastases are present in up to 65 percent of patients who come to resection. For type 1 and 2 gastric NETs smaller than 1 to 2 cm, endoscopic resection is the treatment of choice. More aggressive surgical therapy is rarely needed for type 1 gastric NETs unless there is extensive tumor involvement of the gastric wall (which increases the risk for a coexisting adenocarcinoma), tumor size >2 cm, or emergent bleeding. Findings: Larynx:? Normal Esophagus: GE junction at 35 cms. Minimal focal esophagitis at GE junction. No stricture or ring noted.? Biopsies were obtained from? proximal esophagus to check for EOE. Esophageal balloon dilation was performed with a 20 mm CRE balloon x 60 seconds Stomach: Moderate diffuse gastric erythema. Biopsies were obtained from the gastric antrum and body.? A 10-15 mm benign appearing polyp/nodule at 50 cms in the gastric body - biopsied. Grade 2 flap valve on retroflexed examination of the cardia. Duodenum: Normal bulb and descending duodenum. Biopsies were obtained from 3rd part of the duodenum to check for celiac sprue Intervention: Biopsies? and esophageal balloon dilation as noted above Impression and Post Procedure Diagnosis: Endoscopy Findings: ESOPHAGUS: Minimal focal esophagitis at GE junction. No stricture or ring noted.? Biopsies were obtained from? proximal esophagus to check for EOE. Esophageal balloon dilation was performed with a 20 mm CRE balloon x 60 seconds STOMACH: ? moderate diffuse gastritis and benign-appearing gastric polyp/ nodule. DUODENUM: Normal -? biopsied to check for celiac sprue Plan: Above findings were reviewed with the patient and GERD and Gastric polyps handouts were given in the discharge area PATHOLOGY RESULTS Diagnosis A.? Small bowel, biopsy:? Small intestinal mucosa within normal limits; negative for celiac disease. B.? Stomach, antrum, biopsy:? Antral-type and oxyntic mucosa with mild chronic inactive inflammation; no Helicobacter organisms seen. C.? Stomach, body, biopsy:? Oxyntic mucosa with mild chronic inactive inflammation; no Helicobacter organisms seen. D.? Esophagus, proximal, biopsy:? Squamous epithelium within normal limits; no inflammation seen; negative for eosinophilic esophagitis. E.? Stomach, polyp:??Well-differentiated neuroendocrine tumor (carcinoid); negative for H pylori. TODAY'S VISIT Patient is here today for follow-up and to discuss upper endoscopy results. Patient nervous about the results. Discussed with her in detail biopsy results and upper endoscopy results. Patient will be booked for upper endoscopy again for resection. Patient continues to have epigastric discomfort postprandially. Reports to have occasional postprandial abdominal bloating as well as occasional postprandial loose stools and then constipation. Patient denies melena, hematochezia, unintentional weight loss or ribbon like stools. Patient denies dyspepsia, dysphagia or odynophagia. PENDING SALE TO [facility] Medical History Bilateral shoulder pain Chronic back pain Depression with anxiety Diabetes Diabetic peripheral neuropathy Excessive daytime sleepiness History of hepatitis C Obesity (Unknown) Pneumonia Seasonal allergic rhinitis Sleep apnea Vaginal dryness Surgical History History of cholecystectomy History of colonoscopy History of esophagogastroduodenoscopy (EGD) History of tonsillectomy Left patella fracture Family History Father Prostate cancer Parkinsons Mother Stroke Son No problems noted. Son No problems noted. Daughter No problems noted. Sister Lung cancer Social History Household Members: None Housing: Apartment Do you presently have visiting nurse or other home services: No Alcohol intake: never Patient Tobacco Use Status: Never used Tobacco e-Cigarette/Vaping Use: Never Used Second Hand Smoke Exposure: No Advance Directives Date on File: 11/07/21 service: No Current occupational status: disabled Current occupational exposures/hazards: No Cognitive needs: No Hearing needs: No Vision needs: No Review of Systems Const Denies weight gain and Denies weight loss ENT Reports no additional complaints, Denies dysphagia and Denies odynophagia Card Reports no additional complaints Resp Reports no additional complaints GI Reports abdominal pain (Epigastric), Denies belching, Denies melena, Reports bloating, Reports constipation, Denies dysphagia, Denies excessive flatus, Denies dyspepsia, Reports heartburn, Denies diarrhea, Reports loose stools, Denies nausea, Denies odynophagia and Denies vomiting Musc Reports no additional complaints Neuro Reports no additional complaints Psych Reports no additional complaints Endo Reports no additional complaints Physical Exam Vital Signs: Last Vital Signs Pulse 90 05/07/23 14:22 BP 137/74 05/07/23 14:22 BMI result Body Mass Index 34.7 Const General: healthy appearing, no acute distress and well developed Nutritional Appearance: obese Orientation/consciousness: patient oriented x3 HEENT Head: Yes normal to inspection, Yes normocephalic and Yes atraumatic Face and sinus: Yes normal facial exam Mouth: Normal oral and palatal mucosa present Throat: Yes posterior oropharynx normal, Yes tonsils normal and Yes uvula midline Eyes General: appearance normal, both eyes and all related structures Neck Neck: Yes normal visual inspection, Yes full ROM and Yes trachea midline Thyroid: Thyroid normal Resp Effort & Inspection: normal respiratory effort, able to speak in complete sentences, no tracheal deviation and symmetric chest movement Auscultation: clear to auscultation bilaterally Cardio Rate: regular rate Heart sounds: S1 normal heart sound present and S2 normal heart sound present GI Inspection: Yes normal to inspection, No distended and Yes obesity Palpation (GI): Soft to palpation, not firm, nontender and No hepatosplenomegaly present Auscultation: normal bowel sounds General: Yes no CVA tenderness Back/Spine/Pelvis Back: no CVA tenderness Skin General skin exam: elasticity normal, turgor normal and dry skin Neuro General: patient oriented x3 Psych Appearance: grossly normal Mental Status: mental status grossly normal Speech and movement: Normal speech and movement present Assessment & Plan Assessment & Plan (1) Carcinoid tumor of stomach: Code(s): D3A.092 - Benign carcinoid tumor of the stomach Plan: Will schedule patient for upper endoscopy with resection (2) IBS (irritable bowel syndrome): Code(s): K58.9 - Irritable bowel syndrome without diarrhea Qualifiers: Irritable bowel syndrome type: with both diarrhea and constipation Qualified Code(s): K58.2 - Mixed irritable bowel syndrome Plan: Low FODMAP diet discussed with patient. List of food recommended as well as list of food to avoid given to patient. Patient was encouraged to eat small amount and more often. Patient has constipation, however occasionally she will have loose stools. Will give her script for Linzess. (3) GERD (gastroesophageal reflux disease): Code(s): K21.9 - Gastro-esophageal reflux disease without esophagitis Qualifiers: Esophagitis presence: without esophagitis Qualified Code(s): K21.9 - Gastro-esophageal reflux disease without esophagitis Plan: Will start patient on pantoprazole. Discussed with patient avoiding dietary triggers and late night snacking. Staying upright for minimum 3 hours after meals discussed with patient. Please schedule patient for upper endoscopy end of this month. I will see her after the procedure, sooner on as needed basis. Patient is agreeable to this plan and verbalizes understanding of instructions. She was given the opportunity to ask questions and all questions answered. Thank you for allowing me to participate in her care Medications: New pantoprazole 40 mg PO QAM 90 tabs 0RF linaclotide (Linzess) 145 mcg PO DAILY 30 caps 2RF Coding Level of Care Code Est Pt Level 4 (94781) Diagnoses Carcinoid tumor of stomach D3A.092 IBS (irritable bowel syndrome) K58.2 Irritable bowel syndrome type: with both diarrhea and constipation GERD (gastroesophageal reflux disease) K21.9 Esophagitis presence: without esophagitis Time Spent (min) 40 Comment 25 minutes spent with patient and additional 15 minutes spent reviewing her records
[2023-05-07 14:22] VITALS: BP 137/74; PULSE 90; BMI 34.7
== END 2023-05-07 15:09 | disposition home or self-care (01) ==
PROVIDERS: PCP Family Medicine; Visit Provider Nurse Practitioner Family
DX: D3A.092 Benign carcinoid tumor of the stomach (principal); K58.2 Mixed irritable bowel syndrome; K21.9 Gastro-esophageal reflux disease without esophagitis
CPT/HCPCS: 99214

== ENCOUNTER → 2023-05-07 14:14 | Outpatient (BNVA) | payer OTHER, SELFPAY | PROVIDERS: PCP Family Medicine; Visit Provider Nurse Practitioner Family | DX: D3A.092 Benign carcinoid tumor of the stomach (principal); K58.2 Mixed irritable bowel syndrome; K21.9 Gastro-esophageal reflux disease without esophagitis | CPT/HCPCS: 99212 ==

== ENCOUNTER 2023-05-19 10:51 | Outpatient (AMB) | payer OTHER, SELFPAY ==
--- NOTE | 2023-05-19 11:34 | A.OFFVIS_ITS ---
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: No Accompanied by: Daughter Allergies No Known Allergies Allergy (Verified 05/07/23 14:23) HPI Comprehensive Diabetes Asmnt Most Recent Diabetes Results: No Data to Display [facility] Medical History Bilateral shoulder pain Chronic back pain Depression with anxiety Diabetes Diabetic peripheral neuropathy Excessive daytime sleepiness History of hepatitis C Obesity (Unknown) Pneumonia Seasonal allergic rhinitis Sleep apnea Vaginal dryness Surgical History History of cholecystectomy History of colonoscopy History of esophagogastroduodenoscopy (EGD) History of tonsillectomy Left patella fracture Family History Father Prostate cancer Parkinsons Mother Stroke Son No problems noted. Son No problems noted. Daughter No problems noted. Sister Lung cancer Social History Household Members: None Housing: Apartment Do you presently have visiting nurse or other home services: No Alcohol intake: never Patient Tobacco Use Status: Never used Tobacco e-Cigarette/Vaping Use: Never Used Second Hand Smoke Exposure: No Advance Directives Date on File: 11/07/21 service: No Current occupational status: disabled Current occupational exposures/hazards: No Cognitive needs: No Hearing needs: No Vision needs: No Assessment & Plan Assessment & Plan (1) Poorly controlled diabetes mellitus: Code(s): E11.65 - Type 2 diabetes mellitus with hyperglycemia Plan: Learning objectives: The patient was provided with verbal and written education on the following topics as outlined below. The patient met all learning objectives and was able to verbalize understanding and provide teach back of education topics discussed . The patient was provided with the opportunity to ask questions and all questions were answered. Patient Assessment Assess patient education level/literacy/barriers Patient questions/concerns, patient at Education visit with her daughter. Patient's meter only had 1 reading in the last 2 weeks. Patient reports she recently had diagnosis stomach carcinoma, and has been feeling very anxious regarding this diagnosis. Recommended to patient that she discuss anxiety with her current therapist. Discussed the feelings that she is feeling at this time are not unusual with such series diagnosis, recommended to patient to pick and activity or goal that she does have control over with at this time. Patient reports she had been participating in exercise program at [facility] in [facility] but has stopped since diagnosis. Patient agreed that resuming exercise program, would make her feel better Exercise Medical clearance Effect of exercise on blood sugar Start slowly and gradually increase pace/duration over time Goal amount of exercise Checking blood glucose/have a source of carbs with you Medications (If applicable) * Name of medication * Dosing/administration instructions * Mechanism of action * Potential side effects * Potential adverse reaction and appropriate treatment * Review onset, peak, duration Assess for concerns re: insurance coverage, cost, barriers to compliance Insulin/Injectables (If applicable) * Storage/care of insulin * Injection sites * Site rotation * Onset, peak, duration * Drawing up insulin * Injecting insulin/other injectables * Sharps disposal Continuous blood glucose monitoring (if applicable) Hypoglycemia and Hyperglycemia * Signs and symptoms * Causes * Treatment * Preventing hypoglycemia * When to seek medical attention Medical alert bracelet Lifestyle * Work * Travel * Stress management * Problem solving Know your goals * A1C * Blood sugar targets * Blood pressure * Cholesterol/LDL Urine microalbumin Smart Goal Assessment: Patient will test glucose numbers 3 times daily Less than 25% the time: New Goal:? Patient will resume exercise program at [facility] on Wednesday, Wednesday, Wednesday morning Educational Materials: The patient was provided with the following written educational materials: Patient Response to instructions: Comprehension of Instructions: Good Readiness to make changes: Contemplation How confident they feel about making changes: Fair Patient Instructions: Include regular daily activity. ADA recommends 30 minutes of exercise 5 days a week. Weight loss talk to PCP or Salvager Helper before starting new plan. Test blood sugar as directed; Fasting and 2hpp largest meal. Watch trends in results. Utilize results and to assess how food, physical activity and medications affect blood sugar results. Bring glucometer or CGM to next visit. Be knowledgeable about diabetes medication, its action, side effects, efficacy, toxicity, prescribed dosage, appropriate timing and frequency of administration, effect of missed and delayed doses and instructions for storage, travel and safety. Patient will follow-up with press maintainer in 2 months Coding Level of Care Code Est Pt Level 1 (55253) Diagnoses Poorly controlled diabetes mellitus E11.65
== END 2023-05-19 11:42 | disposition home or self-care (01) ==
PROVIDERS: PCP Family Medicine; Visit Provider Registered Nurse Diabetes Educator
DX: E11.65 Type 2 diabetes mellitus with hyperglycemia (principal)

== ENCOUNTER → 2023-05-19 10:51 | Outpatient (BNVA) | payer OTHER, SELFPAY | PROVIDERS: Visit Provider Registered Nurse Diabetes Educator | DX: E11.65 Type 2 diabetes mellitus with hyperglycemia (principal); E11.42 Type 2 diabetes mellitus with diabetic polyneuropathy | CPT/HCPCS: 99211 ==

== ENCOUNTER 2023-05-25 09:51 | Day surgery (SDC) | payer OTHER, SELFPAY ==
[2023-05-21 16:04] VITALS: BMI 34.7
--- NOTE | 2023-05-24 10:24 | HO.ANESPROP2 ---
Documented by User: Roshni Post NP 05/24/23 10:25 HPI - Anesthesia Eval Consult details Narrative: 62yo F for Upper Endoscopy with Balloon Dilitation PMFSH Active Problems Active Problems: All Active Problems (Updated 04/19/23 @ 18:29 by Anna Vigil MD) Carcinoid tumor of stomach (Acute) Lower extremity weakness (Acute) Diabetic neuropathy (Acute) Chronic back pain (Acute) Restless legs syndrome (Acute) Cervicalgia (Acute) Elevated TSH (Acute) Low HDL (under 40) (Acute) History of hepatitis C (Acute) Elbow pain (Acute) Daytime sleepiness (Acute) Weakness of upper extremity (Acute) Otitis media (Acute) Viral upper respiratory illness (Acute) Back pain (Acute) 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 hauler manifesting chronic dyspnea (Acute) Physical deconditioning (Acute) Supplemental oxygen dependent (Acute) COVID (Acute) Left arm weakness (Acute) Cough (Acute) Sleep disorder (Acute) Snoring (Acute) Fatigue (Acute) Dizziness (Acute) Poorly controlled diabetes mellitus (Acute) Rash (Acute) Vaginal yeast infection (Acute) Blepharitis (Acute) Diarrhea (Acute ~12/2018) Poorly controlled diabetes mellitus (Acute ~08/01/20) Past Medical History Medical History Asthma Bilateral shoulder pain Chronic back pain Depression with anxiety Diabetes Diabetic peripheral neuropathy Elevated cholesterol Excessive daytime sleepiness GERD (gastroesophageal reflux disease) History of hepatitis C HTN (hypertension) Obesity (Unknown) Osteoarthritis Pneumonia Seasonal allergic rhinitis Sleep apnea Thyroid disease Vaginal dryness Family History Family History Father Prostate cancer Parkinsons Mother Stroke Son No problems noted. Son No problems noted. Daughter No problems noted. Sister Lung cancer Surgical History Surgical History History of cholecystectomy History of colonoscopy History of esophagogastroduodenoscopy (EGD) History of tonsillectomy Hx of tubal ligation Left patella fracture History of Problems with Anesthesia: No Social History Social History Household Members: None Housing: Apartment Do you presently have visiting nurse or other home services: No Alcohol intake: never Patient Tobacco Use Status: Never used Tobacco e-Cigarette/Vaping Use: Never Used Second Hand Smoke Exposure: No Advance Directives Date on File: 11/07/21 service: No Current occupational status: disabled Current occupational exposures/hazards: No Cognitive needs: No Hearing needs: No Vision needs: No Meds Allergies Allergy/AdvReac Type Severity Reaction Status Date / Time No Known Allergies Allergy Verified 05/07/23 14:23 Home Medications Medication Instructions Recorded Confirmed Last Taken Type metformin 500 mg tablet,extended 500 mg PO BID 05/07/23 05/25/23 Unknown History release 24 hr Exam Exam Date and Time: May 24, 2023 1024 Height,Weight and Vital Signs: Height 5 ft 5 in Weight 94.6 kg Pertinent Lab Results Pertinent Lab Results: Laboratory Tests 01/01/23 01/01/23 12:18 12:18 WBC 10.6 Hgb 14.7 Hct 44.7 Plt Count 294 Sodium 140 Potassium 4.4 Chloride 102 Carbon Dioxide 29 BUN 19 H Creatinine 0.87 Narrative Narrative: EKG 12/2022 Vent. Rate : 078 BPM ? ? Atrial Rate : 078 BPM ?? P-R Int : 158 ms? QRS Dur : 088 ms ? ? QT Int : 376 ms ? ? ? P-R-T Axes : 052 -42 045 degrees ?? QTc Int : 428 ms ? Normal sinus rhythm Left axis deviation Pulmonary disease pattern Abnormal ECG When compared with ECG of -2021 16:03, No significant change was found Assessment and Plan Assessment Anesthesia Assessment: Chart Reviewed Final Anesthetic Review History of Problems with Anesthesia: No Documented by User: Noemí Lindquist MD 05/25/23 12:09 HPI - Anesthesia Eval Consult details Narrative: 62yo F for Upper Endoscopy with Balloon Dilatation PMFSH Active Problems Active Problems: All Active Problems (Updated 05/25/23 @ 10:48 by Nomeí Lindquist MD) Carcinoid tumor of stomach (Acute) Lower extremity weakness (Acute) Diabetic neuropathy (Acute) Chronic back pain (Acute) Restless legs syndrome (Acute) Cervicalgia (Acute) Elevated TSH (Acute) Low HDL (under 40) (Acute) History of hepatitis C (Acute) Elbow pain (Acute) Daytime sleepiness (Acute) Weakness of upper extremity (Acute) Otitis media (Acute) Viral upper respiratory illness (Acute) Back pain (Acute) 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 hauler manifesting chronic dyspnea (Acute) Physical deconditioning (Acute) COVID (Acute) Left arm weakness (Acute) Cough (Acute) Sleep disorder (Acute)- denies SANDEEP Snoring (Acute) Fatigue (Acute) Dizziness (Acute) Poorly controlled diabetes mellitus (Acute) Rash (Acute) Vaginal yeast infection (Acute) Blepharitis (Acute) Diarrhea (Acute ~12/2018) Poorly controlled diabetes mellitus (Acute ~08/01/20) Past Medical History Medical History Asthma Bilateral shoulder pain Chronic back pain Depression with anxiety Diabetes Diabetic peripheral neuropathy Elevated cholesterol Excessive daytime sleepiness GERD (gastroesophageal reflux disease) History of hepatitis C HTN (hypertension) Obesity (Unknown) Osteoarthritis Pneumonia Seasonal allergic rhinitis Sleep apnea Thyroid disease Vaginal dryness Family History Family History Father Prostate cancer Parkinsons Mother Stroke Son No problems noted. Son No problems noted. Daughter No problems noted. Sister Lung cancer Family history of problems with anesthesia: No Surgical History Surgical History History of cholecystectomy History of colonoscopy History of esophagogastroduodenoscopy (EGD) History of tonsillectomy Hx of tubal ligation Left patella fracture Social History Social History Household Members: None Housing: Apartment Do you presently have visiting nurse or other home services: No Alcohol intake: never Patient Tobacco Use Status: Never used Tobacco e-Cigarette/Vaping Use: Never Used Second Hand Smoke Exposure: No Advance Directives Date on File: 11/07/21 service: No Current occupational status: disabled Current occupational exposures/hazards: No Cognitive needs: No Hearing needs: No Vision needs: No Meds Allergies Allergy/AdvReac Type Severity Reaction Status Date / Time No Known Allergies Allergy Verified 05/07/23 14:23 Home Medications Medication Instructions Recorded Confirmed Last Taken Type metformin 500 mg tablet,extended 500 mg PO BID 05/07/23 05/25/23 Unknown History release 24 hr Exam Height,Weight and Vital Signs: Height 5 ft 5 in Weight 94.6 kg Vital Signs Temp Pulse Resp BP Pulse Ox O2 Del Method 05/25/23 10:36 97.1 F 87 16 120/73 97 Room Air Pertinent Lab Results Pertinent Lab Results: Laboratory Tests 01/01/23 01/01/23 12:18 12:18 WBC 10.6 Hgb 14.7 Hct 44.7 Plt Count 294 Sodium 140 Potassium 4.4 Chloride 102 Carbon Dioxide 29 BUN 19 H Creatinine 0.87 Lab Results 05/25/23 Range/Units 10:46 POC Glucose 128 H (60-115) mg/dL Airway Mallampati Class: II TM Dist: >3cm Neck ROM: Full Loose/Missing/Broken Teeth: Yes (Broken tooth back, some missing back. Denies loose teeth) and No Heart: RRR Lungs: CTAB Assessment and Plan Assessment Anesthesia Assessment: Anesthesia Plan Discussed Final Anesthetic Review Family History of Problems with Anesthesia: No NPO: Yes ASA Class: III Final Preanesthetic Review: No Changes in Pt Med Stat, Meds/Allgs Chart Reviewed, Consent Obtained/Reviewed and Anes Risks/Benef Reviewed Patient Risk: Intermediate Procedure Risk: Low Assessment/Block/Sedation in SS: Assess/Block/Sedation-SS Anesthetic Plan Anesthetic Plan: MAC: Disposition: Standard PACU
[2023-05-25 10:18] VITALS: BMI 33.9
--- NOTE | 2023-05-25 10:22 | MHC.SHP ---
Pre-Procedural Eval Section A Date of Service: 05/25/23 The patient is an INPATIENT: No Changes since office visit: Yes Patient answered all questions; No Cold of Flu in the past 2 weeks, No New Medical Problems and No Changes in Medication The History & Physical has been completed within 30 days and I have reviewed it.: Yes Section B Chief Complaint: FU of Gastric carcinboid Allergies: Allergies Allergy/AdvReac Type Severity Reaction Status Date / Time No Known Allergies Allergy Verified 05/07/23 14:23 Plan I have reviewed the history and physical and performed a pertinent physical examination on my patient. No changes have occurred unless specified. Time Spent With Patient Time: Total time managing care of this patient today ____ minutes.
[2023-05-25 10:36] VITALS: BP 120/73; PULSE 87; RESP 16; TEMP 36.2; O2SAT 97
[2023-05-25] MEDS: Lactated Ringers 1,000 ML 100 ML IVCONT (10:48)
[2023-05-25 10:51] LABS: Glucose, Whole Blood 128 mg/dL (60-115)
--- NOTE | 2023-05-25 11:03 | P.OP_ITS ---
Operative Note Operative Note Date of Service: 05/25/23 Narrative: FLEXIBLE TRANSORAL UPPER GASTROINTESTINAL ENDOSCOPY WITH SNARE POLYPECTOMY, SUBMUCOSAL INJECTION AND HEMOCLIP PLACEMENT Pre-op diagnosis: FU of a small gastric carcinoid. (normal serum gastrin and chromogranin A) Post-op diagnosis: Gastric carcinoid, gastric polyp, gastritis Endoscopist:? Anna Vigil MD Anesthesia:?MAC Consent: Indications for the procedure and potential complications of bleeding, perforation, reaction to medications and missed diagnosis were discussed with the patient and informed consent was obtained. Instrument: Olympus GIF H 190 mid size upper endoscope Monitoring: Vital signs and clinical assessment, continuous EKG monitoring, Pulse oximetry, Carbon Dioxide monitoring and blood pressure monitoring were done throughout the procedure. Procedure: The patient was placed in the left lateral decubitis position and pre-procedure medications were administered and a bite block was placed. The endoscope was inserted into the mouth and advanced under direct vision to the third part of duodenum. A careful inspection was made as the upper endoscope was withdrawn including a retroflexed examination of the proximal stomach; Findings and interventions are described below. Findings: Larynx: Normal Esophagus: GE junction at 35 cms. No esophagitis or Olvera's. Stomach: Moderate diffuse gastric erythema. Biopsies were obtained from the gastric antrum and body during previous EGD.? A 10-15 mm nodule at 50 cms in the gastric body - well differentiated carcinoid on previous biopsies Nodule was raised with 6 cc of saline and removed with a stiff hot snare. Polypectomy site was closed with a hemoclip and marked with Gem ink Grade 2 flap valve on retroflexed examination of the cardia. Duodenum: Normal bulb and descending duodenum. Intervention: Biopsies and snare polypectomy as noted above Impression and Post Procedure Diagnosis: Endoscopy Findings: STOMACH: A 10-15 mm nodule at 50 cms in the gastric body - well differentiated carcinoid on previous biopsies Nodule was raised with 6 cc of saline and removed with a stiff hot snare. Polypectomy site was closed with a hemoclip and marked with Gem ink Plan: Await pathology results. If biopsies show incomplete removal of carcinoid, she will need surgery for removal. Pt is scheduled for an Abd CT scan on 05/26/23. Patient has an appointment on 06/04/23 in the [facility] with Violet Vaughan FNP- [facility]. Above findings were reviewed with the patient. FU EGD in 4 months for FU of gastric carcinoid
[2023-05-25 12:05] VITALS: BP 148/66; PULSE 74; RESP 16; TEMP 36.6; O2SAT 96
[2023-05-25] MEDS: ondansetron HCL 4 MG/2 ML VIAL IVPUSH (12:13)
[2023-05-25 12:20] VITALS: BP 153/66; PULSE 78; RESP 16; O2SAT 95
[2023-05-25 12:35] VITALS: BP 146/73; PULSE 74; RESP 16; O2SAT 96
[2023-05-25 12:49] VITALS: BP 121/71; PULSE 74; RESP 16; TEMP 36.4; O2SAT 96
[2023-05-25 13:05] VITALS: BP 135/97; PULSE 72; RESP 16; TEMP 36.2; O2SAT 96
== END 2023-05-25 14:15 | disposition home or self-care (01) ==
PROVIDERS: PCP Family Medicine; Visit Provider Internal Medicine Gastroenterology
PROC: (CPT 43239; principal; 2023-05-25 11:20)
DX: D3A.092 Benign carcinoid tumor of the stomach (principal); K29.70 Gastritis, unspecified, without bleeding; K31.9 Disease of stomach and duodenum, unspecified; R19.7 Diarrhea, unspecified; E11.9 Type 2 diabetes mellitus without complications; I10 Essential (primary) hypertension; E78.5 Hyperlipidemia, unspecified; E66.9 Obesity, unspecified; Z68.34 Body mass index [BMI] 34.0-34.9, adult; Z90.49 Acquired absence of other specified parts of digestive tract; Z79.4 Long term (current) use of insulin; Z79.899 Other long term (current) drug therapy
CPT/HCPCS: 43239; 43251; 82947; 88305; 88341; 88342; 88360; J2370; J2371; J2405

== ENCOUNTER → 2023-05-25 09:51 | Outpatient (BNV) | payer OTHER, SELFPAY | PROVIDERS: PCP Family Medicine; Visit Provider Internal Medicine Gastroenterology | DX: K31.7 Polyp of stomach and duodenum (principal); K29.70 Gastritis, unspecified, without bleeding; C7A.092 Malignant carcinoid tumor of the stomach | CPT/HCPCS: 43236; 43239; 43249; 43251 ==

== ENCOUNTER 2023-05-26 07:26 | Outpatient (REF) | payer OTHER, SELFPAY ==
--- NOTE | ~2023-05-26 | CT_ITS ---
EXAMINATION: CT ABDOMEN AND PELVIS WITH CONTRAST CLINICAL INFORMATION: Gastric carcinoid. COMPARISON: CT abdomen and pelvis from 09/28/2022. TECHNIQUE: Multidetector volumetric images were obtained from the superior aspect of the liver through the pubic symphysis following administration 85 mL of Omnipaque 350 intravenous contrast. Sagittal and coronal reformatted images were obtained on the technologist's workstation. Oral contrast: Yes This CT examination was performed using dose optimization techniques as appropriate, variously including the following: *Automated exposure control *Adjustment of mA and/or kV according to patient size (this includes techniques or standardized protocols for targeted exams where dose is matched to indication/reason for exam; i.e. extremities or head) *Use of iterative reconstruction technique DLP: 632 mGy-cm FINDINGS: LUNG BASES: Linear opacities of mild atelectasis of lower lobes. No pulmonary consolidation or pleural effusion. LIVER: Diffuse hepatic steatosis. Otherwise, liver is unremarkable. No hepatic mass. GALLBLADDER AND BILIARY TREE: Gallbladder is surgically absent. No dilated bile ducts. PANCREAS: Normal. No edema, pancreatic ductal dilatation or mass. SPLEEN: Spleen is normal in size. 2 cm hypodense, cystic-appearing focus within the spleen is stable compared to 10/01/2018. ADRENAL GLANDS: Normal. KIDNEYS AND URETERS: The kidneys have normal size and cortical thickness. No perinephric edema or fluid collection. No urolithiasis or hydroureteronephrosis. BLADDER: Normal. No calculi or wall thickening. BOWEL AND PERITONEUM: There is a clip along the inner wall of the anterior gastric body. No CT imaging evidence of a gastric mass. No dilated bowel loops. Small bowel is unremarkable. Multiple diverticula colon without evidence of diverticulitis. The appendix is normal. No abdominal free fluid or pneumoperitoneum. No peritoneal nodularity. ABDOMINAL WALL: Minimal protrusion of fat into the umbilicus. VASCULATURE: Mild atherosclerosis of the abdominal aorta without aneurysm. LYMPH NODES: No pathologic sized lymph nodes in the abdomen or pelvis. No inguinal lymphadenopathy. PELVIC VISCERA: 2 cm partially calcified right-sided subserosal leiomyoma of the uterus. Metallic clips noted in adnexal areas. No adnexal mass. No pelvic free fluid. Multiple phleboliths within the pelvis. MUSCULOSKELETAL: No acute or suspicious osseous abnormality. Moderate degenerative loss of disc height and facet arthropathy at L5-S1. CT/CT abdomen pelvis w IV con IMPRESSION: * There is a clip of the anterior gastric wall. * No evidence of metastatic disease within the abdomen or pelvis. * Diffuse hepatic steatosis. * 2 cm hypodense cystic-appearing focus within the spleen has not significantly changed in size compared to 10/01/2018. * Colonic diverticulosis without diverticulitis.
[2023-05-26] MEDS: iohexoL 350 MG/ML 100 ML INFUS..BTL IV (11:19)
[2023-05-28 08:35] LABS: Creatinine POC 0.7 mg/dL (0.5-1.4); GFR POC > 60
== END 2023-05-26 07:27 | disposition home or self-care (01) ==
LOC: HO.CT 07:26
PROVIDERS: PCP Family Medicine; Visit Provider Internal Medicine Gastroenterology
DX: D3A.092 Benign carcinoid tumor of the stomach (principal)
CPT/HCPCS: 74177; 82565; Q9967

== ENCOUNTER 2023-06-04 10:41 | Outpatient (AMB) | payer OTHER, SELFPAY ==
[2023-06-04 10:52] VITALS: BP 137/85; PULSE 89; BMI 35.0
--- NOTE | 2023-06-04 10:52 | MHC.OFFVIS ---
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 List of food recommended as well as list of food to avoid given to patient. Patient was encouraged to eat small amount and more often. Patient has constipation, however occasionally she will have loose stools. Will give her script for Linzess. GERD (gastroesophageal reflux disease) Will start patient on pantoprazole. Discussed with patient avoiding dietary triggers and late night snacking. Staying upright for minimum 3 hours after meals discussed with patient. Please schedule patient for upper endoscopy end of this month. I will see her after the procedure, sooner on as needed basis. Patient is agreeable to this plan and verbalizes understanding of instructions. She was given the opportunity to ask questions and all questions answered. ? Thank you for allowing me to participate in her care Plan Medications New pantoprazole 40 mg PO QAM 90 tabs 0RF linaclotide (Linzess) 145 mcg PO DAILY 30 caps 2RF UPPER ENDOSCOPY: Findings: Larynx:? Normal Esophagus: GE junction at 35 cms. No esophagitis or Olvera's. Stomach: Moderate diffuse gastric erythema. Biopsies were obtained from the gastric antrum and body during previous EGD.? A 10-15 mm nodule at 50 cms in the gastric body - well differentiated carcinoid on previous biopsies Nodule was raised with 6 cc of saline and removed with a stiff hot snare. Polypectomy site was closed with a hemoclip and marked with Gem ink Grade 2 flap valve on retroflexed examination of the cardia. Duodenum: Normal bulb and descending duodenum. Intervention: Biopsies and snare polypectomy as noted above Impression and Post Procedure Diagnosis: Endoscopy Findings: STOMACH: A 10-15 mm nodule at 50 cms in the gastric body - well differentiated carcinoid on previous biopsies Nodule was raised with 6 cc of saline and removed with a stiff hot snare. Polypectomy site was closed with a hemoclip and marked with Gem ink Plan: Await pathology results.? If biopsies show incomplete removal of carcinoid, she will need surgery for removal. Pt is scheduled for an Abd CT scan on 05/26/23. Patient has an appointment on 06/04/23 in the GI [facility] with Violet Vaughan FNP-BC. Above findings were reviewed with the patient. CT SCAN 05/26/2023 FINDINGS: LUNG BASES: Linear opacities of mild atelectasis of lower lobes. No pulmonary consolidation or pleural effusion.? LIVER: Diffuse hepatic steatosis. Otherwise, liver is unremarkable. No hepatic mass. GALLBLADDER AND BILIARY TREE: Gallbladder is surgically absent. No dilated bile ducts. PANCREAS: Normal. No edema, pancreatic ductal dilatation or mass.? SPLEEN: Spleen is normal in size. 2 cm hypodense, cystic-appearing focus within the spleen is stable compared to 10/01/2018.? ADRENAL GLANDS: Normal.? KIDNEYS AND URETERS: The kidneys have normal size and cortical thickness. No perinephric edema or fluid collection. No urolithiasis or hydroureteronephrosis. BLADDER:? Normal. No calculi or wall thickening. BOWEL AND PERITONEUM: There is a clip along the inner wall of the anterior gastric body. No CT imaging evidence of a gastric mass. No dilated bowel loops. Small bowel is unremarkable. Multiple diverticula colon without evidence of diverticulitis. The appendix is normal. No abdominal free fluid or pneumoperitoneum. No peritoneal nodularity. ABDOMINAL WALL: Minimal protrusion of fat into the umbilicus.? VASCULATURE: Mild atherosclerosis of the abdominal aorta without aneurysm. LYMPH NODES: No pathologic sized lymph nodes in the abdomen or pelvis. No inguinal lymphadenopathy. PELVIC VISCERA: 2 cm partially calcified right-sided subserosal leiomyoma of the uterus. Metallic clips noted in adnexal areas. No adnexal mass. No pelvic free fluid. Multiple phleboliths within the pelvis. MUSCULOSKELETAL: No acute or suspicious osseous abnormality. Moderate degenerative loss of disc height and facet arthropathy at L5-S1.? CT/CT abdomen pelvis w IV con IMPRESSION: *? There is a clip of the anterior gastric wall. *? No evidence of metastatic disease within the abdomen or pelvis. *? Diffuse hepatic steatosis. *? 2 cm hypodense cystic-appearing focus within the spleen has not significantly changed in size compared to 10/01/2018. *? Colonic diverticulosis without diverticulitis. PATHOLOGY: Diagnosis A.? Stomach, polyp:? Oxyntic mucosa within normal limits; no Helicobacter organism seen; negative for carcinoid tumor. B.? Stomach, nodules:??Well-differentiated neuroendocrine tumor (carcinoid); negative for H pylori.? See description. C.? Stomach, polypectomy site, biopsy:? Oxyntic mucosa within normal limits; no Helicobacter organism seen; negative for carcinoid tumor. TODAY'S VISIT Patient is here today for follow-up and to discuss upper endoscopy results. Patient had neuroendocrine tumor removed on upper endoscopy. Well-differentiated carcinoid. CT scan did not show any other involvement. Patient reports that she has been quite anxious since the procedure. Patient reports occasional postprandial bloating with dyspepsia. Patient denies any nausea or vomiting. [facility] Medical History Asthma Bilateral shoulder pain Chronic back pain Depression with anxiety Diabetes Diabetic peripheral neuropathy Elevated cholesterol Excessive daytime sleepiness GERD (gastroesophageal reflux disease) History of hepatitis C HTN (hypertension) Obesity (Unknown) Osteoarthritis Pneumonia Seasonal allergic rhinitis Sleep apnea Thyroid disease Vaginal dryness Surgical History History of cholecystectomy History of colonoscopy History of esophagogastroduodenoscopy (EGD) History of tonsillectomy Hx of tubal ligation Left patella fracture Family History Father Prostate cancer Parkinsons Mother Stroke Son No problems noted. Son No problems noted. Daughter No problems noted. Sister Lung cancer Social History Household Members: None Housing: Apartment Do you presently have visiting nurse or other home services: No Alcohol intake: never Patient Tobacco Use Status: Never used Tobacco e-Cigarette/Vaping Use: Never Used Second Hand Smoke Exposure: No Advance Directives Date on File: 11/07/21 service: No Current occupational status: disabled Current occupational exposures/hazards: No Cognitive needs: No Hearing needs: No Vision needs: No Review of Systems Const Denies weight gain and Denies weight loss ENT Reports no additional complaints, Denies dysphagia and Denies odynophagia Card Reports no additional complaints Resp Reports no additional complaints GI Denies abdominal pain, Denies belching, Denies melena, Reports bloating, Denies change in bowel habits, Reports constipation, Denies dysphagia, Denies excessive flatus, Denies dyspepsia, Reports heartburn, Denies diarrhea, Reports loose stools, Denies nausea, Denies odynophagia and Denies vomiting Reports no additional complaints Musc Reports no additional complaints Neuro Reports no additional complaints Psych Reports no additional complaints Endo Reports no additional complaints Physical Exam Vital Signs: Last Vital Signs Pulse 89 06/04/23 10:52 BP 137/85 06/04/23 10:52 BMI result Body Mass Index 35.0 Const General: healthy appearing, no acute distress and well developed Nutritional Appearance: obese Orientation/consciousness: patient oriented x3 HEENT Head: Yes normal to inspection, Yes normocephalic and Yes atraumatic Face and sinus: Yes normal facial exam Mouth: Normal oral and palatal mucosa present Throat: Yes posterior oropharynx normal, Yes tonsils normal and Yes uvula midline Eyes General: appearance normal, both eyes and all related structures Neck Neck: Yes normal visual inspection, Yes full ROM and Yes trachea midline Thyroid: Thyroid normal Resp Effort & Inspection: normal respiratory effort, able to speak in complete sentences, no tracheal deviation and symmetric chest movement Auscultation: clear to auscultation bilaterally Cardio Rate: regular rate Heart sounds: S1 normal heart sound present and S2 normal heart sound present GI Inspection: Yes normal to inspection, No distended and Yes obesity Palpation (GI): Soft to palpation, not firm, nontender and No hepatosplenomegaly present Auscultation: normal bowel sounds General: Yes no CVA tenderness Back/Spine/Pelvis Back: no CVA tenderness Skin General skin exam: elasticity normal, turgor normal and dry skin Neuro General: patient oriented x3 Psych Appearance: grossly normal Mental Status: mental status grossly normal Speech and movement: Normal speech and movement present Affect: Anxious affect present Assessment & Plan Assessment & Plan (1) 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: Code(s): D3A.092 - Benign carcinoid tumor of the stomach Plan: Well differentiated carcinoid tumor found on biopsy. Will repeat upper endoscopy in 4-6 months (2) Postprandial abdominal bloating: Code(s): R14.0 - Abdominal distension (gaseous) Plan: Postprandial abdominal bloating. Patient also reviewed ports epigastric pain on sure if it is related to the stress that she has been going through. Patient can continue pantoprazole. Avoid dietary triggers. Low FODMAP diet discussed with patient. (3) IBS (irritable bowel syndrome): Code(s): K58.9 - Irritable bowel syndrome without diarrhea Qualifiers: Irritable bowel syndrome type: with both diarrhea and constipation Qualified Code(s): K58.2 - Mixed irritable bowel syndrome Plan: Patient reports both new stools occasionally as well as constipation. Continue avoiding dietary triggers. Patient was encouraged to watch her carbohydrate intake. Checking her blood sugars. I will see her in 5 weeks, sooner on as needed basis. Patient is agreeable to this plan and verbalizes understanding of instructions. She was given the opportunity to ask questions and all questions answered. Thank you for allowing me to participate in her care Coding Level of Care Code Est Pt Level 4 (20553) Diagnoses 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 D3A.092 Postprandial abdominal bloating R14.0 IBS (irritable bowel syndrome) K58.2 Irritable bowel syndrome type: with both diarrhea and constipation Time Spent (min) 40 Comment 25 minutes spent with patient and additional 15 minutes spent reviewing her records
== END 2023-06-04 11:29 | disposition home or self-care (01) ==
PROVIDERS: PCP Family Medicine; Visit Provider Nurse Practitioner Family
DX: D3A.092 Benign carcinoid tumor of the stomach (principal); R14.0 Abdominal distension (gaseous); K58.2 Mixed irritable bowel syndrome
CPT/HCPCS: 99214

== ENCOUNTER → 2023-06-04 10:41 | Outpatient (BNVA) | payer OTHER, SELFPAY | PROVIDERS: PCP Family Medicine; Visit Provider Nurse Practitioner Family | DX: K58.2 Mixed irritable bowel syndrome (principal); R14.0 Abdominal distension (gaseous); D3A.092 Benign carcinoid tumor of the stomach | CPT/HCPCS: 99212 ==

== ENCOUNTER 2023-07-09 10:27 | Outpatient (AMB) | payer OTHER, SELFPAY ==
[2023-07-09 10:36] VITALS: BMI 34.8
--- NOTE | 2023-07-09 10:36 | MHC.OFFVIS ---
Intake Vital Signs 07/09/23 10:36 Height 5 ft 4 in Weight 203 lb BMI 34.8 Intake Visit Reasons: 5 week fu Intake Note: Patient is present for 5 week follow up Patient reports no Medication changes. Does not request any refills Complaint: Stomach pain after eating and drinking Patient states: When she drinks or eats something she will have some stomach discomfort. She states that it is not as bad as it was in the past. She is having normal bowel movements. No other complaints. Allergies No Known Allergies Allergy (Verified 07/09/23 10:43) HPI 5 week fu HPI Details LAST VISIT 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 Well differentiated carcinoid tumor found on biopsy. Will repeat upper endoscopy in 4-6 months Postprandial abdominal bloating Postprandial abdominal bloating. Patient also reviewed ports epigastric pain on sure if it is related to the stress that she has been going through. Patient can continue pantoprazole. Avoid dietary triggers. Low FODMAP diet discussed with patient. IBS (irritable bowel syndrome) Patient reports both new stools occasionally as well as constipation. Continue avoiding dietary triggers. Patient was encouraged to watch her carbohydrate intake. Checking her blood sugars. I will see her in 5 weeks, sooner on as needed basis. Patient is agreeable to this plan and verbalizes understanding of instructions. She was given the opportunity to ask questions and all questions answered. TODAY'S VISIT: Patient is here today for follow-up. Patient reports that she continues to have epigastric pain occasionally after meals. Patient denies any nausea or vomiting. Patient reports that she will have pain in the left upper quadrant as well. We ruled out pancreatic insufficiency. Patient reports postprandial abdominal bloating as well. Patient states that she is moving her bowels better now. Patient states that her symptoms of epigastric discomfort and dyspepsia are better, however occasionally depending on what she eats she will have epigastric pain. Her A1c was 8.6% in January. Patient reports that she has not been checking her blood sugars. Patient is not following up with navigation nurse anymore. Patient did lose couple lb not much. Carcinoid tumor was found in her stomach and removed CT scan confirming no malignancies or margins left. She will be due to go for repeat upper endoscopy in September/October. Patient denies melena, hematochezia, unintentional weight loss or ribbon like stools. [facility] Medical History Thyroid disease GERD (gastroesophageal reflux disease) Asthma Elevated cholesterol HTN (hypertension) Osteoarthritis History of hepatitis C Diabetes Pneumonia Depression with anxiety Excessive daytime sleepiness Diabetic peripheral neuropathy Bilateral shoulder pain Sleep apnea Vaginal dryness Chronic back pain Seasonal allergic rhinitis Obesity (Unknown) Surgical History Hx of tubal ligation History of esophagogastroduodenoscopy (EGD) History of colonoscopy Left patella fracture History of cholecystectomy History of tonsillectomy Family History Father Prostate cancer Parkinsons Mother Stroke Son No problems noted. Son No problems noted. Daughter No problems noted. Sister Lung cancer Social History Household Members: None Housing: Apartment Do you presently have visiting nurse or other home services: No Alcohol intake: never Patient Tobacco Use Status: Never used Tobacco e-Cigarette/Vaping Use: Never Used Second Hand Smoke Exposure: No Advance Directives Date on File: 11/07/21 service: No Current occupational status: disabled Current occupational exposures/hazards: No Cognitive needs: No Hearing needs: No Vision needs: No Review of Systems Const Denies weight gain and Denies weight loss ENT Reports no additional complaints, Denies dysphagia and Denies odynophagia Card Reports no additional complaints Resp Reports no additional complaints GI Reports abdominal pain (Epigastric, occasional), Denies belching, Denies melena, Reports bloating, Denies change in bowel habits, Denies dysphagia, Denies excessive flatus, Denies dyspepsia, Reports heartburn, Denies diarrhea, Denies loose stools, Denies nausea, Denies odynophagia and Denies vomiting Reports no additional complaints Musc Reports no additional complaints Neuro Reports no additional complaints Psych Reports no additional complaints Endo Reports no additional complaints Physical Exam Vital Signs: BMI result Body Mass Index 34.8 Const General: healthy appearing, no acute distress and well developed Nutritional Appearance: obese Orientation/consciousness: patient oriented x3 HEENT Head: Yes normal to inspection, Yes normocephalic and Yes atraumatic Face and sinus: Yes normal facial exam Mouth: Normal oral and palatal mucosa present Throat: Yes posterior oropharynx normal, Yes tonsils normal and Yes uvula midline Eyes General: appearance normal, both eyes and all related structures Neck Neck: Yes normal visual inspection, Yes full ROM and Yes trachea midline Thyroid: Thyroid normal Resp Effort & Inspection: normal respiratory effort, able to speak in complete sentences, no tracheal deviation and symmetric chest movement Auscultation: clear to auscultation bilaterally Cardio Rate: regular rate Heart sounds: S1 normal heart sound present and S2 normal heart sound present GI Inspection: Yes normal to inspection, No distended and Yes obesity Palpation (GI): Soft to palpation, not firm, nontender and No hepatosplenomegaly present Auscultation: normal bowel sounds General: Yes no CVA tenderness Back/Spine/Pelvis Back: no CVA tenderness Skin General skin exam: elasticity normal, turgor normal and dry skin Neuro General: patient oriented x3 Psych Appearance: grossly normal Mental Status: mental status grossly normal Speech and movement: Normal speech and movement present Results Reviewed Results Reviewed: CT OF ABDOMEN AND PELVIS 05/26/2023 FINDINGS: LUNG BASES: Linear opacities of mild atelectasis of lower lobes. No pulmonary consolidation or pleural effusion. LIVER: Diffuse hepatic steatosis. Otherwise, liver is unremarkable. No hepatic mass. GALLBLADDER AND BILIARY TREE: Gallbladder is surgically absent. No dilated bile ducts. PANCREAS: Normal. No edema, pancreatic ductal dilatation or mass. SPLEEN: Spleen is normal in size. 2 cm hypodense, cystic-appearing focus within the spleen is stable compared to 10/01/2018. ADRENAL GLANDS: Normal. KIDNEYS AND URETERS: The kidneys have normal size and cortical thickness. No perinephric edema or fluid collection. No urolithiasis or hydroureteronephrosis. BLADDER: Normal. No calculi or wall thickening. BOWEL AND PERITONEUM: There is a clip along the inner wall of the anterior gastric body. No CT imaging evidence of a gastric mass. No dilated bowel loops. Small bowel is unremarkable. Multiple diverticula colon without evidence of diverticulitis. The appendix is normal. No abdominal free fluid or pneumoperitoneum. No peritoneal nodularity. ABDOMINAL WALL: Minimal protrusion of fat into the umbilicus. VASCULATURE: Mild atherosclerosis of the abdominal aorta without aneurysm. LYMPH NODES: No pathologic sized lymph nodes in the abdomen or pelvis. No inguinal lymphadenopathy. PELVIC VISCERA: 2 cm partially calcified right-sided subserosal leiomyoma of the uterus. Metallic clips noted in adnexal areas. No adnexal mass. No pelvic free fluid. Multiple phleboliths within the pelvis. MUSCULOSKELETAL: No acute or suspicious osseous abnormality. Moderate degenerative loss of disc height and facet arthropathy at L5-S1. CT/CT abdomen pelvis w IV con IMPRESSION: * There is a clip of the anterior gastric wall. * No evidence of metastatic disease within the abdomen or pelvis. * Diffuse hepatic steatosis. * 2 cm hypodense cystic-appearing focus within the spleen has not significantly changed in size compared to 10/01/2018. * Colonic diverticulosis without diverticulitis. Assessment & Plan Assessment & Plan (1) 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: Code(s): D3A.092 - Benign carcinoid tumor of the stomach Plan: Will be sending patient for repeat upper endoscopy in . Continue current PPI treatment (2) Postprandial abdominal bloating: Code(s): R14.0 - Abdominal distension (gaseous) Plan: Discussed with patient avoiding dietary triggers. Low FODMAP diet discussed with patient. List of food recommended as well as list of food to avoid given to patient. (3) IBS (irritable bowel syndrome): Code(s): K58.9 - Irritable bowel syndrome without diarrhea Qualifiers: Irritable bowel syndrome type: with both diarrhea and constipation Qualified Code(s): K58.2 - Mixed irritable bowel syndrome Plan: Occasional loose stools, however patient reports that she is constipated for the most part. Now better with Linzess. She can continue taking the same dose. I will see patient after upper endoscopy, sooner on as needed basis. Patient is agreeable to this plan and verbalizes understanding of instructions. She was given the opportunity to ask questions and all questions answered. Thank you for allowing me to participate in her care Orders: Orders Liver Panel 07/09/23 R10.9 - Unspecified abdominal pain Hemoglobin A1c 07/09/23 E11.9 - Type 2 diabetes mellitus without complications Lipase 07/09/23 R10.9 - Unspecified abdominal pain Coding Level of Care Code Est Pt Level 4 (75405) Diagnoses 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 D3A.092 Postprandial abdominal bloating R14.0 Irritable bowel syndrome with both constipation and diarrhea K58.2 Irritable bowel syndrome type: with both diarrhea and constipation Time Spent (min) 35 Comment 25 minutes spent with patient and additional 10 minutes spent reviewing her records
== END 2023-07-09 11:39 | disposition home or self-care (01) ==
PROVIDERS: PCP Family Medicine; Visit Provider Nurse Practitioner Family
DX: D3A.092 Benign carcinoid tumor of the stomach (principal); R14.0 Abdominal distension (gaseous); K58.2 Mixed irritable bowel syndrome
CPT/HCPCS: 99214

== ENCOUNTER → 2023-07-09 10:27 | Outpatient (BNVA) | payer OTHER, SELFPAY | PROVIDERS: PCP Family Medicine; Visit Provider Nurse Practitioner Family | DX: D3A.092 Benign carcinoid tumor of the stomach (principal); R14.0 Abdominal distension (gaseous); K58.2 Mixed irritable bowel syndrome | CPT/HCPCS: 99212 ==

== ENCOUNTER 2023-07-20 09:38 | Emergency (ER) | payer OTHER, SELFPAY ==
--- NOTE | ~2023-07-20 | CT_ITS ---
EXAMINATION: CT ABDOMEN AND PELVIS WITHOUT CONTRAST CLINICAL INFORMATION: Abdominal pain and diarrhea COMPARISON: 05/26/2023 TECHNIQUE: Multidetector volumetric imaging was performed from the superior aspect of the liver through the pubic symphysis. Sagittal and coronal reformatted images were obtained on the technologist's workstation. This CT examination was performed using dose optimization techniques as appropriate, variously including the following: *Automated exposure control *Adjustment of mA and/or kV according to patient size (this includes techniques or standardized protocols for targeted exams where dose is matched to indication/reason for exam; i.e. extremities or head) *Use of iterative reconstruction technique DLP: 768 mGy-cm FINDINGS: SPECIAL EDUCATION 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 Lateral left upper quadrant hyperdensity. Nonobstructive bowel pattern. LUNG BASES: Mild atelectasis. Nonenlarged heart. No pericardial effusion. Diffuse hepatic hypodensity LIVER, GALLBLADDER, AND BILIARY TREE: The liver is normal in size, shape, and attenuation. No focal hepatic lesion or biliary ductal dilatation is present. The the gallbladder has been surgically removed. PANCREAS: Unremarkable. SPLEEN: 1.7 cm hypodensity corresponding to cysts stable back to 10/01/2018. Splenule. ADRENAL GLANDS: Unremarkable. KIDNEYS AND URETERS: The kidneys are normal in size, shape, and attenuation. No hydronephrosis, hydroureter, or calculi seen. Nonspecific mild perinephric stranding. BLADDER: Decompressed. GASTROINTESTINAL TRACT: Moderately distended stomach. Nonobstructive bowel pattern. Unremarkable terminal ileum and appendix. Diverticulosis without diverticulitis. Fluid-filled colon. No wall thickening or pericolonic inflammatory changes. ABDOMINAL WALL: Fat filled umbilical hernia. LYMPH NODES: Normal. VASCULAR: Nonaneurysmal aorta. Small caliber inferior vena cava. PELVIC VISCERA: Fibroid uterus with prominent endometrium given age. Tubal ligation clips. No adnexal masses. Phleboliths. OSSEOUS STRUCTURES: L5-S1 disc space narrowing. CT/CT abdomen pelvis wo IV con IMPRESSION: Fluid-filled colon consistent with patient's history of diarrhea. Diverticulosis without diverticulitis. Hepatic steatosis. Slitlike inferior vena cava, correlate with volume status/possible dehydration. Thickened endometrium given age. Pelvic ultrasound recommended. Fleischner guidelines were followed.
[2023-07-20 09:47] VITALS: BP 179/89; PULSE 120; RESP 18; TEMP 36.8; O2SAT 96; BMI 35.6
--- NOTE | 2023-07-20 10:08 | ED_ITS ---
HPI - Abdominal Pain General Chief Complaint: Abdominal Pain Stated Complaint: Stomach Pain Time Seen by Provider: 07/20/23 10:02 Source: patient, family and old records reviewed Mode of arrival: ambulatory Limitations: no limitations History of Present Illness HPI narrative: 62 yo female with history of DM w. neuropathy, hepatitis C, chronic back pain, obesity, depression, anxiety, hx cholecystectomy who presents to the ER from home c/o diffuse abdominal pain that started at 8am today. She also reports 2 episodes of non-bloody watery diarrhea today. She last ate fish, rice and beans last night. No one else has similar symptoms. She reports maybe once a week she gets severe cramping in her abdomen and is sweating with the pain. The pain was worse today prompting ER evaluation. She follows with GI here, cannot recall last colonoscopy. She denies any urinary symptoms, fever, chills, or vomiting. She is nauseated but has not thrown up. She has not eaten yet today. MD elicited complaint: abdominal pain Onset (ago): hour(s) (2) Pain Consistency: constant Location: diffuse Severity: severe Quality: cramping Radiation: none Migration to: no migration Exacerbating factors: nothing Relieving factors: nothing Context: history of similar episodes Associated symptoms: nausea Related Data Home Medications Medication Instructions Recorded Confirmed metformin 500 mg tablet,extended 500 mg PO BID 05/07/23 05/25/23 release 24 hr Previous Rx's Medication Instructions Recorded nebulizers #1 ea 11/24/21 methylcellulose (laxative) 500 mg 1,000 mg (2 x 500 mg) PO DAILY #60 08/31/22 tablet (Citrucel) tabs miscellaneous medical supply See Rx Instructions miscellaneous 10/01/22 .COMPLEX #2 ea albuterol sulfate 2.5 mg/3 mL 2.5 mg (3 mL) inhalation Q4-6H PRN 10/08/22 (0.083 %) solution for nebulization shortness of breath or wheezing 30 days #180 mL albuterol sulfate 90 mcg/actuation 1 puff inhalation Q4H PRN 10/08/22 aerosol inhaler shortness of breath or wheezing or broncospasm 1 month #8.5 grams diabetic shoes #1 ea 10/28/22 cyclobenzaprine 5 mg tablet 5 mg PO TID PRN muscle spasm 7 01/01/23 days #21 tabs dulaglutide 1.5 mg/0.5 mL 1.5 mg (0.5 mL) subcut QWEEK 28 02/18/23 subcutaneous pen injector days #2 mL lancets 28 gauge (FreeStyle #100 ea 02/19/23 Lancets) blood sugar diagnostic (FreeStyle #100 ea 02/26/23 Lite Strips) blood-glucose meter (FreeStyle #1 ea 02/28/23 Lite Meter kit) levothyroxine 25 mcg capsule 25 mcg PO DAILY 30 days #30 caps 04/05/23 glipizide 5 mg tablet, extended 5 mg PO DAILY #90 tabs 05/05/23 release 24 hr linaclotide 145 mcg capsule 145 mcg PO DAILY #30 caps 05/07/23 (Linzess) pantoprazole 40 mg tablet,delayed 40 mg PO QAM #90 tabs 05/07/23 release lisinopril 10 mg tablet 10 mg PO DAILY 30 days #30 tabs 05/27/23 atorvastatin 10 mg tablet 10 mg PO DAILY #30 tabs 06/14/23 dicyclomine 20 mg tablet 20 mg PO TID PRN abdominal pain 07/20/23 #20 tabs ondansetron 4 mg disintegrating 4 mg PO Q8H PRN nausea and 07/20/23 tablet vomiting #10 tabs Allergies Allergy/AdvReac Type Severity Reaction Status Date / Time No Known Allergies Allergy Verified 07/09/23 10:43 Review of Systems Review of Systems Yes all other systems are reviewed and are negative [facility] Past Medical History Medical History Thyroid disease GERD (gastroesophageal reflux disease) Asthma Elevated cholesterol HTN (hypertension) Osteoarthritis History of hepatitis C Diabetes Pneumonia Depression with anxiety Excessive daytime sleepiness Diabetic peripheral neuropathy Bilateral shoulder pain Sleep apnea Vaginal dryness Chronic back pain Seasonal allergic rhinitis Obesity (Unknown) Surgical History Hx of tubal ligation History of esophagogastroduodenoscopy (EGD) History of colonoscopy Left patella fracture History of cholecystectomy History of tonsillectomy Family History Family History Father Prostate cancer Parkinsons Mother Stroke Son No problems noted. Son No problems noted. Daughter No problems noted. Sister Lung cancer Social History Social History Household Members: None Housing: Apartment Do you presently have visiting nurse or other home services: No Alcohol intake: never Patient Tobacco Use Status: Never used Tobacco e-Cigarette/Vaping Use: Never Used Second Hand Smoke Exposure: No Advance Directives: Yes Advance Directives on File: Yes Advance Directives Date on File: 11/07/21 service: No Current occupational status: disabled Current occupational exposures/hazards: No Cognitive needs: No Hearing needs: No Vision needs: No Physical Exam ED Vital Signs: Vital Signs - 24 hr 07/20/23 09:47 07/20/23 10:54 Temperature 98.3 F 98.9 F Pulse Rate 120 H 79 Respiratory Rate 18 16 Blood Pressure 179/89 H 126/67 Pulse Oximetry 96 95 Oxygen Delivery Method Room Air Room Air BMI result Body Mass Index 35.6 Appearance: Alert. Oriented X3. Appears uncomfortable. Head: normocephalic, atraumatic. Eyes: Pupils equal, round and reactive to light. ENT: Pharynx normal. No tonsillar swelling or exudate. Neck: Normal inspection. Neck supple. CVS: Normal heart rate and rhythm. Pulses normal. Respiratory: No respiratory distress. Breath sounds normal. Abdomen: Obese, Soft with moderate periumbilical tenderness without rebound or guarding. normal active +BS x4 Skin: Skin warm and dry. Normal skin color. Normal skin turgor. No rashes. Extremities: No lower extremity edema. No joint swelling. Neuro/psych: Oriented X 3. No motor deficit. No sensory deficit. CN II-XII intact. Normal speech and cognition. Medical Decision Making Medical Decision Making MDM Narrative: 62 yo female with history of DM w. neuropathy, hepatitis C, chronic back pain, obesity, depression, anxiety, hx cholecystectomy who presents to the ER from home c/o diffuse abdominal pain that started at 8am today. She also reports 2 episodes of non-bloody watery diarrhea today. Periumbilical tenderness on exam and patient uncomfortable on arrival to the ER. Labs show very mild leukocytosis, wbc 11.4, otherwise unremarkable. LFTs ok and lipase normal. CT scan showing fluid filled colon c/w diarrhea. no acute causes of her pain She was given IVF, morphine and zofran with improvement in her pain. no BMs while in the ER. She is feeling better on re-evaluation At this time comfortable w/ discharge home with GI follow up and PCP follow up. will start PRN bentyl and zofran. dietary modifications discussed. all questions answered and return precautions reviewed Differential Diagnosis Differential Diagnoses: The differential diagnosis associated with the presentation includes viral gastoenteritis, bacterial gastroenteritis, viral syndrome, food poisoning, C diff Admission/Observation Consideration of admission/observation: Escalation of care including admission/observation considered considered admission given pain, however improved with medications Lab Data MDM Lab Attestation statement: I reviewed the patient's lab results. mild leukocytosis 07/20/23 11:00 07/20/23 11:00 Labs: Lab Results 07/20/23 07/20/23 Range/Units 11:00 12:13 WBC 11.4 H (4.8-10.8) X10*3/uL RBC 4.88 (4.20-5.50) X10*6/uL Hgb 15.2 (12.0-16.0) g/dl Hct 46.3 (37.0-47.0) % MCV 94.9 (80.0-98.0) fL MCH 31.1 (27.0-33.0) pg MCHC 32.8 (31.0-35.0) g/dl RDW 12.7 (11.0-16.0) % Plt Count 285 (160-400) X10*3/uL MPV 10.2 (9.4-12.3) fL Immature Gran % (Auto) 0.4 (0.0-0.4) % Neut % (Auto) 78.9 H (45-73) % Lymph % (Auto) 14.5 L (20-40) % [place] % (Auto) 5.3 (2-11) % Eos % (Auto) 0.5 (0-4) % Baso % (Auto) 0.4 (0-2) % Lymph # (Auto) 1.7 (1.2-4.9) X10*3/uL [place] # (Auto) 0.6 (0.1-1.2) X10*3/uL Eos # (Auto) 0.1 (0.0-0.4) X10*3/uL Baso # (Auto) 0.0 (0.0-0.2) X10*3/uL Abs Immat Gran (auto) 0.05 H (0.00-0.03) X10*3/uL Absolute Neuts (auto) 9.0 H (2.0-8.3) x10*3/uL Absolute Nucleated RBC 0.000 (0.0-0.012) X10*3/uL Nucleated RBC % (auto) 0.0 (0.0-0.2) /100WBC Sodium 140 (135-145) mmol/L Potassium 4.7 (3.3-5.1) mmol/L Chloride 108 (96-108) mmol/L Carbon Dioxide 25 (22-29) mmol/L Anion Gap 12 (12-20) BUN 13 (9-16) mg/dL Creatinine 0.87 (0.5-1.4) mg/dL Estim Creat Clear Calc 73.5 Estimated GFR > 60 Random Glucose 223 H (60-115) mg/dL Calcium 10.0 (8.4-10.2) mg/dL Magnesium 1.8 (1.6-2.6) mg/dL Total Bilirubin 0.4 (0.0-1.0) mg/dL Direct Bilirubin 0.2 (0.0-0.5) mg/dL AST 18 (5-31) U/L ALT 20 (0-31) U/L Alkaline Phosphatase 81 (39-117) U/L Total Protein 7.8 (6.5-8.0) g/dL Albumin 4.3 (3.5-5.0) g/dL Lipase 30 (8-78) U/L Urine Color Yellow Urine Appearance Clear Urine pH 5.5 (5.0-9.0) Ur Specific [place] 1.020 (1.005-1.025) Urine Protein Negative (Neg-Trace) mg/dL Urine Glucose (UA) Negative (Negative) mg/dL Urine Ketones Negative (Negative) mg/dL Urine Blood Negative (Negative) Urine Nitrite Negative (Negative) Ur Leukocyte Esterase Negative (Negative) Independent Interpretation I performed an independent interpretation of an: CT Scan Interpretation: no acute obstruction, no significant pericolonic stranding, agree w/ radiology read Radiology Impression Discussion of test interpretation with radiology: I have reviewed the radiologist's reading. Radiologist Impression: EXAMINATION: CT ABDOMEN AND PELVIS WITHOUT CONTRAST CLINICAL INFORMATION: Abdominal pain and diarrhea COMPARISON: 05/26/2023 TECHNIQUE: Multidetector volumetric imaging was performed from the superior aspect of the liver through the pubic symphysis. Sagittal and coronal reformatted images were obtained on the technologist's workstation. This CT examination was performed using dose optimization techniques as appropriate, variously including the following: *Automated exposure control *Adjustment of mA and/or kV according to patient size (this includes techniques or standardized protocols for targeted exams where dose is matched to indication/reason for exam; i.e. extremities or head) *Use of iterative reconstruction technique DLP: 768 mGy-cm FINDINGS: IT COMPLIANCE ANALYST: Surgical clips and tubal ligation clips. Lateral left upper quadrant hyperdensity. Nonobstructive bowel pattern. LUNG BASES: Mild atelectasis. Nonenlarged heart. No pericardial effusion. Diffuse hepatic hypodensity LIVER, GALLBLADDER, AND BILIARY TREE: The liver is normal in size, shape, and attenuation. No focal hepatic lesion or biliary ductal dilatation is present. The the gallbladder has been surgically removed. PANCREAS: Unremarkable. SPLEEN: 1.7 cm hypodensity corresponding to cysts stable back to 10/01/2018. Splenule. ADRENAL GLANDS: Unremarkable. KIDNEYS AND URETERS: The kidneys are normal in size, shape, and attenuation. No hydronephrosis, hydroureter, or calculi seen. Nonspecific mild perinephric stranding. BLADDER: Decompressed. GASTROINTESTINAL TRACT: Moderately distended stomach. Nonobstructive bowel pattern. Unremarkable terminal ileum and appendix. Diverticulosis without diverticulitis. Fluid-filled colon. No wall thickening or pericolonic inflammatory changes. ABDOMINAL WALL: Fat filled umbilical hernia. LYMPH NODES: Normal. VASCULAR: Nonaneurysmal aorta. Small caliber inferior vena cava. PELVIC VISCERA: Fibroid uterus with prominent endometrium given age. Tubal ligation clips. No adnexal masses. Phleboliths. OSSEOUS STRUCTURES: L5-S1 disc space narrowing. CT/CT abdomen pelvis wo IV con IMPRESSION: Fluid-filled colon consistent with patient's history of diarrhea. Diverticulosis without diverticulitis. Hepatic steatosis. Slitlike inferior vena cava, correlate with volume status/possible dehydration. Thickened endometrium given age. Pelvic ultrasound recommended. External Record Review External record reviewed: Office record, Outpatient record, Prior outpatient labs and Prior outpatient radiology Prescription Management I considered prescription management with: Pain Medication and Antibiotic Medications Administered Discontinued Medications Generic Name Dose Route Start Last Admin Trade Name Freq PRN Reason Stop Dose Admin Sodium Chloride 1,000 mls @ 999 mls/hr 07/20/23 10:15 07/20/23 11:08 Ns IVCONT 07/20/23 11:15 999 mls/hr .Q1H1M DIANA Administration Morphine Sulfate 4 mg 07/20/23 10:07 07/20/23 11:08 Morphine Sulfate 4 Mg/Ml Cartridge IVPUSH 07/20/23 10:08 4 mg ONCE ONE Administration Protocol Ondansetron HCl 4 mg 07/20/23 10:02 07/20/23 11:07 Ondansetron Hcl 4 Mg/2 Ml Vial IVPUSH 07/20/23 10:03 4 mg ONCE ONE Administration Critical Care Time Critical Care Time Critical Care Time: No Discharge Plan Discharge Clinical Impression: Gastroenteritis Patient Disposition: Home, Self-Care Instructions: Gastroenteritis (DC) Additional Instructions: You lab workup today was unremarkable. Your CT scan did not show any acute causes of your pain. You most likely have a viral GI bug also known as gastroenteritis. Treatment is supportive care, symptoms usually resolve on their own in 48-72 hours. Recommend rest and plenty of oral hydration. Stick to a bland diet like soup and toast while you are not feeling well. Take the prescribed medications as needed for nausea and abdominal cramping. Recommend over the counter Pepto Bismol or Imodium for upset stomach and diarrhea. Follow up with your doctor as well as GI for further evaluation and treatment. If you develop new or worsening symptoms call 911 or come back to the ER for further evaluation. Prescriptions: New ondansetron 4 mg tablet,disintegrating 4 mg PO Q8H PRN (Reason: nausea and vomiting) Qty: 10 0RF dicyclomine 20 mg tablet 20 mg PO TID PRN (Reason: abdominal pain) Qty: 20 0RF No Action (DME) nebulizers Misc See Rx Instructions .Route Qty: 1 0RF Rx Instructions: Use every 4-6 hours prn for wheezing, shortness of breath miscellaneous medical supply Misc See Rx Instructions miscellaneous .COMPLEX Qty: 2 1RF Rx Instructions: diabetic shoes as directed; albuterol sulfate 2.5 mg /3 mL (0.083 %) solution for nebulization 2.5 mg inhalation Q4-6H PRN (Reason: shortness of breath or wheezing) 30 Days Qty: 180 1RF albuterol sulfate 90 mcg/actuation HFA aerosol inhaler 1 puff inhalation Q4H PRN (Reason: shortness of breath or wheezing or broncospasm) 30 Days Qty: 8.5 6RF (DME) diabetic shoes See Rx Instructions .ROUTE .MEDSUPPLY Qty: 1 0RF Rx Instructions: extra depth orthopedic shoes ( 1 pair ) with customize heat molded multi density inner soles ( 3 pair) Dispense 1 Sig: As directed DX: And IDDM /polyneuropathy ( E11 0.42 ); hammertoe foot deformity ( M 20.41, and 20.42 ) pre ulcerative skin lesion ( L 85.1 ) Diagnosis ( E11 0.42 ) type 2 diabetes with polyneuropathy (DME) lancets [FreeStyle Lancets] 28 gauge misc See Rx Instructions .ROUTE .MEDSUPPLY Qty: 100 5RF Rx Instructions: bid and prn glucose testing (DME) blood-glucose meter [FreeStyle Lite Meter] Kit See Rx Instructions .Route Qty: 1 3RF Rx Instructions: Test blood sugar 4-5x a day, As directed, 999 days levothyroxine 25 mcg capsule 25 mcg PO DAILY 30 Days Qty: 30 2RF glipizide 5 mg tablet extended release 24hr 5 mg PO DAILY Qty: 90 0RF lisinopril 10 mg tablet 10 mg PO DAILY 30 Days Qty: 30 3RF atorvastatin 10 mg tablet 10 mg PO DAILY Qty: 30 5RF cyclobenzaprine 5 mg tablet 5 mg PO TID PRN (Reason: muscle spasm) 7 Days Qty: 21 0RF dulaglutide 1.5 mg/0.5 mL pen injector 1.5 mg subcut QWEEK 28 Days Qty: 2 5RF Citrucel 500 mg tablet 1,000 mg PO DAILY Qty: 60 2RF Rx Instructions: take it with full glass of water (DME) FreeStyle Lite Strips Strip See Rx Instructions Not Applicable BID Qty: 100 5RF Rx Instructions: As directed 4-5 X day metformin 500 mg tablet extended release 24 hr 500 mg PO BID pantoprazole 40 mg tablet,delayed release (DR/EC) 40 mg PO QAM Qty: 90 0RF Linzess 145 mcg capsule 145 mcg PO DAILY Qty: 30 2RF Referrals: [facility] [place] [facility] [Provider Group] Jean Carlos Page MD [Primary Care Provider] -
[2023-07-20 10:54] VITALS: BP 126/67; PULSE 79; RESP 16; TEMP 37.2; O2SAT 95
[2023-07-20 11:06] LABS: MANUAL DIFF FLAG NO
[2023-07-20 11:07] LABS: Basophils Percent Auto 0.4 % (0-2); Eosinophils Absolute Auto 0.1 X10*3/uL (0.0-0.4); Eosinophils Percent Auto 0.5 % (0-4); Hematocrit 46.3 % (37.0-47.0); Hemoglobin 15.2 g/dl (12.0-16.0); Imm Gran Abs Auto 0.05 X10*3/uL (0.00-0.03); Imm Gran Pct Auto 0.4 % (0.0-0.4); Lymphocytes Absolute Auto 1.7 X10*3/uL (1.2-4.9); Lymphocytes Percent Auto 14.5 % (20-40); Mean Corpuscular HGB Conc 32.8 g/dl (31.0-35.0); Mean Corpuscular Hemoglobin 31.1 pg (27.0-33.0); Mean Corpuscular Volume 94.9 fL (80.0-98.0); Mean Platelet Volume 10.2 fL (9.4-12.3); Monocytes Absolute Auto 0.6 X10*3/uL (0.1-1.2); Monocytes Percent Auto 5.3 % (2-11); Neutrophils Percent Auto 78.9 % (45-73); Platelet Count 285 X10*3/uL (160-400); Red Blood Count 4.88 X10*6/uL (4.20-5.50); Red Cell Distribution Width 12.7 % (11.0-16.0); White Blood Count 11.4 X10*3/uL (4.8-10.8)
[2023-07-20] MEDS: ondansetron HCL 4 MG/2 ML VIAL IVPUSH (11:07)
[2023-07-20] MEDS: 0.9 % Sodium Chloride 1,000 ML 999 ML IVCONT (11:08)
[2023-07-20] MEDS: Morphine Sulfate 4 MG/ML CARTRIDGE IVPUSH (11:08)
--- NOTE | 2023-07-20 11:17 | PC.NURSE ---
pt reports n/v/d, denies cp/sob. iv established, labs drawn, ivf infusing, pt medicated per mar. +bs x 4. awaiting lab results.
[2023-07-20 11:24] LABS: Alanine Aminotransferase 20 U/L (0-31); Albumin Level 4.3 g/dL (3.5-5.0); Alkaline Phosphatase 81 U/L (39-117); Anion Gap 12 (12-20); Aspartate Amino Transferase 18 U/L (5-31); Bilirubin Direct 0.2 mg/dL (0.0-0.5); Bilirubin Total 0.4 mg/dL (0.0-1.0); Blood Urea Nitrogen 13 mg/dL (9-16); Carbon Dioxide 25 mmol/L (22-29); Chloride 108 mmol/L (96-108); Creatinine Clr Calc Pharmacy 73.5; Estimated Glomerular Filt Rate > 60; Glucose Random 223 mg/dL (60-115); Lipase 30 U/L (8-78); Magnesium 1.8 mg/dL (1.6-2.6); Potassium 4.7 mmol/L (3.3-5.1); Sodium 140 mmol/L (135-145); Total Protein 7.8 g/dL (6.5-8.0)
[2023-07-20 12:19] LABS: Appearance Urine Clear; Color Urine Yellow; Glucose Urine UA Negative (Negative); Leukocyte Esterase Urine Negative (Negative); Nitrite Urine Negative (Negative); PH 5.5 (5.0-9.0); Urine Blood Negative (Negative); Urine Ketones Negative (Negative); Urine Protein Negative (Neg-Trace)
[2023-07-20 12:26] VITALS: BP 125/62; PULSE 77; RESP 14; O2SAT 96
[2023-07-20 12:33] LABS: Glucose, Whole Blood 176 mg/dL (60-115)
== END 2023-07-20 14:00 | disposition home or self-care (01) ==
PROVIDERS: Physician Assistant; Emergency Provider Emergency Medicine; PCP Family Medicine
DX: K52.9 Noninfective gastroenteritis and colitis, unspecified (principal); R10.9 Unspecified abdominal pain; I10 Essential (primary) hypertension; E11.9 Type 2 diabetes mellitus without complications; E78.5 Hyperlipidemia, unspecified; E66.9 Obesity, unspecified; Z68.35 Body mass index [BMI] 35.0-35.9, adult; Z79.899 Other long term (current) drug therapy; Z79.85 Long-term (current) use of injectable non-insulin antidiabetic drugs
CPT/HCPCS: 36415; 74176; 80048; 80076; 81003; 82947; 83690; 83735; 85025; 96361; 96374; 96375; 99284; 99285; J2270; J2405

== ENCOUNTER 2023-07-30 10:16 | Emergency (ER) | payer OTHER, SELFPAY ==
--- NOTE | ~2023-07-30 | XR_ITS ---
EXAMINATION: XR CHEST CLINICAL INFORMATION: Cough and shortness of breath COMPARISON: 01/01/2023 06/16/2021. TECHNIQUE: 2 views of the chest were obtained. FINDINGS: Heart, mediastinum, coronary vessels and lung boothe within normal limits. Mid dorsal sclerosis and spurring again seen. XR/XR chest 2V IMPRESSION: No acute cardiopulmonary disease or interval change.
[2023-07-30 10:19] VITALS: BP 159/84; PULSE 115; RESP 20; TEMP 39.3; O2SAT 95; BMI 35.2
--- NOTE | 2023-07-30 10:32 | ED.GENADULT ---
HPI - General Adult General Chief complaint: Upper Respiratory Symptoms Stated complaint: fever, ear ache Time Seen by Provider: 07/30/23 10:29 Source: patient Mode of arrival: ambulatory Limitations: no limitations History of Present Illness HPI narrative: This is a 62-year-old female history of poorly-controlled diabetes, obesity, hyperlipidemia history of hepatitis-C presenting to the emergency department with fatigue, malaise, body aches and pains, cough, myalgias for the past 3 days worsening. Patient denies sick contacts. Reports nonproductive cough, when she coughs she feels short of breath however no shortness of breath at rest or with exertion. Patient denies chest pain. Vaccinated against COVID. Denies headache, vision changes, weakness, nausea, vomiting, abdominal pain. Related Data Home Medications Medication Instructions Recorded Confirmed metformin 500 mg tablet,extended 500 mg PO BID 05/07/23 05/25/23 release 24 hr Previous Rx's Medication Instructions Recorded nebulizers #1 ea 11/24/21 methylcellulose (laxative) 500 mg 1,000 mg (2 x 500 mg) PO DAILY #60 08/31/22 tablet (Citrucel) tabs miscellaneous medical supply See Rx Instructions miscellaneous 10/01/22 .COMPLEX #2 ea albuterol sulfate 2.5 mg/3 mL 2.5 mg (3 mL) inhalation Q4-6H PRN 10/08/22 (0.083 %) solution for nebulization shortness of breath or wheezing 30 days #180 mL albuterol sulfate 90 mcg/actuation 1 puff inhalation Q4H PRN 10/08/22 aerosol inhaler shortness of breath or wheezing or broncospasm 1 month #8.5 grams diabetic shoes #1 ea 10/28/22 cyclobenzaprine 5 mg tablet 5 mg PO TID PRN muscle spasm 7 01/01/23 days #21 tabs dulaglutide 1.5 mg/0.5 mL 1.5 mg (0.5 mL) subcut QWEEK 28 02/18/23 subcutaneous pen injector days #2 mL lancets 28 gauge (FreeStyle #100 ea 02/19/23 Lancets) blood sugar diagnostic (FreeStyle #100 ea 02/26/23 Lite Strips) blood-glucose meter (FreeStyle #1 ea 02/28/23 Lite Meter kit) levothyroxine 25 mcg capsule 25 mcg PO DAILY 30 days #30 caps 04/05/23 glipizide 5 mg tablet, extended 5 mg PO DAILY #90 tabs 05/05/23 release 24 hr linaclotide 145 mcg capsule 145 mcg PO DAILY #30 caps 05/07/23 (Linzess) pantoprazole 40 mg tablet,delayed 40 mg PO QAM #90 tabs 05/07/23 release lisinopril 10 mg tablet 10 mg PO DAILY 30 days #30 tabs 05/27/23 atorvastatin 10 mg tablet 10 mg PO DAILY #30 tabs 06/14/23 dicyclomine 20 mg tablet 20 mg PO TID PRN abdominal pain 07/20/23 #20 tabs ondansetron 4 mg disintegrating 4 mg PO Q8H PRN nausea and 07/20/23 tablet vomiting #10 tabs Allergies Allergy/AdvReac Type Severity Reaction Status Date / Time No Known Allergies Allergy Verified 07/30/23 10:19 Review of Systems Review of Systems: Constitutional : No Weight loss, + Fever, + Chills, + Fatigue, + Malaise ENT/Mouth : + sore throat, No Rhinorrhea Eyes: No Eye Pain, No Swelling, No Redness, + ear pain Cardiovascular : No Chest Pain, No SOB, No Dyspnea on Exertion, No Orthopnea, No Edema, No Palpitations Respiratory : + Cough, No Sputum, No Wheezing Gastrointestinal : No Nausea, No Vomiting, No Diarrhea, No Constipation, No abdominal Pain, No Hematochezia, No Melena Genitourinary : No Dysuria, No Urinary Frequency, No Hematuria, Musculoskeletal : No joint pain, + Myalgias, No Joint Swelling Skin : No Skin Lesions, No rash Neuro : No Weakness, No Numbness, No Dizziness, No Headache Psych : No Anxiety/Panic, No Depression All other systems reviewed and are negative Yes all other systems are reviewed and are negative [facility] Past Medical History Attestation statement: The following information was validated with the patient. Source: old records reviewed and nursing notes reviewed Medical History Thyroid disease GERD (gastroesophageal reflux disease) Asthma Elevated cholesterol HTN (hypertension) Osteoarthritis History of hepatitis C Diabetes Pneumonia Depression with anxiety Excessive daytime sleepiness Diabetic peripheral neuropathy Bilateral shoulder pain Sleep apnea Vaginal dryness Chronic back pain Seasonal allergic rhinitis Obesity (Unknown) Surgical History Hx of tubal ligation History of esophagogastroduodenoscopy (EGD) History of colonoscopy Left patella fracture History of cholecystectomy History of tonsillectomy Family History Family History Father Prostate cancer Parkinsons Mother Stroke Son No problems noted. Son No problems noted. Daughter No problems noted. Sister Lung cancer Social History Social History Household Members: None Housing: Apartment Do you presently have visiting nurse or other home services: No Alcohol intake: never Patient Tobacco Use Status: Never used Tobacco e-Cigarette/Vaping Use: Never Used Second Hand Smoke Exposure: No Advance Directives: Yes Advance Directives on File: Yes Advance Directives Date on File: 11/07/21 service: No Current occupational status: disabled Current occupational exposures/hazards: No Cognitive needs: No Hearing needs: No Vision needs: No Physical Exam ED Vital Signs: Vital Signs - 24 hr 07/30/23 10:19 Temperature 102.8 F H Pulse Rate 115 H Respiratory Rate 20 Blood Pressure 159/84 H Pulse Oximetry 95 Oxygen Delivery Method Room Air BMI result Body Mass Index 35.2 Patient febrile and tachycardic likely secondary to viral illness I do not suspect sepsis Appearance: Alert.? Oriented X3.? No acute distress.? Head: Normocephalic, atraumatic, no step-offs or deformities Eyes: Pupils equal, round and reactive to light.? ENT: Pharynx normal.?B/l EC and TM wnl. No pain w/ manipulation of b/l ears. No mastoid tenderness Neck: Normal inspection.? Neck supple.? CVS: Rapid rate normal rhythm likely sinus tach.? Pulses normal.? Respiratory: No respiratory distress.? Breath sounds normal.? Abdomen: Soft and nontender.? Skin: Skin warm and dry.? Normal skin color.? Normal skin turgor.? Extremities: No lower extremity edema.? No calf ttp. 5/5 strength to bilateral upper and lower extremities Neuro: Oriented X 3.? No motor deficit.? No sensory deficit. CN 2-12 intact Course Reevaluation(s) Reevaluation #1: X-ray with no acute cardiopulmonary disease or interval change. Serology positive for COVID-19. Educated on CDC guidelines and recommendations. Will have her follow-up with PCP if she changes her mind on Paxlovid. Educated patient on diagnosis and treatment plan, answered all question, patient verbalizes understanding. At this time patient will be discharged home, advised to return with new or worsening symptoms. Educated on worrisome signs and symptoms and when to return. At this time I feel comfortable discharge home. Time: 11:31 Medications Administered Discontinued Medications Generic Name Dose Route Start Last Admin Trade Name Freq PRN Reason Stop Dose Admin Acetaminophen 975 mg 07/30/23 10:25 07/30/23 10:45 Acetaminophen 325 Mg Tablet PO 07/30/23 10:26 975 mg ONCE ONE Administration Medical Decision Making Medical Decision Making [facility] Narrative: 1054 62-year-old female presents with fatigue, malaise, dry cough, myalgias, fevers, chills, sore throat times 3 days worsening. Physical examination normal throat, ears, no mastoid tenderness. Regular rate past rhythm likely sinus tachycardia. Lungs clear. Tachycardia and fever likely secondary to viral illness. Unlikely sepsis. This is likely viral illness versus upper respiratory infection versus pneumonia. Unlikely PE, ACS, sepsis. Unlikely metabolic derangements. No signs of otitis media, otitis externa, malignant otitis, mastoiditis. No signs of epiglottitis, retropharyngeal abscess, peritonsillar abscess, threat to airway. Plan viral testing, x-ray and will give Tylenol for fever Differential Diagnosis Differential Diagnoses: The differential diagnosis associated with the presentation includes This is likely viral illness versus upper respiratory infection versus pneumonia. Unlikely PE, ACS, sepsis. Unlikely metabolic derangements. No signs of otitis media, otitis externa, malignant otitis, mastoiditis. No signs of epiglottitis, retropharyngeal abscess, peritonsillar abscess, threat to airway. Admission/Observation Consideration of admission/observation: Escalation of care including admission/observation considered unlikely Lab Data Labs: Lab Results 07/30/23 Range/Units 10:29 Influenza Type A (PCR) NEGATIVE (Negative) Influenza Type B (PCR) NEGATIVE (Negative) RSV RNA Qual (PCR) NEGATIVE (Negative) SARS-CoV-2 RNA (RT-PCR) POSITIVE A (Negative) Independent Interpretation I performed an independent interpretation of an: Plain X-Ray Radiology Impression Discussion of test interpretation with radiology: I have reviewed the radiologist's reading. Critical Care Time Critical Care Time Critical Care Time: No Discharge Plan Discharge Clinical Impression: COVID-19 Patient Disposition: Home, Self-Care Instructions: COVID-19 (Coronavirus Disease 2019) (ED) Additional Instructions: Take your medications as prescribed. If you were prescribed antibiotics today, it is important that you take your medication to their entirety, do not skip any doses, do not finish them early. Today you tested positive for COVID-19. Take Ibuprofen or Tylenol as needed for fevers or body aches. Quarantine for 5 days and ensure you wear a mask. After 5 days you should wear a mask for 5 days after that. Practice social distancing and good hand hygiene. Drink plenty of fluids. Follow-up with your primary care provider this week. Return to the emergency department with new or worsening symptoms. In case of emergency call 911 You can purchase a pulse oximeter from your local pharmacy or grocery store, and monitor your oxygen saturation if it goes below 94% you should return to the emergency department for further evaluation. Please follow-up with your PCP if you would like [place] within the next day or 2. XR/XR chest 2V IMPRESSION: No acute cardiopulmonary disease or interval change. Prescriptions: No Action (DME) nebulizers Misc See Rx Instructions .Route Qty: 1 0RF Rx Instructions: Use every 4-6 hours prn for wheezing, shortness of breath miscellaneous medical supply Misc See Rx Instructions miscellaneous .COMPLEX Qty: 2 1RF Rx Instructions: diabetic shoes as directed; albuterol sulfate 2.5 mg /3 mL (0.083 %) solution for nebulization 2.5 mg inhalation Q4-6H PRN (Reason: shortness of breath or wheezing) 30 Days Qty: 180 1RF albuterol sulfate 90 mcg/actuation HFA aerosol inhaler 1 puff inhalation Q4H PRN (Reason: shortness of breath or wheezing or broncospasm) 30 Days Qty: 8.5 6RF (DME) diabetic shoes See Rx Instructions .ROUTE .MEDSUPPLY Qty: 1 0RF Rx Instructions: extra depth orthopedic shoes ( 1 pair ) with customize heat molded multi density inner soles ( 3 pair) Dispense 1 Sig: As directed DX: And IDDM /polyneuropathy ( E11 0.42 ); hammertoe foot deformity ( M 20.41, and 20.42 ) pre ulcerative skin lesion ( L 85.1 ) Diagnosis ( E11 0.42 ) type 2 diabetes with polyneuropathy (DME) lancets [FreeStyle Lancets] [facility] See Rx Instructions .ROUTE .MEDSUPPLY Qty: 100 5RF Rx Instructions: bid and prn glucose testing (DME) blood-glucose meter [FreeStyle Lite Meter] Kit See Rx Instructions .Route Qty: 1 3RF Rx Instructions: Test blood sugar 4-5x a day, As directed, 999 days levothyroxine 25 mcg capsule 25 mcg PO DAILY 30 Days Qty: 30 2RF glipizide 5 mg tablet extended release 24hr 5 mg PO DAILY Qty: 90 0RF lisinopril 10 mg tablet 10 mg PO DAILY 30 Days Qty: 30 3RF atorvastatin 10 mg tablet 10 mg PO DAILY Qty: 30 5RF cyclobenzaprine 5 mg tablet 5 mg PO TID PRN (Reason: muscle spasm) 7 Days Qty: 21 0RF ondansetron 4 mg tablet,disintegrating 4 mg PO Q8H PRN (Reason: nausea and vomiting) Qty: 10 0RF dicyclomine 20 mg tablet 20 mg PO TID PRN (Reason: abdominal pain) Qty: 20 0RF dulaglutide 1.5 mg/0.5 mL pen injector 1.5 mg subcut QWEEK 28 Days Qty: 2 5RF Citrucel 500 mg tablet 1,000 mg PO DAILY Qty: 60 2RF Rx Instructions: take it with full glass of water (DME) FreeStyle Lite Strips Strip See Rx Instructions Not Applicable BID Qty: 100 5RF Rx Instructions: As directed 4-5 X day metformin 500 mg tablet extended release 24 hr 500 mg PO BID pantoprazole 40 mg tablet,delayed release (DR/EC) 40 mg PO QAM Qty: 90 0RF Linzess 145 mcg capsule 145 mcg PO DAILY Qty: 30 2RF Referrals: Jean Carlos Page MD [Primary Care Provider] - 2 days Stand Alone Forms: Work/School Release
[2023-07-30] MEDS: Acetaminophen 325 MG TABLET 975 MG PO (10:45)
[2023-07-30 11:14] LABS: Influenza A PCR NEGATIVE (Negative); Influenza B PCR NEGATIVE (Negative); Resp Syncy Virus RNA Qual PCR NEGATIVE (Negative); SARS COV2 PCR INHOUSE POSITIVE (Negative)
== END 2023-07-30 11:41 | disposition home or self-care (01) ==
PROVIDERS: Emergency Provider Emergency Medicine Emergency Medical Services; PCP Family Medicine
DX: U07.1 COVID-19 (principal); R50.9 Fever, unspecified; H92.03 Otalgia, bilateral; M79.10 Myalgia, unspecified site; R05.9 Cough, unspecified; R06.02 Shortness of breath
CPT/HCPCS: 0241U; 71046; 99283

== ENCOUNTER 2023-08-09 11:18 | Outpatient (REF) | payer OTHER, SELFPAY ==
[2023-08-09 12:24] LABS: Alanine Aminotransferase 25 U/L (0-31); Albumin Level 4.4 g/dL (3.5-5.0); Alkaline Phosphatase 75 U/L (39-117); Aspartate Amino Transferase 19 U/L (5-31); Bilirubin Direct 0.1 mg/dL (0.0-0.5); Bilirubin Total 0.4 mg/dL (0.0-1.0); Blood Urea Nitrogen 15 mg/dL (9-16); Estimated Glomerular Filt Rate > 60; Lipase 67 U/L (8-78); Total Protein 8.1 g/dL (6.5-8.0)
== END 2023-08-09 11:19 | disposition home or self-care (01) ==
LOC: HO.LAB 11:18
PROVIDERS: Internal Medicine Gastroenterology; PCP Family Medicine; Visit Provider Nurse Practitioner Family
DX: D3A.092 Benign carcinoid tumor of the stomach (principal); R10.9 Unspecified abdominal pain; E11.9 Type 2 diabetes mellitus without complications
CPT/HCPCS: 36415; 80076; 82565; 83036; 83690; 84520

== ENCOUNTER 2023-08-11 10:32 | Outpatient (AMB) | payer OTHER, SELFPAY ==
[2023-08-11 10:36] VITALS: BP 129/64; PULSE 99; BMI 35.2
--- NOTE | 2023-08-11 10:36 | A.OFFVIS_ITS ---
Intake Vital Signs 08/11/23 10:36 Height 5 ft 4 in Weight 205 lb 0.478 oz BMI 35.2 BP 129/64 Blood Pressure Location Rt brachial Position Sitting Pulse 99 Pulse Source Pulse Oximeter Intake Visit Reasons: 1 month f/u per Lisa Intake Note: Patient is here for a 1 month follow up, patient stated she was at the ED 07/20 for stomach pain and diarrhea, she had a CT abd/pelvis but was told she was fine. 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 Continue current PPI treatment Postprandial abdominal bloating Discussed with patient avoiding dietary triggers. Low FODMAP diet discussed with patient. List of food recommended as well as list of food to avoid given to francis ent. IBS (irritable bowel syndrome) Occasional loose stools, however patient reports that she is constipated for the most part. Now better with Linzess. She can continue taking the same dose. I will see patient after upper endoscopy, sooner on as needed basis. Patient is agreeable to this plan and verbalizes understanding of instructions. She was given the opportunity to ask questions and all questions answered. TODAY'S VISIT Patient is here today for follow-up. 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 Patient reports that on the 20 of July she was seen in the emergency department for abdominal pain and bloating. Patient believes that this is because she is not emptying her bowels completely. She tries to take Linzess almost every day. Patient was encouraged to take it daily and drink plenty fluids. Patient is taking pantoprazole in the morning half an hour before breakfast. Patient reports that for the most part she feels okay, however depending on what she eats. Occasional symptoms at night time. Patient reports that she is avoiding bedtime snacking, however occasionally will eat before going to bed. Her blood sugars have been much better now. Patient's A1c 8.6 % in January and this month 7.1%. Patient is taking Trulicity and sometimes her symptoms of epigastric discomfort and feeling full could be related to her taking the medication. Patient will need to be careful and stop taking Trulicity minimum 1 week before going for upper endoscopy to prevent aspiration ? [facility] Medical History (Updated 08/24/23 @ 17:32 by Violet Vaughan [facility]) Thyroid disease GERD (gastroesophageal reflux disease) Asthma Elevated cholesterol HTN (hypertension) Osteoarthritis History of hepatitis C Diabetes Pneumonia Depression with anxiety Excessive daytime sleepiness Diabetic peripheral neuropathy Bilateral shoulder pain Sleep apnea Vaginal dryness Chronic back pain Seasonal allergic rhinitis Obesity (Unknown) Surgical History Hx of tubal ligation History of esophagogastroduodenoscopy (EGD) History of colonoscopy Left patella fracture History of cholecystectomy History of tonsillectomy Family History Father Prostate cancer Parkinsons Mother Stroke Son No problems noted. Son No problems noted. Daughter No problems noted. Sister Lung cancer Social History Household Members: None Housing: Apartment Do you presently have visiting nurse or other home services: No Alcohol intake: never Patient Tobacco Use Status: Never used Tobacco e-Cigarette/Vaping Use: Never Used Second Hand Smoke Exposure: No Advance Directives Date on File: 11/07/21 service: No Current occupational status: disabled Current occupational exposures/hazards: No Cognitive needs: No Hearing needs: No Vision needs: No Review of Systems Const Denies weight gain and Denies weight loss ENT Reports no additional complaints, Denies dysphagia and Denies odynophagia Card Reports no additional complaints Resp Reports no additional complaints GI Reports abdominal pain (Occasional, epigastric), Denies belching, Denies melena, Reports bloating, Denies change in bowel habits, Reports constipation (Occasional), Denies dysphagia, Denies excessive flatus, Denies dyspepsia, Reports heartburn (Occasional), Denies diarrhea, Denies loose stools, Denies nausea, Denies odynophagia and Denies vomiting Reports no additional complaints Musc Reports no additional complaints Neuro Reports no additional complaints Psych Reports no additional complaints Endo Reports no additional complaints Physical Exam Vital Signs: Last Vital Signs Pulse 99 08/11/23 10:36 BP 129/64 08/11/23 10:36 BMI result Body Mass Index 35.2 Const General: healthy appearing, no acute distress and well developed Nutritional Appearance: obese Orientation/consciousness: patient oriented x3 HEENT Head: Yes normal to inspection, Yes normocephalic and Yes atraumatic Face and sinus: Yes normal facial exam Mouth: Normal oral and palatal mucosa present Throat: Yes posterior oropharynx normal, Yes tonsils normal and Yes uvula midline Eyes General: appearance normal, both eyes and all related structures Neck Neck: Yes normal visual inspection, Yes full ROM and Yes trachea midline Thyroid: Thyroid normal Resp Effort & Inspection: normal respiratory effort, able to speak in complete sentences, no tracheal deviation and symmetric chest movement Auscultation: clear to auscultation bilaterally Cardio Rate: regular rate Heart sounds: S1 normal heart sound present and S2 normal heart sound present GI Inspection: Yes normal to inspection, No distended and Yes obesity Palpation (GI): Soft to palpation, not firm, nontender and No hepatosplenomegaly present Auscultation: normal bowel sounds General: Yes no CVA tenderness Back/Spine/Pelvis Back: no CVA tenderness Skin General skin exam: elasticity normal, turgor normal and dry skin Neuro General: patient oriented x3 Psych Appearance: grossly normal Mental Status: mental status grossly normal Affect: normal affect Results Reviewed Results Reviewed: ABDOMINAL CT SCAN 07/20/2023 FINDINGS: 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 Lateral left upper quadrant hyperdensity. Nonobstructive bowel pattern. LUNG BASES: Mild atelectasis. Nonenlarged heart. No pericardial effusion. Diffuse hepatic hypodensity LIVER, GALLBLADDER, AND BILIARY TREE: The liver is normal in size, shape, and attenuation. No focal hepatic lesion or biliary ductal dilatation is present. The the gallbladder has been surgically removed. PANCREAS: Unremarkable. SPLEEN: 1.7 cm hypodensity corresponding to cysts stable back to 10/01/2018. Splenule. ADRENAL GLANDS: Unremarkable. KIDNEYS AND URETERS: The kidneys are normal in size, shape, and attenuation. No hydronephrosis, hydroureter, or calculi seen. Nonspecific mild perinephric stranding. BLADDER: Decompressed. GASTROINTESTINAL TRACT: Moderately distended stomach. Nonobstructive bowel pattern. Unremarkable terminal ileum and appendix. Diverticulosis without diverticulitis. Fluid-filled colon. No wall thickening or pericolonic inflammatory changes. ABDOMINAL WALL: Fat filled umbilical hernia. LYMPH NODES: Normal. VASCULAR: Nonaneurysmal aorta. Small caliber inferior vena cava. PELVIC VISCERA: Fibroid uterus with prominent endometrium given age. Tubal ligation clips. No adnexal masses. Phleboliths. OSSEOUS STRUCTURES: L5-S1 disc space narrowing. CT/CT abdomen pelvis wo IV con IMPRESSION: Fluid-filled colon consistent with patient's history of diarrhea. Diverticulosis without diverticulitis. Hepatic steatosis. Slitlike inferior vena cava, correlate with volume status/possible dehydration. Thickened endometrium given age. Pelvic ultrasound recommended. Assessment & Plan Assessment & Plan (1) Pelvic pain: Code(s): R10.2 - Pelvic and perineal pain Plan: Patient reports occasional pelvic pain without urinary symptoms. CT scan from July 20 showed fibroid uterus. 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: Code(s): D3A.092 - Benign carcinoid tumor of the stomach (3) History of hepatitis C: Code(s): Z86.19 - Personal history of other infectious and parasitic diseases (4) Postprandial abdominal bloating: Code(s): R14.0 - Abdominal distension (gaseous) (5) IBS (irritable bowel syndrome): Code(s): K58.9 - Irritable bowel syndrome without diarrhea Qualifiers: Irritable bowel syndrome type: with constipation Qualified Code(s): K58.1 - Irritable bowel syndrome with constipation (6) GERD (gastroesophageal reflux disease): Code(s): K21.9 - Gastro-esophageal reflux disease without esophagitis Qualifiers: Esophagitis presence: without esophagitis Qualified Code(s): K21.9 - Gastro-esophageal reflux disease without esophagitis (7) Constipation: Code(s): K59.00 - Constipation, unspecified Qualifiers: Constipation type: slow transit constipation Qualified Code(s): K59.01 - Slow transit constipation Plan Patient will continue taking Linzess. She will continue taking pantoprazole in the morning and will start her on sucralfate at bedtime. Patient was encouraged to increase fluid intake and activity to promote better bowel motility. Patient will continue to avoid dietary triggers. Avoid late night snacking. Importance of staying upright for minimum 3 hours after meals discussed with patient. I will see patient after the procedure. Patient was encouraged to call our office if she will have any GI concerning symptoms. Please remind patient to hold Trulicity for minimal 1 week before going for upper endoscopy. Patient is agreeable to this plan and verbalizes understanding of instructions. She was given the opportunity to ask questions and all questions answered. 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
== END 2023-08-11 12:25 | disposition home or self-care (01) ==
PROVIDERS: PCP Family Medicine; Visit Provider Nurse Practitioner Family
DX: R10.2 Pelvic and perineal pain (principal); D3A.092 Benign carcinoid tumor of the stomach; Z86.19 Personal history of other infectious and parasitic diseases; R14.0 Abdominal distension (gaseous); K58.1 Irritable bowel syndrome with constipation; K21.9 Gastro-esophageal reflux disease without esophagitis; K59.01 Slow transit constipation
CPT/HCPCS: 99214

== ENCOUNTER → 2023-08-11 10:32 | Outpatient (BNVA) | payer OTHER, SELFPAY | PROVIDERS: PCP Family Medicine; Visit Provider Nurse Practitioner Family | DX: R10.2 Pelvic and perineal pain (principal); R14.0 Abdominal distension (gaseous); K58.1 Irritable bowel syndrome with constipation; K21.9 Gastro-esophageal reflux disease without esophagitis; K59.01 Slow transit constipation; D3A.092 Benign carcinoid tumor of the stomach; Z86.19 Personal history of other infectious and parasitic diseases | CPT/HCPCS: 99212 ==

== ENCOUNTER 2023-08-12 09:03 | Outpatient (AMB) | payer OTHER, SELFPAY ==
[2023-08-12 09:13] VITALS: BP 130/78; PULSE 81; RESP 20; TEMP 36.7; O2SAT 97; BMI 35.0
--- NOTE | 2023-08-12 09:13 | A.OFFPC_ITS ---
Vital Signs 08/12/23 09:13 Height 5 ft 4 in Weight 204 lb BMI 35.0 BP 130/78 Blood Pressure Location Rt brachial Position Sitting Respiration 20 Pulse 81 Pulse Source Pulse Oximeter Temp 98.1 F Pulse Oximetry (%) 97 Oxygen Delivery Method Room Air Intake Visit Reasons: Physical Exam+ NEEDS PHQ9 W/ PROVIDER FUP + THRIVE Intake Note: Patient is here today for her physical. Patient would like to have a levothyroxine refill, and would like to see a blower insulator for a rash on her hand. Allergies No Known Allergies Allergy (Verified 08/12/23 09:18) Tobacco use date assessed: 08/12/23 Dental Screening Dental Screen Date: 08/12/23 Did you have a dental visit in the last 12 months?: Yes Did you have a dental problem in the last 6 months where you did not have access to dental care?: No Was dental information given to patient?: Patient has dentist HPI Physical Exam+ NEEDS PHQ9 W/ PROVIDER FUP + THRIVE HPI Details 62 y/o female presents for an extended e xam with f/u labs and health maintenance. No recent CPE-labs to review. Had COVID about 2 weeks ago. Pt has complaints of a rash on her hands. Recent A1c 7.1%. She is on metformin 500mg b.i.d., glipizide 5mg and dulaglutide 1.5mg. Blood pressure today 130/78. She is on lisinopril 10mg daily. [facility] Medical History (Updated 08/12/23 @ 10:09 by Frank Mclaughlin) Thyroid disease GERD (gastroesophageal reflux disease) Asthma Elevated cholesterol HTN (hypertension) Osteoarthritis History of hepatitis C Diabetes Pneumonia Depression with anxiety Excessive daytime sleepiness Diabetic peripheral neuropathy Bilateral shoulder pain Sleep apnea Vaginal dryness Chronic back pain Seasonal allergic rhinitis Obesity (Unknown) Surgical History Hx of tubal ligation History of esophagogastroduodenoscopy (EGD) History of colonoscopy Left patella fracture History of cholecystectomy History of tonsillectomy Family History Father Prostate cancer Parkinsons Mother Stroke Son No problems noted. Son No problems noted. Daughter No problems noted. Sister Lung cancer Social History Household Members: None Housing: Apartment Do you presently have visiting nurse or other home services: No Alcohol intake: never Patient Tobacco Use Status: Never used Tobacco e-Cigarette/Vaping Use: Never Used Second Hand Smoke Exposure: No Advance Directives Date on File: 11/07/21 service: No Current occupational status: disabled Current occupational exposures/hazards: No Cognitive needs: No Hearing needs: No Vision needs: No Questionnaire PHQ-9 Over the last 2 weeks, how often have you been bothered by any of the following problems? 1. Little interest or pleasure in doing things: nearly every day 2. Feeling down, depressed, or hopeless: more than half the days 3. Trouble falling or staying asleep, or sleeping too much: nearly every day 4. Feeling tired or having little energy: nearly every day 5. Poor appetite or overeating: nearly every day 6. Feeling bad about yourself - or that you are a failure or have let yourself or your family down: not at all 7. Trouble concentrating on things, such as reading the newspaper or watching television: several days 8. Moving or speaking so slowly that other people could have noticed. Or the opposite - being so fidgety or restless that you have been moving around a lot more than usual: more than half the days 9. Thoughts that you would be better off or of hurting yourself in some way: several days Total score: 18 Source: Developed by Drs. Harry Hahn, Aury Ceja, Hang Dumont and colleagues, with an educational adrian from [employer]. Thrive Questionnaire Date Thrive assessed: 12/23/21 MARIUM-7 AMB Questionnaire MARIUM-7 Date MARIUM - 7 assessed: 12/23/21 Source: Developed by Drs. Harry Hahn, Aury Ceja, Hang Dumont and colleagues, with an educational adrian from [employer]. ACT Questionnaire In the past 4 weeks, how much of the time did your asthma keep you from getting as much done at work, school or at home?: Most of the time During the past 4 weeks, how often have you had shortness of breath?: More than once a day During the past 4 weeks, how often did your asthma symptoms wake you up at night or earlier than usual in the morning?: 4 or more nights a week During the past 4 weeks, how often have you had to use your rescue inhaler or nebulizer medication?: Once a week or less How would you rate your asthma control during the past 4 weeks?: Somewhat controlled Score: 11 Review of Systems Const Denies chills, Reports fatigue, Denies fever(s), Denies headache(s) and Denies weakness Eyes Denies change in vision ENT Denies dizziness, Denies headache(s), Denies hearing loss, Denies nasal congestion, Denies sinus pain, Denies sinus pressure and Denies sore throat Card Denies chest pain, Denies lightheadedness, Denies dyspnea and Denies other (palpitations) Resp Denies cough, Denies dyspnea and Denies wheezing GI Denies abdominal pain, Denies melena, Denies hematochezia, Denies change in bowel habits, Denies dyspepsia and Denies nausea Denies hematuria and Denies dysuria Musc Denies abnormal gait, Denies myalgias, Denies arthralgias, Denies numbness and Denies tingling Skin/Breast Denies rash, Denies unusual bruising and Denies wounds Neuro Denies abnormal gait, Denies dizziness, Denies headache(s), Denies memory loss, Denies numbness, Denies Sensory deficit (Neuro), Denies tingling and Denies weakness Psych Denies anxiety, Denies depression and Denies memory loss Endo Denies cold intolerance, Reports fatigue, Denies heat intolerance, Denies polydipsia and Denies polyuria Rafal/Lymph Denies easy bleeding and Denies easy bruising Aller/Immun Denies wheezing Physical exam (Primary Care) Vital Signs: Last Vital Signs Temp 98.1 F 08/12/23 09:13 Pulse 81 08/12/23 09:13 Resp 20 08/12/23 09:13 BP 130/78 08/12/23 09:13 Pulse Ox 97 08/12/23 09:13 Oxygen Delivery Method Room Air 08/12/23 09:13 BMI result Body Mass Index 35.0 Tobacco/Smoking Status: Tobacco use Status Tobacco use date assessed 08/12/23 08/12/23 09:33 Patient Tobacco Use Status Never used Tobacco 08/12/23 09:33 e-Cigarette/Vaping Use Never Used 08/12/23 09:33 PHQ-9: PHQ-9 Score PHQ-9: Total score 18 08/12/23 09:44 Thrive Assessment: Date of Thrive Assessment Date Thrive assessed 12/23/21 08/12/23 09:33 Const General: no acute distress, well developed, alert and awake Nutritional Appearance: well nourished Orientation/consciousness: patient oriented x3 HENMT Head: Yes normocephalic and Yes atraumatic Ears: hearing grossly normal bilaterally and TM's normal bilaterally General nose exam: Normal external nose present and Normal nares present Mouth: Normal oral and palatal mucosa present and moist mucous membranes Teeth and gingiva: dentition normal Throat: Yes posterior oropharynx normal Eyes General: appearance normal, both eyes and all related structures Pupils: Equal, round and reactive pupils present and Pupil accommodation reflex normal EOM: EOMs intact bilaterally Neck Neck: Yes normal visual inspection, Yes no lymphadenopathy and Yes trachea midline Thyroid: Thyroid normal Carotids: no bruits Lymphatic: no lymphadenopathy noted Chest Chest palpation & inspection: normal inspection of the chest Resp Other: Coarse breath sounds Effort & Inspection: normal respiratory effort Auscultation: clear to auscultation bilaterally Cardio Rate: regular rate Rhythm: regular rhythm Heart sounds: S1 normal heart sound present, S2 normal heart sound present, no gallops, no murmurs and no rubs Bruits: no abdominal aortic bruits and no carotid bruits GI Palpation (GI): No Abdominal aortic bruit present, Soft to palpation, nontender, No hepatosplenomegaly present and No Rebound tenderness present Auscultation: normal bowel sounds General: Yes no CVA tenderness Back/Spine/Pelvis Back: no CVA tenderness Cervical Spine: cervical ROM normal and No Cervical spine tenderness Thoracic/Lumbar Spine: thoraco-lumbar ROM normal, No pain with thoraco-lumbar ROM, No thoracic spinal tenderness and No lumbar spinal tenderness Skin Lesions: no lesions Rashes: no rashes Trauma: no lacerations or abrasions Wounds: no wounds Nails: normal Neuro General: patient oriented x3 Cranial nerves: Yes Equal, round and reactive pupils present Cognition (Neuro): normal cognition Gait exam (Neuro): Normal gait present Motor exam (neuro): 5/5 motor strength present throughout Sensory Exam: No Sensory deficit (Neuro) Deep tendon reflexes (DTR's): Right patellar reflex intensity grade: 2+ and Left patellar reflex intensity grade: 2+ Extrem General: Yes normal to inspection and No edema Psych Appearance: grossly normal Affect: normal affect Attitude: cooperative Thought process: Normal thought process present Assessment and Plan Assessment & Plan (1) Diabetes: Code(s): E11.9 - Type 2 diabetes mellitus without complications Plan: A1c?a?little?high Continue?metformin?ER?as?prescribed.??Patient?has?significant?abdominal?discomfo rt?so?avoiding?making?changes?to?this?med Increase?glipizide?ER?from?5?mg?daily?to?10?mg?daily (2) HTN (hypertension): Code(s): I10 - Essential (primary) hypertension Plan: Blood?pressure?is?fluctuate?but?never?low.??Goal?is?less?than?140/90 Increase?lisinopril?from?10?mg?daily?to?20?mg?daily (3) Rash: Code(s): R21 - Rash and other nonspecific skin eruption Plan: Gave?patient?steroid-antifungal?combo?cream (4) 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: Code(s): D3A.092 - Benign carcinoid tumor of the stomach Plan: Followed?by?Gastroenterology?and?has?surgery?scheduled (5) Hypothyroidism: Code(s): E03.9 - Hypothyroidism, unspecified Plan: TSH?still?mildly?elevated Increasing?levothyroxine?from?25?mcg?daily?to?37.5?mcg?daily (6) Screening for colon cancer: Code(s): Z12.11 - Encounter for screening for malignant neoplasm of colon Plan: Follow-up?with?Gastroenterology (7) Screening for cervical cancer: Code(s): Z12.4 - Encounter for screening for malignant neoplasm of cervix Plan: Is?followed?by?OBGYN?and?has?appointment (8) Breast cancer screening by mammogram: Code(s): Z12.31 - Encounter for screening mammogram for malignant neoplasm of breast Plan: Has?not?had?mammogram?in?about?2?years. Mammogram?order (9) Neoplasm of uncertain behavior of skin: Code(s): D48.5 - Neoplasm of uncertain behavior of skin Plan: Referred?to?dermatology?for?lesion?on?right?hand (10) Adult general medical exam: Code(s): Z00.00 - Encounter for general adult medical examination without abnormal findings Plan: 62-year-old?female?presents?for?extended?exam Encouraged?healthy?diet?with?active?lifestyle?and?plenty?of?exercise Orders: Orders Lipid Panel Today Z00.00 - Encounter for general adult medical examination without abnormal findings Microalbumin, Random (w Creat) Today I10 - Essential (primary) hypertension Thyroid Stimulating Hormone 5 Weeks E03.9 - Hypothyroidism, unspecified Triiodothyronine T3 Total 5 Weeks E03.9 - Hypothyroidism, unspecified MM tomosynthesis screening BI Today Z12.31 - Encounter for screening mammogram for malignant neoplasm of breast Comprehensive Wolf. Panel Fast Today Z00.00 - Encounter for general adult medical examination without abnormal findings UA and rflx microscopic Today Z00.00 - Encounter for general adult medical examination without abnormal findings Free T4 (Free Thyroxine) 5 Weeks E03.9 - Hypothyroidism, unspecified Referrals Dermatology Referral D48.5 - Neoplasm of uncertain behavior of skin Medications: New clotrimazole-betamethasone 1-0.05 % 1 appl topical BID 2 weeks 45 grams 0RF Changed From lisinopril 10 mg PO DAILY 30 days 30 tabs 3RF To lisinopril 20 mg PO DAILY 30 days 30 tabs 3RF From glipizide ER 5 mg PO DAILY 90 tabs 0RF To glipizide ER 10 mg (2 x 5 mg) PO DAILY 90 days 180 tabs 2RF From levothyroxine 25 mcg PO DAILY 30 days 30 caps 2RF To levothyroxine 37.5 mcg PO DAILY 30 days 30 caps 2RF Coding Level of Care Code Est Pt Level 4 (76804) Diagnoses Diabetes E11.9 HTN (hypertension) I10 Rash R21 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
== END 2023-08-12 10:11 | disposition home or self-care (01) ==
PROVIDERS: PCP Family Medicine; Visit Provider Family Medicine
DX: Z00.00 Encounter for general adult medical examination without abnormal findings (principal); E11.9 Type 2 diabetes mellitus without complications; D3A.092 Benign carcinoid tumor of the stomach; I10 Essential (primary) hypertension; R21 Rash and other nonspecific skin eruption; F41.8 Other specified anxiety disorders; E03.9 Hypothyroidism, unspecified; D48.5 Neoplasm of uncertain behavior of skin
CPT/HCPCS: 99396

== ENCOUNTER 2023-08-26 10:38 | Outpatient (AMB) | payer OTHER, SELFPAY ==
[2023-08-26 11:00] VITALS: BMI 35.6
--- NOTE | 2023-08-26 11:00 | A.OFFVIS_ITS ---
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 and was advised to switch to lactose free diet by gastroenterology specialist. Pt has carcinoid tumor in stomach , will have surgery in 10/01/2023 Participates from breakfast and lunch at [facility] program B: banana or waffles and eggs, cinnamon toast crunch cereal with milk and coffee with 2% Milk L: rice/beans/chicken, salad snack: crackers, cheese 9 pm : broccoli cream soup, salt and gar lic, milk 2% - not lactose free BG:Pt did not bring bg to this appt etoh/smoking denies QQG-Hlvvtzy-Ap.Jeor Equation Height 5 ft 4 in Weight 208 lb Resting Metabolic Rate 1487.57 Calculated Activity Level Sedentary Calories Needed to Maintain Weight 1785.08 Diagnosis Nutrition problem #1 food nutri know defi As related to (etiology) #1 diagnosis As evidenced by (sign/symptom) #1 knowledge deficit of diet Most Recent Diabetes Results: Creatinine 0.80 mg/dL (0.5-1.4) 08/09/23 Blood Urea Nitrogen 15 mg/dL (9-16) 08/09/23 Sodium 140 mmol/L (135-145) 07/20/23 Potassium 4.7 mmol/L (3.3-5.1) 07/20/23 Chloride 108 mmol/L (96-108) 07/20/23 Carbon Dioxide 25 mmol/L (22-29) 07/20/23 Calcium 10.0 mg/dL (8.4-10.2) 07/20/23 AST 19 U/L (5-31) 08/09/23 ALT 25 U/L (0-31) 08/09/23 Total Protein 8.1 g/dL (6.5-8.0) H 08/09/23 Albumin 4.4 g/dL (3.5-5.0) 08/09/23 [facility] Medical History (Updated 08/24/23 @ 17:32 by Violet Vaughan [facility]) Thyroid disease GERD (gastroesophageal reflux disease) Asthma Elevated cholesterol HTN (hypertension) Osteoarthritis History of hepatitis C Diabetes Pneumonia Depression with anxiety Excessive daytime sleepiness Diabetic peripheral neuropathy Bilateral shoulder pain Sleep apnea Vaginal dryness Chronic back pain Seasonal allergic rhinitis Obesity (Unknown) Surgical History Hx of tubal ligation History of esophagogastroduodenoscopy (EGD) History of colonoscopy Left patella fracture History of cholecystectomy History of tonsillectomy Family History Father Prostate cancer Parkinsons Mother Stroke Son No problems noted. Son No problems noted. Daughter No problems noted. Sister Lung cancer Social History Household Members: None Housing: Apartment Do you presently have visiting nurse or other home services: No Alcohol intake: never Patient Tobacco Use Status: Never used Tobacco e-Cigarette/Vaping Use: Never Used Second Hand Smoke Exposure: No Advance Directives Date on File: 11/07/21 service: No Current occupational status: disabled Current occupational exposures/hazards: No Cognitive needs: No Hearing needs: No Vision needs: No Assessment & Plan Assessment & Plan (1) Diabetes: Code(s): E11.9 - Type 2 diabetes mellitus without complications Plan: wt: 94 kg Est kcal needs as per MSJ: 1800 (40% carb, 30% protein/fat) Est fluid needs as per 30 ml/d:2800 Est prot per day as per 1 g/kg bw: 94 Recommend fiber intake : 8-10 g per day and gradually increase to 25-28 g per d ay for women and 35-38 g for men or as tolerated Recommend sodium intake per day : less than 2000 mg Educated patient on: ( R = reviewed V = verbalizes understanding N/R = needs review N/A = not applicable * Food sources of carbohydrate, adequate serving sizes and its role in various health conditions: R * Differences between complex carbohydrates a simple carbohydrates, role of fiber in diet: R * Lactose free sources of foods * Differences between types of fats and role in diet (mono on saturated fat fatty acids, saturated fatty acids, trans fats): NR * Food sources of sodium in salt and healthy modifications for heart health in kidney health: NR * Vitamins and minerals: R * Healthy plate method concept: R V * Physical activity: Benefits a precaution: NR * Hypoglycemia protocol (rule of 15): R , V * Dietary prevention of Hyperglycemia: R V Patient Instructions: Switch to lactose free dairy (choose lactaid milk, lactaid cottage cheese, citizen of [place] cheese, be aware of creamy soups which are made with lactose containing dairy ) -see list of lactose free options Follow healthy plate method - at dinner Choose a protein as snack : egg, lactose free milk /yogurt/ tuna, glucerna - see list of possible snacks Coding Level of Care Code Nutr Indiv Intake (12073) Diagnoses Diabetes E11.9 Time Spent (min) 30
[2023-09-01 11:41] VITALS: BMI 35.7
== END 2023-08-26 11:42 | disposition home or self-care (01) ==
PROVIDERS: PCP Family Medicine; Visit Provider Dietitian, Registered
DX: E11.9 Type 2 diabetes mellitus without complications (principal)

== ENCOUNTER → 2023-08-26 10:38 | Outpatient (BNVA) | payer OTHER, SELFPAY | PROVIDERS: PCP Family Medicine; Visit Provider Dietitian, Registered | DX: E11.9 Type 2 diabetes mellitus without complications (principal) | CPT/HCPCS: 97802 ==

== ENCOUNTER 2023-08-27 11:34 | Outpatient (REF) | payer OTHER, SELFPAY ==
--- NOTE | ~2023-08-27 | MM_ITS ---
EXAMINATION: MM SCREENING DIGITAL BREAST TOMOSYNTHESIS, BILATERAL CLINICAL INFORMATION: Screening. Asymptomatic. COMPARISON: Mammography: This study is compared with prior exams dating back to 2019. TECHNIQUE: Digital breast tomosynthesis is performed in both the craniocaudal and mediolateral oblique views along with computer-aided detection (CAD). Synthesized 2D images are generated from the tomosynthesis. FINDINGS: There are scattered areas of fibroglandular density (ACR BI-RADS breast composition Category b). There are no significant masses, abnormal calcifications, or other abnormalities. There are few, bilateral benign calcifications. MM/MM tomosynthesis screening BI IMPRESSION: No mammographic evidence of malignancy. ASSESSMENT: BI-RADS BI-RADS 2 - Benign Findings RECOMMENDATION: Routine annual mammography screening. 1 year F/U This examination should not preclude the clinical evaluation of a suspicious palpable abnormality. This patient's information was entered into a reminder system with a target due date for their next mammogram.
== END 2023-08-27 11:35 | disposition home or self-care (01) ==
LOC: HO.MAMMO 11:34
PROVIDERS: PCP Family Medicine; Visit Provider Family Medicine
DX: Z12.31 Encounter for screening mammogram for malignant neoplasm of breast (principal)
CPT/HCPCS: 77063; 77067

== ENCOUNTER → 2023-08-27 12:15 | Outpatient (BNV) | payer OTHER, SELFPAY | PROVIDERS: PCP Family Medicine; Visit Provider Radiology Diagnostic Radiology | DX: Z12.31 Encounter for screening mammogram for malignant neoplasm of breast (principal) | CPT/HCPCS: 77063; 77067 ==

== ENCOUNTER 2023-10-01 11:50 | Day surgery (SDC) | payer OTHER, SELFPAY ==
--- NOTE | 2023-09-30 10:14 | HO.ANESPROP2 ---
Documented by User: Roshni Post NP 09/30/23 10:17 HPI - Anesthesia Eval Consult details Narrative: 62yo F for Upper Endoscopy with Balloon Dilitation ? 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 (Acute) Poorly controlled diabetes mellitus (Acute ~08/01/20) Diarrhea (Acute ~12/2018) Blepharitis (Acute) Vaginal yeast infection (Acute) Rash (Acute) Poorly controlled diabetes mellitus (Acute) Dizziness (Acute) Fatigue (Acute) Snoring (Acute) Sleep disorder (Acute) Cough (Acute) Left arm weakness (Acute) COVID (Acute) Supplemental oxygen dependent (Acute) Physical deconditioning (Acute) 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 hauler manifesting chronic dyspnea (Acute) Back pain (Acute) Viral upper respiratory illness (Acute) Otitis media (Acute) Weakness of upper extremity (Acute) Daytime sleepiness (Acute) Elbow pain (Acute) Low HDL (under 40) (Acute) Elevated TSH (Acute) Cervicalgia (Acute) Restless legs syndrome (Acute) Diabetic neuropathy (Acute) Lower extremity weakness (Acute) Carcinoid tumor of stomach (Acute) Chronic back pain (Acute) History of hepatitis C (Acute) Past Medical History Medical History Thyroid disease GERD (gastroesophageal reflux disease) Asthma Elevated cholesterol HTN (hypertension) Osteoarthritis History of hepatitis C Diabetes Pneumonia Depression with anxiety Excessive daytime sleepiness Diabetic peripheral neuropathy Bilateral shoulder pain Sleep apnea Vaginal dryness Chronic back pain Seasonal allergic rhinitis Obesity (Unknown) Family History Family History Father Prostate cancer Parkinsons Mother Stroke Son No problems noted. Son No problems noted. Daughter No problems noted. Sister Lung cancer Family history of problems with anesthesia: No Surgical History Surgical History Hx of tubal ligation History of esophagogastroduodenoscopy (EGD) History of colonoscopy Left patella fracture History of cholecystectomy History of tonsillectomy History of Problems with Anesthesia: No Social History Social History Household Members: None Housing: Apartment Do you presently have visiting nurse or other home services: No Alcohol intake: never Comment: 04/10 headache, will have caffinated beverage in D/C area Patient Tobacco Use Status: Never used Tobacco e-Cigarette/Vaping Use: Never Used Second Hand Smoke Exposure: No Use of substances other than those prescribed or required for medical reasons: No Advance Directives: No Advance Directives Information Provided: Yes Advance Directives Date on File: 11/07/21 service: No Current occupational status: disabled Current occupational exposures/hazards: No Cognitive needs: No Hearing needs: No Vision needs: No Meds Allergies Allergy/AdvReac Type Severity Reaction Status Date / Time No Known Allergies Allergy Verified 10/01/23 12:59 Exam Pertinent Lab Results Pertinent Lab Results: Laboratory Tests 07/20/23 07/20/23 08/09/23 11:00 11:00 11:36 WBC 11.4 H Hgb 15.2 Hct 46.3 Plt Count 285 Sodium 140 Potassium 4.7 Chloride 108 Carbon Dioxide 25 BUN 15 Creatinine 0.80 Narrative Narrative: EKG 12/2022 Vent. Rate : 078 BPM Atrial Rate : 078 BPM P-R Int : 158 ms QRS Dur : 088 ms QT Int : 376 ms P-R-T Axes : 052 -42 045 degrees QTc Int : 428 ms Normal sinus rhythm Left axis deviation Pulmonary disease pattern Abnormal ECG When compared with ECG of 16-MAR-2022 16:03, No significant change was found Assessment and Plan Assessment Anesthesia Assessment: Chart Reviewed Final Anesthetic Review Family History of Problems with Anesthesia: No History of Problems with Anesthesia: No Documented by User: Joleen Boyle MD 10/01/23 13:32 HPI - Anesthesia Eval Anesthesia Pre-Procedure Meds If Yes to any meds - educate patient: Pt education - increased risk of aspiration PMFSH Past Medical History Medical History Thyroid disease GERD (gastroesophageal reflux disease) Asthma Elevated cholesterol HTN (hypertension) Osteoarthritis History of hepatitis C Diabetes Pneumonia Depression with anxiety Excessive daytime sleepiness Diabetic peripheral neuropathy Bilateral shoulder pain Sleep apnea Vaginal dryness Chronic back pain Seasonal allergic rhinitis Obesity (Unknown) Family History Family History Father Prostate cancer Parkinsons Mother Stroke Son No problems noted. Son No problems noted. Daughter No problems noted. Sister Lung cancer Surgical History Surgical History Hx of tubal ligation History of esophagogastroduodenoscopy (EGD) History of colonoscopy Left patella fracture History of cholecystectomy History of tonsillectomy Social History Social History Household Members: None Housing: Apartment Do you presently have visiting nurse or other home services: No Alcohol intake: never Comment: 04/10 headache, will have caffinated beverage in D/C area Patient Tobacco Use Status: Never used Tobacco e-Cigarette/Vaping Use: Never Used Second Hand Smoke Exposure: No Use of substances other than those prescribed or required for medical reasons: No Advance Directives: No Advance Directives Information Provided: Yes Advance Directives Date on File: 11/07/21 service: No Current occupational status: disabled Current occupational exposures/hazards: No Cognitive needs: No Hearing needs: No Vision needs: No Meds Allergies Allergy/AdvReac Type Severity Reaction Status Date / Time No Known Allergies Allergy Verified 10/01/23 12:59 Exam Airway Mallampati Class: III TM Dist: >3cm Neck ROM: Full Heart: rrr Lungs: cta Assessment and Plan Assessment Anesthesia Assessment: Anesthesia Plan Discussed Final Anesthetic Review NPO: Yes ASA Class: III Final Preanesthetic Review: No Changes in Pt Med Stat, Meds/Allgs Chart Reviewed and Consent Obtained/Reviewed Patient Risk: Intermediate Procedure Risk: Intermediate Anesthetic Plan Anesthetic Plan: MAC: Disposition: Standard PACU
[2023-10-01 12:27] VITALS: BMI 35.4
[2023-10-01 12:57] VITALS: BP 128/78; PULSE 93; RESP 16; TEMP 36.5; O2SAT 98
[2023-10-01] MEDS: Lactated Ringers 1,000 ML 100 ML IVCONT (12:58)
[2023-10-01 13:08] LABS: Glucose, Whole Blood 111 mg/dL (60-115)
--- NOTE | 2023-10-01 13:37 | P.HPSUR_ITS ---
Pre-Procedural Eval Section A Date of Service: 10/01/23 The patient is an INPATIENT: No The History & Physical has been completed within 30 days and I have reviewed it.: No Section B Chief Complaint: FU of gastric carcinoid Relevant Family History (Specify if Yes): No Relevant Social History: None Present Medications: see Short Stay Collaborative assessment Medical History: Significant History (Thyroid disease GERD (gastroesophageal reflux disease) Asthma Elevated cholesterol HTN (hypertension) Osteoarthritis History of hepatitis C Diabetes Pneumonia Depression with anxiety Excessive daytime sleepiness Diabetic peripheral neuropathy Bilateral shoulder pain Sleep apnea Vaginal dryness Chron) History of Previous Operations: Relevant previous surgery/procedure and date(s) (Hx of tubal ligation History of esophagogastroduodenoscopy (EGD) History of colonoscopy Left patella fracture History of cholecystectomy History of tons illectomy) Allergies: Allergies Allergy/AdvReac Type Severity Reaction Status Date / Time No Known Allergies Allergy Verified 10/01/23 12:59 Review of Systems Sugical H&P ROS: Negative: Constitution, Cardiovascular, Respiratory and Gastrointestinal Exam Surgical H&P Exam: Normal: Heart, Normal: Lungs, Normal: Extremities and Normal: Abdomen Plan Diagnosis/Plan: Unchanged I have reviewed the history and physical and performed a pertinent physical examination on my patient. No changes have occurred unless specified. Time Spent With Patient Time: Total time managing care of this patient today ____ minutes.
--- NOTE | 2023-10-01 13:44 | W.PM.OPN ---
Operative Note Operative Note Date of Service: 10/01/23 Narrative: FLEXIBLE TRANSORAL UPPER GASTROINTESTINAL ENDOSCOPY WITH SNARE POLYPECTOMY, SUBMUCOSAL INJECTION, HEMOCLIP PLACEMENT AND ESOPHAGEAL BALLOON DILATION Pre-op diagnosis: Follow-up of gastric carcinoid Post-op diagnosis: Dysphagia, gastric nodule/polyp Endoscopist:Storm Vigil MD Anesthesia:?MAC Consent: Indications for the procedure and potential complications of bleeding, perforation, reaction to medications and missed diagnosis were discussed with the patient and informed consent was obtained. Instrument: Olympus GIF H 190 mid size upper endoscope Monitoring: Vital signs and clinical assessment, continuous EKG monitoring, Pulse oximetry, Carbon Dioxide monitoring and blood pressure monitoring were done throughout the procedure. Procedure: The patient was placed in the left lateral decubitis position and pre-procedure medications were administered and a bite block was placed. The endoscope was inserted into the mouth and advanced under direct vision to the third part of duodenum. A careful inspection was made as the upper endoscope was withdrawn including a retroflexed examination of the proximal stomach; Findings and interventions are described below. Findings: Larynx: Normal Esophagus: GE junction at 35 cms. No esophagitis, Olvera's, stricture or ring. Empiric esophageal balloon dilation was performed with a 20 mm (60 F) CRE balloon x 60 seconds Stomach: Moderate diffuse gastric erythema. Biopsies were obtained from the gastric antrum and body during previous EGD.? Hemoclip visualized in the gastric body at 50 cms with edematous folds/? 10 - 12 mm nodule (a well differentiated carcinoid was removed during last EGD) Nodule was raised with 5 cc of Eleview and removed with a hot snare. Polypectomy site was closed with a hemoclip and retrieved with a Hernandez Net. Grade 2 flap valve on retroflexed examination of the cardia. Duodenum: Not evaluated Intervention: Biopsies as noted above Impression and Post Procedure Diagnosis: Endoscopy Findings: ESOPHAGUS: GE junction at 35 cms. No esophagitis, Olvera's, stricture or ring. Empiric esophageal balloon dilation was performed with a 20 mm (60 F) CRE balloon x 60 seconds STOMACH: Hemoclip visualized in the gastric body at 50 cms with edematous folds/? 10 mm nodule (a well differentiated carcinoid was removed during last EGD) Nodule was raised with 5 cc of Eleview and removed with a hot snare. Polypectomy site was closed with a hemoclip and retrieved with a Hernandez Net. Plan: Await pathology results Patient has an appointment on 10/15/23 in the GI Clinic with Violet Vaughan FNP-BC. Above findings were reviewed with the patient. FU EGD in 6 months.
[2023-10-01 14:17] VITALS: BP 104/65; PULSE 79; RESP 16; TEMP 36.2; O2SAT 95
[2023-10-01 14:30] VITALS: BP 116/57; PULSE 78; RESP 16; O2SAT 96
[2023-10-01 14:45] VITALS: BP 117/79; PULSE 76; RESP 16; O2SAT 96
[2023-10-01 15:00] VITALS: BP 117/65; PULSE 79; RESP 16; TEMP 36.6; O2SAT 96
== END 2023-10-01 15:12 | disposition home or self-care (01) ==
PROVIDERS: PCP Family Medicine; Visit Provider Internal Medicine Gastroenterology
PROC: (CPT 43251; principal; 2023-10-01 14:00)
DX: K31.7 Polyp of stomach and duodenum (principal); K29.50 Unspecified chronic gastritis without bleeding; R13.10 Dysphagia, unspecified; K58.1 Irritable bowel syndrome with constipation; K21.9 Gastro-esophageal reflux disease without esophagitis; E07.9 Disorder of thyroid, unspecified; J45.909 Unspecified asthma, uncomplicated; I10 Essential (primary) hypertension; E78.00 Pure hypercholesterolemia, unspecified; F41.8 Other specified anxiety disorders; Z86.19 Personal history of other infectious and parasitic diseases; E66.9 Obesity, unspecified; Z68.35 Body mass index [BMI] 35.0-35.9, adult; E11.42 Type 2 diabetes mellitus with diabetic polyneuropathy; Z79.85 Long-term (current) use of injectable non-insulin antidiabetic drugs; Z79.899 Other long term (current) drug therapy; Z98.51 Tubal ligation status; Z90.49 Acquired absence of other specified parts of digestive tract
CPT/HCPCS: 43251; 43249; 43236; 82947; 88305; 88342; C1726; J2704

== ENCOUNTER → 2023-10-01 11:50 | Outpatient (BNV) | payer OTHER, SELFPAY | PROVIDERS: PCP Family Medicine; Visit Provider Internal Medicine Gastroenterology | DX: R13.10 Dysphagia, unspecified (principal); K31.7 Polyp of stomach and duodenum; Z86.012 Personal history of benign carcinoid tumor | CPT/HCPCS: 43236; 43249; 43251 ==

== ENCOUNTER 2023-10-07 10:53 | Outpatient (AMB) | payer OTHER, SELFPAY ==
[2023-10-07 11:45] VITALS: BMI 36.4
--- NOTE | 2023-10-07 11:45 | A.OFFVIS_ITS ---
Intake VS Expanded 10/07/23 11:45 Height 5 ft 4 in Weight 211 lb 13.828 oz BMI 36.4 Intake Visit Reasons: DM/confirm Allergies No Known Allergies Allergy (Verified 10/15/23 10:36) HPI Nutrition Presentation Details Pt presents for MNT f/u for T2DM Pt reports participating from breakfast an lunch at [facility] program. Pt reports overall doing well, having good appetite, has questions regarding carbs and admits to increased pastries/high sugar foods in the evening. Pt brought her glucometer and is monitoring 2 to 3 times a week, her lowest blood glucose at 107 in the fasting state and her highest blood glucose 302 at random in the evening. Most Recent Diabetes Results: No Data to Display [facility] Medical History Thyroid disease GERD (gastroesophageal reflux disease) Asthma Elevated cholesterol HTN (hypertension) Osteoarthritis History of hepatitis C Diabetes Pneumonia Depression with anxiety Excessive daytime sleepiness Diabetic peripheral neuropathy Bilateral shoulder pain Sleep apnea Vaginal dryness Chronic back pain Seasonal allergic rhinitis Obesity (Unknown) Surgical History Hx of tubal ligation History of esophagogastroduodenoscopy (EGD) History of colonoscopy Left patella fracture History of cholecystectomy History of tonsillectomy Family History Father Prostate cancer Parkinsons Mother Stroke Son No problems noted. Son No problems noted. Daughter No problems noted. Sister Lung cancer Social History Household Members: None Housing: Apartment Do you presently have visiting nurse or other home services: No Alcohol intake: never Comment: 04/10 headache, will have caffinated beverage in D/C area Patient Tobacco Use Status: Never used Tobacco e-Cigarette/Vaping Use: Never Used Second Hand Smoke Exposure: No Advance Directives Date on File: 11/07/21 service: No Current occupational status: disabled Current occupational exposures/hazards: No Cognitive needs: No Hearing needs: No Vision needs: No Assessment & Plan Assessment & Plan (1) Diabetes: Code(s): E11.9 - Type 2 diabetes mellitus without complications Plan: wt: 94 kg (96 kg on 10/19/23) Est kcal needs as per MSJ: 1800 (40% carb, 30% protein/fat) Est fluid needs as per 30 ml/d:2800 Est prot per day as per 1 g/kg bw: 94 Recommend fiber intake : 8-10 g per day and gradually increase to 25-28 g per day for women and 35-38 g for men or as tolerated Recommend sodium intake per day : less than 2000 mg Educated patient on: ( R = reviewed V = verbalizes understanding N/R = needs review N/A = not applicable * Food sources of carbohydrate, adequate serving sizes and its role in various health conditions: R * Differences between complex carbohydrates a simple carbohydrates, role of fiber in diet: R * Lactose free sources of foods * Differences between types of fats and role in diet (mono on saturated fat fatty acids, saturated fatty acids, trans fats): NR * Food sources of sodium in salt and healthy modifications for heart health in kidney health: R * Vitamins and minerals: R * Healthy plate method concept: R V * Physical activity: Benefits a precaution: NR * Hypoglycemia protocol (rule of 15): R , V * Dietary prevention of Hyperglycemia: R V Patient Instructions: Aim at having 2 fruits per day replacing pastries to reduce on calories/fats/salt Have a meal replacement once a day - see meal replacement options Coding Level of Care Code Nutr Indiv Subseq (25511) Diagnoses Diabetes E11.9 Time Spent (min) 30
== END 2023-10-07 12:22 | disposition home or self-care (01) ==
PROVIDERS: PCP Family Medicine; Visit Provider Dietitian, Registered
DX: E11.9 Type 2 diabetes mellitus without complications (principal)

== ENCOUNTER → 2023-10-07 10:53 | Outpatient (BNVA) | payer OTHER, SELFPAY | PROVIDERS: PCP Family Medicine; Visit Provider Dietitian, Registered | DX: E11.9 Type 2 diabetes mellitus without complications (principal) | CPT/HCPCS: 97803 ==

== ENCOUNTER 2023-10-15 10:24 | Outpatient (AMB) | payer OTHER, SELFPAY ==
--- NOTE | 2023-10-15 10:34 | A.OFFVIS_ITS ---
Intake Vital Signs 10/15/23 10:35 Height 5 ft 4 in Weight 209 lb 7.026 oz BMI 35.9 BP 157/87 H Blood Pressure Location Lt brachial Position Sitting Pulse 88 Pulse Source Pulse Oximeter Intake Visit Reasons: S/P EGD; Dr. Vigil Intake Note: Pt presents to the office today for a s/p EGD. Pt states she is feeling okay and denies any throat discomfort or GI concerns at this time. Allergies No Known Allergies Allergy (Verified 10/15/23 10:36) HPI S/P EGD; Dr. Vigil HPI Details LAST VISIT: Pelvic pain Patient reports occasional pelvic pain without urinary symptoms. CT scan from July 20 showed fibroid uterus. 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 She will continue taking pantoprazole in the morning and will start her on sucralfate at bedtime. Patient was encouraged to increase fluid intake and activity to promote better bowel motility. Patient will continue to avoid dietary triggers. Avoid late night snacking. Importance of staying upright for minimum 3 hours after meals discussed with patient. I will see patient after the procedure. Patient was encouraged to call our office if she will have any GI concerning symptoms. Please remind patient to hold Trulicity for minimal 1 week before going for upper endoscopy. Patient is agreeable to this plan and verbalizes understanding of instructions. She was given the opportunity to ask questions and all questions answered. ? Thank you for allowing me participate in her care Orders Referrals COMMUNITY HEALTH PLANNING DIRECTOR Referral R10.2 Medications New sucralfate 1 g PO BEDTIME 30 tabs 3RF R19.7 Discontinued dicyclomine Discontinued Reason: Doctor's Order 20 mg PO TID PRN 20 tabs 0RF abdominal p ain ondansetron Discontinued Reason: Patient no longer taking 4 mg PO Q8H PRN 10 tabs 0RF nausea and v omiting UPPER ENDOSCOPY: Findings: Larynx: Normal Esophagus: GE junction at 35 cms. No esophagitis, Olvera's, stricture or ring. Empiric esophageal balloon dilation was performed with a 20 mm (60 F) CRE balloon x 60 seconds Stomach: Moderate diffuse gastric erythema. Biopsies were obtained from the gastric antrum and body during previous EGD.? Hemoclip visualized in the gastric body at 50 cms with edematous folds/? 10 - 12 mm nodule (a well differentiated carcinoid was removed during last EGD) Nodule was raised with 5 cc of Eleview and removed with a hot snare. Polypectomy site was closed with a hemoclip and retrieved with a Hernandez Net. Grade 2 flap valve on retroflexed examination of the cardia. Duodenum: Not evaluated Intervention: Biopsies as noted above Impression and Post Procedure Diagnosis: Endoscopy Findings: ESOPHAGUS: GE junction at 35 cms. No esophagitis, Olvera's, stricture or ring. Empiric esophageal balloon dilation was performed with a 20 mm (60 F) CRE balloon x 60 seconds STOMACH: Hemoclip visualized in the gastric body at 50 cms with edematous folds/? 10 mm nodule (a well differentiated carcinoid was removed during last EGD) Nodule was raised with 5 cc of Eleview and removed with a hot snare. Polypectomy site was closed with a hemoclip and retrieved with a Hernandez Net. Plan: Above findings were reviewed with the patient. FU EGD in 6 months. PATHOLOGY RESULTS Diagnosis Stomach, polyp, biopsy: Gastric antral mucosa with marked cautery effect, surface hyperplastic changes and active gastritis; negative for Helicobacter pylori, intestinal metaplasia and dysplasia (see comment). COMMENT: Cautery precludes definitive characterization of the polyp. Diagnostic features of carcinoid tumor are not identified TODAY'S VISIT: Patient is here today for follow-up and to discuss upper endoscopy results. Patient reports that she has been feeling well, continues to take pantoprazole in the morning and sucralfate bedtime. Patient reports that her symptoms of acid reflux have suppressed. Carcinoid tumor not identified, biopsy results discussed with patient as well as upper endoscopy findings. Recommendation was made to repeat endoscopy in 6 months for surveillance. Patient denies any dyspepsia, dysphagia or odynophagia. Reports that she has been moving her bowels better now that she is taking Linzess. Patient reports that she is less bloated. Tries to avoid dietary triggers and trying to keep her blood sugar stable. [facility] Medical History Thyroid disease GERD (gastroesophageal reflux disease) Asthma Elevated cholesterol HTN (hypertension) Osteoarthritis History of hepatitis C Diabetes Pneumonia Depression with anxiety Excessive daytime sleepiness Diabetic peripheral neuropathy Bilateral shoulder pain Sleep apnea Vaginal dryness Chronic back pain Seasonal allergic rhinitis Obesity (Unknown) Surgical History Hx of tubal ligation History of esophagogastroduodenoscopy (EGD) History of colonoscopy Left patella fracture History of cholecystectomy History of tonsillectomy Family History Father Prostate cancer Parkinsons Mother Stroke Son No problems noted. Son No problems noted. Daughter No problems noted. Sister Lung cancer Social History Household Members: None Housing: Apartment Do you presently have visiting nurse or other home services: No Alcohol intake: never Comment: 04/10 headache, will have caffinated beverage in D/C area Patient Tobacco Use Status: Never used Tobacco e-Cigarette/Vaping Use: Never Used Second Hand Smoke Exposure: No Advance Directives Date on File: 11/07/21 service: No Current occupational status: disabled Current occupational exposures/hazards: No Cognitive needs: No Hearing needs: No Vision needs: No Review of Systems Const Denies weight gain and Denies weight loss ENT Reports no additional complaints, Denies dysphagia and Denies odynophagia Card Reports no additional complaints Resp Reports no additional complaints GI Denies abdominal pain, Denies belching, Denies melena, Denies bloating, Denies change in bowel habits, Denies dysphagia, Denies excessive flatus, Denies dyspepsia, Denies heartburn, Denies diarrhea, Denies loose stools, Denies nausea, Denies odynophagia and Denies vomiting Musc Reports no additional complaints Neuro Reports no additional complaints Psych Reports no additional complaints Endo Reports no additional complaints Physical Exam Vital Signs: Last Vital Signs Pulse 88 10/15/23 10:35 BP 157/87 H 10/15/23 10:35 BMI result Body Mass Index 35.9 Const General: healthy appearing, no acute distress and well developed Nutritional Appearance: obese Orientation/consciousness: patient oriented x3 HEENT Head: Yes normal to inspection, Yes normocephalic and Yes atraumatic Face and sinus: Yes normal facial exam Mouth: Normal oral and palatal mucosa present Throat: Yes posterior oropharynx normal, Yes tonsils normal and Yes uvula midline Eyes General: appearance normal, both eyes and all related structures Neck Neck: Yes normal visual inspection, Yes full ROM and Yes trachea midline Thyroid: Thyroid normal Resp Effort & Inspection: normal respiratory effort, able to speak in complete sentences, no tracheal deviation and symmetric chest movement Auscultation: clear to auscultation bilaterally Cardio Rate: regular rate GI Inspection: Yes normal to inspection, No distended and Yes obesity Palpation (GI): Soft to palpation, not firm, nontender and No hepatosplenomegaly present Auscultation: normal bowel sounds General: Yes no CVA tenderness Back/Spine/Pelvis Back: no CVA tenderness Skin General skin exam: elasticity normal, turgor normal and dry skin Neuro General: patient oriented x3 Psych Appearance: grossly normal Mental Status: mental status grossly normal Affect: normal affect Assessment & Plan Assessment & Plan (1) 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: Code(s): D3A.092 - Benign carcinoid tumor of the stomach (2) History of hepatitis C: Code(s): Z86.19 - Personal history of other infectious and parasitic diseases (3) Postprandial abdominal bloating: Code(s): R14.0 - Abdominal distension (gaseous) (4) IBS (irritable bowel syndrome): Code(s): K58.9 - Irritable bowel syndrome without diarrhea Qualifiers: Irritable bowel syndrome type: without diarrhea Qualified Code(s): K58.9 - Irritable bowel syndrome without diarrhea (5) GERD (gastroesophageal reflux disease): Code(s): K21.9 - Gastro-esophageal reflux disease without esophagitis Qualifiers: Esophagitis presence: without esophagitis Qualified Code(s): K21.9 - Gastro-esophageal reflux disease without esophagitis (6) Constipation: Code(s): K59.00 - Constipation, unspecified Qualifiers: Constipation type: slow transit constipation Qualified Code(s): K59.01 - Slow transit constipation Plan Continue pantoprazole and sucralfate as ordered. Continue avoiding dietary triggers in late night snacking. Staying upright for minimal 3 hours after meals discussed with patient. Discussed with patient about losing weight as well. Keeping her blood sugars on track. Continue taking Linzess daily. Low FODMAP diet discussed with patient. Avoiding carbs and lactose discussed with her as well. Patient will return in 4 months. Will send patient for upper endoscopy then. She is agreeable to this plan and verbalizes understanding of instructions. She was given the opportunity to ask questions and all questions answered. 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
[2023-10-15 10:35] VITALS: BP 157/87; PULSE 88; BMI 35.9
== END 2023-10-15 11:04 | disposition home or self-care (01) ==
PROVIDERS: PCP Family Medicine; Visit Provider Nurse Practitioner Family
DX: D3A.092 Benign carcinoid tumor of the stomach (principal); Z86.19 Personal history of other infectious and parasitic diseases; R14.0 Abdominal distension (gaseous); K58.9 Irritable bowel syndrome, unspecified; K21.9 Gastro-esophageal reflux disease without esophagitis; K59.01 Slow transit constipation
CPT/HCPCS: 99214

== ENCOUNTER → 2023-10-15 10:24 | Outpatient (BNVA) | payer OTHER, SELFPAY | PROVIDERS: PCP Family Medicine; Visit Provider Nurse Practitioner Family | DX: D3A.092 Benign carcinoid tumor of the stomach (principal); R14.0 Abdominal distension (gaseous); K58.9 Irritable bowel syndrome, unspecified; K21.9 Gastro-esophageal reflux disease without esophagitis; K59.01 Slow transit constipation; Z86.19 Personal history of other infectious and parasitic diseases | CPT/HCPCS: 99212 ==

== ENCOUNTER → 2023-11-25 14:20 | Outpatient (BNVA) | payer OTHER, SELFPAY | PROVIDERS: PCP Family Medicine; Visit Provider Internal Medicine Endocrinology, Diabetes & Metabolism | DX: E11.65 Type 2 diabetes mellitus with hyperglycemia (principal); Z79.84 Long term (current) use of oral hypoglycemic drugs; Z79.85 Long-term (current) use of injectable non-insulin antidiabetic drugs | CPT/HCPCS: 82947; 83036; 99211; 99212 ==

== ENCOUNTER 2023-11-25 14:49 | Outpatient (AMB) | payer OTHER, SELFPAY ==
--- NOTE | 2023-11-25 14:21 | MHC.OFFVIS ---
Intake Vital Signs 11/25/23 14:22 Height 5 ft 4 in Weight 212 lb 1.355 oz BMI 36.4 BP 130/82 Blood Pressure Location Lt brachial Position Sitting Pulse 96 Pulse Source Pulse Oximeter Intake Visit Reasons: f/u Type 2 DM Intake Note: Patient presents today to follow up on D2MT. 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 Initially diagnosed with T2DM in 2 yrs ago . Not seen endo before Was initially started on treatment with metformin . Current regimen glipizide ER 5 mg daily . Metformin ER 1000 mg QD Trulicity 1.5 mg Q weekly Unfortunately, patient has glucometer is not downloadable Reports low sugars none No Family history of T2DM Not Has eyes checked yearly, saw optho Aug 2023 Denies neuropathy,N ot sees podiatry. Denies nephropathy, Not on BERTHA/ARB. . Not Has HLD, Not on statin. Denies CAD. Had diabetes education today . [facility] Medical History Thyroid disease GERD (gastroesophageal reflux disease) Asthma Elevated cholesterol HTN (hypertension) Osteoarthritis History of hepatitis C Diabetes Pneumonia Depression with anxiety Excessive daytime sleepiness Diabetic peripheral neuropathy Bilateral shoulder pain Sleep apnea Vaginal dryness Chronic back pain Seasonal allergic rhinitis Obesity (Unknown) Surgical History Hx of tubal ligation History of esophagogastroduodenoscopy (EGD) History of colonoscopy Left patella fracture History of cholecystectomy History of tonsillectomy Family History Father Prostate cancer Parkinsons Mother Stroke Son No problems noted. Son No problems noted. Daughter No problems noted. Sister Lung cancer Social History Household Members: None Housing: Apartment Do you presently have visiting nurse or other home services: No Alcohol intake: never Comment: 04/10 headache, will have caffinated beverage in D/C area Patient Tobacco Use Status: Never used Tobacco e-Cigarette/Vaping Use: Never Used Second Hand Smoke Exposure: No Advance Directives Date on File: 11/07/21 service: No Current occupational status: disabled Current occupational exposures/hazards: No Cognitive needs: No Hearing needs: No Vision needs: No Physical Exam Vital Signs: Last Vital Signs Pulse 96 11/25/23 14:22 BP 130/82 11/25/23 14:22 BMI result Body Mass Index 36.4 Absence of Cushingoid features. Absence of acromegalic features. Neck exam reveals nl size thyroid about 15 gms. No thyroid nodules palpable. No carotid bruits present. Lungs CTA. Heart S1 S2, Reg R/R. No M/R/ G. Skin exam reveals absence of vitiligo or acanthosis nigricans. Abdominal exam reveals Soft NT/ND with NA BS. No organomegaly present. Neck Other: . Extrem Other: Visual exam of foot performed. No ulcerations or open lesions. No onchomycosis, no callouses.Pulses 2 + distally Sensation intact to monofilament exam. Vibratory sensation sensed is intact with 128 Hz tuning fork Results AMB Hemoglobin A1c AMB Hemoglobin A1c 7.8 % Last Edit by Fiona Back on 11/25/23 14:45 Results Reviewed Results Reviewed: Laboratory Last Values Glucose (Clinic) 158 mg/dL (60-115) H 11/25/23 14:30 Hgb A1c (Clinic) 7.8 % (4.0-6.0) H 11/25/23 14:41 Assessment & Plan Assessment & Plan (1) Poorly controlled diabetes mellitus: Onset Date: ~08/01/20 Code(s): E11.65 - Type 2 diabetes mellitus with hyperglycemia Plan: This is a 63-year-old female with a history of type 2 diabetes being treated with glipizide, metformin and Trulicity with good improving glycemic control with no known microvascular or macrovascular complication. Plan is to increase the Trulicity to 3 mg Q weekly. I did tell patient report any hypoglycemia. Will also start the patient on Lewis 3 sensor to obtain more data. If patient is not controlled at that point could change Trulicity to Ozempic or add insulin if necessary. Her insurance plan will not approve Mounjaro unless she has failed 2 G LP -1s Orders: Orders AMB Hemoglobin A1c Today E11.65 - Type 2 diabetes mellitus with hyperglycemia Medications: New dulaglutide (Trulicity) 3 mg (0.5 mL) subcut QWEEK 2 mL 5RF Discontinued dulaglutide Discontinued Reason: Doctor's Order 1.5 mg (0.5 mL) subcut QWEEK 28 days 2 mL 5RF Coding Level of Care Code Est Pt Level 4 (20657) Diagnoses Poorly controlled diabetes mellitus E11.65
[2023-11-25 14:22] VITALS: BP 130/82; PULSE 96; BMI 36.4
[2023-11-25 14:34] LABS: Glucose, Whole Blood 158 mg/dL (60-115)
== END 2023-11-25 15:12 | disposition home or self-care (01) ==
PROVIDERS: PCP Family Medicine; Visit Provider Internal Medicine Endocrinology, Diabetes & Metabolism
DX: E11.65 Type 2 diabetes mellitus with hyperglycemia (principal)
CPT/HCPCS: 99214

== ENCOUNTER 2023-11-25 14:50 | Outpatient (AMB) | payer OTHER, SELFPAY ==
--- NOTE | 2023-11-25 15:05 | MHC.AMDMED ---
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 Accompanied by: Self / Same As Patient Allergies No Known Allergies Allergy (Verified 11/25/23 14:32) HPI Comprehensive Diabetes Asmnt Most Recent Diabetes Results: No Data to Display [facility] Medical History Thyroid disease GERD (gastroesophageal reflux disease) Asthma Elevated cholesterol HTN (hypertension) Osteoarthritis History of hepatitis C Diabetes Pneumonia Depression with anxiety Excessive daytime sleepiness Diabetic peripheral neuropathy Bilateral shoulder pain Sleep apnea Vaginal dryness Chronic back pain Seasonal allergic rhinitis Obesity (Unknown) Surgical History Hx of tubal ligation History of esophagogastroduodenoscopy (EGD) History of colonoscopy Left patella fracture History of cholecystectomy History of tonsillectomy Family History Father Prostate cancer Parkinsons Mother Stroke Son No problems noted. Son No problems noted. Daughter No problems noted. Sister Lung cancer Social History Household Members: None Housing: Apartment Do you presently have visiting nurse or other home services: No Alcohol intake: never Comment: 04/10 headache, will have caffinated beverage in D/C area Patient Tobacco Use Status: Never used Tobacco e-Cigarette/Vaping Use: Never Used Second Hand Smoke Exposure: No Advance Directives Date on File: 11/07/21 service: No Current occupational status: disabled Current occupational exposures/hazards: No Cognitive needs: No Hearing needs: No Vision needs: No Assessment & Plan Assessment & Plan (1) Poorly controlled diabetes mellitus: Code(s): E11.65 - Type 2 diabetes mellitus with hyperglycemia Plan: Patient at visit to set up an insert Lewis 3 sample sensor Instructed patient sensors water proof you can shower, or swim do not submerge sensor in water for over 30 minutes Is sensor falls off cannot put back in you need to replace sensor, customer service number given to patient for sensor replacement Sensor placed on the back of left arm Patient left visit with sensor in warmup Reviewed how to interpret trend arrows Reminded patient that to check finger sticks if symptoms do not match sensor reading. Discussed lag time between finger stick and sensor data.? Instructed patient she should always keep blood glucometer for backup testing if needed Reviewed delay of CGM from fingersticks Reminded pt that if symptoms do not match sensor still needs to check fingersticks. Patient Instructions: Patient instruction: CGM provides information on blood glucose control throughout the day, including hyperglycemia and hypoglycemia. ? Continue to monitor blood glucose as instructed. Follow nutrition guidelines provided. Report any discomfort promptly to health care provider. ?Stay well-hydrated. You can bathe ,shower, swim and exercise while wearing the glucose sensor. Do not submerge glucose sensor in water for more than 30 minutes. Follow-up with clinical unit educator in 2 weeks Coding Level of Care Code Est Pt Level 1 (52986) Diagnoses Poorly controlled diabetes mellitus E11.65 Results AMB Hemoglobin A1c AMB Hemoglobin A1c 7.8 % Last Edit by Fiona Back on 11/25/23 14:45
== END 2023-11-25 15:11 | disposition home or self-care (01) ==
LOC: HO.ENCR 14:50
PROVIDERS: PCP Family Medicine; Visit Provider Registered Nurse Diabetes Educator
DX: E11.65 Type 2 diabetes mellitus with hyperglycemia (principal)

== ENCOUNTER 2023-12-09 14:19 | Outpatient (AMB) | payer OTHER, SELFPAY ==
--- NOTE | 2023-12-09 14:49 | MHC.AMDMED ---
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 Accompanied by: Self / Same As Patient Allergies No Known Allergies Allergy (Verified 11/25/23 14:32) HPI Comprehensive Diabetes Asmnt Most Recent Diabetes Results: Microalb/Creat Ratio 17.5 ug/mg cr 07/27/22 Cholesterol 139 mg/dL 09/18/22 HDL Cholesterol 34 mg/dL 09/18/22 Triglycerides 195 mg/dL 09/18/22 Creatinine 0.80 mg/dL (0.5-1.4) 08/09/23 Blood Urea Nitrogen 15 mg/dL (9-16) 08/09/23 Sodium 140 mmol/L (135-145) 07/20/23 Potassium 4.7 mmol/L (3.3-5.1) 07/20/23 Chloride 108 mmol/L (96-108) 07/20/23 Carbon Dioxide 25 mmol/L (22-29) 07/20/23 Calcium 10.0 mg/dL (8.4-10.2) 07/20/23 AST 19 U/L (5-31) 08/09/23 ALT 25 U/L (0-31) 08/09/23 Total Protein 8.1 g/dL (6.5-8.0) H 08/09/23 Albumin 4.4 g/dL (3.5-5.0) 08/09/23 [facility] Medical History Thyroid disease GERD (gastroesophageal reflux disease) Asthma Elevated cholesterol HTN (hypertension) Osteoarthritis History of hepatitis C Diabetes Pneumonia Depression with anxiety Excessive daytime sleepiness Diabetic peripheral neuropathy Bilateral shoulder pain Sleep apnea Vaginal dryness Chronic back pain Seasonal allergic rhinitis Obesity (Unknown) Surgical History Hx of tubal ligation History of esophagogastroduodenoscopy (EGD) History of colonoscopy Left patella fracture History of cholecystectomy History of tonsillectomy Family History Father Prostate cancer Parkinsons Mother Stroke Son No problems noted. Son No problems noted. Daughter No problems noted. Sister Lung cancer Social History Household Members: None Housing: Apartment Do you presently have visiting nurse or other home services: No Alcohol intake: never Comment: 04/10 headache, will have caffinated beverage in D/C area Patient Tobacco Use Status: Never used Tobacco e-Cigarette/Vaping Use: Never Used Second Hand Smoke Exposure: No Advance Directives Date on File: 11/07/21 service: No Current occupational status: disabled Current occupational exposures/hazards: No Cognitive needs: No Hearing needs: No Vision needs: No Assessment & Plan Assessment & Plan (1) Poorly controlled diabetes mellitus: Code(s): E11.65 - Type 2 diabetes mellitus with hyperglycemia Plan: Learning objectives: The patient was provided with verbal and written education on the following topics as outlined below. The patient met all learning objectives and was able to verbalize understanding and provide teach back of education topics discussed . The patient was provided with the opportunity to ask questions and all questions were answered. Patient Assessment Assess patient education level/literacy/barriers Patient questions/concerns, patient is starting Mounjaro 2.5 mg weekly, had sample sensor placed after visit with Dr. Britton last week. What is Diabetes? Pathophysiology How the body produces and uses insulin Identify type of DM Risk factors Signs of Diabetes Blood glucose monitoring When/how often to test Target blood sugar ranges Patient has freestyle sample Lewis 3 sensor Patient's average glucose for the past 7 days 146 mg/dL Patient above target 17% Patient below target 83% Patient at target 0% Introduction to Nutrition Importance of healthy diet in managing DM Diet is personalized to individual preference Review patient?s regular diet/food preferences Who prepares meals/does food shopping/ Dining out?/ Barriers? How diet effects glucose Eating 3 balanced meals a day with small, healthy snacks between meals Review food groups Carbohydrates: What is a carbohydrate/Which food/food groups are considered carbohydrates Effect of carbohydrates on blood glucose Portion sizes Reading food labels Basic carb counting (if applicable per nursing assessment) Plate method Meal planning Recommendations: Follow plate method, consistent carbs and read nutritional labels. Smart Goal: Patient will use rule of 15s to treat hypoglycemia Educational Materials: The patient was provided with the following written educational materials: Planning Healthy Meals Handout Patient Response to instructions: Comprehension of Instructions: Fair Readiness to make changes: Contemplation How confident they feel about making changes: Positive Patient Instructions: Include regular daily activity. ADA recommends 30 minutes of exercise 5 days a week. 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 Test blood sugar as directed; Fasting and 2hpp largest meal. Watch trends in results. Utilize results and to assess how food, physical activity and medications affect blood sugar results. Bring glucometer or CGM to next visit. Be knowledgeable about diabetes medication, its action, side effects, efficacy, toxicity, prescribed dosage, appropriate timing and frequency of administration, effect of missed and delayed doses and instructions for storage, travel and safety. Problem solving techniques to monitor hypo/hyperglycemia episodes and treatments. Reduce risk reduction behaviors, smoking cessation, regular eye, foot and dental examinations. Follow-up with Diabetes Education nurse 2 weeks before next visit with Dr. Britton for sensor inserts Coding Level of Care Code Est Pt Level 1 (22092) Diagnoses Poorly controlled diabetes mellitus E11.65
== END 2023-12-09 14:59 | disposition home or self-care (01) ==
PROVIDERS: PCP Family Medicine; Visit Provider Registered Nurse Diabetes Educator
DX: E11.65 Type 2 diabetes mellitus with hyperglycemia (principal)

== ENCOUNTER → 2023-12-09 14:19 | Outpatient (BNVA) | payer OTHER, SELFPAY | PROVIDERS: PCP Family Medicine; Visit Provider Registered Nurse Diabetes Educator | DX: E11.65 Type 2 diabetes mellitus with hyperglycemia (principal) | CPT/HCPCS: 99211 ==

== ENCOUNTER 2024-01-25 11:25 | Outpatient (REF) | payer OTHER, SELFPAY ==
[2024-01-25 13:20] LABS: Alanine Aminotransferase 27 U/L (0-31); Albumin Level 4.3 g/dL (3.5-5.0); Alkaline Phosphatase 85 U/L (39-117); Anion Gap 14 (12-20); Aspartate Amino Transferase 22 U/L (5-31); Bilirubin Total 0.4 mg/dL (0.0-1.0); Blood Urea Nitrogen 15 mg/dL (9-16); Calcium 10.4 mg/dL (8.4-10.2); Carbon Dioxide 30 mmol/L (22-29); Chloride 103 mmol/L (96-108); Cholesterol 175 mg/dL (<200); Estimated Glomerular Filt Rate > 60; Free T4 (Free Thyroxine) 1.08 ng/dL (0.71-1.85); Glucose Fasting 202 mg/dL (60-99); HDL Cholesterol 43 mg/dL (>40); LDL Cholesterol Calculated 85 mg/dL (<100); Potassium 4.1 mmol/L (3.3-5.1); Sodium 143 mmol/L (135-145); Thyroid Stimulating Hormone 3.24 uIU/mL (0.32-4.0); Total Protein 8.1 g/dL (6.5-8.0); Triglycerides 237 mg/dL (<150)
[2024-01-25 13:35] LABS: Appearance Urine Clear; Color Urine Yellow; Glucose Urine UA Negative (Negative); Leukocyte Esterase Urine Negative (Negative); Nitrite Urine Negative (Negative); PH 5.5 (5.0-9.0); Specific Gravity - Urine 1.015 (1.005-1.025); Urine Blood Negative (Negative); Urine Ketones Negative (Negative); Urine Protein Negative (Neg-Trace)
[2024-01-25 14:09] LABS: Microalbum/Creatinine Ratio Ur 36.1 ug/mg cr (<30)
[2024-01-26 20:04] LABS: Triiodothyronine T3 Total 111 ng/dL (76-181)
== END 2024-01-25 11:26 | disposition home or self-care (01) ==
LOC: HO.LAB 11:25
PROVIDERS: PCP Family Medicine; Visit Provider Family Medicine
DX: Z00.00 Encounter for general adult medical examination without abnormal findings (principal); I10 Essential (primary) hypertension; E03.9 Hypothyroidism, unspecified
CPT/HCPCS: 36415; 80053; 80061; 81003; 82043; 82570; 84439; 84443; 84480

== ENCOUNTER 2024-01-26 14:25 | Outpatient (AMB) | payer OTHER, SELFPAY ==
--- NOTE | 2024-01-26 14:40 | A.OFFPC_ITS ---
Vital Signs 01/26/24 14:43 Height 5 ft 4 in Weight 205 lb BMI 35.2 BP 118/72 Blood Pressure Location Lt brachial Position Sitting Pulse 79 Pulse Source Pulse Oximeter Pulse Oximetry (%) 96 Oxygen Delivery Method Room Air Intake Visit Reasons: follow up chronic conditions Intake Note: Patient is here for follow up on chronic conditions. Allergies No Known Allergies Allergy (Verified 01/26/24 14:45) Tobacco use date assessed: 01/26/24 Fall risk assessment: No Falls in past year Last assessed Fall Risk: 01/26/24 Dental Screening Dental Screen Date: 01/26/24 Did you have a dental visit in the last 12 months?: Yes Did you have a dental problem in the last 6 months where you did not have access to dental care?: No Was dental information given to patient?: Patient has dentist HPI follow up chronic conditions HPI Details 63 y/o female presents to f/u chronic co nditions. Labs were drawn 01/25/24. Reviewed labs with pt. Triglycerides 237. TC 175. LDL 85. HDL 43. Last A1c 11/25/23 7.8%. Pt notes recent episodes of pneumonia and had not been feeling well. She reports breathing have been improving. HPI Comments History of Present Illness Details Documentation assistance for Jean Carlos Page MD, was provided by Frank Mcluaghlin, Content Creation Manager on 01/26/2024 3:39 PM ADITI. Richar, Dr. Page, have read, observed, and verified documentation. [facility] Medical History Thyroid disease GERD (gastroesophageal reflux disease) Asthma Elevated cholesterol HTN (hypertension) Osteoarthritis History of hepatitis C Diabetes Pneumonia Depression with anxiety Excessive daytime sleepiness Diabetic peripheral neuropathy Bilateral shoulder pain Sleep apnea Vaginal dryness Chronic back pain Seasonal allergic rhinitis Obesity (Unknown) Surgical History Hx of tubal ligation History of esophagogastroduodenoscopy (EGD) History of colonoscopy Left patella fracture History of cholecystectomy History of tonsillectomy Family History Father Prostate cancer Parkinsons Mother Stroke Son No problems noted. Son No problems noted. Daughter No problems noted. Sister Lung cancer Social History Household Members: None Housing: Apartment Do you presently have visiting nurse or other home services: No Alcohol intake: never Comment: 04/10 headache, will have caffinated beverage in D/C area Patient Tobacco Use Status: Never used Tobacco e-Cigarette/Vaping Use: Never Used Second Hand Smoke Exposure: No Advance Directives Date on File: 11/07/21 service: No Current occupational status: disabled Current occupational exposures/hazards: No Cognitive needs: No Hearing needs: No Vision needs: No Questionnaire Thrive Questionnaire Date Thrive assessed: 12/23/21 MARIUM-7 AMB Questionnaire MARIUM-7 Date MARIUM - 7 assessed: 12/23/21 Source: Developed by Drs. Harry Hahn, Aury Ceja, Hang Dumont and colleagues, with an educational adrian from [email or web address]. Review of Systems Const Denies chills, Denies fatigue, Denies fever(s), Denies headache(s) and Denies weakness ENT Denies dizziness and Denies headache(s) Card Denies chest pain, Denies lightheadedness, Denies dyspnea and Denies other (Palpitations) Resp Denies cough, Denies dyspnea, Denies wheezing and Denies other ( shortness of breath) Musc Denies numbness and Denies tingling Neuro Denies dizziness, Denies headache(s), Denies numbness, Denies tingling, Denies paresthesias and Denies weakness Psych Denies anxiety and Denies depression Endo Denies fatigue Aller/Immun Denies wheezing Physical exam (Primary Care) Vital Signs: Last Vital Signs Pulse 79 01/26/24 14:43 BP 118/72 01/26/24 14:43 Pulse Ox 96 01/26/24 14:43 Oxygen Delivery Method Room Air 01/26/24 14:43 BMI result Body Mass Index 35.2 Tobacco/Smoking Status: Tobacco use Status Tobacco use date assessed 01/26/24 01/26/24 14:46 Patient Tobacco Use Status Never used Tobacco 01/26/24 14:42 e-Cigarette/Vaping Use Never Used 01/26/24 14:42 Thrive Assessment: Date of Thrive Assessment Date Thrive assessed 12/23/21 01/26/24 14:42 Const General: no acute distress and well developed Nutritional Appearance: well nourished Orientation/consciousness: patient oriented x3 HENMT Head: Yes normocephalic and Yes atraumatic Eyes General: appearance normal, both eyes and all related structures Pupils: Equal, round and reactive pupils present EOM: EOMs intact bilaterally Resp Other: Upper airway secretions Effort & Inspection: normal respiratory effort Auscultation: clear to auscultation bilaterally Cardio Rate: regular rate Rhythm: regular rhythm Heart sounds: S1 normal heart sound present, S2 normal heart sound present, no gallops, no murmurs and no rubs Neuro General: patient oriented x3 and gait normal Cranial nerves: Yes Equal, round and reactive pupils present Psych Affect: normal affect Assessment and Plan Assessment & Plan (1) Diabetes: Code(s): E11.9 - Type 2 diabetes mellitus without complications Plan: Patient?has?not?been?taking?all?of?her?blood?pressure?medications?consistently.? ?She?is?not?testing. Last?A1c?was?7.8%.??Since?then?her?tablet coater?has?change?Trulicity?to?Mounj elizaebth Encouraged?her?to?work?on?good?compliance Will?follow-up?in?1?month. (2) HTN (hypertension): Code(s): I10 - Essential (primary) hypertension Plan: Blood?pressure?is?controlled (3) Headache: Code(s): R51.9 - Headache, unspecified Plan: Unclear?cause?but?patient?is?rather?dehy drated?and?does?not?drink?much?water.??Blood?sugars?have?been?high. Encouraged?good?hydration Can?follow-up?at?her?next?visit (4) Supplemental oxygen dependent: Code(s): Z99.81 - Dependence on supplemental oxygen Plan: Oxygen?saturation?consistently?in?the?90s and?is?96?without?supplement al?oxygen?today Referred?to?pulmonology Orders: Referrals Pulmonology Referral Z99.81 - Dependence on supplemental oxygen Coding Level of Care Code Est Pt Level 4 (94446) Diagnoses Diabetes E11.9 HTN (hypertension) I10 Headache R51.9 Supplemental oxygen dependent Z99.81
[2024-01-26 14:43] VITALS: BP 118/72; PULSE 79; O2SAT 96; BMI 35.2
== END 2024-01-26 16:08 | disposition home or self-care (01) ==
PROVIDERS: PCP Family Medicine; Visit Provider Family Medicine
DX: E11.9 Type 2 diabetes mellitus without complications (principal); I10 Essential (primary) hypertension; R51.9 Headache, unspecified; Z99.81 Dependence on supplemental oxygen
CPT/HCPCS: 99214

== ENCOUNTER 2024-02-11 10:24 | Outpatient (AMB) | payer OTHER, SELFPAY ==
--- NOTE | 2024-02-11 10:26 | A.OFFVIS_ITS ---
Intake Vital Signs 02/11/24 10:27 Height 5 ft 4 in Weight 205 lb 7.533 oz BMI 35.3 BP 165/77 H Blood Pressure Location Lt brachial Position Sitting Pulse 83 Intake Visit Reasons: 4 month follow up Intake Note: Patient here for 4m f/u IBS, GERD. Still taking sucralfate, pantoprazole, Linzess. Patient c/o: reports no concerns. 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 Continue avoiding dietary triggers in late night snacking. Staying upright for minimal 3 hours after meals discussed with patient. Discussed with patient about losing weight as well. Keeping her blood sugars on track. Continue taking Linzess daily. Low FODMAP diet discussed with patient. Avoiding carbs and lactose discussed with her as well. Patient will return in 4 months. Will send patient for upper endoscopy then. She is agreeable to this plan and verbalizes understanding of instructions. She was given the opportunity to ask questions and all questions answered. ? Thank you for allowing to participate in her care Medications Refilled pantoprazole 40 mg PO QAM 90 tabs 2RF sucralfate 1 g PO BEDTIME 90 tabs 1RF R19.7 linaclotide (Linzess) 145 mcg PO DAILY 30 caps 2RF TODAY'S VISIT: Patient is here today for follow-up and to discuss going for upper endoscopy. History of carcinoid tumor found on endoscopy. Patient reports to be feeling better. Takes Linzess every day and reports that she is moving her bowels well. Currently patient is taking sucralfate at bedtime and pantoprazole in the morning. Reports that her symptoms of acid reflux are suppressed. Patient was started on Mounjaro and reports that her blood sugars are starting to get more controlled. When patient started taking the medication she felt epigastric pain, however taking pantoprazole and sucralfate helps controlling the symptoms. Patient denied any issues with anesthesia in the past. No history of sleep apnea. Not on any anticoagulation medication. Denies any cardiac or respiratory symptoms. [facility] Medical History Thyroid disease GERD (gastroesophageal reflux disease) Asthma Elevated cholesterol HTN (hypertension) Osteoarthritis History of hepatitis C Diabetes Pneumonia Depression with anxiety Excessive daytime sleepiness Diabetic peripheral neuropathy Bilateral shoulder pain Sleep apnea Vaginal dryness Chronic back pain Seasonal allergic rhinitis Obesity (Unknown) Surgical History Hx of tubal ligation History of esophagogastroduodenoscopy (EGD) History of colonoscopy Left patella fracture History of cholecystectomy History of tonsillectomy Family History Father Prostate cancer Parkinsons Mother Stroke Son No problems noted. Son No problems noted. Daughter No problems noted. Sister Lung cancer Social History Household Members: None Housing: Apartment Do you presently have visiting nurse or other home services: No Alcohol intake: never Comment: 04/10 headache, will have caffinated beverage in D/C area Patient Tobacco Use Status: Never used Tobacco e-Cigarette/Vaping Use: Never Used Second Hand Smoke Exposure: No Advance Directives Date on File: 11/07/21 service: No Current occupational status: disabled Current occupational exposures/hazards: No Cognitive needs: No Hearing needs: No Vision needs: No Review of Systems Const Denies weight gain and Denies weight loss ENT Reports no additional complaints, Denies dysphagia and Denies odynophagia Card Reports no additional complaints Resp Reports no additional complaints GI Denies abdominal pain, Denies belching, Denies melena, Denies bloating, Denies change in bowel habits, Denies dysphagia, Denies excessive flatus, Denies dyspepsia, Denies heartburn, Denies diarrhea, Denies loose stools, Denies nausea, Denies odynophagia and Denies vomiting Musc Reports no additional complaints Neuro Reports no additional complaints Psych Reports no additional complaints Endo Reports no additional complaints Physical Exam Vital Signs: Last Vital Signs Pulse 83 02/11/24 10:27 BP 165/77 H 02/11/24 10:27 BMI result Body Mass Index 35.3 Const General: healthy appearing and no acute distress Nutritional Appearance: obese Orientation/consciousness: patient oriented x3 Resp Effort & Inspection: normal respiratory effort, able to speak in complete sentences, no tracheal deviation and symmetric chest movement Auscultation: clear to auscultation bilaterally Cardio Rate: regular rate GI Inspection: Yes normal to inspection, No distended and Yes obesity Palpation (GI): Soft to palpation, not firm, nontender and No hepatosplenomegaly present Auscultation: normal bowel sounds General: Yes no CVA tenderness Back/Spine/Pelvis Back: no CVA tenderness Skin General skin exam: elasticity normal, turgor normal and dry skin Neuro General: patient oriented x3 Psych Appearance: grossly normal Mental Status: mental status grossly normal Assessment & Plan Assessment & Plan (1) 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: Code(s): D3A.092 - Benign carcinoid tumor of the stomach (2) History of hepatitis C: Code(s): Z86.19 - Personal history of other infectious and parasitic diseases (3) Postprandial abdominal bloating: Code(s): R14.0 - Abdominal distension (gaseous) (4) IBS (irritable bowel syndrome): Code(s): K58.9 - Irritable bowel syndrome without diarrhea Qualifiers: Irritable bowel syndrome type: without diarrhea Qualified Code(s): K58.9 - Irritable bowel syndrome without diarrhea (5) GERD (gastroesophageal reflux disease): Code(s): K21.9 - Gastro-esophageal reflux disease without esophagitis Qualifiers: Esophagitis presence: without esophagitis Qualified Code(s): K21.9 - Gastro-esophageal reflux disease without esophagitis (6) Constipation: Code(s): K59.00 - Constipation, unspecified Qualifiers: Constipation type: slow transit constipation Qualified Code(s): K59.01 - Slow transit constipation Plan History of gastric carcinoid tumor. Will send patient for upper endoscopy to re-evaluate. Currently patient is taking pantoprazole and sucralfate. Symptoms of acid reflux are suppressed. Taking Linzess daily and able to move her bowels better. Patient started on Mounjaro and had symptoms in the very beginning, however symptoms are suppressed at this time. Patient is aware to hold the Mounjaro minimum 1 week before endoscopy. Patient had no issues with anesthesia in the past. No history of sleep apnea. Not on any anticoagulation medication. Patient will book the procedure today and I will see her after. Patient will call our office if she will have any GI concerning symptoms. Patient is agreeable to this plan and verbalizes understanding of instructions. She was given the opportunity to ask questions and all questions answered. 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
[2024-02-11 10:27] VITALS: BP 165/77; PULSE 83; BMI 35.3
== END 2024-02-11 11:33 | disposition home or self-care (01) ==
PROVIDERS: PCP Family Medicine; Visit Provider Nurse Practitioner Family
DX: D3A.092 Benign carcinoid tumor of the stomach (principal); Z86.19 Personal history of other infectious and parasitic diseases; R14.0 Abdominal distension (gaseous); K58.9 Irritable bowel syndrome, unspecified; K21.9 Gastro-esophageal reflux disease without esophagitis; K59.01 Slow transit constipation
CPT/HCPCS: 99214

== ENCOUNTER → 2024-02-11 10:24 | Outpatient (BNVA) | payer OTHER, SELFPAY | PROVIDERS: PCP Family Medicine; Visit Provider Nurse Practitioner Family | DX: D3A.092 Benign carcinoid tumor of the stomach (principal); K58.9 Irritable bowel syndrome, unspecified; K21.9 Gastro-esophageal reflux disease without esophagitis; K59.01 Slow transit constipation; R14.0 Abdominal distension (gaseous); Z86.19 Personal history of other infectious and parasitic diseases | CPT/HCPCS: 99212 ==

== ENCOUNTER 2024-02-23 09:40 | Outpatient (AMB) | payer OTHER, SELFPAY ==
[2024-02-23 10:13] VITALS: BP 140/80; PULSE 73; O2SAT 98; BMI 35.8
--- NOTE | 2024-02-23 10:13 | A.OFFPC_ITS ---
Vital Signs 02/23/24 10:13 Height 5 ft 4 in Weight 208 lb 6 oz BMI 35.8 BP 140/80 H Blood Pressure Location Lt brachial Position Sitting Pulse 73 Pulse Source Pulse Oximeter Pulse Oximetry (%) 98 Oxygen Delivery Method Room Air Intake Visit Reasons: f/u diabetes Intake Note: Patient is here for follow up on diabetes. Allergies No Known Allergies Allergy (Verified 02/23/24 10:14) Tobacco use date assessed: 02/23/24 Fall risk assessment: No Falls in past year Last assessed Fall Risk: 02/23/24 Dental Screening Dental Screen Date: 01/26/24 HPI f/u diabetes HPI Details 63 y/o female presents to /u diabetes. Endocrinology had changed Trulicity to Mounjaro in December but she has not been taking her medications consistently. Encouraged her to work on compliance Last A1c 11/15/23 7.8%. A1c today 02/23/24 is 8.4%. She is on metformin 500mg, glipizide 10mg, Mounjaro 2.5mg. Pt reports she had left for [place] and had not been taking one of her meds. She had started her regimen back up 2-3 weeks ago. She continues to watch her sugars and starches in her diet. She has an appt. with endocrinology in about a month. Blood pressure today 140/80. She is on lisinopril 20mg. [facility] Medical History Thyroid disease GERD (gastroesophageal reflux disease) Asthma Elevated cholesterol HTN (hypertension) Osteoarthritis History of hepatitis C Diabetes Pneumonia Depression with anxiety Excessive daytime sleepiness Diabetic peripheral neuropathy Bilateral shoulder pain Sleep apnea Vaginal dryness Chronic back pain Seasonal allergic rhinitis Obesity (Unknown) Surgical History Hx of tubal ligation History of esophagogastroduodenoscopy (EGD) History of colonoscopy Left patella fracture History of cholecystectomy History of tonsillectomy Family History Father Prostate cancer Parkinsons Mother Stroke Son No problems noted. Son No problems noted. Daughter No problems noted. Sister Lung cancer Social History Household Members: None Housing: Apartment Do you presently have visiting nurse or other home services: No Alcohol intake: never Comment: 04/10 headache, will have caffinated beverage in D/C area Patient Tobacco Use Status: Never used Tobacco e-Cigarette/Vaping Use: Never Used Second Hand Smoke Exposure: No Advance Directives Date on File: 11/07/21 service: No Current occupational status: disabled Current occupational exposures/hazards: No Cognitive needs: No Hearing needs: No Vision needs: No Questionnaire Thrive Questionnaire Date Thrive assessed: 12/23/21 MARIUM-7 AMB Questionnaire MARIUM-7 Date MARIUM - 7 assessed: 12/23/21 Source: Developed by Drs. Harry Hahn, Aury Ceja, Hang Dumont and colleagues, with an educational adrian from [employer]. Review of Systems Const Denies chills, Denies fatigue, Denies fever(s), Denies headache(s) and Denies weakness ENT Denies dizziness and Denies headache(s) Card Denies chest pain, Denies lightheadedness, Denies dyspnea and Denies other (Palpitations) Resp Denies cough, Denies dyspnea, Denies wheezing and Denies other ( shortness of breath) Musc Denies numbness and Denies tingling Neuro Denies dizziness, Denies headache(s), Denies numbness, Denies tingling, Denies paresthesias and Denies weakness Psych Denies anxiety and Denies depression Endo Denies fatigue Aller/Immun Denies wheezing Physical exam (Primary Care) Vital Signs: Last Vital Signs Pulse 73 02/23/24 10:13 BP 140/80 H 02/23/24 10:13 Pulse Ox 98 02/23/24 10:13 Oxygen Delivery Method Room Air 02/23/24 10:13 BMI result Body Mass Index 35.8 Tobacco/Smoking Status: Tobacco use Status Tobacco use date assessed 02/23/24 02/23/24 10:15 Patient Tobacco Use Status Never used Tobacco 02/23/24 10:15 e-Cigarette/Vaping Use Never Used 02/23/24 10:15 Thrive Assessment: Date of Thrive Assessment Date Thrive assessed 12/23/21 02/23/24 10:15 Const General: no acute distress and well developed Nutritional Appearance: well nourished Orientation/consciousness: patient oriented x3 HENMT Head: Yes normocephalic and Yes atraumatic Eyes General: appearance normal, both eyes and all related structures Pupils: Equal, round and reactive pupils present EOM: EOMs intact bilaterally Resp Effort & Inspection: normal respiratory effort Auscultation: clear to auscultation bilaterally Cardio Rate: regular rate Rhythm: regular rhythm Heart sounds: S1 normal heart sound present, S2 normal heart sound present, no gallops, no murmurs and no rubs Neuro General: patient oriented x3 and gait normal Cranial nerves: Yes Equal, round and reactive pupils present Psych Affect: normal affect Results AMB Hemoglobin A1c AMB Hemoglobin A1c 8.4 % Last Edit by Crystal Temple CMA on 02/23/24 10:31 Results Reviewed Results Reviewed: Laboratory Last Values Hgb A1c (Clinic) 8.4 % (4.0-6.0) H 02/23/24 10:23 Assessment and Plan Assessment & Plan (1) Diabetes: Code(s): E11.9 - Type 2 diabetes mellitus without complications Plan: Essentially?uncontrolled?diabetes.??A1c?has?increased?to?8.4%.??She?has?had?some ?illnesses?recently?and?als o?is?on?sucralfate?which?is?likely?also?increasing?her?blood?sugars.??Goal?is?le ss?than?7.0%. Increased?Mounjaro Continued?metformin?and?glipizide She?has?an?upcoming?appointment?with?her?life assurance representative?in?about?a?month. (2) HTN (hypertension): Code(s): I10 - Essential (primary) hypertension Plan: Blood?pressure?is?high.??Goal?is?less?than?140/90 Changing?lisinopril?to?lisinopril?hydrochlorothiazide?20/12.5 Orders: Orders AMB Hemoglobin A1c Today Z13.9 - Encounter for screening, unspecified Medications: New lisinopril-hydrochlorothiazide 20-12.5 mg 1 tab PO DAILY 90 days 90 tabs 2RF Changed From tirzepatide (Mounjaro) 2.5 mg (0.5 mL) subcut QWEEK 2 mL 2RF E11.65 - Type 2 diabetes mellitus with hyperglycemia To tirzepatide 2.5 mg (0.25 mL) subcut QWEEK 28 days 1 mL 3RF E11.65 - Type 2 diabetes mellitus with hyperglycemia Discontinued lisinopril Discontinued Reason: Doctor's Order 20 mg PO DAILY 30 days 30 tabs 2RF Coding Level of Care Code Est Pt Level 3 (29843) Diagnoses Diabetes E11.9 HTN (hypertension) I10
== END 2024-02-23 10:46 | disposition home or self-care (01) ==
PROVIDERS: PCP Family Medicine; Visit Provider Family Medicine
DX: E11.9 Type 2 diabetes mellitus without complications (principal); I10 Essential (primary) hypertension
CPT/HCPCS: 83036; 99214

== ENCOUNTER 2024-03-14 12:19 | Outpatient (AMB) | payer OTHER, SELFPAY ==
--- NOTE | 2024-03-14 12:42 | MHC.AMDMED ---
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 Accompanied by: Self / Same As Patient Allergies No Known Allergies Allergy (Verified 02/23/24 10:14) HPI Comprehensive Diabetes Asmnt Most Recent Diabetes Results: Microalb/Creat Ratio 36.1 ug/mg cr (<30) H 01/25/24 Cholesterol 175 mg/dL (<200) 01/25/24 HDL Cholesterol 43 mg/dL (>40) 01/25/24 Triglycerides 237 mg/dL (<150) H 01/25/24 Creatinine 0.80 mg/dL (0.5-1.4) 01/25/24 Blood Urea Nitrogen 15 mg/dL (9-16) 01/25/24 Sodium 143 mmol/L (135-145) 01/25/24 Potassium 4.1 mmol/L (3.3-5.1) 01/25/24 Chloride 103 mmol/L (96-108) 01/25/24 Carbon Dioxide 30 mmol/L (22-29) H 01/25/24 Calcium 10.4 mg/dL (8.4-10.2) H 01/25/24 AST 22 U/L (5-31) 01/25/24 ALT 27 U/L (0-31) 01/25/24 Total Protein 8.1 g/dL (6.5-8.0) H 01/25/24 Albumin 4.3 g/dL (3.5-5.0) 01/25/24 [facility] Medical History Thyroid disease GERD (gastroesophageal reflux disease) Asthma Elevated cholesterol HTN (hypertension) Osteoarthritis History of hepatitis C Diabetes Pneumonia Depression with anxiety Excessive daytime sleepiness Diabetic peripheral neuropathy Bilateral shoulder pain Sleep apnea Vaginal dryness Chronic back pain Seasonal allergic rhinitis Obesity (Unknown) Surgical History Hx of tubal ligation History of esophagogastroduodenoscopy (EGD) History of colonoscopy Left patella fracture History of cholecystectomy History of tonsillectomy Family History Father Prostate cancer Parkinsons Mother Stroke Son No problems noted. Son No problems noted. Daughter No problems noted. Sister Lung cancer Social History (Reviewed 02/23/24 @ 10:15 by TANNER Mosley Household Members: None Housing: Apartment Do you presently have visiting nurse or other home services: No Alcohol intake: never Comment: 04/10 headache, will have caffinated beverage in D/C area Patient Tobacco Use Status: Never used Tobacco e-Cigarette/Vaping Use: Never Used Second Hand Smoke Exposure: No Advance Directives Date on File: 11/07/21 service: No Current occupational status: disabled Current occupational exposures/hazards: No Cognitive needs: No Hearing needs: No Vision needs: No Assessment & Plan Assessment & Plan (1) Diabetes: Code(s): E11.9 - Type 2 diabetes mellitus without complications Plan: Patient at visit to set up an insert sample Lewis 3 sensor Instructed patient sensors water proof you can shower, or swim do not submerge sensor in water for over 30 minutes Is sensor falls off cannot put back in you need to replace sensor, customer service number given to patient for sensor replacement Sensor placed on the back of left arm Patient left visit with sensor in warmup Reviewed how to interpret trend arrows Reminded patient that to check finger sticks if symptoms do not match sensor reading. Discussed lag time between finger stick and sensor data.? Instructed patient she should always keep blood glucometer for backup testing if needed Reviewed delay of CGM from fingersticks Reminded pt that if symptoms do not match sensor still needs to check fingersticks. Patient has upcoming appointment with Dr. Britton on 03/28/24. Sample sensor placed together comprehensive glucose patterns. Patient's A1c has increased to 8.4% on 02/23/2024 from 7.8% on 11/25/2023 She was seen by PCP on 03/05/2024, at that visit they discussed increasing much are from 2.5 mg to 5 mg. She was unable to bean picker Mounjaro 5 mg, because prescription was still for Mounjaro 2.5 mg. Message sent to Dr. Page patient's PCP, at patient's request to request updated prescription Patient Instructions: Patient instruction: CGM provides information on blood glucose control throughout the day, including hyperglycemia and hypoglycemia. ? Continue to monitor blood glucose as instructed. Follow nutrition guidelines provided. Report any discomfort promptly to health care provider. ?Stay well-hydrated. You can bathe ,shower, swim and exercise while wearing the glucose sensor. Do not submerge glucose sensor in water for more than 30 minutes. Patient will follow-up with health promotion educator in 6 weeks Coding Level of Care Code Est Pt Level 1 (13339) Diagnoses Diabetes E11.9
== END 2024-03-14 12:44 | disposition home or self-care (01) ==
PROVIDERS: PCP Family Medicine; Visit Provider Registered Nurse Diabetes Educator
DX: E11.9 Type 2 diabetes mellitus without complications (principal)

== ENCOUNTER → 2024-03-14 12:19 | Outpatient (BNVA) | payer OTHER, SELFPAY | PROVIDERS: PCP Family Medicine; Visit Provider Registered Nurse Diabetes Educator | DX: E11.9 Type 2 diabetes mellitus without complications (principal) | CPT/HCPCS: 99211 ==

== ENCOUNTER 2024-03-28 14:19 | Outpatient (AMB) | payer OTHER, SELFPAY ==
--- NOTE | 2024-03-28 14:20 | MHC.OFFVIS ---
Vital Signs 03/28/24 14:21 Height 5 ft 4 in Weight 204 lb 9.423 oz BMI 35.1 BP 116/70 Blood Pressure Location Lt brachial Position Sitting Pulse 98 Pulse Source Pulse Oximeter Intake Visit Reasons: DM Intake Note: Patient present today to follow up on Type 2 Diabetes Mellitus. Last Diabetic Eye exam: 08/2023 Last Podiatry Visit: Doesn't have one Random Glucose: 133 mg/dl HgA1C: 8.4% 02/23/2024 Clarifier Operator Required: No Accompanied by: Self / Same As Patient Allergies No Known Allergies Allergy (Verified 03/28/24 14:27) HPI Comments Details: 63 YO F who is seen in consultation for T2DM at the request of PCP. Initially diagnosed with T2DM in 2 yrs ago . Not seen endo before Was initially started on treatment with metformin . Current regimen glipizide ER 10 mg daily . Metformin ER 1000 mg QD Mounjaro 2.5 mg Qwkly Glucometer download shows she is checking her point cares sporadically. Ranges 108 to 159. Average glucose is 140. 100% range Professional Lewis download shows avg of 151 with GMI of 6.9. 82 % in range Reports low sugars very rarely No Family history of T2DM Not Has eyes checked yearly, saw optho Aug 2023 Denies neuropathy,N ot sees podiatry. Denies nephropathy, Not on BERTHA/ARB. . Not Has HLD, Not on statin. Denies CAD. Had diabetes education today . [facility] Medical History Thyroid disease GERD (gastroesophageal reflux disease) Asthma Elevated cholesterol HTN (hypertension) Osteoarthritis History of hepatitis C Diabetes Pneumonia Depression with anxiety Excessive daytime sleepiness Diabetic peripheral neuropathy Bilateral shoulder pain Sleep apnea Vaginal dryness Chronic back pain Seasonal allergic rhinitis Obesity (Unknown) Surgical History Hx of tubal ligation History of esophagogastroduodenoscopy (EGD) History of colonoscopy Left patella fracture History of cholecystectomy History of tonsillectomy Family History Father Prostate cancer Parkinsons Mother Stroke Son No problems noted. Son No problems noted. Daughter No problems noted. Sister Lung cancer Social History Household Members: None Housing: Apartment Do you presently have visiting nurse or other home services: No Alcohol intake: never Comment: 04/10 headache, will have caffinated beverage in D/C area Patient Tobacco Use Status: Never used Tobacco e-Cigarette/Vaping Use: Never Used Second Hand Smoke Exposure: No Advance Directives Date on File: 11/07/21 service: No Current occupational status: disabled Current occupational exposures/hazards: No Cognitive needs: No Hearing needs: No Vision needs: No Physical Exam Vital Signs: Last Vital Signs Pulse 98 03/28/24 14:21 BP 116/70 03/28/24 14:21 BMI result Body Mass Index 35.1 Absence of Cushingoid features. Absence of acromegalic features. Neck exam reveals nl size thyroid about 15 gms. No thyroid nodules palpable. No carotid bruits present. Lungs CTA. Heart S1 S2, Reg R/R. No M/R/ G. Skin exam reveals absence of vitiligo or acanthosis nigricans. Abdominal exam reveals Soft NT/ND with NA BS. No organomegaly present. Neck Other: . Extrem Other: Visual exam of foot performed. No ulcerations or open lesions. No onchomycosis, no callouses.Pulses 2 + distally Sensation intact to monofilament exam. Vibratory sensation sensed is intact with 128 Hz tuning fork Results Reviewed Results Reviewed: Laboratory Last Values Glucose (Clinic) 133 mg/dL (60-115) H 03/28/24 14:30 Assessment & Plan Assessment & Plan (1) Poorly controlled diabetes mellitus: Onset Date: ~08/01/20 Code(s): E11.65 - Type 2 diabetes mellitus with hyperglycemia Category: Medical Plan: This is a 63-year-old female with a history of type 2 diabetes being treated with glipizide, metformin and Mounjaro with poor deteriorated glycemic control with no known microvascular or macrovascular complication. Plan is to increase the Mounjaro to 5 mg Q weekly. This point, patient can follow up with the primary care provider returned back to endocrinology for HbA1c deteriorate Medications: New tirzepatide (Mounjaro) 5 mg (0.5 mL) subcut QWEEK 2 mL 4RF Discontinued tirzepatide Discontinued Reason: Doctor's Order 2.5 mg (0.5 mL) subcut QWEEK 28 days 2 mL 3RF E11.65 - Type 2 diabetes mellitus with hyperglycemia Coding Level of Care Code Est Pt Level 4 (00951) Diagnoses Poorly controlled diabetes mellitus E11.65
[2024-03-28 14:21] VITALS: BP 116/70; PULSE 98; BMI 35.1
[2024-03-28 14:34] LABS: Glucose, Whole Blood 133 mg/dL (60-115)
== END 2024-03-28 14:56 | disposition home or self-care (01) ==
PROVIDERS: PCP Family Medicine; Visit Provider Internal Medicine Endocrinology, Diabetes & Metabolism
DX: E11.65 Type 2 diabetes mellitus with hyperglycemia (principal)
CPT/HCPCS: 99214

== ENCOUNTER → 2024-03-28 14:19 | Outpatient (BNVA) | payer OTHER, SELFPAY | PROVIDERS: PCP Family Medicine; Visit Provider Internal Medicine Endocrinology, Diabetes & Metabolism | DX: E11.65 Type 2 diabetes mellitus with hyperglycemia (principal) | CPT/HCPCS: 82947; 99212 ==

== ENCOUNTER 2024-04-07 10:22 | Outpatient (AMB) | payer OTHER, SELFPAY ==
--- NOTE | 2024-04-07 10:30 | MHC.OFFVIS ---
Vital Signs 04/07/24 10:32 Height 5 ft 4 in Weight 201 lb 4.513 oz BMI 34.5 BP 124/76 Blood Pressure Location Lt brachial Position Sitting Pulse 88 Pulse Source Pulse Oximeter Intake Visit Reasons: T2DM/confirmed Intake Note: Patient present today to follow up on Type 2 Diabetes Mellitus. Last Diabetic Eye exam: August 2023 Last Podiatry Visit: Does not see a Waste Chopper Random Glucose: 157 mg/dl HgA1C: 8.4% 02/23/2024 Taxation Agent Required: No Accompanied by: Self / Same As Patient Allergies No Known Allergies Allergy (Verified 04/07/24 10:33) HPI HPI T2DM/confirmed: Details: 63 y/o female presents to f/u diabetes. She recently was increased on Mounjaro to 5 mg last week. She continues on metformin 500 mg twice a day and glipizide 10 mg daily. A1c 02/23/24 is 8.4%. She admits to not checking her blood sugars. She states that there is no reason other than she feels lazy. She has been better with her diet since the increased dosage of the mounjaro. She is down 3 lb. She states that sometimes she does get tingling in her feet but overall has sensation. Does not follow with a dancing teacher. No sores. Denies any known retinopathy. Follows annually with Ophthalmology. She does have microalbuminuria and is on an BERTHA-inhibitor. Her cholesterol has been managed with atorvastatin 10 mg. Blood pressure today in the office is 124/76. She recently had her medication adjusted from her PCP and was started on lisinopril/hydrochlorothiazide. [facility] Medical History (Reviewed 02/23/24 @ 10:15 by Crystal Temple [facility]) Thyroid disease GERD (gastroesophageal reflux disease) Asthma Elevated cholesterol HTN (hypertension) Osteoarthritis History of hepatitis C Diabetes Pneumonia Depression with anxiety Excessive daytime sleepiness Diabetic peripheral neuropathy Bilateral shoulder pain Sleep apnea Vaginal dryness Chronic back pain Seasonal allergic rhinitis Obesity (Unknown) Surgical History Hx of tubal ligation History of esophagogastroduodenoscopy (EGD) History of colonoscopy Left patella fracture History of cholecystectomy History of tonsillectomy Family History Father Prostate cancer Parkinsons Mother Stroke Son No problems noted. Son No problems noted. Daughter No problems noted. Sister Lung cancer Social History Household Members: None Housing: Apartment Do you presently have visiting nurse or other home services: No Alcohol intake: never Comment: 04/10 headache, will have caffinated beverage in D/C area Patient Tobacco Use Status: Never used Tobacco e-Cigarette/Vaping Use: Never Used Second Hand Smoke Exposure: No Advance Directives Date on File: 11/07/21 service: No Current occupational status: disabled Current occupational exposures/hazards: No Cognitive needs: No Hearing needs: No Vision needs: No Physical Exam Vital Signs: Last Vital Signs Pulse 88 04/07/24 10:32 BP 124/76 04/07/24 10:32 BMI result Body Mass Index 34.5 Const Orientation/consciousness: patient oriented x3 HEENT Ears: hearing grossly normal bilaterally Neck Thyroid: Thyroid normal Lymphatic: no lymphadenopathy noted Resp Auscultation: clear to auscultation bilaterally Cardio Rate: regular rate Rhythm: regular rhythm Heart sounds: S1 normal heart sound present and S2 normal heart sound present Skin General skin exam: no rashes or lesions noted Neuro General: patient oriented x3, gait normal and no focal motor deficits Extrem Other: DP pulses 2+ bilaterally. Monofilament sensation intact. Vibratory sensation intact. Skin intact. Results Reviewed Results Reviewed: Laboratory Tests 01/25/24 02/23/24 03/28/24 11:49 10:23 14:30 Sodium 143 Potassium 4.1 Chloride 103 Carbon Dioxide 30 H Anion Gap 14 BUN 15 Creatinine 0.80 Estimated GFR > 60 Glucose (Clinic) 133 H Hgb A1c (Clinic) 8.4 H AST 22 ALT 27 Triglycerides 237 H Cholesterol 175 LDL Cholesterol, Calc 85 HDL Cholesterol 43 TSH 3.24 Urine Creatinine 66.30 Urine Microalbumin 24.0 Microalb/Creat Ratio 36.1 H Assessment & Plan Assessment & Plan (1) Poorly controlled diabetes mellitus: Code(s): E11.65 - Type 2 diabetes mellitus with hyperglycemia Category: Medical Plan: Discussed the importance of blood sugar management. Continue the increased dose of the mounjaro. Follow-up in 3 months. Labs prior. (2) HTN (hypertension): Code(s): I10 - Essential (primary) hypertension Category: Medical Qualifiers: Hypertension type: primary hypertension Qualified Code(s): I10 - Essential (primary) hypertension Plan: Blood pressure better today. Continue current regimen. (3) Hypertriglyceridemia: Code(s): E78.1 - Pure hyperglyceridemia Category: Medical Plan: We will check lipids. Advised to decrease any processed foods and carbohydrates. Continue atorvastatin. Orders: Orders Lipid Panel Today E11.40 - Type 2 diabetes mellitus with diabetic neuropathy, unspecified, E11.65 - Type 2 diabetes mellitus with hyperglycemia, E78.1 - Pure hyperglyceridemia, I10 - Essential (primary) hypertension Microalbumin, Random (w Creat) Today E11.40 - Type 2 diabetes mellitus with diabetic neuropathy, unspecified, E11.65 - Type 2 diabetes mellitus with hyperglycemia, E78.1 - Pure hyperglyceridemia, I10 - Essential (primary) hypertension Comprehensive Unity. Panel Fast Today E11.40 - Type 2 diabetes mellitus with diabetic neuropathy, unspecified, E11.65 - Type 2 diabetes mellitus with hyperglycemia, E78.1 - Pure hyperglyceridemia, I10 - Essential (primary) hypertension Hemoglobin A1c Today E11.40 - Type 2 diabetes mellitus with diabetic neuropathy, unspecified, E11.65 - Type 2 diabetes mellitus with hyperglycemia, E78.1 - Pure hyperglyceridemia, I10 - Essential (primary) hypertension Medications: Refilled miscellaneous medical supply diabetic shoes as directed; 2 ea 1RF Coding Level of Care Code Est Pt Level 4 (71713) Complex EM visit Add On G2211 Diagnoses Poorly controlled diabetes mellitus E11.65 Primary hypertension I10 Hypertension type: primary hypertension Hypertriglyceridemia E78.1
[2024-04-07 10:32] VITALS: BP 124/76; PULSE 88; BMI 34.5
[2024-04-07 10:46] LABS: Glucose, Whole Blood 157 mg/dL (60-115)
== END 2024-04-07 11:05 | disposition home or self-care (01) ==
PROVIDERS: PCP Family Medicine; Visit Provider Physician Assistant
DX: E11.65 Type 2 diabetes mellitus with hyperglycemia (principal); I10 Essential (primary) hypertension; E78.1 Pure hyperglyceridemia
CPT/HCPCS: 99214; G2211

== ENCOUNTER → 2024-04-07 10:22 | Outpatient (BNVA) | payer OTHER, SELFPAY | PROVIDERS: PCP Family Medicine; Visit Provider Physician Assistant | DX: E11.65 Type 2 diabetes mellitus with hyperglycemia (principal); E11.42 Type 2 diabetes mellitus with diabetic polyneuropathy; I12.9 Hypertensive chronic kidney disease with stage 1 through stage 4 chronic kidney disease, or unspecified chronic kidney disease; E78.1 Pure hyperglyceridemia; Z79.4 Long term (current) use of insulin | CPT/HCPCS: 82947; 99212 ==

== ENCOUNTER 2024-04-15 11:37 | Outpatient (AMB) | payer OTHER, SELFPAY ==
[2024-04-15 11:58] VITALS: BP 122/80; PULSE 88; TEMP 36.6; O2SAT 98; BMI 34.5
--- NOTE | 2024-04-15 11:58 | AM.OFFWIN_ITS ---
Intake Vital Signs 04/15/24 11:58 Height 5 ft 4 in Weight 201 lb BMI 34.5 BP 122/80 Blood Pressure Location Rt brachial Position Sitting Pulse 88 Pulse Source Pulse Oximeter Temp 97.8 F Temp Source Oral Pulse Oximetry (%) 98 Intake Visit Reasons: EP back pain Intake Note: pt is here for back pain Patient Tobacco Use Status: Never used Tobacco Allergies No Known Allergies Allergy (Verified 04/15/24 12:48) Medication List - Last Reconciled 04/15/24 by Parisa Cruz, JUANJOSE albuterol sulfate 90 mcg/actuation 1 puff inhalation Q4H PRN 1 month albuterol sulfate 2.5 mg (3 mL) inhalation Q4-6H PRN 30 days atorvastatin 10 mg PO DAILY blood sugar diagnostic (FreeStyle Lite Strips) As directed 4-5 X day blood-glucose meter (FreeStyle Lite Meter kit) Test blood sugar 4-5x a day, As directed, 999 days clotrimazole-betamethasone 1-0.05 % 1 appl topical BID 2 weeks [diabetic shoes extra depth orthopedic shoes ( 1 pair ) with customize heat molded multi density inner soles ( 3 pair) Dispense 1 Sig: As directed DX: And IDDM /polyneuropathy ( E11 0.42 ); hammertoe foot deformity ( M 20.41, and 20.42 ) pre ulcerative skin lesion ( L 85.1 ) Diagnosis ( E11 0.42 ) type 2 diabetes with polyneuropathy] glipizide ER 10 mg (2 x 5 mg) PO DAILY 90 days lancets (FreeStyle Lancets) bid and prn glucose testing levothyroxine 37.5 mcg PO DAILY 30 days linaclotide (Linzess) 145 mcg PO DAILY lisinopril-hydrochlorothiazide 20-12.5 mg 1 tab PO DAILY 90 days metformin ER 500 mg PO BID methylcellulose (laxative) (Citrucel) 1,000 mg (2 x 500 mg) PO DAILY miscellaneous medical supply diabetic shoes as directed; nebulizers Use every 4-6 hours prn for wheezing, shortness of breath pantoprazole 40 mg PO QAM sucralfate 1 g PO BEDTIME tirzepatide (Mounjaro) 5 mg (0.5 mL) subcut QWEEK Do you need a note to return to daycare/school/sports/work: No HPI HPI Comments History of Present Illness Details 63-year-old female presents to [facility] for complaint of chronic right thoracic back pain below scapula that radiates to her right midaxillary and right upper gastric area that has gotten worse over the last 7 days. She does report a hx of back pain ever since she had her gallbladder removed. She denies trauma, fall or straining to the area. She denies CP, SOB, palpitations, dizziness, pain radiating to arm, neck or jaw, nausea, vomiting or changes in bowels or bladder. [facility] Medical History Thyroid disease GERD (gastroesophageal reflux disease) Asthma Elevated cholesterol HTN (hypertension) Osteoarthritis History of hepatitis C Diabetes Pneumonia Depression with anxiety Excessive daytime sleepiness Diabetic peripheral neuropathy Bilateral shoulder pain Sleep apnea Vaginal dryness Chronic back pain Seasonal allergic rhinitis Obesity (Unknown) Surgical History Hx of tubal ligation History of esophagogastroduodenoscopy (EGD) History of colonoscopy Left patella fracture History of cholecystectomy History of tonsillectomy Family History Father Prostate cancer Parkinsons Mother Stroke Son No problems noted. Son No problems noted. Daughter No problems noted. Sister Lung cancer Social History Household Members: None Housing: Apartment Do you presently have visiting nurse or other home services: No Alcohol intake: never Comment: 04/10 headache, will have caffinated beverage in D/C area Patient Tobacco Use Status: Never used Tobacco e-Cigarette/Vaping Use: Never Used Second Hand Smoke Exposure: No Advance Directives Date on File: 11/07/21 service: No Current occupational status: disabled Current occupational exposures/hazards: No Cognitive needs: No Hearing needs: No Vision needs: No Review of Systems Const All systems reviewed & are unremarkable except as noted in HPI and below Physical Exam Vital Signs: Last Vital Signs Temp 97.8 F 04/15/24 11:58 Pulse 88 04/15/24 11:58 BP 122/80 04/15/24 11:58 Pulse Ox 98 04/15/24 11:58 BMI result Body Mass Index 34.5 Const General: healthy appearing, no acute distress and well developed Nutritional Appearance: overweight Orientation/consciousness: patient oriented x3 Limitations: no limitations Chest Chest palpation & inspection: normal inspection of the chest and no crepitus Resp Effort & Inspection: normal respiratory effort, no cough, no respiratory distress and not tachypneic Auscultation: clear to auscultation bilaterally Cardio Rate: regular rate Rhythm: regular rhythm Heart sounds: S1 normal heart sound present and S2 normal heart sound present Peripheral pulses: Peripheral pulses 2+ throughout GI Palpation (GI): Soft to palpation, nontender and no guarding Percussion: Yes normal to percussion Auscultation: normal bowel sounds General: Yes no CVA tenderness Back/Spine/Pelvis Back: no CVA tenderness Thoracic/Lumbar Spine: pain with thoraco-lumbar ROM, paraspinal muscle tenderness and thoraco-lumbar spasm Skin General skin exam: no rashes or lesions noted and turgor normal Neuro General: patient oriented x3, gait normal, moves all extremities and no focal motor deficits Psych Appearance: well kempt Mental Status: mental status grossly normal Affect: normal affect Assessment & Plan Assessment & Plan (1) Myofascial pain syndrome of thoracic spine: Code(s): M79.18 - Myalgia, other site Plan: 63-year-old female with history of chronic back pain seen today for increased pain of thoracic region radiating to right epigastric area with no known trauma, fall, or injury. Will treat for musculoskeletal strain 1. Tylenol 1000 mg, orally, every 6 hours as needed for thoracic muscular pain. 2. Lidocaine patch, available [id number] and should be apply to area of maximal tenderness as directed on the outside packaging. 3. Ibuprofen 400 mg, orally with milk or food, every 6 hours as needed for muscle pain. 4. Cyclobezaprine 5 mg po bid prn x 3 days for muscle spasm, instructed not to drive or operate heavy machinery while taking. 5. Ice to muscle pain twice a day, may alternate w/ heat therapy. Call office, or go to ER for acute worsening of symptoms. Follow up with PCP for further testing of chronic right sided thoracic pain. Medications: New lidocaine 5% leave on most painful area for up to 12 hrs 1 patch topical DAILY PRN 15 ea 0RF pain (scale score 7-10) M79.18 - Myalgia, other site cyclobenzaprine 5 mg PO BID 3 days PRN 6 tabs 0RF muscle spasm M79.18 - Myalgia, other site Coding Level of Care Code Est Pt Level 3 (42686) Diagnoses Myofascial pain syndrome of thoracic spine M79.18
== END 2024-04-15 13:06 | disposition home or self-care (01) ==
PROVIDERS: PCP Family Medicine; Visit Provider Nurse Practitioner Acute Care
DX: M79.18 Myalgia, other site (principal)
CPT/HCPCS: 99051; 99213

== ENCOUNTER 2024-04-25 12:26 | Outpatient (AMB) | payer OTHER, SELFPAY ==
--- NOTE | 2024-04-25 12:41 | A.OFFVIS_ITS ---
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: 30 min Senior Foreman Required: No Accompanied by: Self / Same As Patient Allergies No Known Allergies Allergy (Verified 04/15/24 12:48) HPI Comprehensive Diabetes Asmnt Most Recent Diabetes Results: Microalb/Creat Ratio 36.1 ug/mg cr (<30) H 01/25/24 Cholesterol 175 mg/dL (<200) 01/25/24 HDL Cholesterol 43 mg/dL (>40) 01/25/24 Triglycerides 237 mg/dL (<150) H 01/25/24 Creatinine 0.80 mg/dL (0.5-1.4) 01/25/24 Blood Urea Nitrogen 15 mg/dL (9-16) 01/25/24 Sodium 143 mmol/L (135-145) 01/25/24 Potassium 4.1 mmol/L (3.3-5.1) 01/25/24 Chloride 103 mmol/L (96-108) 01/25/24 Carbon Dioxide 30 mmol/L (22-29) H 01/25/24 Calcium 10.4 mg/dL (8.4-10.2) H 01/25/24 AST 22 U/L (5-31) 01/25/24 ALT 27 U/L (0-31) 01/25/24 Total Protein 8.1 g/dL (6.5-8.0) H 01/25/24 Albumin 4.3 g/dL (3.5-5.0) 01/25/24 [facility] Medical History Thyroid disease GERD (gastroesophageal reflux disease) Asthma Elevated cholesterol HTN (hypertension) Osteoarthritis History of hepatitis C Diabetes Pneumonia Depression with anxiety Excessive daytime sleepiness Diabetic peripheral neuropathy Bilateral shoulder pain Sleep apnea Vaginal dryness Chronic back pain Seasonal allergic rhinitis Obesity (Unknown) Surgical History Hx of tubal ligation History of esophagogastroduodenoscopy (EGD) History of colonoscopy Left patella fracture History of cholecystectomy History of tonsillectomy Family History Father Prostate cancer Parkinsons Mother Stroke Son No problems noted. Son No problems noted. Daughter No problems noted. Sister Lung cancer Social History Household Members: None Housing: Apartment Do you presently have visiting nurse or other home services: No Alcohol intake: never Comment: 04/10 headache, will have caffinated beverage in D/C area Patient Tobacco Use Status: Never used Tobacco e-Cigarette/Vaping Use: Never Used Second Hand Smoke Exposure: No Advance Directives Date on File: 11/07/21 service: No Current occupational status: disabled Current occupational exposures/hazards: No Cognitive needs: No Hearing needs: No Vision needs: No Assessment & Plan Assessment & Plan (1) Poorly controlled diabetes mellitus: Code(s): E11.65 - Type 2 diabetes mellitus with hyperglycemia Plan: Learning objectives: The patient was provided with verbal and written education on the following topics as outlined below. The patient met all learning objectives and was able to verbalize understanding and provide teach back of education topics discussed . The patient was provided with the opportunity to ask questions and all questions were answered. Patient Assessment Assess patient education level/literacy/barriers Patient questions/concerns, patient's last A1c 8.4 %, in January 2024. Since that A1c patient has increase Mounjaro from 2.5 mg to 5 mg, glucose numbers on meter at very times of the day all within target. Patient also has sensor data from the end of March 2024 that shows she is in target 84%, with an average glucose of 151 mg/dL Patient's next A1c will be due 05/2024 Exercise Medical clearance Effect of exercise on blood sugar Start slowly and gradually increase pace/duration over time Goal amount of exercise Checking blood glucose/have a source of carbs with you Medications (If applicable) * Name of medication * Dosing/administration instructions * Mechanism of action * Potential side effects * Potential adverse reaction and appropriate treatment * Review onset, peak, duration Assess for concerns re: insurance coverage, cost, barriers to compliance Insulin/Injectables (If applicable) * Storage/care of insulin * Injection sites * Site rotation * Onset, peak, duration * Drawing up insulin * Injecting insulin/other injectables * Sharps disposal Continuous blood glucose monitoring (if applicable) Hypoglycemia and Hyperglycemia * Signs and symptoms * Causes * Treatment * Preventing hypoglycemia * When to seek medical attention Medical alert bracelet Lifestyle * Work * Travel * Stress management * Problem solving Know your goals * A1C * Blood sugar targets * Blood pressure * Cholesterol/LDL Urine microalbumin Smart Goal Assessment: Pt met goal:Pt patient will continue exercise class at [facility] Less than 25% the time: New Goal:? Patient will increase physical activity to 10 minutes a day 5 days a week Educational Materials: The patient was provided with the following written educational materials: ADCES 7 Healthy Behaviors Reducing Risks handout Patient Response to instructions: Comprehension of Instructions: Readiness to make changes: a How confident they feel about making changes: Letter of completion of diabetes Education program will be sent to referring provider Portions of this note were created using voice recognition software, please excuse any words or phrases that may have been misinterpreted. Patient Instructions: Include regular daily activity. ADA recommends 30 minutes of exercise 5 days a week. Weight loss talk to PCP or Photonics Engineering Technician before starting new plan. Test blood sugar as directed; Fasting and 2hpp largest meal. Watch trends in results. Utilize results and to assess how food, physical activity and medications affect blood sugar results. Bring glucometer or CGM to next visit. Be knowledgeable about diabetes medication, its action, side effects, efficacy, toxicity, prescribed dosage, appropriate timing and frequency of administration, effect of missed and delayed doses and instructions for storage, travel and safety. Problem solving techniques to monitor hypo/hyperglycemia episodes and treatments. Reduce risk reduction behaviors, smoking cessation, regular eye, foot and dental examinations. Coding Level of Care Code Est Pt Level 1 (87326) Diagnoses Poorly controlled diabetes mellitus E11.65
== END 2024-04-25 13:20 | disposition home or self-care (01) ==
PROVIDERS: PCP Family Medicine; Visit Provider Registered Nurse Diabetes Educator
DX: E11.65 Type 2 diabetes mellitus with hyperglycemia (principal)

== ENCOUNTER → 2024-04-25 12:26 | Outpatient (BNVA) | payer OTHER, SELFPAY | PROVIDERS: PCP Family Medicine; Visit Provider Registered Nurse Diabetes Educator | DX: E11.65 Type 2 diabetes mellitus with hyperglycemia (principal) | CPT/HCPCS: 99211 ==

== ENCOUNTER 2024-04-26 10:46 | Emergency (ER) | payer OTHER, SELFPAY ==
--- NOTE | ~2024-04-26 | US_ITS ---
EXAMINATION: US PELVIS CLINICAL INFORMATION: Abnormal uterine bleeding COMPARISON: 01/26/2013 TECHNIQUE: Transabdominal transvaginal study. Uterus is measuring 10 x 4.5 x 5 cm. Appears anteverted and anteflexed. Findings suggest a possible myometrial or subserosal fibroid in the region of the fundus anterior on the left.. Measuring 1.8 x 1.6 x 1.5 cm. Seen previously. The endometrial thickness is 1.2 cm and is characterized by irregularity with areas of fluid/cystic change. Overall the echogenicity is hyperechoic. Again areas of subtle lucency associated. The right ovary is not seen. Left ovary is 4.7 x 2.5 x 2.3 cm. Volume 14 mL. There is vascularity demonstrated. No free fluid US/US pelvic and transvaginal IMPRESSION: This exam is abnormal. The canal is abnormal appearing. Measures 1.2 cm characterized by mixed echogenicity with increased echogenicity with areas of fluid/cystic change. Certainly given the history of polyp formation versus other would be a consideration. Recommend gynecologic consultation.
[2024-04-26 10:51] VITALS: BP 156/77; PULSE 77; RESP 17; TEMP 36.4; O2SAT 94; BMI 35.0
--- NOTE | 2024-04-26 11:20 | ED_ITS ---
HPI - Female Genitourinary General Chief complaint: Urogenital-Female Stated complaint: Vaginal bleeding 4 days Time Seen by Provider: 04/26/24 11:20 Source: patient Mode of arrival: ambulatory Limitations: no limitations History of Present Illness ED Provider: Heather Denise PA-C HPI Narrative: Patient is a 63 year old assigned female at with a history of HTN, DM, hypothyroidism, hepatitis C, and skin neoplasm presenting to the emergency department today with vaginal bleeding. Patient states that over the last few days she has had vaginal bleeding and lower abdominal pain. Patient describes the vaginal bleeding as light. Patient denies any dizziness, lightheadedness, nausea, vomiting, fever, chills, blurry vision, double vision, loss of vision, chest pain, difficulty breathing, shortness of breath, back pain, night sweats, pain with urination, increased urinary frequency, increased urinary urgency, blood in her urine or stool, syncope or a near syncopal episode, recent trauma or falls, bowel incontinence, bladder incontinence, or any other complaints at this time. Vaginal discharge: none Vaginal bleeding: scant Exacerbating factors: none Relieving factors: none Associated symptoms: abdominal pain Treatment prior to arrival: none Related Data Previous Rx's ?Medication ?Instructions ?Recorded nebulizers #1 ea 11/24/21 methylcellulose (laxative) 500 mg 1,000 mg (2 x 500 mg) PO DAILY #60 08/31/22 tablet (Citrucel) tabs albuterol sulfate 2.5 mg/3 mL 2.5 mg (3 mL) inhalation Q4-6H PRN 10/08/22 (0.083 %) solution for nebulization shortness of breath or wheezing 30 days #180 mL albuterol sulfate 90 mcg/actuation 1 puff inhalation Q4H PRN 10/08/22 aerosol inhaler shortness of breath or wheezing or broncospasm 1 month #8.5 grams diabetic shoes #1 ea 10/28/22 lancets 28 gauge (FreeStyle #100 ea 02/19/23 Lancets) blood sugar diagnostic (FreeStyle #100 ea 02/26/23 Lite Strips) blood-glucose meter (FreeStyle #1 ea 02/28/23 Lite Meter kit) clotrimazole-betamethasone 1 1 appl topical BID 2 weeks #45 10/12/23 %-0.05 % topical cream grams glipizide 5 mg tablet, extended 10 mg (2 x 5 mg) PO DAILY 90 days 08/12/23 release 24 hr #180 tabs linaclotide 145 mcg capsule 145 mcg PO DAILY #30 caps 10/15/23 (Linzess) pantoprazole 40 mg tablet,delayed 40 mg PO QAM #90 tabs 10/15/23 release sucralfate 1 gram tablet 1 g PO BEDTIME #90 tabs 10/15/23 atorvastatin 10 mg tablet 10 mg PO DAILY #30 tabs 12/21/23 metformin 500 mg tablet,extended 500 mg PO BID #60 tabs 01/25/24 release 24 hr levothyroxine 37.5 mcg capsule 37.5 mcg PO DAILY 30 days #30 caps 02/17/24 lisinopril 20 1 tab PO DAILY 90 days #90 tabs 02/23/24 mg-hydrochlorothiazide 12.5 mg tablet tirzepatide 5 mg/0.5 mL 5 mg (0.5 mL) subcut QWEEK #2 mL 03/28/24 subcutaneous pen injector (Tamy) miscellaneous medical supply See Rx Instructions miscellaneous 04/07/24 .COMPLEX #2 ea cyclobenzaprine 5 mg tablet 5 mg PO BID PRN muscle spasm 3 04/15/24 days #6 tabs lidocaine 5 % topical patch 1 patch topical DAILY PRN pain 04/15/24 (scale score 7-10) #15 ea Allergies Allergy/AdvReac Type Severity Reaction Status Date / Time No Known Allergies Allergy Verified 04/26/24 10:57 Review of Systems 2 Constitutional: Constitutional: Reports no additional constitutional complaints, Denies chills, Denies fever(s) and Denies night sweats Eyes: Eyes: Reports no additional eye complaints, Denies blurry vision, Denies change in vision, Denies diplopia, Denies eye discharge, Denies loss of vision and Denies eye pain ENT: Denies dizziness Cardiovascular: Cardiovascular: Reports no additional cardiovascular complaints, Denies chest pain, Denies lightheadedness, Denies Loss of Consciousness and Denies dyspnea Respiratory: Respiratory: Reports no additional respiratory complaints and Denies dyspnea Gastrointestinal: Gastrointestinal: Reports no additional gastrointestinal complaints, Reports abdominal pain, Denies melena, Denies hematochezia, Denies change in bowel habits and Denies change in stool character Genitourinary: Genitourinary: Denies hematuria, Denies urinary frequency, Denies dysuria, Denies urinary incontinence, Denies urinary hesitancy and Denies urinary urgency Comments: vaginal bleeding Musculoskeletal: Musculoskeletal: Reports no additional musculoskeletal complaints, Denies numbness and Denies tingling Neurologic: Denies dizziness, Denies loss of vision, Denies numbness and Denies tingling Psychiatric: Psychiatric: Reports no additional psychiatric complaints Endocrine: Endocrine: Reports no additional endocrine complaints Hematologic/Lymphatic: Hematologic/Lymphatic: Reports no additional hematologic/lymphatic complaints Allergic/Immunologic: Allergic/Immunologic: Reports no additional allergic/immunologic complaints [facility] Past Medical History Attestation statement: The following information was validated with the patient. Source: old records reviewed and nursing notes reviewed Medical History Thyroid disease GERD (gastroesophageal reflux disease) Asthma Elevated cholesterol HTN (hypertension) Osteoarthritis History of hepatitis C Diabetes Pneumonia Depression with anxiety Excessive daytime sleepiness Diabetic peripheral neuropathy Bilateral shoulder pain Sleep apnea Vaginal dryness Chronic back pain Seasonal allergic rhinitis Obesity (Unknown) Surgical History Hx of tubal ligation History of esophagogastroduodenoscopy (EGD) History of colonoscopy Left patella fracture History of cholecystectomy History of tonsillectomy Family History Family History Father Prostate cancer Parkinsons Mother Stroke Son No problems noted. Son No problems noted. Daughter No problems noted. Sister Lung cancer Social History Social History Household Members: None Housing: Apartment Do you presently have visiting nurse or other home services: No Alcohol intake: never Comment: 04/10 headache, will have caffinated beverage in D/C area Patient Tobacco Use Status: Never used Tobacco e-Cigarette/Vaping Use: Never Used Second Hand Smoke Exposure: No Advance Directives: Yes Advance Directives on File: Yes Advance Directives Date on File: 11/07/21 Do you have a plan to hurt others: No Plan service: No Current occupational status: disabled Current occupational exposures/hazards: No Cognitive needs: No Hearing needs: No Vision needs: No Physical Exam 2 Vital Signs: Vital Signs: Last Vital Signs Temp 97.9 F 04/26/24 17:02 Pulse 66 04/26/24 17:02 Resp 20 04/26/24 17:02 BP 141/80 H 04/26/24 17:02 Pulse Ox 96 04/26/24 17:02 O2 Del Method Room Air 04/26/24 17:02 BMI result Body Mass Index 35.0 Const: General: cooperative, no acute distress, alert and awake Nutritional Appearance: well nourished Orientation/consciousness: patient oriented x3 Limitations: no limitations HEENT: Head: Yes normal to inspection and Yes atraumatic Ears: hearing grossly normal bilaterally and external ears normal General nose exam: Normal external nose present, no nasal discharge noted and no epistaxis Face and sinus: Yes normal facial exam, No abrasion and No laceration Mouth: Normal oral and palatal mucosa present, no drooling and no muffled voice Eyes: General: appearance normal, both eyes and all related structures P eriorbital: periorbital findings normal Eyelids: Yes eyelids normal C onjunctivae: conjunctivae normal Pupils: Equal, round and reactive pupils present EOM: EOMs intact bilaterally Neck: Neck: Yes normal visual inspection, Yes full ROM and Yes no lymphadenopathy Chest: Chest palpation & inspection: normal inspection of the chest Resp: Effort & Inspection: normal respiratory effort and able to speak in complete sentences GI: Inspection: Yes normal to inspection : Speculum Exam - Vagina: normal appearance of the vagina Speculum Exam - Cervix: Cervical mass present (1 o'clock position) non-tender and fixed Neuro: General: patient oriented x3 and moves all extremities Cranial nerves: Yes Equal, round and reactive pupils present Cognition (Neuro): n ormal cognition Motor exam (neuro): 5/5 motor strength present throughout Sensory Exam: Normal double simultaneous stimulation for sensation C oordination: [id number] test normal Extrem: General: Yes normal to inspection, Yes full ROM and Yes capillary refill normal Psych: Appearance: grossly normal Mental Status: mental status grossly normal Affect: normal affect Attitude: cooperative Thought process: N ormal thought process present Thought content: Normal thought content present Insight: Good insight present (Psych) Medications Administered Discontinued Medications Generic Name Dose Route Start Last Admin Trade Name Freq PRN Reason Stop Dose Admin Oxycodone HCl 10 mg 04/26/24 15:54 04/26/24 16:02 Oxycodone Hcl Immed Release 5 Mg Tablet PO 04/26/24 15:55 10 mg ONCE ONE Administration Medical Decision Making Medical Decision Making [facility] Narrative: Patient is a 63 year old assigned female at with a history of HTN, DM, hypothyroidism, hepatitis C, and skin neoplasm presenting to the emergency department today with vaginal bleeding and lower abdominal pain. Patient's physical exam was as noted in the physical exam portion of this note. Patient's blood work was unremarkable. Patient's urine showed no acute process. Patient's pelvic/transvaginal US showed a 1.2cm canal characterized by mixed echogenicity with increased echogenicity with areas of fluid/cystic changes. I spoke to Dr. Ontiveros, the OBGYN director semiconductor, who recommended out patient follow up. I explained my physical exam findings as well as all test results to the patient. I answered all questions asked by the patient. I stressed the importance of the patient taking her medication as directed (either prescribed or as the over the counter packaging recommends). I stressed the importance of the patient following up with her primary care provider and an OBGYN. I stressed the importance of the patient returning to the emergency department immediately if her symptoms were to worsen or if she were to develop any dizziness, shortness of breath, difficulty breathing, chest pain, blurry vision, loss of vision, nausea, vomiting, abdominal pain, fever, chills, back pain, or any other complaints. Patient verbalized agreement and understanding with this treatment plan and discharge. Differential Diagnosis Differential Diagnoses: The differential diagnosis associated with the presentation includes Vaginal bleeding Abnormal uterine bleeding Abdominal pain Admission/Observation Consideration of admission/observation: Escalation of care including admission/observation considered Patient would have been admitted to the hospital had her work up had any findings where hospital admission was appropriate and her clinical presentation warranted hospital admission. Consult Healthcare Provider Management of the patient was discussed with: [place] (spoke with Dr. Ontiveros, as noted in the MDM Rationale portion of this note.) Lab Data [facility] Lab Attestation statement: I reviewed the patient's lab results. My interpretation of these results are in the MDM Rationale portion of this note. 04/26/24 11:19 04/26/24 11:19 Labs: Lab Results 04/26/24 Range/Units 11:19 WBC 8.3 (4.8-10.8) X10*3/uL RBC 4.71 (4.20-5.50) X10*6/uL Hgb 14.3 (12.0-16.0) g/dl Hct 43.5 (37.0-47.0) % MCV 92.4 (80.0-98.0) fL MCH 30.4 (27.0-33.0) pg MCHC 32.9 (31.0-35.0) g/dl RDW 13.1 (11.0-16.0) % Plt Count 268 (160-400) X10*3/uL MPV 10.1 (9.4-12.3) fL Immature Gran % (Auto) 0.4 (0.0-0.4) % Neut % (Auto) 54.3 (45-73) % Lymph % (Auto) 35.6 (20-40) % [place] % (Auto) 7.4 (2-11) % Eos % (Auto) 1.7 (0-4) % Baso % (Auto) 0.6 (0-2) % Lymph # (Auto) 2.9 (1.2-4.9) X10*3/uL [place] # (Auto) 0.6 (0.1-1.2) X10*3/uL Eos # (Auto) 0.1 (0.0-0.4) X10*3/uL Baso # (Auto) 0.1 (0.0-0.2) X10*3/uL Abs Immat Gran (auto) 0.03 (0.00-0.03) X10*3/uL Absolute Neuts (auto) 4.5 (2.0-8.3) x10*3/uL Absolute Nucleated RBC 0.000 (0.0-0.012) X10*3/uL Nucleated RBC % (auto) 0.0 (0.0-0.2) /100WBC Sodium 144 (135-145) mmol/L Potassium 4.0 (3.3-5.1) mmol/L Chloride 110 H (96-108) mmol/L Carbon Dioxide 26 (22-29) mmol/L Anion Gap 12 (12-20) BUN 11 (9-16) mg/dL Creatinine 0.75 (0.5-1.4) mg/dL Estim Creat Clear Calc 83.6 Estimated GFR > 60 Random Glucose 203 H (60-115) mg/dL Calcium 9.8 (8.4-10.2) mg/dL Total Bilirubin 0.3 (0.0-1.0) mg/dL AST 16 (5-31) U/L ALT 14 (0-31) U/L Alkaline Phosphatase 74 (39-117) U/L Total Protein 7.7 (6.5-8.0) g/dL Albumin 4.2 (3.5-5.0) g/dL Urine Color Yellow Urine Appearance Clear Urine pH 5.5 (5.0-9.0) Ur Specific [place] 1.025 (1.005-1.025) Urine Protein Negative (Neg-Trace) mg/dL Urine Glucose (UA) Negative (Negative) mg/dL Urine Ketones Negative (Negative) mg/dL Urine Blood Large (3+) H (Negative) Urine Nitrite Negative (Negative) Ur Leukocyte Esterase Small (1+) H (Negative) Urine RBC >20 H (0-2) /HPF Urine WBC 0-5 (0-5) /HPF Ur Squamous Epith Cells 6-10 (0-2) /HPF Urine Bacteria Trace (None Seen) Hyaline Casts 0-2 (0-2) /LPF Independent Interpretation I performed an independent interpretation of an: Ultrasound Interpretation: My interpretation is in agreement with the radiologist's impression of this imaging study. - EXAMINATION: US PELVIS CLINICAL INFORMATION: Abnormal uterine bleeding COMPARISON: 01/26/2013 TECHNIQUE: Transabdominal transvaginal study. Uterus is measuring 10 x 4.5 x 5 cm. Appears anteverted and anteflexed. Findings suggest a possible myometrial or subserosal fibroid in the region of the fundus anterior on the left.. Measuring 1.8 x 1.6 x 1.5 cm. Seen previously. The endometrial thickness is 1.2 cm and is characterized by irregularity with areas of fluid/cystic change. Overall the echogenicity is hyperechoic. Again areas of subtle lucency associated. The right ovary is not seen. Left ovary is 4.7 x 2.5 x 2.3 cm. Volume 14 mL. There is vascularity demonstrated. No free fluid US/US pelvic and transvaginal IMPRESSION: This exam is abnormal. The canal is abnormal appearing. Measures 1.2 cm characterized by mixed echogenicity with increased echogenicity with areas of fluid/cystic change. Certainly given the history of polyp formation versus other would be a consideration. Recommend gynecologic consultation. Dictated By: Porter Lu MD Signed By: Electronically signed by Porter Lu MD 04/26/24 1548 Radiology Impression Discussion of test interpretation with radiology: I have reviewed the radiologist's reading. Critical Care Time Critical Care Time Critical Care Time: Yes Total Critical Care Time: 34 Attestation: I spent 34 minutes of Critical Care Time with this patient. This does not include time spent on separately reported billable procedures. Discharge Plan Discharge Clinical Impression: Abnormal uterine bleeding Patient Disposition: Home, Self-Care Instructions: Dysfunctional Uterine Bleeding (ED) Additional Instructions: Your pelvic ultrasound was abnormal - you must follow up with an OBGYN about this. Follow up with your primary care provider and an OBGYN. Return to the emergency department immediately if your symptoms worsen or if you develop any dizziness, shortness of breath, difficulty breathing, chest pain, blurry vision, loss of vision, nausea, vomiting, abdominal pain, fever, chills, back pain, or any other complaints. Please see the information below about our Patient Portal. If you are not yet enrolled in the [facility] Patient Portal, you will receive an enrollment email invitation following your visit to any [facility], located within [facility] setting. You may also self-enroll in the Patient Portal by visiting our website: [email or web address] The following information is required to access the Patient Portal: - Your [facility] Medical Record Number - Your personal home email address (must match what is in your electronic medical record, Registration staff can assist with this) - Name - Date of Capabilities of the Patient Portal: - Message some providers - View upcoming appointments - Access your health summary, medical history, and visit history - View current conditions and allergies - View procedure and lab results - View your medications, including guidelines, side effects, and precautions - Complete pre-appointment questionnaires requested by your provider - Ready summary reports of your office visits and procedures To access the Patient Portal Mobile [facility], follow these directions: - Search Skip Hop in the [facility] Store or Google Play Store - Download the Margaret - Search for [facility] - Enter your login/password Prescriptions: No Action (DME) nebulizers [facility] See Rx Instructions .Route Qty: 1 0RF Rx Instructions: Use every 4-6 hours prn for wheezing, shortness of breath albuterol sulfate 2.5 mg /3 mL (0.083 %) solution for nebulization 2.5 mg inhalation Q4-6H PRN (Reason: shortness of breath or wheezing) 30 Days Qty: 180 1RF albuterol sulfate 90 mcg/actuation HFA aerosol inhaler 1 puff inhalation Q4H PRN (Reason: shortness of breath or wheezing or broncospasm) 30 Days Qty: 8.5 6RF (DME) diabetic shoes See Rx Instructions .ROUTE .MEDSUPPLY Qty: 1 0RF Rx Instructions: extra depth orthopedic shoes ( 1 pair ) with customize heat molded multi density inner soles ( 3 pair) Dispense 1 Sig: As directed DX: And IDDM /polyneuropathy ( E11 0.42 ); hammertoe foot deformity ( M 20.41, and 20.42 ) pre ulcerative skin lesion ( L 85.1 ) Diagnosis ( E11 0.42 ) type 2 diabetes with polyneuropathy (DME) lancets [FreeStyle Lancets] 28 gauge [facility] See Rx Instructions .ROUTE .MEDSUPPLY Qty: 100 5RF Rx Instructions: bid and prn glucose testing (DME) blood-glucose meter [FreeStyle Lite Meter] Kit See Rx Instructions .Route Qty: 1 3RF Rx Instructions: Test blood sugar 4-5x a day, As directed, 999 days atorvastatin 10 mg tablet 10 mg PO DAILY Qty: 30 5RF metformin 500 mg tablet extended release 24 hr 500 mg PO BID Qty: 60 3RF levothyroxine 37.5 mcg capsule 37.5 mcg PO DAILY 30 Days Qty: 30 2RF lidocaine 5 % adhesive patch,medicated 1 patch topical DAILY PRN (Reason: pain (scale score 7-10)) Qty: 15 0RF Rx Instructions: leave on most painful area for up to 12 hrs cyclobenzaprine 5 mg tablet 5 mg PO BID PRN (Reason: muscle spasm) 3 Days Qty: 6 0RF glipizide 5 mg tablet extended release 24hr 10 mg PO DAILY 90 Days Qty: 180 2RF clotrimazole-betamethasone 1-0.05 % cream 1 appl topical BID 14 Days Qty: 45 0RF lisinopril-hydrochlorothiazide 20-12.5 mg tablet 1 tab PO DAILY 90 Days Qty: 90 2RF Citrucel 500 mg tablet 1,000 mg PO DAILY Qty: 60 2RF Rx Instructions: take it with full glass of water (DME) FreeStyle Lite Strips Strip See Rx Instructions Not Applicable BID Qty: 100 5RF Rx Instructions: As directed 4-5 X day pantoprazole 40 mg tablet,delayed release (DR/EC) 40 mg PO QAM Qty: 90 2RF sucralfate 1 gram tablet 1 g PO BEDTIME Qty: 90 1RF Linzess 145 mcg capsule 145 mcg PO DAILY Qty: 30 2RF miscellaneous medical supply Misc See Rx Instructions miscellaneous .COMPLEX Qty: 2 1RF Rx Instructions: diabetic shoes as directed; Mounjaro 5 mg/0.5 mL pen injector 5 mg subcut QWEEK Qty: 2 4RF Referrals: Jean Carlos Page MD [Primary Care Provider] - Jovany Ontiveros MD [Physician] - (Call to establish and follow up with an OBGYN. ) Print Language: Uzbek
[2024-04-26 11:28] LABS: MANUAL DIFF FLAG NO
[2024-04-26 11:31] LABS: Appearance Urine Clear; Color Urine Yellow; Glucose Urine UA Negative (Negative); Leukocyte Esterase Urine Small (1+) (Negative); Nitrite Urine Negative (Negative); PH 5.5 (5.0-9.0); Specific Gravity - Urine 1.025 (1.005-1.025); UMIC TRIGGER UACC YES; Urine Blood Large (3+) (Negative); Urine Ketones Negative (Negative); Urine Protein Negative (Neg-Trace)
[2024-04-26 11:35] LABS: Basophils Absolute Auto 0.1 X10*3/uL (0.0-0.2); Basophils Percent Auto 0.6 % (0-2); Eosinophils Absolute Auto 0.1 X10*3/uL (0.0-0.4); Eosinophils Percent Auto 1.7 % (0-4); Hematocrit 43.5 % (37.0-47.0); Hemoglobin 14.3 g/dl (12.0-16.0); Imm Gran Abs Auto 0.03 X10*3/uL (0.00-0.03); Imm Gran Pct Auto 0.4 % (0.0-0.4); Lymphocytes Absolute Auto 2.9 X10*3/uL (1.2-4.9); Lymphocytes Percent Auto 35.6 % (20-40); Mean Corpuscular HGB Conc 32.9 g/dl (31.0-35.0); Mean Corpuscular Hemoglobin 30.4 pg (27.0-33.0); Mean Corpuscular Volume 92.4 fL (80.0-98.0); Mean Platelet Volume 10.1 fL (9.4-12.3); Monocytes Absolute Auto 0.6 X10*3/uL (0.1-1.2); Monocytes Percent Auto 7.4 % (2-11); Neutrophils Absolute Auto 4.5 x10*3/uL (2.0-8.3); Neutrophils Percent Auto 54.3 % (45-73); Platelet Count 268 X10*3/uL (160-400); Red Blood Count 4.71 X10*6/uL (4.20-5.50); Red Cell Distribution Width 13.1 % (11.0-16.0); White Blood Count 8.3 X10*3/uL (4.8-10.8)
[2024-04-26 11:44] LABS: Alanine Aminotransferase 14 U/L (0-31); Albumin Level 4.2 g/dL (3.5-5.0); Alkaline Phosphatase 74 U/L (39-117); Anion Gap 12 (12-20); Aspartate Amino Transferase 16 U/L (5-31); Bilirubin Total 0.3 mg/dL (0.0-1.0); Blood Urea Nitrogen 11 mg/dL (9-16); Calcium 9.8 mg/dL (8.4-10.2); Carbon Dioxide 26 mmol/L (22-29); Chloride 110 mmol/L (96-108); Creatinine Clr Calc Pharmacy 83.6; Estimated Glomerular Filt Rate > 60; Glucose Random 203 mg/dL (60-115); Sodium 144 mmol/L (135-145); Total Protein 7.7 g/dL (6.5-8.0)
[2024-04-26 11:49] LABS: Bacteria Urine Trace (None Seen); Hyaline Casts Urine 0-2 /LPF (0-2); RBC Urine >20 /HPF (0-2); UACC Culture Trigger YES; WBC Urine 0-5 /HPF (0-5)
[2024-04-26] MEDS: oxyCODONE HCl Immed Release 5 MG TABLET 10 MG PO (16:02)
[2024-04-26 17:02] VITALS: BP 141/80; PULSE 66; RESP 20; TEMP 36.6; O2SAT 96
[2024-04-26 17:53] LABS: Glucose, Whole Blood 106 mg/dL (60-115)
--- NOTE | 2024-04-26 17:58 | PM.GYNCN ---
[employer] - CN: HPI Data of Consult Consult date: 04/26/24 Primary Care Provider: Jean Carlos Page MD Consult Narrative Narrative: I was consulted on Emily Lawson who is a 63 year old female presenting to the emergency department today with vaginal bleeding. Patient states that over the last few days she has had vaginal bleeding and lower abdominal pain. Patient describes the vaginal bleeding as light. Patient denies any dizziness, lightheadedness, nausea, vomiting, fever, chills, no other additional GI or symptoms cc:: CC: OB PMF Past Medical History Medical History Thyroid disease GERD (gastroesophageal reflux disease) Asthma Elevated cholesterol HTN (hypertension) Osteoarthritis History of hepatitis C Diabetes Pneumonia Depression with anxiety Excessive daytime sleepiness Diabetic peripheral neuropathy Bilateral shoulder pain Sleep apnea Vaginal dryness Chronic back pain Seasonal allergic rhinitis Obesity (Unknown) Family History Family History Father Prostate cancer Parkinsons Mother Stroke Son No problems noted. Son No problems noted. Daughter No problems noted. Sister Lung cancer Surgical History Surgical History Hx of tubal ligation History of esophagogastroduodenoscopy (EGD) History of colonoscopy Left patella fracture History of cholecystectomy History of tonsillectomy Social History Social History Household Members: None Housing: Apartment Do you presently have visiting nurse or other home services: No Alcohol intake: never Comment: 04/10 headache, will have caffinated beverage in D/C area Patient Tobacco Use Status: Never used Tobacco e-Cigarette/Vaping Use: Never Used Second Hand Smoke Exposure: No Advance Directives: Yes Advance Directives on File: Yes Advance Directives Date on File: 11/07/21 Do you have a plan to hurt others: No Plan service: No Current occupational status: disabled Current occupational exposures/hazards: No Cognitive needs: No Hearing needs: No Vision needs: No Meds Allergies Allergy/AdvReac Type Severity Reaction Status Date / Time No Known Allergies Allergy Verified 04/26/24 10:57 [employer] Physical Exam Vitals Vital signs: Temp Pulse Resp BP Pulse Ox O2 Del Method 97.9 F 66 20 141/80 H 96 Room Air 04/26/24 17:02 04/26/24 17:02 04/26/24 17:02 04/26/24 17:02 04/26/24 17:02 04/26/24 17:02 BMI result Body Mass Index 35.0 Additional Comments: Physical exam reported by ANDRES Guardado as the following: Speculum Exam - Vagina: normal appearance of the vagina Speculum Exam - Cervix: Cervical mass present (1 o'clock position) non-tender and fixed [employer] - Results Labs 04/26/24 11:19 04/26/24 11:19 Labs: Short CBC 04/26/24 Range/Units 11:19 WBC 8.3 (4.8-10.8) X10*3/uL Hgb 14.3 (12.0-16.0) g/dl Hct 43.5 (37.0-47.0) % Plt Count 268 (160-400) X10*3/uL BMP 04/26/24 11:19 Sodium 144 Potassium 4.0 Chloride 110 H Carbon Dioxide 26 BUN 11 Creatinine 0.75 Calcium 9.8 Liver Function 04/26/24 Range/Units 11:19 Total Bilirubin 0.3 (0.0-1.0) mg/dL AST 16 (5-31) U/L ALT 14 (0-31) U/L Alkaline Phosphatase 74 (39-117) U/L Albumin 4.2 (3.5-5.0) g/dL Urine 04/26/24 Range/Units 11:19 Urine Color Yellow Urine Appearance Clear Urine pH 5.5 (5.0-9.0) Ur Specific [place] 1.025 (1.005-1.025) Urine Protein Negative (Neg-Trace) mg/dL Urine Glucose (UA) Negative (Negative) mg/dL Imaging US - abdomen: Radiologist's impression: ITS Impressions Pelvic/Transvag US 04/26/24 12:15 IMPRESSION: This exam is abnormal. The canal is abnormal appearing. Measures 1.2 cm characterized by mixed echogenicity with increased echogenicity with areas of fluid/cystic change. Certainly given the history of polyp formation versus other would be a consideration. Recommend gynecologic consultation. Assessment and Plan (1) Postmenopausal bleeding: Status: Acute The differential diagnosis of post menopausal bleeding include but not limited to, endometrial hyperplasia, cancer, polyps, cervical malignancy and other causes; since the pelvic ultrasound shows the endometrial stripe thickenss measured more than 4mm, Recommended outpatient evaluation for the cervical mass, in addition to an endometrial sampling via hysteroscopy D&C possible polypectomy or endometrial biopsy to r/o endometrial pathology including hyperplasia or cancer. Recommended the patient to contact the office to set up a follow-up appointment for a complete evaluation. I spent a total of 20 minute reviewing the chart, communicating to the emergency room provider and documenting medical record
--- NOTE | 2024-04-26 18:01 | PC.NURSE ---
on discharge pt reporting increased dizziness/nausea from pain medication. pt given crackers and juice p/t ambulation trial.
[2024-04-26 18:07] VITALS: BP 141/80; PULSE 66; RESP 20; TEMP 36.6; O2SAT 96
[2024-04-27 06:07] LABS: CT PCR NOT DETECTED (Not Detect.); NG PCR NOT DETECTED (Not Detect.)
[2024-04-27 11:09] LABS: Bacterial Vaginosis PCR NEGATIVE (Negative); Candida Group PCR NOT DETECTED (Not Detect); Candida glab krusei PCR NOT DETECTED (Not Detect); Trichomonas vaginalis PCR NOT DETECTED (Not Detect)
== END 2024-04-26 18:08 | disposition home or self-care (01) ==
PROVIDERS: Physician Assistant Medical; Emergency Provider Emergency Medicine; PCP Family Medicine
DX: N93.8 Other specified abnormal uterine and vaginal bleeding (principal); R10.30 Lower abdominal pain, unspecified; I10 Essential (primary) hypertension; E11.9 Type 2 diabetes mellitus without complications
CPT/HCPCS: 0352U; 36415; 76830; 76856; 80053; 81001; 82947; 85025; 87086; 87491; 87591; 99284

== ENCOUNTER → 2024-04-26 11:27 | Outpatient (BNV) | payer OTHER, SELFPAY | PROVIDERS: Emergency Provider Emergency Medicine; PCP Family Medicine; Visit Provider Obstetrics & Gynecology | DX: N95.0 Postmenopausal bleeding (principal) | CPT/HCPCS: 99283 ==

== ENCOUNTER 2024-05-02 10:30 | Outpatient (AMB) | payer OTHER, SELFPAY ==
[2024-05-02 10:45] VITALS: BP 124/78; BMI 34.8
--- NOTE | 2024-05-02 10:45 | MHC.OFFVIS ---
Vital Signs 05/02/24 10:45 Height 5 ft 4 in Weight 202 lb 13.204 oz BMI 34.8 BP 124/78 Intake Visit Reasons: ED follow up Software Packager Required: No Information Interpreted: non-clinical & clinical Corridor Redevelopment Manager: Corridor Redevelopment Manager Present (Carmen VALENCIA) Accompanied by: Self / Same As Patient Allergies No Known Allergies Allergy (Verified 05/02/24 10:51) Post menopausal: Yes HPI Comments Details: Presenting for follow-up after emergency room visit on 04/26/2024, when the patient presented with vaginal bleeding the following workup was done: H&H 14.3/43.5 GC/CT negative Pelvic ultrasound showed the following: Uterus is measuring 10 x 4.5 x 5 cm. Appears anteverted and anteflexed. Findings suggest a possible myometrial or subserosal fibroid in the region of the fundus anterior on the left.. Measuring 1.8 x 1.6 x 1.5 cm. Seen previously. The endometrial thickness is 1.2 cm and is characterized by irregularity with areas of fluid/cystic change. Overall the echogenicity is hyperechoic. Again areas of subtle lucency associated. The right ovary is not seen. Left ovary is 4.7 x 2.5 x 2.3 cm. Volume 14 mL. There is vascularity demonstrated. No free fluid Last Pap smear was negative in 03/12 [facility] Medical History Thyroid disease GERD (gastroesophageal reflux disease) Asthma Elevated cholesterol HTN (hypertension) Osteoarthritis History of hepatitis C Diabetes Pneumonia Depression with anxiety Excessive daytime sleepiness Diabetic peripheral neuropathy Bilateral shoulder pain Sleep apnea Vaginal dryness Chronic back pain Seasonal allergic rhinitis Obesity (Unknown) Surgical History Hx of tubal ligation History of esophagogastroduodenoscopy (EGD) History of colonoscopy Left patella fracture History of cholecystectomy History of tonsillectomy Family History Father Prostate cancer Parkinsons Mother Stroke Son No problems noted. Son No problems noted. Daughter No problems noted. Sister Lung cancer Social History Household Members: None Housing: Apartment Do you presently have visiting nurse or other home services: No Alcohol intake: never Comment: 04/10 headache, will have caffinated beverage in D/C area Patient Tobacco Use Status: Never used Tobacco e-Cigarette/Vaping Use: Never Used Second Hand Smoke Exposure: No Advance Directives Date on File: 11/07/21 service: No Current occupational status: disabled Current occupational exposures/hazards: No Cognitive needs: No Hearing needs: No Vision needs: No Review of Systems Const All systems reviewed & are unremarkable except as noted in HPI and below Physical Exam Vital Signs: Last Vital Signs BP 124/78 05/02/24 10:45 BMI result Body Mass Index 34.8 General: Yes no CVA tenderness External Female Exam: normal external appearance and normal appearance of the urethra Speculum Exam - Vagina: normal appearance of the vagina, normal palpation, no lesions and no masses Speculum Exam - Cervix: normal appearance of the cervix, normal palpation, no lesions, no masses and nontender Bimanual exam- vagina & uterus: normal bimanual exam, normal palpation, uterine size normal, normal palpation, uterine shape normal, No Cervical tenderness present and non-tender Bimanual Exam- Adnexa, other: normal adnexae Back/Spine/Pelvis Back: no CVA tenderness Office Procedures Endometrial Biopsy Details: The patient was counseled regarding the indication and benefits of endometrial sampling to rule out endometrial pathology including not limited to endometrial hyperplasia or endometrial cancer and others; The alternatives (Either do nothing vs. hysteroscopy D&C) & the risks were discussed with the patient including but not limited: pain, uterine perforation, bleeding, infection, possible injury to bladder, bowel, ureter, possible need for blood transfusion with all its possible risks. The patient verbalized understanding all questions answered and signed consent. The patient was placed into the dorsal lithotomy position; a speculum was inserted in the vagina. Using aseptic technique for the procedure, the cervix was cleansed with Betadine. The anterior lip of the cervix was grasped with a single tooth tenaculum. The uterus was sounded to 7 cm with a 4 mm Pipelle was used. Tissues samples were obtained and placed in formalin, in a patient labeled container and sent to the pathology department. At the end of the procedure, there was minimal bleeding noted The patient tolerated the procedure well and was discharged in good condition with the following instructions: Nothing in the vagina until the bleeding stops. No sex until the bleeding stops, to call if any of the following occurs: fever (>100.4), flu-like symptoms, abdominal pain, heavy bleeding, four smelling vaginal discharge. The patient was instructed to schedule a Follow up appointment in 2 weeks to discuss pathology results of the biopsy and treatment options. This note was generated with a voice recognition program. Some errors may have been overlooked during the review of this note. Sometimes these errors may affect the content or meaning of a given sentence. [id number] Biopsy Assessment & Plan Assessment & Plan (1) Postmenopausal bleeding: Comment: Abnormal thickened endometrium by ultrasound Code(s): N95.0 - Postmenopausal bleeding Category: Medical Plan: Discussed with the patient the pelvic ultrasound findings, the abnormal endometrial stripe thickenss measured by ultrasound was more than 4mm. The negative predictive value, positive predictive value, Sensitivity, specificity of using ultrasound measurement of endometrial stripe to detecting endometrial pathology including hyperplasia , polyp or cancer were discussed with the patient. Recommended to the patient that the next step is an endometrial sampling via hysteroscopy D&C possible polypectomy versus endometrial biopsy to r/o endometrial pathology including hyperplasia or cancer. All the pros and cons risks and benefits of each approach were discussed with the patient, endometrial biopsy being less invasive, office procedure with less sensitivity and inability diagnose a polyp and removal versus hysteroscopy done under anesthesia more invasive more sensitive to endometrial cancer and possibility of diagnosing and endometrial polyp with the possibility of polypectomy. All questions were answered pt verbalized understanding and decided to proceed with endometrial biopsy. EMB done, see procedure note (2) Uterine myoma: Code(s): D25.9 - Leiomyoma of uterus, unspecified Category: Medical Plan: Discussed with the patient the findings on pelvic ultrasound & the risk of myosarcoma; discussed with the patient the options of treatment including expectant management versus hysterectomy; the pros and cons, risks benefits of each approach were discussed with the patient including the fact that in cases of myosarcoma, surgical treatment can lead to early diagnosis and positively affects the prognosis; after further discussion, the patient decided to proceed with expectant management. Will repeat pelvic ultrasound in 6 months. Instructions given to patient to call in case any of the following occurs: pressure symptoms, abnormal uterine bleeding, pelvic pain; and to schedule a six-month ultrasound and a follow-up appointment . All questions answered, the patient verbalized understanding and agreed with the plan . Orders: Orders Pap Smear Today N95.0 - Postmenopausal bleeding Surgical Today N95.0 - Postmenopausal bleeding AMB Endometrial Biopsy Today N95.0 - Postmenopausal bleeding US pelvic and transvaginal 6 Months D25.9 - Leiomyoma of uterus, unspecified Coding Level of Care Code New Pt Level 3 (30106) Procedure Only Diagnoses Postmenopausal bleeding N95.0 Uterine myoma D25.9 CPT Codes Endometrial Biopsy - CPT: 95216-[id number] Biopsy ([id number])
== END 2024-05-02 11:24 | disposition home or self-care (01) ==
LOC: HO.HWS 10:30
PROVIDERS: PCP Family Medicine; Visit Provider Obstetrics & Gynecology
DX: N95.0 Postmenopausal bleeding (principal); D25.9 Leiomyoma of uterus, unspecified
CPT/HCPCS: 58100; 99213

== ENCOUNTER 2024-05-02 10:30 | Outpatient (REF) | payer OTHER, SELFPAY ==
[2024-05-05 17:33] LABS: HPV mRNA E6/E7 Not Detected (Not Detected)
== END 2024-05-02 10:31 | disposition home or self-care (01) ==
LOC: HO.LNP 10:30
PROVIDERS: PCP Family Medicine; Visit Provider Obstetrics & Gynecology
DX: Z12.4 Encounter for screening for malignant neoplasm of cervix (principal); Z11.51 Encounter for screening for human papillomavirus (HPV); N95.0 Postmenopausal bleeding
CPT/HCPCS: 58100; 87624; 88175; 88305; 99212

== ENCOUNTER 2024-05-19 08:56 | Outpatient (AMB) | payer OTHER, SELFPAY ==
--- NOTE | 2024-05-19 09:29 | A.OFFPC_ITS ---
Vital Signs 05/19/24 09:30 Height 5 ft 4 in Weight 200 lb 6 oz BMI 34.4 BP 126/74 Blood Pressure Location Rt brachial Position Sitting Respiration 15 Pulse Source Pulse Oximeter Temp 98 F Temp Source Temporal Artery Scan Pulse Oximetry (%) 96 Oxygen Delivery Method Room Air Intake Visit Reasons: f/u diabetes Language Instructor Required: No Accompanied by: Self / Same As Patient Allergies No Known Allergies Allergy (Verified 05/19/24 09:40) Tobacco use date assessed: 02/23/24 Last assessed Fall Risk: 05/19/24 Dental Screening Dental Screen Date: 01/26/24 HPI f/u diabetes HPI Details 63 y/o female presents to f/u diabetes a nd hypertension. Last A1c 02/23/24 8.4%. She is on metformin 500mg, glipizide 10mg, Mounjaro. Had increased her mounjaro last office visit. A1c today 05/19/24 7.2%. Had changed lisinopril to lisinopril-hydrochlorothiazide. Blood pressure today 126/74. Pt reports abnormal uterine bleeding and follows up with her Ob-Medical Instrument Technician. She has a biopsy scheduled next week. [facility] Medical History Thyroid disease GERD (gastroesophageal reflux disease) Asthma Elevated cholesterol HTN (hypertension) Osteoarthritis History of hepatitis C Diabetes Pneumonia Depression with anxiety Excessive daytime sleepiness Diabetic peripheral neuropathy Bilateral shoulder pain Sleep apnea Vaginal dryness Chronic back pain Seasonal allergic rhinitis Obesity (Unknown) Surgical History Hx of tubal ligation History of esophagogastroduodenoscopy (EGD) History of colonoscopy Left patella fracture History of cholecystectomy History of tonsillectomy Family History Father Prostate cancer Parkinsons Mother Stroke Son No problems noted. Son No problems noted. Daughter No problems noted. Sister Lung cancer Social History Household Members: None Housing: Apartment Do you presently have visiting nurse or other home services: No Alcohol intake: never Comment: 04/10 headache, will have caffinated beverage in D/C area Patient Tobacco Use Status: Never used Tobacco e-Cigarette/Vaping Use: Never Used Second Hand Smoke Exposure: No Advance Directives Date on File: 11/07/21 service: No Current occupational status: disabled Current occupational exposures/hazards: No Cognitive needs: No Hearing needs: No Vision needs: No Questionnaire Thrive Questionnaire Date Thrive assessed: 12/23/21 MARIUM-7 AMB Questionnaire MARIUM-7 Date MARIUM - 7 assessed: 12/23/21 Source: Developed by Drs. Harry Hahn, Aury Ceja, Hang Dumont and colleagues, with an educational adrian from [employer]. Review of Systems Const Denies chills, Denies fatigue, Denies fever(s), Denies headache(s) and Denies weakness ENT Denies dizziness and Denies headache(s) Card Denies chest pain, Denies lightheadedness, Denies dyspnea and Denies other (Palpitations) Resp Denies cough, Denies dyspnea, Denies wheezing and Denies other ( shortness of breath) Musc Denies numbness and Denies tingling Neuro Denies dizziness, Denies headache(s), Denies numbness, Denies tingling, Denies paresthesias and Denies weakness Psych Denies anxiety and Denies depression Endo Denies fatigue Aller/Immun Denies wheezing Physical exam (Primary Care) Vital Signs: Last Vital Signs Temp 98 F 05/19/24 09:30 Resp 15 05/19/24 09:30 BP 126/74 05/19/24 09:30 Pulse Ox 96 05/19/24 09:30 Oxygen Delivery Method Room Air 05/19/24 09:30 BMI result Body Mass Index 34.4 Tobacco/Smoking Status: Tobacco use Status Tobacco use date assessed 02/23/24 05/19/24 09:36 Patient Tobacco Use Status Never used Tobacco 05/19/24 09:36 e-Cigarette/Vaping Use Never Used 05/19/24 09:36 Thrive Assessment: Date of Thrive Assessment Date Thrive assessed 12/23/21 05/19/24 09:36 Const General: no acute distress and well developed Nutritional Appearance: well nourished Orientation/consciousness: patient oriented x3 HENMT Head: Yes normocephalic and Yes atraumatic Eyes General: appearance normal, both eyes and all related structures Pupils: Equal, round and reactive pupils present EOM: EOMs intact bilaterally Resp Effort & Inspection: normal respiratory effort Auscultation: clear to auscultation bilaterally Cardio Rate: regular rate Rhythm: regular rhythm Heart sounds: S1 normal heart sound present, S2 normal heart sound present, no gallops, no murmurs and no rubs Neuro General: patient oriented x3 and gait normal Cranial nerves: Yes Equal, round and reactive pupils present Psych Affect: normal affect Results AMB Hemoglobin A1c AMB Hemoglobin A1c 7.2 % Last Edit by AVIVA James on 05/19/24 10:2 2 Assessment and Plan Assessment & Plan (1) Diabetes: Code(s): E11.9 - Type 2 diabetes mellitus without complications Plan: A1c?has?improved?significantly?down?to?7.2%.??Goal?is?less?than?7.0% She?is?tolerating?her?medications?well We?will?increase?Mounjaro?again Continue?metformin?and?glipizide?as?prescribed (2) HTN (hypertension): Code(s): I10 - Essential (primary) hypertension Qualifiers: Hypertension type: primary hypertension Qualified Code(s): I10 - Essential (primary) hypertension Plan: Blood?pressure?is?well?controlled.??Goal?is?less?than?140/90 Continue?current?medication (3) Postmenopausal bleeding: Comment: Abnormal thickened endometrium by ultrasound Code(s): N95.0 - Postmenopausal bleeding Plan: Recent?postmenopausal?bleeding She?has?follow-up?appointment?with?? (4) Supplemental oxygen dependent: Code(s): Z99.81 - Dependence on supplemental oxygen Plan: Patient?is?wondering?if?she?still?needs?oxygen. Initial?oxygen?dependence?after?COVID. Patient?still?has?oxygen?saturation?levels?that?dropped?down?into?low?90s Referred?to?Pulmonary?Medicine Orders: Orders AMB Hemoglobin A1c Today E11.9 - Type 2 diabetes mellitus without complications Referrals Pulmonology Referral R09.02 - Hypoxemia, Z99.81 - Dependence on supplemental oxygen Medications: Changed From tirzepatide (Mounjaro) 5 mg (0.5 mL) subcut QWEEK 2 mL 4RF To tirzepatide 7.5 mg (0.5 mL) subcut QWEEK 28 days 2 mL 4RF Coding Level of Care Code Est Pt Level 4 (33868) Diagnoses Diabetes E11.9 Primary hypertension I10 Hypertension type: primary hypertension Postmenopausal bleeding N95.0 Supplemental oxygen dependent Z99.81
[2024-05-19 09:30] VITALS: BP 126/74; RESP 15; TEMP 36.6; O2SAT 96; BMI 34.4
== END 2024-05-19 10:32 | disposition home or self-care (01) ==
PROVIDERS: PCP Family Medicine; Visit Provider Family Medicine
DX: E11.9 Type 2 diabetes mellitus without complications (principal); I10 Essential (primary) hypertension; N95.0 Postmenopausal bleeding; Z99.81 Dependence on supplemental oxygen
CPT/HCPCS: 83036; 99214

== ENCOUNTER 2024-05-24 09:26 | Outpatient (AMB) | payer OTHER, SELFPAY ==
[2024-05-24 09:31] VITALS: BP 102/70; PULSE 87; O2SAT 95; BMI 34.2
--- NOTE | 2024-05-24 09:31 | MHC.OFFVIS ---
Vital Signs 05/24/24 09:31 Height 5 ft 4 in Weight 199 lb 8.293 oz BMI 34.2 BP 102/70 Blood Pressure Location Rt brachial Position Sitting Pulse 87 Pulse Source Doppler Pulse Oximetry (%) 95 Oxygen Delivery Method Room Air Intake Visit Reasons: Hypoxemia Allergies No Known Allergies Allergy (Verified 05/24/24 09:37) HPI HPI Hypoxemia: Details: 63-year-old lady, nonsmoker, with underlying history of asthma well controlled on as needed albuterol MDI/nebs, remote history of COVID-19 approximately 1-2 years prior requiring hospitalization, discharged on supplemental oxygen at that time. Now patient states that she recovered back to her baseline. Patient also had recent pulmonary evaluation in [place] where she was told that she had some lung scarring. She denies any dyspnea. Patient does have family history of lung cancer in her sister who was a smoker. Patient denies exposure to industrial dusts. [facility] Medical History (Updated 05/24/24 @ 10:43 by William Benedict MD) Thyroid disease GERD (gastroesophageal reflux disease) Asthma Elevated cholesterol HTN (hypertension) Osteoarthritis History of hepatitis C Diabetes Pneumonia Depression with anxiety Excessive daytime sleepiness Diabetic peripheral neuropathy Bilateral shoulder pain Sleep apnea Vaginal dryness Chronic back pain Seasonal allergic rhinitis Obesity (Unknown) Surgical History Hx of tubal ligation History of esophagogastroduodenoscopy (EGD) History of colonoscopy Left patella fracture History of cholecystectomy History of tonsillectomy Family History Father Prostate cancer Parkinsons Mother Stroke Son No problems noted. Son No problems noted. Daughter No problems noted. Sister Lung cancer Social History Household Members: None Housing: Apartment Do you presently have visiting nurse or other home services: No Alcohol intake: never Comment: 04/10 headache, will have caffinated beverage in D/C area Patient Tobacco Use Status: Never used Tobacco e-Cigarette/Vaping Use: Never Used Second Hand Smoke Exposure: No Advance Directives Date on File: 11/07/21 service: No Current occupational status: disabled Current occupational exposures/hazards: No Cognitive needs: No Hearing needs: No Vision needs: No Review of Systems Const Denies daytime sleepiness, Denies excessive sweating, Denies fatigue, Denies fever(s), Denies lethargy, Denies malaise, Denies night sweats, Denies snoring and Denies weight loss Eyes Denies blurry vision and Denies itchy eyes ENT Denies nasal congestion, Denies post nasal drip, Denies sinus pain, Denies sinus pressure and Denies other ( Thrush) Card Denies chest pain, Denies pedal edema, Denies dyspnea, Denies orthopnea and Denies paroxysmal nocturnal dyspnea Resp Denies cough, Denies hemoptysis, Denies excessive phlegm production, Denies dyspnea, Denies snoring and Denies wheezing GI Denies abdominal pain and Denies heartburn Musc Denies myalgias, Denies arthralgias and Denies joint swelling Skin/Breast Denies rash Neuro Denies memory loss and Denies seizure-like activity Psych Denies abnormal sleep pattern, Denies anxiety and Denies memory loss Endo Denies excessive sweating, Denies fatigue and Denies heat intolerance Rafal/Lymph Denies easy bruising Aller/Immun Denies itchy eyes, Denies seasonal rhinorrhea and Denies wheezing Physical Exam Vital Signs: Last Vital Signs Pulse 87 05/24/24 09:31 BP 102/70 05/24/24 09:31 Pulse Ox 95 05/24/24 09:31 Oxygen Delivery Method Room Air 05/24/24 09:31 BMI result Body Mass Index 34.2 Const General: no acute distress and alert Nutritional Appearance: not obese Orientation/consciousness: Other orientation findings ( oriented) HEENT Head: Yes atraumatic Eyes General: appearance normal, both eyes and all related structures Sclerae: sclerae normal EOM: EOMs intact bilaterally Neck Neck: Yes supple Lymphatic: no lymphadenopathy noted Resp Effort & Inspection: normal respiratory effort and no use of accessory muscles Auscultation: clear to auscultation bilaterally Cardio Rate: regular rate Rhythm: regular rhythm Heart sounds: no gallops, no murmurs and no rubs Skin General skin exam: other ( warm) Extrem General: No clubbing, No cyanosis and No edema Assessment & Plan Assessment & Plan (1) Asthma: Code(s): J45.909 - Unspecified asthma, uncomplicated Category: Medical Plan: Now well controlled on albuterol MDI/nebs. Continue current regimen. Will obtain full PFT. (2) Supplemental oxygen dependent: Code(s): Z99.81 - Dependence on supplemental oxygen Category: Medical Plan: In office supplemental oxygen evaluation/6 minute walk test performed. At this time patient does not require supplemental oxygen to maintain normal oximetry with exertion. (3) Interstitial lung disease: Code(s): J84.9 - Interstitial pulmonary disease, unspecified Category: Medical Plan: Prior chest x-rays with suspicion for possible interstitial lung disease. Will obtain CT chest for further evaluation. Orders: Orders CT chest wo IV con Today J84.9 - Interstitial pulmonary disease, unspecified PFT pulmonary function test Today J84.9 - Interstitial pulmonary disease, unspecified Coding Level of Care Code New Pt Level 4 (35600) Diagnoses Asthma J45.909 Supplemental oxygen dependent Z99.81 Interstitial lung disease J84.9
[2024-05-24 13:01] VITALS: PULSE 84; O2SAT 97
== END 2024-05-24 10:15 | disposition home or self-care (01) ==
PROVIDERS: PCP Family Medicine; Referring Provider Family Medicine; Visit Provider Internal Medicine Pulmonary Disease
DX: J45.909 Unspecified asthma, uncomplicated (principal); Z99.81 Dependence on supplemental oxygen; J84.9 Interstitial pulmonary disease, unspecified
CPT/HCPCS: 94618; 99204

== ENCOUNTER → 2024-05-24 09:26 | Outpatient (BNVA) | payer OTHER, SELFPAY | PROVIDERS: PCP Family Medicine; Referring Provider Family Medicine; Visit Provider Internal Medicine Pulmonary Disease | DX: J45.909 Unspecified asthma, uncomplicated (principal); J84.9 Interstitial pulmonary disease, unspecified; Z99.81 Dependence on supplemental oxygen; N95.0 Postmenopausal bleeding | CPT/HCPCS: 94618; 99202; 99212 ==

== ENCOUNTER 2024-05-24 12:27 | Outpatient (AMB) | payer OTHER, SELFPAY ==
--- NOTE | 2024-05-24 12:42 | MHC.OFFVIS ---
Intake Visit Reasons: EMB results/pelvic pain Allergies No Known Allergies Allergy (Verified 05/24/24 12:42) HPI Comments Details: The patient is presenting after endometrial biopsy. The patient has no complaints, no vaginal bleeding, no feverishness chills or abdominal pain. The endometrial biopsy pathology report showed the following: Endometrium, biopsy: - Inactive endometrium; negative for atypia or hyperplasia. - Endocervical and squamous epithelium within normal limits [facility] Medical History (Updated 05/24/24 @ 12:48 by Jovany Ontiveros MD) Thyroid disease GERD (gastroesophageal reflux disease) Asthma Elevated cholesterol HTN (hypertension) Osteoarthritis History of hepatitis C Diabetes Pneumonia Depression with anxiety Excessive daytime sleepiness Diabetic peripheral neuropathy Bilateral shoulder pain Sleep apnea Vaginal dryness Chronic back pain Seasonal allergic rhinitis Obesity (Unknown) Surgical History Hx of tubal ligation History of esophagogastroduodenoscopy (EGD) History of colonoscopy Left patella fracture History of cholecystectomy History of tonsillectomy Family History Father Prostate cancer Parkinsons Mother Stroke Son No problems noted. Son No problems noted. Daughter No problems noted. Sister Lung cancer Social History Household Members: None Housing: Apartment Do you presently have visiting nurse or other home services: No Alcohol intake: never Comment: 04/10 headache, will have caffinated beverage in D/C area Patient Tobacco Use Status: Never used Tobacco e-Cigarette/Vaping Use: Never Used Second Hand Smoke Exposure: No Advance Directives Date on File: 11/07/21 service: No Current occupational status: disabled Current occupational exposures/hazards: No Cognitive needs: No Hearing needs: No Vision needs: No Review of Systems Const All systems reviewed & are unremarkable except as noted in HPI and below Reports as per HPI and Reports no additional complaints GI Reports no additional complaints Reports no additional complaints Assessment & Plan Assessment & Plan (1) Postmenopausal bleeding: Code(s): N95.0 - Postmenopausal bleeding Category: Medical Plan: Discussed with the patient the results of the endometrial biopsy showing inactive endometrium. Discussed with the patient the sensitivity, specificity, positive and negative predictive value, of endometrial biopsy in detecting endometrial pathology including but not limited to endometrial hyperplasia, cancer and other pathology; instructed the patient to call in case vaginal bleeding bleeding recurs, the next step will be to proceed with a diagnostic hysteroscopy/D&C for further endometrial sampling evaluation to rule out endometrial pathology. All questions answered and the patient verbalized understanding and agreed with the plan. Coding Level of Care Code Est Pt Level 3 (92426) Diagnoses Postmenopausal bleeding N95.0
== END 2024-05-24 13:35 | disposition home or self-care (01) ==
PROVIDERS: PCP Family Medicine; Visit Provider Obstetrics & Gynecology
DX: N95.0 Postmenopausal bleeding (principal)
CPT/HCPCS: 99213

== ENCOUNTER 2024-07-07 12:20 | Outpatient (REF) | payer OTHER, SELFPAY ==
--- NOTE | ~2024-07-07 | CT_ITS ---
EXAMINATION: CT CHEST WITHOUT CONTRAST CLINICAL INFORMATION: Interstitial pulmonary disease, unspecified. COMPARISON: No prior chest CT available. Chest x-ray 07/30/2023. TECHNIQUE: Multidetector volumetric CT imaging of the chest was done. Axial MIP volume rendering provided. Sagittal and coronal reformatted images were obtained. This CT examination was performed using dose optimization techniques as appropriate, variously including the following: *Automated exposure control *Adjustment of mA and/or kV according to patient size (this includes techniques or standardized protocols for targeted exams where dose is matched to indication/reason for exam; i.e. extremities or head) *Use of iterative reconstruction technique DLP: 170 mGy-cm FINDINGS: PULMONARY NODULES: -There are no suspicious pulmonary nodules present. LUNGS: -Lungs are clear bilaterally without evidence of abnormal pneumonic opacity. There is no evidence of interstitial lung disease. -Minimal bronchiectasis of the lower lobe bronchi present with a few tiny scattered mucoid filling defects. -Central airways are normal. -There are no pleural effusions and there are no pleural masses. There is no pneumothorax. MEDIASTINUM: -Mild global enlargement of the thyroid without discrete nodules seen, partially imaged. -Minimal atheromatous calcification of the aorta. No aneurysm. -No lymphadenopathy. -Normal main pulmonary artery. -Heart is normal in size. No pericardial effusion. -Esophagus appears normal. CORONARY ARTERY CALCIFICATION: -None visualized on this study. AXILLA/CHEST WALL: -No lymphadenopathy. No masses. UPPER ABDOMEN: -1.9 x 2.0 cm anterior low-attenuation oval splenic lesion , uncertain significance or etiology. This is incompletely characterized without contrast. It is benign, stable when compared with 10/01/2018. -There is mild diffuse hepatic steatosis. There is no focal hepatic lesion. -There has been a cholecystectomy. OSSEOUS STRUCTURES: -There are no suspicious lytic or blastic or acute bone lesions. -There are mild spinal degenerative changes. CT/CT chest wo IV con IMPRESSION: 1. No active or evidence of interstitial lung disease. 2. Minimal bronchiectasis lower lobe airways with a few scattered foci of endobronchial mucous plugging. 3. Fatty infiltration of the liver. 4. 2.0 cm oval low attenuating splenic lesion, unchanged with 2018 and benign. 5. Additional ancillary findings as discussed. Fleischner guidelines were followed. Electronically signed by: Brien Rodriguez MD 09/22/2024 01:55 PM ADITI GAMBOA
[2024-07-07 15:32] LABS: Creatinine Urine 147.07 mg/dL; Microalbum/Creatinine Ratio Ur 20.3 ug/mg cr (<30)
[2024-07-07 15:35] LABS: Alanine Aminotransferase 20 U/L (0-31); Albumin Level 4.3 g/dL (3.5-5.0); Alkaline Phosphatase 66 U/L (39-117); Anion Gap 13 (12-20); Aspartate Amino Transferase 16 U/L (5-31); Bilirubin Total 0.5 mg/dL (0.0-1.0); Blood Urea Nitrogen 14 mg/dL (9-16); Carbon Dioxide 25 mmol/L (22-29); Chloride 108 mmol/L (96-108); Cholesterol 154 mg/dL (<200); Estimated Glomerular Filt Rate > 60; Glucose Fasting 118 mg/dL (60-99); HDL Cholesterol 37 mg/dL (>40); LDL Cholesterol Calculated 74 mg/dL (<100); Potassium 3.7 mmol/L (3.3-5.1); Sodium 142 mmol/L (135-145); Total Protein 7.7 g/dL (6.5-8.0); Triglycerides 219 mg/dL (<150)
[2024-07-07 16:54] LABS: Estimated Average Glucose 134 mg/dL; Hemoglobin A1c % 6.3 % (<6.0)
== END 2024-07-07 12:21 | disposition home or self-care (01) ==
LOC: HO.CT 12:20
PROVIDERS: Absent Provider Physician Assistant; PCP Family Medicine; Visit Provider Internal Medicine Pulmonary Disease
DX: J84.9 Interstitial pulmonary disease, unspecified (principal); E11.65 Type 2 diabetes mellitus with hyperglycemia; E11.40 Type 2 diabetes mellitus with diabetic neuropathy, unspecified; I10 Essential (primary) hypertension; E78.1 Pure hyperglyceridemia
CPT/HCPCS: 36415; 71250; 80053; 80061; 82043; 82570; 83036

== ENCOUNTER → 2024-07-07 12:56 | Outpatient (BNV) | payer OTHER, SELFPAY | PROVIDERS: Absent Provider Physician Assistant; PCP Family Medicine; Visit Provider Radiology Diagnostic Radiology | DX: J84.9 Interstitial pulmonary disease, unspecified (principal) | CPT/HCPCS: 71250 ==

== ENCOUNTER 2024-07-10 10:04 | Outpatient (AMB) | payer OTHER, SELFPAY ==
[2024-07-10 10:12] VITALS: BP 132/74; PULSE 64; BMI 34.1
--- NOTE | 2024-07-10 10:12 | MHC.OFFVIS ---
Vital Signs 07/10/24 10:12 Height 5 ft 4 in Weight 198 lb 10.184 oz BMI 34.1 BP 132/74 Blood Pressure Location Lt brachial Position Sitting Pulse 64 Pulse Source Pulse Oximeter Intake Visit Reasons: T2DM/LVM Intake Note: Patient presents today for D2MT follow up visit. 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 blood-glucose meter (FreeStyle Lite Meter kit) Test blood sugar 4-5x a day, As directed, 999 days clotrimazole-betamethasone 1-0.05 % 1 appl topical BID 2 weeks cyclobenzaprine 5 mg PO BID PRN 3 days [diabetic shoes extra depth orthopedic shoes ( 1 pair ) with customize heat molded multi density inner soles ( 3 pair) Dispense 1 Sig: As directed DX: And IDDM /polyneuropathy ( E11 0.42 ); hammertoe foot deformity ( M 20.41, and 20.42 ) pre ulcerative skin lesion ( L 85.1 ) Diagnosis ( E11 0.42 ) type 2 diabetes with polyneuropathy] lancets (FreeStyle Lancets) bid and prn glucose testing levothyroxine 37.5 mcg PO DAILY 30 days lidocaine 5% 1 patch topical DAILY PRN linaclotide (Linzess) 145 mcg PO DAILY lisinopril-hydrochlorothiazide 20-12.5 mg 1 tab PO DAILY 90 days metformin ER 500 mg PO BID methylcellulose (laxative) (Citrucel) 1,000 mg (2 x 500 mg) PO DAILY miscellaneous medical supply diabetic shoes as directed; nebulizers Use every 4-6 hours prn for wheezing, shortness of breath pantoprazole 40 mg PO QAM sucralfate 1 g PO BEDTIME tirzepatide 7.5 mg (0.5 mL) subcut QWEEK 28 days HPI HPI T2DM/LVM: Details: Patient is a 63-year-old female who presents today for a diabetic follow-up. Endo: DM-She recently was increased on Mounjaro to 7.5 mg and states that she is tolerating this well. She continues on metformin 500 mg twice a day and glipizide 10 mg daily. A1c 02/23/24 is 8.4% and is now 6.3. She admits to not checking her blood sugars. She states that she has checked her blood sugars in the past when she has felt like her blood sugars could be low and she has noticed that in the last month or so they have been around 70. She does not always feel symptomatic with this but states sometimes she will feel a little shaky and it is usually after she has been active. The increased dose of the Mounjaro makes her also not want to eat as much. -Does not follow with a child life specialist. No sores. Denies any known retinopathy. Follows annually with Ophthalmology. She does have microalbuminuria and is on an BERTHA-inhibitor. Her cholesterol has been managed with atorvastatin 10 mg. CV: Blood pressure today in the office is 124/76. She recently had her medication adjusted from her PCP and was started on lisinopril/hydrochlorothiazide. [facility] Medical History (Updated 07/10/24 @ 10:54 by Griselda Fernandez PA-C) Poorly controlled diabetes mellitus Poorly controlled diabetes mellitus (~08/01/20) Thyroid disease GERD (gastroesophageal reflux disease) Asthma Elevated cholesterol HTN (hypertension) Osteoarthritis History of hepatitis C Diabetes Pneumonia Depression with anxiety Excessive daytime sleepiness Diabetic peripheral neuropathy Bilateral shoulder pain Sleep apnea Vaginal dryness Chronic back pain Seasonal allergic rhinitis Obesity (Unknown) Surgical History Hx of tubal ligation History of esophagogastroduodenoscopy (EGD) History of colonoscopy Left patella fracture History of cholecystectomy History of tonsillectomy Family History Father Prostate cancer Parkinsons Mother Stroke Son No problems noted. Son No problems noted. Daughter No problems noted. Sister Lung cancer Social History Household Members: None Housing: Apartment Do you presently have visiting nurse or other home services: No Alcohol intake: never Comment: 04/10 headache, will have caffinated beverage in D/C area Patient Tobacco Use Status: Never used Tobacco e-Cigarette/Vaping Use: Never Used Second Hand Smoke Exposure: No Advance Directives Date on File: 11/07/21 service: No Current occupational status: disabled Current occupational exposures/hazards: No Cognitive needs: No Hearing needs: No Vision needs: No Physical Exam Vital Signs: Last Vital Signs Pulse 64 07/10/24 10:12 BP 132/74 07/10/24 10:12 BMI result Body Mass Index 34.1 Const Orientation/consciousness: patient oriented x3 Neck Neck: Yes no lymphadenopathy Thyroid: Thyroid normal Carotids: no bruits Resp Auscultation: clear to auscultation bilaterally Cardio Rate: regular rate Rhythm: regular rhythm Heart sounds: S1 normal heart sound present and S2 normal heart sound present Peripheral pulses: dorsalis pedis present Neuro General: patient oriented x3, gait normal and no focal motor deficits Extrem Other: Monofilament sensation intact bilaterally. Vibratory sensation intact bilaterally. Skin intact. General: Yes normal to inspection Results Reviewed Results Reviewed: Laboratory Last Values Glucose (Clinic) 121 mg/dL (60-115) H 07/10/24 10:21 Laboratory Tests 05/19/24 07/07/24 07/07/24 10:20 13:23 13:28 Sodium 142 Potassium 3.7 Chloride 108 Carbon Dioxide 25 Anion Gap 13 Creatinine 0.85 Estimated GFR > 60 Fasting Glucose 118 H Estimat Average Glucose 134 Hgb A1c (Clinic) 7.2 H Hemoglobin A1c % 6.3 H Triglycerides 219 H Cholesterol 154 LDL Cholesterol, Calc 74 HDL Cholesterol 37 L Urine Creatinine 147.07 Urine Microalbumin 30.0 Microalb/Creat Ratio 20.3 Assessment & Plan Assessment & Plan (1) Controlled type 2 diabetes mellitus: Code(s): E11.9 - Type 2 diabetes mellitus without complications Category: Medical Qualifiers: Diabetes mellitus intermediate insulin use: without intermediate use Diabetes mellitus complication status: without complication Qualified Code(s): E11.9 - Type 2 diabetes mellitus without complications Plan: a1c significantly improved. I will discontinue glipizide. Continue with the Mounjaro and metformin. We did discuss that if she does notice blood sugars increasing with the discontinuation of glipizide she will let me know and we can always adjust the Mounjaro and/or metformin. Follow up in 3 months. Labs prior to appointment. Patient understands and agrees with this plan. (2) HTN (hypertension): Code(s): I10 - Essential (primary) hypertension Category: Medical Qualifiers: Hypertension type: primary hypertension Qualified Code(s): I10 - Essential (primary) hypertension Plan: Blood pressure WNL. Continue current regimen Orders: Orders Comprehensive [place]. Panel Fast Today E11.40 - Type 2 diabetes mellitus with diabetic neuropathy, unspecified, E11.9 - Type 2 diabetes mellitus without complications, I10 - Essential (primary) hypertension Hemoglobin A1c Today E11.40 - Type 2 diabetes mellitus with diabetic neuropathy, unspecified, E11.9 - Type 2 diabetes mellitus without complications, I10 - Essential (primary) hypertension Medications: Discontinued glipizide ER Discontinued Reason: Doctor's Order 10 mg (2 x 5 mg) PO DAILY 90 days 180 tabs 2RF Coding Level of Care Code Est Pt Level 4 (80396) Complex EM visit Add On G2211 Diagnoses Controlled type 2 diabetes mellitus without complication, without long-term current use of insulin E11.9 Diabetes mellitus intermediate accountant insulin use: without intermediate use Diabetes mellitus complication status: without complication Primary hypertension I10 Hypertension type: primary hypertension
[2024-07-10 10:26] LABS: Glucose, Whole Blood 121 mg/dL (60-115)
== END 2024-07-10 10:58 | disposition home or self-care (01) ==
PROVIDERS: PCP Family Medicine; Visit Provider Physician Assistant
DX: E11.9 Type 2 diabetes mellitus without complications (principal); I10 Essential (primary) hypertension
CPT/HCPCS: 99214; G2211

== ENCOUNTER → 2024-07-10 10:04 | Outpatient (BNVA) | payer OTHER, SELFPAY | PROVIDERS: PCP Family Medicine; Visit Provider Physician Assistant | DX: E11.40 Type 2 diabetes mellitus with diabetic neuropathy, unspecified (principal); I10 Essential (primary) hypertension; Z79.84 Long term (current) use of oral hypoglycemic drugs | CPT/HCPCS: 82947; 99212 ==

== ENCOUNTER 2024-07-17 07:13 | Day surgery (SDC) | payer OTHER, SELFPAY ==
--- NOTE | 2024-07-13 14:54 | P.CONAN_ITS ---
Documented by User: Roshni Post NP 07/13/24 14:55 HPI - Anesthesia Eval Consult details Narrative: 63yo F for Upper Endoscopy and Colonoscopy Anesthesia Pre-Procedure Meds Is the patient on any of the following meds?: GLP1/DPP4 PMFSH Active Problems Active Problems: All Active Problems Controlled type 2 diabetes mellitus (Acute) Interstitial lung disease (Acute) Asthma (Acute) Uterine myoma (Acute) Postmenopausal bleeding (Acute) Myofascial pain syndrome of thoracic spine (Acute) Headache (Acute) Hypertriglyceridemia (Acute) Neoplasm of uncertain behavior of skin (Acute) HTN (hypertension) (Acute) Hypothyroidism (Acute) Diabetes (Acute) Breast cancer screening by mammogram (Acute) Screening for colon cancer (Acute) Screening for cervical cancer (Acute) Adult general medical exam (Acute) COVID-19 (Acute) 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 (Acute) Diarrhea (Acute ~12/2018) Blepharitis (Acute) Vaginal yeast infection (Acute) Rash (Acute) Dizziness (Acute) Fatigue (Acute) Snoring (Acute) Sleep disorder (Acute) Cough (Acute) Left arm weakness (Acute) COVID (Acute) Supplemental oxygen dependent (Acute) Physical deconditioning (Acute) 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 hauler manifesting chronic dyspnea (Acute) Back pain (Acute) Viral upper respiratory illness (Acute) Otitis media (Acute) Weakness of upper extremity (Acute) Daytime sleepiness (Acute) Elbow pain (Acute) Low HDL (under 40) (Acute) Elevated TSH (Acute) Cervicalgia (Acute) Restless legs syndrome (Acute) Diabetic neuropathy (Acute) Lower extremity weakness (Acute) Carcinoid tumor of stomach (Acute) Chronic back pain (Acute) History of hepatitis C (Acute) Past Medical History Medical History (Updated 07/10/24 @ 10:54 by Griselda Fernandez PA-C) Poorly controlled diabetes mellitus Poorly controlled diabetes mellitus (~08/01/20) Thyroid disease GERD (gastroesophageal reflux disease) Asthma Elevated cholesterol HTN (hypertension) Osteoarthritis History of hepatitis C Diabetes Pneumonia Depression with anxiety Excessive daytime sleepiness Diabetic peripheral neuropathy Bilateral shoulder pain Sleep apnea Vaginal dryness Chronic back pain Seasonal allergic rhinitis Obesity (Unknown) Family History Family History Father Prostate cancer Parkinsons Mother Stroke Son No problems noted. Son No problems noted. Daughter No problems noted. Sister Lung cancer Family history of problems with anesthesia: No Surgical History Surgical History Hx of tubal ligation History of esophagogastroduodenoscopy (EGD) History of colonoscopy Left patella fracture History of cholecystectomy History of tonsillectomy History of Problems with Anesthesia: No Social History Social History Household Members: None Housing: Apartment Are you a primary career advisor to a significant other at home: No Do you presently have visiting nurse or other home services: No Alcohol intake: never Comment: 04/10 headache, will have caffinated beverage in D/C area Patient Tobacco Use Status: Former Tobacco user e-Cigarette/Vaping Use: Never Used Second Hand Smoke Exposure: No Use of substances other than those prescribed or required for medical reasons: No Have you been hit, kicked, punched, or otherwise hurt by someone within the past year? If so, by whom?: No Advance Directives: No Advance Directives Information Provided: Yes Advance Directives Date on File: 11/07/21 Recently lost weight without trying: No service: No Current occupational status: disabled Current occupational exposures/hazards: No Cognitive needs: No Hearing needs: No Vision needs: No Meds Allergies Allergy/AdvReac Type Severity Reaction Status Date / Time No Known Allergies Allergy Verified 07/10/24 10:18 Assessment and Plan Assessment Anesthesia Assessment: Chart Reviewed Final Anesthetic Review Family History of Problems with Anesthesia: No History of Problems with Anesthesia: No Documented by User: Iram Vizcaino MD 07/17/24 08:30 [facility] Past Medical History Medical History (Updated 07/10/24 @ 10:54 by Griselda Fernandez PA-C) Poorly controlled diabetes mellitus Poorly controlled diabetes mellitus (~08/01/20) Thyroid disease GERD (gastroesophageal reflux disease) Asthma Elevated cholesterol HTN (hypertension) Osteoarthritis History of hepatitis C Diabetes Pneumonia Depression with anxiety Excessive daytime sleepiness Diabetic peripheral neuropathy Bilateral shoulder pain Sleep apnea Vaginal dryness Chronic back pain Seasonal allergic rhinitis Obesity (Unknown) Family History Family History Father Prostate cancer Parkinsons Mother Stroke Son No problems noted. Son No problems noted. Daughter No problems noted. Sister Lung cancer Surgical History Surgical History Hx of tubal ligation History of esophagogastroduodenoscopy (EGD) History of colonoscopy Left patella fracture History of cholecystectomy History of tonsillectomy Social History Social History Household Members: None Housing: Apartment Are you a primary career advisor to a significant other at home: No Do you presently have visiting nurse or other home services: No Alcohol intake: never Comment: 04/10 headache, will have caffinated beverage in D/C area Patient Tobacco Use Status: Former Tobacco user e-Cigarette/Vaping Use: Never Used Second Hand Smoke Exposure: No Use of substances other than those prescribed or required for medical reasons: No Have you been hit, kicked, punched, or otherwise hurt by someone within the past year? If so, by whom?: No Advance Directives: No Advance Directives Information Provided: Yes Advance Directives Date on File: 11/07/21 Recently lost weight without trying: No service: No Current occupational status: disabled Current occupational exposures/hazards: No Cognitive needs: No Hearing needs: No Vision needs: No Meds Allergies Allergy/AdvReac Type Severity Reaction Status Date / Time No Known Allergies Allergy Verified 07/10/24 10:18 Exam Airway Mallampati Class: III TM Dist: >3cm Neck ROM: Limited Heart: rrr Lungs: cta Assessment and Plan Assessment Anesthesia Assessment: Anesthesia Plan Discussed Final Anesthetic Review NPO: Yes ASA Class: III Final Preanesthetic Review: No Changes in Pt Med Stat, Meds/Allgs Chart Reviewed, Consent Obtained/Reviewed and Anes Risks/Benef Reviewed Patient Risk: Intermediate Procedure Risk: Low Anesthetic Plan Anesthetic Plan: MAC:
[2024-07-17 07:33] VITALS: BP 130/75; PULSE 85; RESP 16; TEMP 36.3; O2SAT 96; BMI 34.1
--- NOTE | 2024-07-17 07:36 | MHC.SHP ---
Pre-Procedural Eval Section A - 24 Hr Update-Section A only Date of Service: 07/17/24 The patient is an INPATIENT: No The patient has been examined within 24 hours of the surgical procedure. The History & Physical has been completed within 30 days and I have reviewed it.: No Section B - Complete if H&P > 30 days Chief Complaint: FU of colon polyps, fu of gastric carcinoid Relevant Family History (Specify if Yes): No Relevant Social History: None Present Medications: see Short Stay Collaborative assessment Medical History: Significant History (Thyroid disease GERD (gastroesophageal reflux disease) Asthma Elevated cholesterol HTN (hypertension) Osteoarthritis History of hepatitis C Diabetes Pneumonia Depression with anxiety Excessive daytime sleepiness Diabetic peripheral neuropathy Bilateral shoulder pain Sleep apnea Vaginal dryness Chron) History of Previous Operations: Relevant previous surgery/procedure and date(s) (Hx of tubal ligation History of esophagogastroduodenoscopy (EGD) History of colonoscopy Left patella fracture History of cholecystectomy History of tonsillectomy) Allergies: Allergies Allergy/AdvReac Type Severity Reaction Status Date / Time No Known Allergies Allergy Verified 07/10/24 10:18 Review of Systems Sugical H&P ROS: Negative: Constitution, Cardiovascular, Respiratory and Gastrointestinal Exam Surgical H&P Exam: Normal: Heart, Normal: Lungs, Normal: Extremities and Normal: Abdomen Plan Diagnosis/Plan: Change (proceed with EGD (FU of gastric carcinoid) and colonoscopy (polyp surveillance)) I have reviewed the history and physical and performed a pertinent physical examination on my patient. No changes have occurred unless specified. Time Spent With Patient Time: Total time managing care of this patient today ____ minutes.
[2024-07-17 07:43] LABS: Glucose, Whole Blood 141 mg/dL (60-115)
[2024-07-17] MEDS: Lactated Ringers 1,000 ML 100 ML IVCONT (08:30)
--- NOTE | 2024-07-17 09:05 | HO.OPN-COLON ---
Colonoscopy Operative Note Operative Note Date of Service: 07/17/24 Narrative: FLEXIBLE TRANSORAL UPPER GASTROINTESTINAL ENDOSCOPY WITH BIOPSIES AND COLONOSCOPY TILL CECUM WITH BIOPSIES AND SNARE POLYPECTOMY Pre-op diagnosis: Surveillance for colon polyps, follow-up of gastric carcinoid Post-op diagnosis: Gastritis, Colon Polyps, Diverticulosis, hemorrhoids Endoscopist:Storm Vigil MD Anesthesia:?MAC UPPER ENDOSCOPY Consent: Indications for the procedure and potential complications of bleeding, perforation, reaction to medications and missed diagnosis were discussed with the patient and informed consent was obtained. Instrument: Olympus GIF H 190 mid size upper endoscope Monitoring: Vital signs and clinical assessment, continuous EKG monitoring, Pulse oximetry, Carbon Dioxide monitoring and blood pressure monitoring were done throughout the procedure. Procedure: The patient was placed in the left lateral decubitis position and pre-procedure medications were administered and a bite block was placed. The endoscope was inserted into the mouth and advanced under direct vision to the third part of duodenum. A careful inspection was made as the upper endoscope was withdrawn including a retroflexed examination of the proximal stomach; Findings and interventions are described below. Findings: Larynx: Normal Esophagus: GE junction at 35 cms. No esophagitis, Olvera's, stricture or ring. Stomach: Moderate diffuse gastric erythema. Biopsies were obtained from the gastric antrum and body during previous EGD.? Polypectomy site (marked by T spot) identified at 50 cms (a well differentiated carcinoid was removed during last EGD) Grade 2 flap valve on retroflexed examination of the cardia. Duodenum: Normal bulb and descending duodenum Intervention: Biopsies as noted above COLONOSCOPY PROCEDURE NOTE Instrument: Olympus PCF H 190 L variable stiffness pediatric colonoscope Monitoring: Vital signs and clinical assessment, intermittent blood pressure monitoring, continuous EKG monitoring, Pulse oximetry and Carbon Dioxide monitoring were done throughout the procedure. Please see anesthesia flowsheet. Colon withdrawl time was 16 minutes. Procedure: The patient was placed in the left lateral decubitis position and pre-procedure medications were administered. After a digital rectal examination of the ano-rectum, the video colonoscope was inserted into the rectum and advanced through the colon to the cecum. The colonoscope was slowly withdrawn in a retrograde panoramic fashion and the colon mucosa was carefully examined including a retroflexed view of the rectum. Findings and interventions are described below. Procedure Difficulty: without difficulty Findings: Terminal Ileum: Not evaluated Cecum: Normal Ascending Colon: Moderate diverticulosis throughout the entire colon Transverse Colon: Moderate diverticulosis throughout the entire colon Descending Colon: Moderate diverticulosis throughout the entire colon Sigmoid Colon: A 4-5 mm sessile polyp - removed with a cold biopsy Severe diverticulosis with luminal narrowing Rectum: Normal Ano-rectum: Small internal hemorrhoids Colon preparation: Excellent, after some irrigation. [place] Bowel Preparation Scale Right colon; 3 Transverse colon: 3 Left colon; 3 (0 = Unprepared colon segment with mucosa not seen due to solid stool that cannot be cleared. 1 = Portion of mucosa of the colon segment seen, but other areas of the colon segment not well seen due to staining, residual stool and/or opaque liquid. 2 = Minor amount of residual staining, small fragments of stool and/or opaque liquid, but mucosa of colon segment seen well. 3 = Entire mucosa of colon segment seen well with no residual staining, small fragments of stool or opaque liquid) Impression and Post Procedure Diagnosis: Endoscopy Findings: STOMACH: Polypectomy site (marked by T spot) identified at 50 cms (a well differentiated carcinoid was removed during last EGD) Multiple biopsies were obtained Colonoscopy Findings: One small polyp was removed Moderate diverticulosis seen in the entire colon small hemorrhoids on retroflexed exam. Plan: Pt has a FU appointment on 08/08/24 with Lisa Vaughan NP Repeat Colonoscopy in 5 years if polyps are adenomatous and due to history of adenomatous colon polyps Above findings were reviewed with the patient and relevant handouts were given and the discharge area. BIOPSIES SHOWED: A. Stomach, polypectomy site, biopsy: Gastric body mucosa with minimal chronic inactive gastritis; negative for intestinal metaplasia and dysplasia; no evidence of carcinoid tumor (see comment). B. Colon, sigmoid, polyp: Hyperplastic polyp Letter sent advising repeat EGD in 6 months and repeat colon in 5 years Patient placed on recall list for EGD and colon
[2024-07-17 09:37] VITALS: BP 91/56; PULSE 75; RESP 14; TEMP 36.9; O2SAT 96
[2024-07-17 09:42] VITALS: BP 94/54; PULSE 64; RESP 16; O2SAT 96
[2024-07-17 09:52] VITALS: BP 125/87; PULSE 80; RESP 16; TEMP 36.5; O2SAT 96
== END 2024-07-17 10:49 | disposition home or self-care (01) ==
PROVIDERS: PCP Family Medicine; Visit Provider Internal Medicine Gastroenterology
PROC: (CPT 45385; principal; 2024-07-17 08:30)
DX: Z12.11 Encounter for screening for malignant neoplasm of colon (principal); Z86.010 Personal history of colon polyps; K63.5 Polyp of colon; K57.30 Diverticulosis of large intestine without perforation or abscess without bleeding; K64.8 Other hemorrhoids; K58.9 Irritable bowel syndrome, unspecified; K59.01 Slow transit constipation; D3A.092 Benign carcinoid tumor of the stomach; R14.0 Abdominal distension (gaseous); K29.50 Unspecified chronic gastritis without bleeding; K21.9 Gastro-esophageal reflux disease without esophagitis; I10 Essential (primary) hypertension; E78.00 Pure hypercholesterolemia, unspecified; E11.42 Type 2 diabetes mellitus with diabetic polyneuropathy; J45.909 Unspecified asthma, uncomplicated; Z86.19 Personal history of other infectious and parasitic diseases; Z79.84 Long term (current) use of oral hypoglycemic drugs; Z79.899 Other long term (current) drug therapy; Z98.890 Other specified postprocedural states
CPT/HCPCS: 45385; 45380; 43239; 82947; 88305; 88342; J1596; J2704

== ENCOUNTER → 2024-07-17 07:13 | Outpatient (BNV) | payer OTHER, SELFPAY | PROVIDERS: PCP Family Medicine; Visit Provider Internal Medicine Gastroenterology | DX: Z12.11 Encounter for screening for malignant neoplasm of colon (principal); Z86.010 Personal history of colon polyps; K63.5 Polyp of colon; K57.90 Diverticulosis of intestine, part unspecified, without perforation or abscess without bleeding; K64.8 Other hemorrhoids; D3A.092 Benign carcinoid tumor of the stomach; K29.70 Gastritis, unspecified, without bleeding | CPT/HCPCS: 43239; 45380 ==

== ENCOUNTER 2024-08-08 10:37 | Outpatient (AMB) | payer OTHER, SELFPAY ==
--- NOTE | 2024-08-08 10:53 | A.OFFVIS_ITS ---
Vital Signs 08/08/24 10:54 Height 5 ft 4 in Weight 190 lb 7.67 oz BMI 32.7 BP 126/74 Blood Pressure Location Rt brachial Position Sitting Pulse 74 Pulse Source Pulse Oximeter Pulse Oximetry (%) 96 Oxygen Delivery Method Room Air Intake Visit Reasons: S/P Frederick; Dr. Vigil Intake Note: Emily presents in office today for a scheduled s/p FUV. CC: Pt denies any new complications or sx post op. Pt reports that they are here to discuss the results of their procedure. 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 Will send patient for upper endoscopy to re- evaluate. Currently patient is taking pantoprazole and sucralfate. Symptoms of acid reflux are suppressed. Taking Linzess daily and able to move her bowels better. Patient started on Mounjaro and had symptoms in the very beginning, however symptoms are suppressed at this time. Patient is aware to hold the Mounjaro minimum 1 week before endoscopy. Patient had no issues with anesthesia in the past. No history of sleep apnea. Not on any anticoagulation medication. Patient will book the procedure today and I will see her after. Patient will call our office if she will have any GI concerning symptoms. Patient is agreeable to this plan and verbalizes understanding of instructions. She was given the opportunity to ask questions and all questions answered. ? UPPER ENDOSCOPY AND COLONOSCOPY Upper endoscopy Findings: Larynx: Normal Esophagus: GE junction at 35 cms. No esophagitis, Olvera's, stricture or ring. Stomach: Moderate diffuse gastric erythema. Biopsies were obtained from the gastric antrum and body during previous EGD.? Polypectomy site (marked by T spot) identified at 50 cms (a well differentiated carcinoid was removed during last EGD) Grade 2 flap valve on retroflexed examination of the cardia. Duodenum: Normal bulb and descending duodenum Intervention: Biopsies as noted above Colonoscopy Findings: Terminal Ileum: Not evaluated Cecum: Normal Ascending Colon: Moderate diverticulosis throughout the entire colon Transverse Colon: Moderate diverticulosis throughout the entire colon Descending Colon: Moderate diverticulosis throughout the entire colon Sigmoid Colon: A 4-5 mm sessile polyp - removed with a cold biopsy Severe diverticulosis with luminal narrowing Rectum: Normal Ano-rectum: Small internal hemorrhoids Colon preparation: Excellent, after some irrigation. [place] Bowel Preparation Scale Right colon; 3 Transverse colon: 3 Left colon; 3 (0 = Unprepared colon segment with mucosa not seen due to solid stool that cannot be cleared. 1 = Portion of mucosa of the colon segment seen, but other areas of the colon segment not well seen due to staining, residual stool and/or opaque liquid. 2 = Minor amount of residual staining, small fragments of stool and/or opaque liquid, but mucosa of colon segment seen well. 3 = Entire mucosa of colon segment seen well with no residual staining, small fragments of stool or opaque liquid) Impression and Post Procedure Diagnosis: Endoscopy Findings: STOMACH: Polypectomy site (marked by T spot) identified at 50 cms (a well differentiated carcinoid was removed during last EGD) Multiple biopsies were obtained Colonoscopy Findings: One small polyp was removed Moderate diverticulosis seen in the entire colon small hemorrhoids on retroflexed exam. Plan: Repeat Colonoscopy in 5 years if polyps are adenomatous and due to history of adenomatous colon polyps Above findings were reviewed with the patient and relevant handouts were given and the discharge area. BIOPSIES SHOWED: A. Stomach, polypectomy site, biopsy: Gastric body mucosa with minimal chronic inactive gastritis; negative for intestinal metaplasia and dysplasia; no evidence of carcinoid tumor (see comment). B. Colon, sigmoid, polyp: Hyperplastic polyp Comment: (A): There is very scant submucosal tissue present for evaluation. Endoscopic correlation is necessary. Immunostain for H. pylori pending; addendum to follow H pylori negative TODAY'S VISIT Patient is here today for follow-up and to discuss upper endoscopy and colonoscopy results. Patient reports that she has been feeling well after the procedure. Denies any issues with the prep, anesthesia or procedure itself. Patient reports that she has been feeling well. Patient is eating better. No longer is taking pantoprazole or sucralfate. Patient states that she is moving her bowels well and not taking Linzess anymore. Patient change her diet. Started on Mounjaro and her A1c improved. Patient currently denies any GI concerning symptoms. [facility] Medical History (Updated 08/08/24 @ 11:27 by Violet Vaughan [facility]) Diverticulosis Poorly controlled diabetes mellitus Poorly controlled diabetes mellitus (~08/01/20) Thyroid disease GERD (gastroesophageal reflux disease) Asthma Elevated cholesterol HTN (hypertension) Osteoarthritis History of hepatitis C Diabetes Pneumonia Depression with anxiety Excessive daytime sleepiness Diabetic peripheral neuropathy Bilateral shoulder pain Sleep apnea Vaginal dryness Chronic back pain Seasonal allergic rhinitis Obesity (Unknown) Surgical History Hx of tubal ligation History of esophagogastroduodenoscopy (EGD) History of colonoscopy Left patella fracture History of cholecystectomy History of tonsillectomy Family History Father Prostate cancer Parkinsons Mother Stroke Son No problems noted. Son No problems noted. Daughter No problems noted. Sister Lung cancer Social History Household Members: None Housing: Apartment Are you a primary health care facilities inspector to a significant other at home: No Do you presently have visiting nurse or other home services: No Alcohol intake: never Comment: 04/10 headache, will have caffinated beverage in D/C area Patient Tobacco Use Status: Former Tobacco user e-Cigarette/Vaping Use: Never Used Second Hand Smoke Exposure: No Advance Directives Date on File: 11/07/21 service: No Current occupational status: disabled Current occupational exposures/hazards: No Cognitive needs: No Hearing needs: No Vision needs: No Review of Systems Const Denies weight gain and Denies weight loss ENT Reports no additional complaints, Denies dysphagia and Denies odynophagia Card Reports no additional complaints Resp Reports no additional complaints GI Denies abdominal pain, Denies belching, Denies melena, Denies bloating, Denies change in bowel habits, Denies dysphagia, Denies excessive flatus, Denies dyspepsia, Denies heartburn, Denies diarrhea, Denies loose stools, Denies nausea, Denies odynophagia and Denies vomiting Musc Reports no additional complaints Neuro Reports no additional complaints Psych Reports no additional complaints Endo Reports no additional complaints Physical Exam Vital Signs: Last Vital Signs Pulse 74 08/08/24 10:54 BP 126/74 08/08/24 10:54 Pulse Ox 96 08/08/24 10:54 Oxygen Delivery Method Room Air 08/08/24 10:54 BMI result Body Mass Index 32.7 Const General: healthy appearing and no acute distress Nutritional Appearance: obese Orientation/consciousness: patient oriented x3 Resp Effort & Inspection: normal respiratory effort, able to speak in complete sentences, no tracheal deviation and symmetric chest movement Auscultation: clear to auscultation bilaterally Cardio Rate: regular rate GI Inspection: Yes normal to inspection, No distended and Yes obesity Palpation (GI): Soft to palpation, not firm, nontender and No hepatosplenomegaly present Auscultation: normal bowel sounds General: Yes no CVA tenderness Back/Spine/Pelvis Back: no CVA tenderness Skin General skin exam: elasticity normal, turgor normal and dry skin Neuro General: patient oriented x3 Psych Appearance: grossly normal Mental Status: mental status grossly normal Assessment & Plan Assessment & Plan (1) Diverticulosis: Code(s): K57.90 - Diverticulosis of intestine, part unspecified, without perforation or abscess without bleeding Category: Medical (2) Status post colonoscopy: Code(s): Z98.890 - Other specified postprocedural states (3) GERD (gastroesophageal reflux disease): Code(s): K21.9 - Gastro-esophageal reflux disease without esophagitis Qualifiers: Esophagitis presence: without esophagitis Qualified Code(s): K21.9 - Gastro-esophageal reflux disease without esophagitis (4) 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 No longer needs PPI. Moderate gastric erythema noted on upper endoscopy, biopsy showed no dysplasia. Recommendation was made for patient to return for upper endoscopy in 6 months to re-evaluate. Patient reports that she is currently moving her bowels without any issues. No longer needs to take Linzess. Patient was encouraged to increase fluid intake and activity to promote better bowel motility. Patient was also encouraged to increase fiber in her diet. May take probiotics daily. Follow-up in the office in after endoscopy, sooner on as needed basis. She is agreeable to this plan and verbalizes understanding of instructions. She was given the opportunity to ask questions and all questions answered. 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
[2024-08-08 10:54] VITALS: BP 126/74; PULSE 74; O2SAT 96; BMI 32.7
== END 2024-08-08 11:42 | disposition home or self-care (01) ==
PROVIDERS: PCP Family Medicine; Visit Provider Nurse Practitioner Family
DX: K57.90 Diverticulosis of intestine, part unspecified, without perforation or abscess without bleeding (principal); Z98.890 Other specified postprocedural states; K21.9 Gastro-esophageal reflux disease without esophagitis; D3A.092 Benign carcinoid tumor of the stomach; Z86.19 Personal history of other infectious and parasitic diseases
CPT/HCPCS: 99213

== ENCOUNTER → 2024-08-08 10:37 | Outpatient (BNVA) | payer OTHER, SELFPAY | PROVIDERS: PCP Family Medicine; Visit Provider Nurse Practitioner Family | DX: K57.90 Diverticulosis of intestine, part unspecified, without perforation or abscess without bleeding (principal); K21.9 Gastro-esophageal reflux disease without esophagitis; D3A.092 Benign carcinoid tumor of the stomach; Z86.19 Personal history of other infectious and parasitic diseases; Z98.890 Other specified postprocedural states | CPT/HCPCS: 99212 ==

== ENCOUNTER 2024-08-22 09:17 | Outpatient (AMB) | payer OTHER, SELFPAY ==
--- NOTE | 2024-08-22 09:34 | A.OFFPC_ITS ---
Vital Signs 08/22/24 09:38 Height 5 ft 4 in Weight 193 lb 4 oz BMI 33.2 BP 113/55 L Blood Pressure Location Lt brachial Position Sitting Respiration 18 Pulse 77 Pulse Source Pulse Oximeter Temp 97.2 F Temp Source Temporal Artery Scan Pulse Oximetry (%) 97 Oxygen Delivery Method Room Air Intake Visit Reasons: F/U DM, CHRONIC CONDITIONS Intake Note: f/u DM Allergies No Known Allergies Allergy (Verified 08/22/24 09:35) Medication List - Last Reconciled 08/22/24 by Jean Carlos Page MD albuterol sulfate 90 mcg/actuation 1 puff inhalation Q4H PRN 1 month albuterol sulfate 2.5 mg (3 mL) inhalation Q4-6H PRN 30 days atorvastatin 10 mg PO DAILY blood sugar diagnostic (FreeStyle Lite Strips) USE DIRECTED 4 TO 5 TIMES A DAY. blood-glucose meter (FreeStyle Lite Meter kit) Test blood sugar 4-5x a day, As directed, 999 days [diabetic shoes extra depth orthopedic shoes ( 1 pair ) with customize heat molded multi density inner soles ( 3 pair) Dispense 1 Sig: As directed DX: And IDDM /polyneuropathy ( E11 0.42 ); hammertoe foot deformity ( M 20.41, and 20.42 ) pre ulcerative skin lesion ( L 85.1 ) Diagnosis ( E11 0.42 ) type 2 diabetes with polyneuropathy] lancets (FreeStyle Lancets) bid and prn glucose testing levothyroxine 37.5 mcg PO DAILY 30 days lidocaine 5% 1 patch topical DAILY PRN lisinopril-hydrochlorothiazide 20-12.5 mg 1 tab PO DAILY 90 days metformin ER 500 mg PO BID methylcellulose (laxative) (Citrucel) 1,000 mg (2 x 500 mg) PO DAILY miscellaneous medical supply diabetic shoes as directed; nebulizers Use every 4-6 hours prn for wheezing, shortness of breath tirzepatide 7.5 mg (0.5 mL) subcut QWEEK 28 days Tobacco use date assessed: 02/23/24 Dental Screening Dental Screen Date: 01/26/24 HPI F/U DM, CHRONIC CONDITIONS HPI Details 63 y/o female presents today to f/u diab etes, chronic conditions. A1c today 08/22/24 6.6%. Had been 7.2% before. She is on metformin 500mg b.i.d, Mounjaro 7.5mg. Blood pressure today 113/55, 77p. She is on lisinopril-hydrochlorothiazide 20-12.5mg daily. Had followed up with Electrical Tech for vaginal bleeding. She reports work-up was unrevealing and she is to call them if symptoms appear again. [facility] Medical History (Updated 08/22/24 @ 10:14 by Jean Carlos Page MD) Diverticulosis Poorly controlled diabetes mellitus Poorly controlled diabetes mellitus (~08/01/20) Thyroid disease GERD (gastroesophageal reflux disease) Asthma Elevated cholesterol HTN (hypertension) Osteoarthritis History of hepatitis C Diabetes Pneumonia Depression with anxiety Excessive daytime sleepiness Diabetic peripheral neuropathy Bilateral shoulder pain Sleep apnea Vaginal dryness Chronic back pain Seasonal allergic rhinitis Obesity (Unknown) Surgical History Hx of tubal ligation History of esophagogastroduodenoscopy (EGD) History of colonoscopy Left patella fracture History of cholecystectomy History of tonsillectomy Family History Father Prostate cancer Parkinsons Mother Stroke Son No problems noted. Son No problems noted. Daughter No problems noted. Sister Lung cancer Social History Household Members: None Housing: Apartment Are you a primary skin care specialist to a significant other at home: No Do you presently have visiting nurse or other home services: No Alcohol intake: never Comment: 04/10 headache, will have caffinated beverage in D/C area Patient Tobacco Use Status: Former Tobacco user e-Cigarette/Vaping Use: Never Used Second Hand Smoke Exposure: No Advance Directives Date on File: 11/07/21 service: No Current occupational status: disabled Current occupational exposures/hazards: No Cognitive needs: No Hearing needs: No Vision needs: No Questionnaire PHQ-9 Over the last 2 weeks, how often have you been bothered by any of the following problems? 1. Little interest or pleasure in doing things: several days Source: Developed by Drs. Harry Hahn, Aury Ceja, Hang Dumont and colleagues, with an educational adrian from [employer]. Thrive Questionnaire Date Thrive assessed: 08/19/24 I am a: Patient What is your living situation today?: I have a steady place to live Within the past 12 months, did the food you bought not last and you didn't have the money to get more?: I choose not to answer this question Within the past 12 months, did you worry whether your food would run out before you got money to buy more?: I choose not to answer this question Do you have trouble paying for medicines?: No Do you have trouble getting transportation to medical appointments?: Yes Do you have trouble paying your heating and electricity bill?: No Do you have trouble taking care of your child, family member or friend?: No Do you have trouble with day-to-day activities such as bathing, preparing meals, shopping, managing finances, etc.?: Yes Are you currently unemployed and looking for a job?: No Are you interested in more education?: No Currently or been in a relationship where the following occur: I choose not to answer THRIVE Score: 1 AUDIT C Alcohol Use Questionnaire (AUDIT-C) 1. How often do you have a drink containing alcohol?: Never 3. How often do you have six or more drinks on one occasion?: Never Total Score: 0 MARIUM-7 AMB Questionnaire MARIUM-7 Date MARIUM - 7 assessed: 12/23/21 Source: Developed by Drs. Harry Hahn, Aury Ceja, Hang Dumont and colleagues, with an educational adrian from [employer]. Review of Systems Const Denies chills, Denies fatigue, Denies fever(s), Denies headache(s) and Denies weakness ENT Denies dizziness and Denies headache(s) Card Denies dyspnea Resp Denies cough, Denies dyspnea, Denies wheezing and Denies other (shortness of breath) Musc Denies numbness and Denies tingling Neuro Denies dizziness, Denies headache(s), Denies numbness, Denies tingling and Denies weakness Psych Denies anxiety and Denies depression Endo Denies fatigue Aller/Immun Denies wheezing Physical exam (Primary Care) Vital Signs: Last Vital Signs Temp 97.2 F 08/22/24 09:38 Pulse 77 08/22/24 09:38 Resp 18 08/22/24 09:38 BP 113/55 L 08/22/24 09:38 Pulse Ox 97 08/22/24 09:38 Oxygen Delivery Method Room Air 08/22/24 09:38 BMI result Body Mass Index 33.2 Tobacco/Smoking Status: Tobacco use Status Tobacco use date assessed 02/23/24 08/22/24 09:37 Patient Tobacco Use Status Former Tobacco user 08/22/24 09:37 e-Cigarette/Vaping Use Never Used 08/22/24 09:37 Thrive Assessment: Date of Thrive Assessment Date Thrive assessed 08/19/24 08/22/24 09:37 Currently or been in a relationship where the following occur: I choose not to answer Const General: well developed; No acute distress Nutritional Appearance: well nourished Orientation/consciousness: patient oriented x3 HENMT Head: Yes normocephalic and Yes atraumatic Eyes General: appearance normal, both eyes and all related structures Pupils: Equal, round and reactive pupils present EOM: EOMs intact bilaterally Resp Effort & Inspection: normal respiratory effort Neuro General: patient oriented x3 and gait normal Cranial nerves: Yes CN's II-XII intact bilaterally and Yes Equal, round and reactive pupils present Psych Affect: normal affect Coding Level of Care Code Est Pt Level 4 (12347) Diagnoses Controlled type 2 diabetes mellitus without complication, without long-term current use of insulin E11.9 Diabetes mellitus complication status: without complication 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 insulin use: without skilled nursing use Primary hypertension I10 Hypertension type: primary hypertension Interstitial lung disease J84.9 Postmenopausal bleeding N95.0 Imbalance R26.89 Lower extremity weakness R29.898 Low back pain M54.50 Assessment & Plan Assessment & Plan (1) Controlled type 2 diabetes mellitus: Code(s): E11.9 - Type 2 diabetes mellitus without complications Category: Medical Qualifiers: Diabetes mellitus complication status: without complication Diabetes mellitus skilled nursing insulin use: without skilled nursing use Qualified Code(s): E11.9 - Type 2 diabetes mellitus without complications Plan: A1c?now?6.6%?with?increase?in Mounjaro?and?metformin but?discontinuance?of?glipizide. Controlled.??Goal?is?less?than?7.0% Continue?current?medication?regimen?and?work?at?a?diet?lower?in?sugars?and?sta rches. Watch?weight Follow-up?with?endocrinology?as?recommended (2) HTN (hypertension): Code(s): I10 - Essential (primary) hypertension Category: Medical Qualifiers: Hypertension type: primary hypertension Qualified Code(s): I10 - Essential (primary) hypertension Plan: Blood?pressure?is?controlled.??Goal?is?less?than?140/90 Continue?current?medications (3) Interstitial lung disease: Code(s): J84.9 - Interstitial pulmonary disease, unspecified Category: Medical Plan: Patient?was?seen?by?pulmonology?and?does?not?need?supplemental?oxygen?at?this?ti me. (4) Postmenopausal bleeding: Code(s): N95.0 - Postmenopausal bleeding Category: Medical Plan: Patient?was?seen?by?obstetrics gyn Follow-up?with?obstetrics gyn?as?recommended (5) Imbalance: Code(s): R26.89 - Other abnormalities of gait and mobility Category: Medical Plan: Patient?notes?imbalance?and?a?fall. Cranial?nerves?2-12?intact. She?does?have?mild?right?lower?extremity?weakness?and?low?back?pain. Start?physical?therapy?for?imbalance?and?low?back?pain If?not?improving?will?consider?imaging?and?referral (6) Lower extremity weakness: Code(s): R29.898 - Other symptoms and signs involving the musculoskeletal system Category: Medical Plan: As?above (7) Low back pain: Code(s): M54.50 - Low back pain, unspecified Category: Medical Plan: As?above She?can?also?use?ice/heat?and?topicals Orders: Orders PT Evaluation and Treatment Today M54.50 - Low back pain, unspecified, R26.89 - Other abnormalities of gait and mobility
[2024-08-22 09:38] VITALS: BP 113/55; PULSE 77; RESP 18; TEMP 36.2; O2SAT 97; BMI 33.2
== END 2024-08-22 10:14 | disposition home or self-care (01) ==
PROVIDERS: PCP Family Medicine; Visit Provider Family Medicine
DX: E11.9 Type 2 diabetes mellitus without complications (principal)

== ENCOUNTER → 2024-08-22 09:17 | Outpatient (BNVA) | payer OTHER, SELFPAY | PROVIDERS: PCP Family Medicine; Visit Provider Family Medicine | DX: E11.9 Type 2 diabetes mellitus without complications (principal); I10 Essential (primary) hypertension; J84.9 Interstitial pulmonary disease, unspecified; N95.0 Postmenopausal bleeding; R26.89 Other abnormalities of gait and mobility; R29.898 Other symptoms and signs involving the musculoskeletal system; M54.50 Low back pain, unspecified | CPT/HCPCS: 83036; 99212 ==

== ENCOUNTER 2024-10-09 10:12 | Outpatient (AMB) | payer OTHER, SELFPAY ==
--- NOTE | 2024-10-09 10:22 | A.OFFVIS_ITS ---
Vital Signs 10/09/24 10:25 Height 5 ft 4 in Weight 187 lb 6.287 oz BMI 32.2 BP 116/72 Blood Pressure Location Rt brachial Position Sitting Pulse 76 Pulse Source Pulse Oximeter Intake Visit Reasons: Type 2 DM/LVM Intake Note: Patient presents today for D2MT follow up visit. Last Diabetic Eye exam: 08/2023 Last Podiatry Visit:Doesn't have one Most Recent HgA1c: 6.5%, 08/22/2024 Random Glucose: 125 mg/dL, Today Care Companion Required: No Accompanied by: Self / Same As Patient Allergies No Known Allergies Allergy (Verified 10/09/24 10:24) Medication List - Last Reconciled 10/09/24 by Griselda Fernandez PA-C albuterol sulfate 90 mcg/actuation 1 puff inhalation Q4H PRN 1 month albuterol sulfate 2.5 mg (3 mL) inhalation Q4-6H PRN 30 days atorvastatin 10 mg PO DAILY blood sugar diagnostic (FreeStyle Lite Strips) USE DIRECTED 4 TO 5 TIMES A DAY. blood-glucose meter (FreeStyle Lite Meter kit) Test blood sugar 4-5x a day, As directed, 999 days [diabetic shoes extra depth orthopedic shoes ( 1 pair ) with customize heat molded multi density inner soles ( 3 pair) Dispense 1 Sig: As directed DX: And IDDM /polyneuropathy ( E11 0.42 ); hammertoe foot deformity ( M 20.41, and 20.42 ) pre ulcerative skin lesion ( L 85.1 ) Diagnosis ( E11 0.42 ) type 2 diabetes with polyneuropathy] lancets (FreeStyle Lancets) bid and prn glucose testing levothyroxine 37.5 mcg PO DAILY 90 days lidocaine 5% 1 patch topical DAILY PRN lisinopril-hydrochlorothiazide 20-12.5 mg 1 tab PO DAILY 90 days metformin ER 500 mg PO BID methylcellulose (laxative) (Citrucel) 1,000 mg (2 x 500 mg) PO DAILY miscellaneous medical supply diabetic shoes as directed; nebulizers Use every 4-6 hours prn for wheezing, shortness of breath HPI HPI Type 2 DM/LVM: Details: Patient is a 63-year-old female who presents today for a diabetic follow-up. Endo: DM-at our last visit she was increased on the Mounjaro and discontinued on glipizide. She is currently on Mounjaro 7.5 mg weekly and metformin 500 mg twice a day. Denies any low blood sugars. States that her blood sugars are overall well-controlled but recently she feels like she is able to eat more than she should be with the Mounjaro. She states that it does not appear to have any appetite suppressing qualities anymore. She is with someone who eats poorly and she thinks that this is throwing off her diet. She wants to be able to lose pedro ght and eat healthy. She is trying to walk every day. She thinks that she gets enough protein in her diet but is not sure. She says that she definitely has been eating more pasta than normal. Her most recent A1c is 6.6. -Does not follow with a senior search marketing analyst. No sores. Denies any known retinopathy. Follows annually with Ophthalmology. She does have microalbuminuria and is on an BERTHA-inhibitor. Her cholesterol has been managed with atorvastatin 10 mg. CV: Blood pressure today in the office is 116/72. She recently had her medication adjusted from her PCP and was started on lisinopril/hyd rochlorothiazide. [facility] Medical History Diverticulosis Poorly controlled diabetes mellitus Poorly controlled diabetes mellitus (~08/01/20) Thyroid disease GERD (gastroesophageal reflux disease) Asthma Elevated cholesterol HTN (hypertension) Osteoarthritis History of hepatitis C Diabetes Pneumonia Depression with anxiety Excessive daytime sleepiness Diabetic peripheral neuropathy Bilateral shoulder pain Sleep apnea Vaginal dryness Chronic back pain Seasonal allergic rhinitis Obesity (Unknown) Surgical History Hx of tubal ligation History of esophagogastroduodenoscopy (EGD) History of colonoscopy Left patella fracture History of cholecystectomy History of tonsillectomy Family History Father Prostate cancer Parkinsons Mother Stroke Son No problems noted. Son No problems noted. Daughter No problems noted. Sister Lung cancer Social History Household Members: None Housing: Apartment Are you a primary weekend caregiver to a significant other at home: No Do you presently have visiting nurse or other home services: No Alcohol intake: never Comment: 04/10 headache, will have caffinated beverage in D/C area Patient Tobacco Use Status: Former Tobacco user e-Cigarette/Vaping Use: Never Used Second Hand Smoke Exposure: No Advance Directives Date on File: 11/07/21 service: No Current occupational status: disabled Current occupational exposures/hazards: No Cognitive needs: No Hearing needs: No Vision needs: No Physical Exam Vital Signs: Last Vital Signs Pulse 76 10/09/24 10:25 BP 116/72 10/09/24 10:25 BMI result Body Mass Index 32.2 Const Orientation/consciousness: patient oriented x3 Neck Neck: Yes no lymphadenopathy Thyroid: Thyroid normal Carotids: no bruits Resp Auscultation: clear to auscultation bilaterally Cardio Rate: regular rate Rhythm: regular rhythm Heart sounds: S1 normal heart sound present and S2 normal heart sound present Peripheral pulses: dorsalis pedis present Neuro General: patient oriented x3, gait normal and no focal motor deficits Extrem Other: Monofilament sensation intact bilaterally. Vibratory sensation intact bilaterally. Skin intact. General: Yes normal to inspection Results Reviewed Results Reviewed: Laboratory Last Values Glucose (Clinic) 125 mg/dL (60-115) H 10/09/24 10:27 Laboratory Tests 07/07/24 08/22/24 10/09/24 13:28 16:49 10:27 Sodium 142 Potassium 3.7 Chloride 108 Carbon Dioxide 25 Anion Gap 13 BUN 14 Estimated GFR > 60 Glucose (Clinic) 125 H Hgb A1c (Clinic) 6.6 H AST 16 ALT 20 Triglycerides 219 H Cholesterol 154 LDL Cholesterol, Calc 74 HDL Cholesterol 37 L Assessment & Plan Assessment & Plan (1) Controlled type 2 diabetes mellitus: Code(s): E11.9 - Type 2 diabetes mellitus without complications Category: Medical Qualifiers: Diabetes mellitus termite control representative insulin use: without nursing home use Diabetes mellitus complication status: without complication Qualified Code(s): E11.9 - Type 2 diabetes mellitus without complications Plan: Needl joe downloaded for patient today. We discussed diet at length. I will increase Mounjaro to 10 mg. Did discuss with her that if her blood sugars start to go down she should discontinue the metformin. I will have her follow up in 3 months and complete labs prior to appointment. She will follow up sooner if needed. Patient was also educated that if she does lose weight further that she will have to monitor her blood pressures that she may need reduction and dosing. (2) HTN (hypertension): Code(s): I10 - Essential (primary) hypertension Category: Medical Qualifiers: Hypertension type: primary hypertension Qualified Code(s): I10 - Essential (primary) hypertension Plan: Currently well-controlled. Continue current regimen. (3) Hypertriglyceridemia: Code(s): E78.1 - Pure hyperglyceridemia Category: Medical Plan: Continue atorvastatin. Medications: New tirzepatide (Mounjaro) 10 mg (0.5 mL) subcut QWEEK 2 mL 5RF tirzepatide (Mounjaro) 10 mg (0.5 mL) subcut QWEEK 2 mL 5RF Refilled [diabetic shoes] extra depth orthopedic shoes ( 1 pair ) with customize heat molded multi density inner soles ( 3 pair) Dispense 1 Sig: As directed DX: And IDDM /polyneuropathy ( E11 0.42 ); hammertoe foot deformity ( M 20.41, and 20.42 ) pre ulcerative skin lesion ( L 85.1 ) Diagnosis ( E11 0.42 ) type 2 diabetes with polyneuropathy 1 ea 0RF Coding Level of Care Code Est Pt Level 4 (97609) Complex EM visit Add On G2211 Diagnoses Controlled type 2 diabetes mellitus without complication, without long-term current use of insulin E11.9 Diabetes mellitus nursing home insulin use: without termite control representative use Diabetes mellitus complication status: without complication Primary hypertension I10 Hypertension type: primary hypertension Hypertriglyceridemia E78.1
[2024-10-09 10:25] VITALS: BP 116/72; PULSE 76; BMI 32.2
[2024-10-09 10:33] LABS: Glucose, Whole Blood 125 mg/dL (60-115)
== END 2024-10-09 11:19 | disposition home or self-care (01) ==
PROVIDERS: PCP Family Medicine; Visit Provider Physician Assistant
DX: E11.9 Type 2 diabetes mellitus without complications (principal); I10 Essential (primary) hypertension; E78.1 Pure hyperglyceridemia

== ENCOUNTER → 2024-10-09 10:12 | Outpatient (BNVA) | payer OTHER, SELFPAY | PROVIDERS: PCP Family Medicine; Visit Provider Physician Assistant | DX: E11.9 Type 2 diabetes mellitus without complications (principal); I10 Essential (primary) hypertension; E78.1 Pure hyperglyceridemia | CPT/HCPCS: 82947; 99212 ==

== ENCOUNTER 2025-01-08 09:18 | Outpatient (AMB) | payer OTHER, SELFPAY ==
--- NOTE | 2025-01-08 09:22 | A.OFFVIS_ITS ---
Vital Signs 01/08/25 09:23 Height 5 ft 4 in Weight 194 lb 0.108 oz BMI 33.3 BP 118/78 Blood Pressure Location Rt brachial Position Sitting Pulse 85 Pulse Source Pulse Oximeter Pulse Oximetry (%) 96 Oxygen Delivery Method Room Air Intake Visit Reasons: dm Intake Note: Patient presents today for a follow-up on Type 2 Diabetes Mellitus: Last Diabetic Eye exam: OVER DUE Last Podiatry Visit: Patient does not see a [employer] Most Recent HgA1c: 8.8%, 01/08/2025 Random Glucose: 209 mg/dL, Today Shared Services Representative Required: No Accompanied by: Self / Same As Patient Allergies No Known Allergies Allergy (Verified 01/08/25 09:24) Medication List - Last Reconciled 01/08/25 by Griselda Fernandez PA-C albuterol sulfate 90 mcg/actuation 1 puff inhalation Q4H PRN 1 month albuterol sulfate 2.5 mg (3 mL) inhalation Q4-6H PRN 30 days atorvastatin 10 mg PO DAILY blood sugar diagnostic (FreeStyle Lite Strips) USE DIRECTED 4 TO 5 TIMES A DAY. blood-glucose meter (FreeStyle Lite Meter kit) Test blood sugar 4-5x a day, As directed, 999 days [diabetic shoes extra depth orthopedic shoes ( 1 pair ) with customize heat molded multi density inner soles ( 3 pair) Dispense 1 Sig: As directed DX: And IDDM /polyneuropathy ( E11 0.42 ); hammertoe foot deformity ( M 20.41, and 20.42 ) pre ulcerative skin lesion ( L 85.1 ) Diagnosis ( E11 0.42 ) type 2 diabetes with polyneuropathy] lancets (FreeStyle Lancets) bid and prn glucose testing levothyroxine 37.5 mcg PO DAILY 90 days lidocaine 5% 1 patch topical DAILY PRN lisinopril-hydrochlorothiazide 20-12.5 mg 1 tab PO DAILY 90 days metformin ER 500 mg PO BID methylcellulose (laxative) (Citrucel) 1,000 mg (2 x 500 mg) PO DAILY miscellaneous medical supply diabetic shoes as directed; nebulizers Use every 4-6 hours prn for wheezing, shortness of breath tirzepatide (Mounjaro) 10 mg (0.5 mL) subcut QWEEK HPI HPI dm: Details: Patient is a 64-year-old female who presents today for a diabetic follow-up. She states for the last 3 months she has been off of her medications until about 1 week ago. She states that she ran into insurance issues and because of the insurance issues then battled her depression which caused her to not care about her medications. Endo: DM-her A1c did increase from 6.6-8.8 today but states that she was off of medications for 3 months. She restarted Mounjaro 10 mg last week and states that despite being off the medication and restarting the high dose she does not have any symptoms. No nausea, vomiting or abdominal pain. She has not yet restarted the metformin. 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 No sores. Denies any known retinopathy. Follows annually with Ophthalmology. She does have microalbuminuria and is on an BERTHA-inhibitor. CV: Blood pressure today in the office is 116/72. She recently restarted on lisinopril/hydrochlorothiazide. Recently restarted the atorvastatin 2 days ago. [facility] Medical History Diverticulosis Poorly controlled diabetes mellitus Poorly controlled diabetes mellitus (~08/01/20) Thyroid disease GERD (gastroesophageal reflux disease) Asthma Elevated cholesterol HTN (hypertension) Osteoarthritis History of hepatitis C Diabetes Pneumonia Depression with anxiety Excessive daytime sleepiness Diabetic peripheral neuropathy Bilateral shoulder pain Sleep apnea Vaginal dryness Chronic back pain Seasonal allergic rhinitis Obesity (Unknown) Surgical History Hx of tubal ligation History of esophagogastroduodenoscopy (EGD) History of colonoscopy Left patella fracture History of cholecystectomy History of tonsillectomy Family History Father Prostate cancer Parkinsons Mother Stroke Son No problems noted. Son No problems noted. Daughter No problems noted. Sister Lung cancer Social History Household Members: None Housing: Apartment Are you a primary director long term care to a significant other at home: No Do you presently have visiting nurse or other home services: No Alcohol intake: never Comment: 04/10 headache, will have caffinated beverage in D/C area Patient Tobacco Use Status: Former Tobacco user e-Cigarette/Vaping Use: Never Used Second Hand Smoke Exposure: No Advance Directives Date on File: 11/07/21 service: No Current occupational status: disabled Current occupational exposures/hazards: No Cognitive needs: No Hearing needs: No Vision needs: No Physical Exam Vital Signs: Last Vital Signs Pulse 85 01/08/25 09:23 BP 118/78 01/08/25 09:23 Pulse Ox 96 01/08/25 09:23 Oxygen Delivery Method Room Air 01/08/25 09:23 BMI result Body Mass Index 33.3 Const Orientation/consciousness: patient oriented x3 HEENT Ears: hearing grossly normal bilaterally Neck Thyroid: Thyroid normal Lymphatic: no lymphadenopathy noted Resp Auscultation: clear to auscultation bilaterally Cardio Rate: regular rate Rhythm: regular rhythm Heart sounds: S1 normal heart sound present and S2 normal heart sound present Skin General skin exam: no rashes or lesions noted Neuro General: patient oriented x3, gait normal and no focal motor deficits Results AMB Hemoglobin A1c AMB Hemoglobin A1c 8.8 % Last Edit by ERIK Mobley on 01/08/25 09:50 Results Reviewed Results Reviewed: Laboratory Last Values Glucose (Clinic) 209 mg/dL (60-115) H 01/08/25 09:41 Hgb A1c (Clinic) 8.8 % (4.0-6.0) H 01/08/25 09:25 Assessment & Plan Assessment & Plan (1) Uncontrolled type 2 diabetes mellitus with hyperglycemia: Code(s): E11.65 - Type 2 diabetes mellitus with hyperglycemia Category: Medical Plan: We will restart metformin. Continue with the Tamy. If she does develop GI symptoms advised to let me know so I can reduce her dosage. We spent extensive time discussing compliance today and the importance of letting us know because there could have been alternative medications that we could have used or could have referred her to nurse navigation to see if there is anything that we can do to help. We reviewed that uncontrolled diabetes increases the risk of heart attack, stroke, kidney disease, blindness, amputations, infections etc.. She is aware of all of this. (2) HTN (hypertension): Code(s): I10 - Essential (primary) hypertension Category: Medical Qualifiers: Hypertension type: primary hypertension Qualified Code(s): I10 - Essential (primary) hypertension Plan: WNL. Discussed the importance of compliance. (3) Dyslipidemia: Code(s): E78.5 - Hyperlipidemia, unspecified Category: Medical Plan: She restarted atorvastatin. Again reviewed the importance of compliance. We will recheck labs prior to her next appointment. Plan Depression feels improved. She denies any SI/HI. We will follow up in 2-3 months and complete labs prior to appointment. She will follow up sooner if anything changes. Orders: Orders Comprehensive [place]. Panel Fast Today E11.65 - Type 2 diabetes mellitus with hyperglycemia, I10 - Essential (primary) hypertension B Type Natriuretic Peptide Today E11.65 - Type 2 diabetes mellitus with hyperglycemia, I10 - Essential (primary) hypertension Microalbumin, Random (w Creat) Today E11.65 - Type 2 diabetes mellitus with hyperglycemia, I10 - Essential (primary) hypertension AMB Hemoglobin A1c Today E11.9 - Type 2 diabetes mellitus without complications Lipid Panel Today E11.65 - Type 2 diabetes mellitus with hyperglycemia, I10 - Essential (primary) hypertension Hemoglobin A1c Today E11.65 - Type 2 diabetes mellitus with hyperglycemia, I10 - Essential (primary) hypertension, R73.01 - Impaired fasting glucose Medications: Refilled metformin ER 500 mg PO BID 180 tabs 3RF E11.9 - Type 2 diabetes mellitus without complications tirzepatide (Mounjaro) 10 mg (0.5 mL) subcut QWEEK 2 mL 5RF E11.40 - Type 2 diabetes mellitus with diabetic neuropathy, unspecified, E11.9 - Type 2 diabetes mellitus without complications Coding Level of Care Code Est Pt Level 4 (69850) Complex EM visit Add On G2211 Diagnoses Uncontrolled type 2 diabetes mellitus with hyperglycemia E11.65 Primary hypertension I10 Hypertension type: primary hypertension Dyslipidemia E78.5
[2025-01-08 09:23] VITALS: BP 118/78; PULSE 85; O2SAT 96; BMI 33.3
[2025-01-08 09:45] LABS: Glucose, Whole Blood 209 mg/dL (60-115)
== END 2025-01-08 11:24 | disposition home or self-care (01) ==
PROVIDERS: PCP Family Medicine; Visit Provider Physician Assistant
DX: E11.65 Type 2 diabetes mellitus with hyperglycemia (principal); I10 Essential (primary) hypertension; E78.5 Hyperlipidemia, unspecified; E11.9 Type 2 diabetes mellitus without complications

== ENCOUNTER → 2025-01-08 09:18 | Outpatient (BNVA) | payer MEDICARE, MEDICAID, SELFPAY | PROVIDERS: PCP Family Medicine; Visit Provider Physician Assistant | DX: E11.65 Type 2 diabetes mellitus with hyperglycemia (principal); E78.5 Hyperlipidemia, unspecified; I10 Essential (primary) hypertension | CPT/HCPCS: 82947; 83036; 99212 ==

== ENCOUNTER 2025-01-12 16:49 | Emergency (ER) | payer MEDICARE, MEDICAID, SELFPAY ==
--- NOTE | ~2025-01-12 | CT_ITS ---
CLINICAL HISTORY: Lightheaded, off balance, weakness CT head without contrast Comparison: CT/REG/AR - CT HEAD/BRAIN WO CON - 06/16/21 11:02 EDT Findings: No intracranial mass, midline shift, hydrocephalus, or acute hemorrhage. Moderate mucosal thickening identified within the right maxillary sinus. Incomplete visualization of the bilateral maxillary sinuses on this exam. The bilateral mastoid air cells appear clear. No acute skull fracture. Impression: 1. No acute intracranial abnormality. No acute intracranial hemorrhage. This document has been electronically signed by: Brooks Pratt MD on 01/13/2025 00:32:20
--- NOTE | ~2025-01-12 | XR_ITS ---
CLINICAL HISTORY: weakness 1 view chest x-ray. Comparison: CT/GA/SR - CT CHEST WO IV CON - 07/07/24 13:07 EDT CR/SR - XR CHEST 2V - 07/30/23 10:44 EDT Findings: No consolidation, pneumothorax, or effusion. Heart size normal. Impression: 1. No acute cardiopulmonary process. No focal pulmonary consolidation. This document has been electronically signed by: Brooks Pratt MD on 01/13/2025 00:18:15
[2025-01-12 16:58] VITALS: BP 168/94; PULSE 82; O2SAT 98
--- NOTE | 2025-01-12 16:58 | ECG_ITS ---
Test Reason : cp Blood Pressure : */* mmHG Vent. Rate : 76 BPM Atrial Rate : 76 BPM P-R Int : 160 ms QRS Dur : 92 ms QT Int : 392 ms P-R-T Axes : 55 -48 33 degrees QTcB Int : 441 ms Normal sinus rhythm Left anterior fascicular block Abnormal ECG When compared with ECG of 01-Jan-2023 12:26, No significant change was found Referred By: Generic ED Physician Electronically Signed By: KAVON EASON
[2025-01-12 17:14] VITALS: BMI 32.8
[2025-01-12 17:18] VITALS: BP 148/84; PULSE 76; RESP 16; TEMP 36.6; O2SAT 95
[2025-01-12 17:23] VITALS: BMI 32.8
[2025-01-12 19:27] LABS: MANUAL DIFF FLAG NO
[2025-01-12 19:31] LABS: Basophils Absolute Auto 0.1 X10*3/uL (0.0-0.2); Basophils Percent Auto 0.7 % (0-2); Eosinophils Absolute Auto 0.1 X10*3/uL (0.0-0.4); Eosinophils Percent Auto 1.2 % (0-4); Hematocrit 43.6 % (37.0-47.0); Hemoglobin 14.8 g/dl (12.0-16.0); Imm Gran Abs Auto 0.02 X10*3/uL (0.00-0.03); Imm Gran Pct Auto 0.2 % (0.0-0.4); Lymphocytes Absolute Auto 3.4 X10*3/uL (1.2-4.9); Lymphocytes Percent Auto 38.1 % (20-40); Mean Corpuscular HGB Conc 33.9 g/dl (31.0-35.0); Mean Corpuscular Hemoglobin 30.3 pg (27.0-33.0); Mean Corpuscular Volume 89.3 fL (80.0-98.0); Mean Platelet Volume 10.1 fL (9.4-12.3); Monocytes Absolute Auto 0.7 X10*3/uL (0.1-1.2); Monocytes Percent Auto 8.2 % (2-11); Neutrophils Absolute Auto 4.7 x10*3/uL (2.0-8.3); Neutrophils Percent Auto 51.6 % (45-73); Platelet Count 289 X10*3/uL (160-400); Red Blood Count 4.88 X10*6/uL (4.20-5.50); Red Cell Distribution Width 12.7 % (11.0-16.0)
[2025-01-12 19:36] LABS: Prothrombin Time 11.2 SEC (10.9-12.4)
[2025-01-12 19:43] LABS: Alanine Aminotransferase 21 U/L (0-31); Alkaline Phosphatase 87 U/L (39-117); Anion Gap 11 (12-20); Aspartate Amino Transferase 21 U/L (5-31); Bilirubin Total 0.4 mg/dL (0.0-1.0); Blood Urea Nitrogen 17 mg/dL (9-16); Calcium 9.4 mg/dL (8.4-10.2); Carbon Dioxide 26 mmol/L (22-29); Chloride 107 mmol/L (96-108); Creatinine Clr Calc Pharmacy 73.7; Estimated Glomerular Filt Rate > 60; Glucose Random 127 mg/dL (60-115); Magnesium 1.7 mg/dL (1.6-2.6); Potassium 4.1 mmol/L (3.3-5.1); Sodium 140 mmol/L (135-145); Total Protein 7.6 g/dL (6.5-8.0)
[2025-01-12 19:45] VITALS: BP 130/63; PULSE 71; RESP 16; TEMP 36.2; O2SAT 97
[2025-01-12 19:51] LABS: Troponin-I High Sensitivity < 2.7 ng/L (<3.5-17.0)
[2025-01-12 22:09] VITALS: BP 110/64; PULSE 68; RESP 18; TEMP 36.8; O2SAT 96
--- NOTE | 2025-01-12 22:10 | PC.NURSE ---
no chnge in assessment. has been sleeping mostly. states she has periods of palpitations even while at rest. awaits ED provider
--- NOTE | 2025-01-12 22:56 | PC.NURSE ---
assumed care of pt, still waiting to be seen by provider. no complaints at this time.
[2025-01-13 00:04] LABS: Thyroid Stimulating Hormone 2.68 uIU/mL (0.32-4.0)
[2025-01-13 00:22] VITALS: BP 125/67; PULSE 84
[2025-01-13 00:23] VITALS: BP 125/67; PULSE 84; RESP 16; TEMP 36.6; O2SAT 97
[2025-01-13 00:33] LABS: Appearance Urine Clear; Color Urine Yellow; Glucose Urine UA Negative (Negative); Leukocyte Esterase Urine Moderate (2+) (Negative); Nitrite Urine Positive (Negative); PH 5.5 (5.0-9.0); Specific Gravity - Urine 1.015 (1.005-1.025); UMIC TRIGGER UACC YES; Urine Blood Negative (Negative); Urine Ketones Negative (Negative); Urine Protein Negative (Neg-Trace)
[2025-01-13 00:47] LABS: Bacteria Urine 4+ (None Seen); Hyaline Casts Urine 0-2 /LPF (0-2); RBC Urine 0-2 /HPF (0-2); Squamous Epithelial Cell Urine 0-2 /HPF (0-2); UACC Culture Trigger YES
--- NOTE | 2025-01-13 01:23 | ED_ITS ---
HPI - Neuro Symptoms/Deficit General Chief Complaint: Neuro Symptoms/Deficit Stated Complaint: palpitations, diff finding words x 2weeks Time Seen by Provider: 01/12/25 23:09 Source: patient, EMS, RN notes reviewed and old records reviewed Mode of arrival: EMS History of Present Illness ED Provider: Mckenna Davis PA-C HPI Narrative: 64-year-old female with a past medical history of GERD, asthma, HLD, oa, diabetes, sleep apnea, obesity, presenting to the ED complaining of generalized fatigue/weakness, intermittent palpitations / lightheadedness / and feeling off balance with ambulation x2 weeks. Admits symptoms are intermittent, worse with position change. Denies room spinning dizziness. Denies focal weakness, headache, vision change or loss, blurry vision, numbness, tingling, CP/SOB, abdominal pain, nausea/vomiting Related Data Previous Rx's ?Medication ?Instructions ?Recorded nebulizers #1 ea 11/24/21 methylcellulose (laxative) 500 mg 1,000 mg (2 x 500 mg) PO DAILY #60 08/31/22 tablet (Citrucel) tabs albuterol sulfate 2.5 mg/3 mL 2.5 mg (3 mL) inhalation Q4-6H PRN 10/08/22 (0.083 %) solution for nebulization shortness of breath or wheezing 30 days #180 mL albuterol sulfate 90 mcg/actuation 1 puff inhalation Q4H PRN 10/08/22 aerosol inhaler shortness of breath or wheezing or broncospasm 1 month #8.5 grams blood-glucose meter (FreeStyle #1 ea 02/28/23 Lite Meter kit) lisinopril 20 1 tab PO DAILY 90 days #90 tabs 02/23/24 mg-hydrochlorothiazide 12.5 mg tablet miscellaneous medical supply See Rx Instructions miscellaneous 04/07/24 .COMPLEX #2 ea lidocaine 5 % topical patch 1 patch topical DAILY PRN pain 04/15/24 (scale score 7-10) #15 ea atorvastatin 10 mg tablet 10 mg PO DAILY #30 tabs 05/03/24 blood sugar diagnostic (FreeStyle #100 ea 05/22/24 Lite Strips) lancets 28 gauge (FreeStyle #100 ea 05/22/24 Lancets) levothyroxine 37.5 mcg capsule 37.5 mcg PO DAILY 90 days #90 caps 09/27/24 diabetic shoes #1 ea 10/09/24 metformin 500 mg tablet,extended 500 mg PO BID #180 tabs 01/08/25 release 24 hr tirzepatide 10 mg/0.5 mL 10 mg (0.5 mL) subcut QWEEK #2 mL 01/08/25 subcutaneous pen injector (Mounjaro) cefuroxime axetil 250 mg tablet 250 mg PO BID 7 days #14 tabs 01/13/25 Allergies Allergy/AdvReac Type Severity Reaction Status Date / Time No Known Allergies Allergy Verified 01/12/25 17:26 Review of Systems 2 Review of Systems: Yes all other systems are reviewed and are negative Constitutional: Constitutional: Reports as per HPI Neurologic: Denies Abnormal speech present [facility] Past Medical History Attestation statement: The following information was validated with the patient. Source: old records reviewed Medical History Diverticulosis Poorly controlled diabetes mellitus Poorly controlled diabetes mellitus (~08/01/20) Thyroid disease GERD (gastroesophageal reflux disease) Asthma Elevated cholesterol HTN (hypertension) Osteoarthritis History of hepatitis C Diabetes Pneumonia Depression with anxiety Excessive daytime sleepiness Diabetic peripheral neuropathy Bilateral shoulder pain Sleep apnea Vaginal dryness Chronic back pain Seasonal allergic rhinitis Obesity (Unknown) Surgical History Hx of tubal ligation History of esophagogastroduodenoscopy (EGD) History of colonoscopy Left patella fracture History of cholecystectomy History of tonsillectomy Family History Family History Father Prostate cancer Parkinsons Mother Stroke Son No problems noted. Son No problems noted. Daughter No problems noted. Sister Lung cancer Social History Social History Household Members: None Housing: Apartment Are you a primary childcare teacher to a significant other at home: No Do you presently have visiting nurse or other home services: No Alcohol intake: never Comment: 04/10 headache, will have caffinated beverage in D/C area Patient Tobacco Use Status: Former Tobacco user e-Cigarette/Vaping Use: Never Used Second Hand Smoke Exposure: No Advance Directives Date on File: 11/07/21 service: No Current occupational status: disabled Current occupational exposures/hazards: No Cognitive needs: No Hearing needs: No Vision needs: No Physical Exam 2 Vital Signs: Vital Signs: Last Vital Signs Temp 97.9 F 01/13/25 01:44 Pulse 84 01/13/25 01:44 Resp 16 01/13/25 01:44 BP 125/67 01/13/25 01:44 Pulse Ox 97 01/13/25 01:44 O2 Del Method Room Air 01/13/25 01:44 BMI result Body Mass Index 32.8 Const: General: cooperative, healthy appearing and no acute distress O rientation/consciousness: patient oriented x3 Limitations: no limitations HEENT: Head: Yes normal to inspection and Yes atraumatic Ears: hearing grossly normal bilaterally General nose exam: Normal external nose present Face and sinus: Yes normal facial exam Eyes: General: appearance normal, both eyes and all related structures P upils: Equal, round and reactive pupils present EOM: EOMs intact bilaterally Neck: Neck: Yes normal visual inspection and Yes no meningeal signs Resp: Effort & Inspection: normal respiratory effort and no respiratory distress Auscultation: clear to auscultation bilaterally, no rhonchi and no wheezes Cardio: Rate: regular rate Heart sounds: S1 normal heart sound present and S2 normal heart sound present GI: Inspection: Yes normal to inspection Palpation (GI): Soft to palpation, nontender, no guarding and not rigid : General: Yes no CVA tenderness Back/Spine/Pelvis: Back: no CVA tenderness Skin: Rashes: no rashes Wounds: no wounds Neuro: General: patient oriented x3, gait normal, tone normal, moves all extremities, no meningeal signs, no focal motor deficits and CN's II-XI intact bilaterally Cranial nerves: Yes CN's II-XII intact bilaterally and Yes Equal, round and reactive pupils present Cognition (Neuro): normal cognition S peech: No Abnormal speech present Gait exam (Neuro): Normal gait present and not ataxic Motor exam (neuro): 5/5 motor strength present throughout, Pronator motor function not present and no tremor noted Coordination: f [id number] test normal Romberg Test: Negative Extrem: General: Yes normal to inspection Course Course Course Narrative: -labs reassuring including negative troponin and TSH -UA infected will treat with p.o. Ceftin CT head/brain wo IV con Impression: 1. No acute intracranial abnormality. No acute intracranial hemorrhage. XR chest 1V Impression: 1. No acute cardiopulmonary process. No focal pulmonary consolidation. -orthostatic vital signs negative Results discussed with patient including worrisome signs and symptoms and strict return precautions, and when to return to the emergency department. They verbalized understanding and feel safe for discharge at this time. Medications Administered Discontinued Medications Generic Name Dose Route Start Last Admin Trade Name Zafar PRN Reason Stop Dose Admin Cefuroxime Axetil 250 mg 01/13/25 01:31 01/13/25 01:37 Cefuroxime Axetil 250 Mg Tablet PO 01/13/25 01:32 250 mg ONCE ONE Administration Medical Decision Making Medical Decision Making [facility] Narrative: 64-year-old female with a past medical history of GERD, asthma, HLD, oa, diabetes, sleep apnea, obesity, presenting to the ED complaining of generalized fatigue/weakness, intermittent palpitations / lightheadedness / and feeling off balance with ambulation x2 weeks. On exam vital signs stable, NAD, nontoxic appearing, no focal neuro deficits, ambulating with steady gait, no ataxia. Concern for BPPV vs metabolic abnormalities vs thyroid disorder vs ? Subacute CVA. Low suspicion for acute posterior CVA, meningitis/encephalitis, CVT or ACS Plan: EKG, labs, UA, CXR, orthostatics, viral testing, re-evaluate Please refer to course for remaining clinical decision making, interpretation of labs/imaging results, and discussions with consultants and/or family members. Differential Diagnosis Differential Diagnoses: The differential diagnosis associated with the presentation includes As above Admission/Observation Consideration of admission/observation: Escalation of care including admission/observation considered Lab Data [facility] Lab Attestation statement: I reviewed the patient's lab results. 01/12/25 19:22 01/12/25 19:22 Labs: Lab Results 01/12/25 01/13/25 Range/Units 19:22 00:26 WBC 9.0 (4.8-10.8) X10*3/uL RBC 4.88 (4.20-5.50) X10*6/uL Hgb 14.8 (12.0-16.0) g/dl Hct 43.6 (37.0-47.0) % MCV 89.3 (80.0-98.0) fL MCH 30.3 (27.0-33.0) pg MCHC 33.9 (31.0-35.0) g/dl RDW 12.7 (11.0-16.0) % Plt Count 289 (160-400) X10*3/uL MPV 10.1 (9.4-12.3) fL Immature Gran % (Auto) 0.2 (0.0-0.4) % Neut % (Auto) 51.6 (45-73) % Lymph % (Auto) 38.1 (20-40) % Guthrie % (Auto) 8.2 (2-11) % Eos % (Auto) 1.2 (0-4) % Baso % (Auto) 0.7 (0-2) % Lymph # (Auto) 3.4 (1.2-4.9) X10*3/uL Guthrie # (Auto) 0.7 (0.1-1.2) X10*3/uL Eos # (Auto) 0.1 (0.0-0.4) X10*3/uL Baso # (Auto) 0.1 (0.0-0.2) X10*3/uL Abs Immat Gran (auto) 0.02 (0.00-0.03) X10*3/uL Absolute Neuts (auto) 4.7 (2.0-8.3) x10*3/uL Absolute Nucleated RBC 0.000 (0.0-0.012) X10*3/uL Nucleated RBC % (auto) 0.0 (0.0-0.2) /100WBC PT 11.2 (10.9-12.4) SEC INR 1.0 (0.9-1.1) Sodium 140 (135-145) mmol/L Potassium 4.1 (3.3-5.1) mmol/L Chloride 107 (96-108) mmol/L Carbon Dioxide 26 (22-29) mmol/L Anion Gap 11 L (12-20) BUN 17 H (9-16) mg/dL Creatinine 0.81 (0.5-1.4) mg/dL Estim Creat Clear Calc 73.7 Estimated GFR > 60 Random Glucose 127 H (60-115) mg/dL Calcium 9.4 (8.4-10.2) mg/dL Magnesium 1.7 (1.6-2.6) mg/dL Total Bilirubin 0.4 (0.0-1.0) mg/dL AST 21 (5-31) U/L ALT 21 (0-31) U/L Alkaline Phosphatase 87 (39-117) U/L Troponin I High Sens < 2.7 (<3.5-17.0) ng/L Total Protein 7.6 (6.5-8.0) g/dL Albumin 4.0 (3.5-5.0) g/dL TSH 2.68 (0.32-4.0) uIU/mL Urine Color Yellow Urine Appearance Clear Urine pH 5.5 (5.0-9.0) Ur Specific [place] 1.015 (1.005-1.025) Urine Protein Negative (Neg-Trace) mg/dL Urine Glucose (UA) Negative (Negative) mg/dL Urine Ketones Negative (Negative) mg/dL Urine Blood Negative (Negative) Urine Nitrite Positive H (Negative) Ur Leukocyte Esterase Moderate (2+) H (Negative) Urine RBC 0-2 (0-2) /HPF Urine WBC 11-20 H (0-5) /HPF Ur Squamous Epith Cells 0-2 (0-2) /HPF Urine Bacteria 4+ (None Seen) Hyaline Casts 0-2 (0-2) /LPF Independent Interpretation I performed an independent interpretation of an: EKG (My interpretation EKG normal sinus rhythm rate of 76. DC interval 160. No significant change when compared to prior. No STEMI ), Plain X-Ray and CT Scan Radiology Impression Discussion of test interpretation with radiology: I have reviewed the radiologist's reading. Independent Historian Clinical information obtained from an independent historian. History obtained from or confirmed by: EMS External Record Review External record reviewed: Inpatient record, Office record, Outpatient record, Prior outpatient labs, Prior outpatient radiology, Primary care record and Outside ED record Tests considered The following testing was considered but not selected: As above Prescription Management I considered prescription management with: Pain Medication Chronic Conditions Patient?s care impacted by: Diabetes, Hypertension and Other Social Determinants Patient?s care significantly limited by Social Determinants of Health including: Other Social Determinant of Health Discharge Plan Discharge Clinical Impression: Acute UTI, Weakness, Palpitations, Lightheadedness Patient Disposition: Home, Self-Care Instructions: Heart Palpitations (DC), Urinary Tract Infection in Women (DC), Lightheadedness (ED) Additional Instructions: You have a urine infection. Ceftin as an antibiotic please take as prescribed Your workup was otherwise reassuring/unremarkable, your CT scan of your brain was negative Please have close follow up with her primary care doctor, make sure you are staying hydrated Change positions slowly If her symptoms persist or worsen or become more constant return to the emergency department Follow up with Neurology Prescriptions: New cefuroxime axetil 250 mg tablet 250 mg PO BID 7 Days Qty: 14 0RF No Action (DME) nebulizers Misc See Rx Instructions .Route Qty: 1 0RF Rx Instructions: Use every 4-6 hours prn for wheezing, shortness of breath albuterol sulfate 2.5 mg /3 mL (0.083 %) solution for nebulization 2.5 mg inhalation Q4-6H PRN (Reason: shortness of breath or wheezing) 30 Days Qty: 180 1RF albuterol sulfate 90 mcg/actuation HFA aerosol inhaler 1 puff inhalation Q4H PRN (Reason: shortness of breath or wheezing or broncospasm) 30 Days Qty: 8.5 6RF (DME) blood-glucose meter [FreeStyle Lite Meter] Kit See Rx Instructions .Route Qty: 1 3RF Rx Instructions: Test blood sugar 4-5x a day, As directed, 999 days atorvastatin 10 mg tablet 10 mg PO DAILY Qty: 30 5RF (DME) FreeStyle Lite Strips Strip See Rx Instructions .ROUTE .COMPLEX Qty: 100 5RF Dose Instruction: USE DIRECTED 4 TO 5 TIMES A DAY. Rx Instructions: USE DIRECTED 4 TO 5 TIMES A DAY. (DME) lancets [FreeStyle Lancets] [facility] See Rx Instructions .ROUTE .MEDSUPPLY Qty: 100 5RF Rx Instructions: bid and prn glucose testing levothyroxine 37.5 mcg capsule 37.5 mcg PO DAILY 90 Days Qty: 90 0RF lidocaine 5 % adhesive patch,medicated 1 patch topical DAILY PRN (Reason: pain (scale score 7-10)) Qty: 15 0RF Rx Instructions: leave on most painful area for up to 12 hrs lisinopril-hydrochlorothiazide 20-12.5 mg tablet 1 tab PO DAILY 90 Days Qty: 90 2RF Citrucel 500 mg tablet 1,000 mg PO DAILY Qty: 60 2RF Rx Instructions: take it with full glass of water miscellaneous medical supply Misc See Rx Instructions miscellaneous .COMPLEX Qty: 2 1RF Rx Instructions: diabetic shoes as directed; (DME) diabetic shoes See Rx Instructions .ROUTE .MEDSUPPLY Qty: 1 0RF Rx Instructions: extra depth orthopedic shoes ( 1 pair ) with customize heat molded multi density inner soles ( 3 pair) Dispense 1 Sig: As directed DX: And IDDM /polyneuropathy ( E11 0.42 ); hammertoe foot deformity ( M 20.41, and 20.42 ) pre ulcerative skin lesion ( L 85.1 ) Diagnosis ( E11 0.42 ) type 2 diabetes with polyneuropathy metformin 500 mg tablet extended release 24 hr 500 mg PO BID Qty: 180 3RF Mounjaro 10 mg/0.5 mL pen injector 10 mg subcut QWEEK Qty: 2 5RF [place] [facility] [place] Group] Jean Carlos Page MD [Primary Care Provider] - 3 days Interventions: ED Discharge Assessment Last Done: 01/13/25 01:44 Discharge Date/Time: 01/13/25 01:45 Print Language: Uzbek
[2025-01-13] MEDS: cefuroxime axetiL 250 MG TABLET PO (01:37)
[2025-01-13 01:44] VITALS: BP 125/67; PULSE 84; RESP 16; TEMP 36.6; O2SAT 97
== END 2025-01-13 01:45 | disposition home or self-care (01) ==
PROVIDERS: Physician Assistant; Physician Assistant Medical; Emergency Provider Emergency Medicine; PCP Family Medicine
DX: R00.2 Palpitations (principal); N39.0 Urinary tract infection, site not specified; R42 Dizziness and giddiness; R53.1 Weakness; R07.89 Other chest pain; R94.31 Abnormal electrocardiogram [ECG] [EKG]; Z79.899 Other long term (current) drug therapy
CPT/HCPCS: 36415; 70450; 71045; 80053; 81001; 83735; 84443; 84484; 85025; 85610; 87086; 87088; 87186; 93005; 99284; 99285

== ENCOUNTER → 2025-01-12 16:58 | Outpatient (BNV) | payer MEDICARE, MEDICAID, SELFPAY | PROVIDERS: Emergency Provider Emergency Medicine; PCP Family Medicine; Visit Provider Internal Medicine | DX: I44.4 Left anterior fascicular block (principal) | CPT/HCPCS: 93010 ==

== ENCOUNTER → 2025-01-12 23:27 | Outpatient (BNV) | payer MEDICARE, MEDICAID, SELFPAY | PROVIDERS: PCP Family Medicine; Visit Provider Radiology Diagnostic Radiology | DX: R42 Dizziness and giddiness (principal); R53.1 Weakness | CPT/HCPCS: 70450; 71045 ==

== ENCOUNTER 2025-01-26 11:54 | Day surgery (SDC) | payer MEDICARE, MEDICAID, SELFPAY ==
[2025-01-24 14:30] VITALS: BMI 32.8
--- NOTE | 2025-01-25 09:41 | P.CONAN_ITS ---
HPI - Anesthesia Eval Consult details Narrative: 64yo F for Upper Endoscopy Anesthesia Pre-Procedure Meds Is the patient on any of the following meds?: GLP1/DPP4 PMFSH Active Problems Active Problems: All Active Problems Dyslipidemia (Acute) Uncontrolled type 2 diabetes mellitus with hyperglycemia (Acute) Low back pain (Acute) Imbalance (Acute) Controlled type 2 diabetes mellitus (Acute) Interstitial lung disease (Acute) Uterine myoma (Acute) Postmenopausal bleeding (Acute) Myofascial pain syndrome of thoracic spine (Acute) Headache (Acute) Hypertriglyceridemia (Acute) Neoplasm of uncertain behavior of skin (Acute) Hypothyroidism (Acute) Breast cancer screening by mammogram (Acute) Screening for colon cancer (Acute) Screening for cervical cancer (Acute) Adult general medical exam (Acute) COVID-19 (Acute) 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 (Acute) Carcinoid tumor of stomach (Acute) Lower extremity weakness (Acute) Diabetic neuropathy (Acute) Restless legs syndrome (Acute) Cervicalgia (Acute) Elevated TSH (Acute) Low HDL (under 40) (Acute) Elbow pain (Acute) Daytime sleepiness (Acute) Weakness of upper extremity (Acute) Otitis media (Acute) Viral upper respiratory illness (Acute) Back pain (Acute) 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 hauler manifesting chronic dyspnea (Acute) Physical deconditioning (Acute) Supplemental oxygen dependent (Acute) COVID (Acute) Left arm weakness (Acute) Cough (Acute) Sleep disorder (Acute) Snoring (Acute) Fatigue (Acute) Dizziness (Acute) Rash (Acute) Vaginal yeast infection (Acute) Blepharitis (Acute) Diarrhea (Acute ~12/2018) Diverticulosis (Acute) Asthma (Acute) HTN (hypertension) (Acute) Diabetes (Acute) Chronic back pain (Acute) History of hepatitis C (Acute) Past Medical History Medical History Diverticulosis Thyroid disease GERD (gastroesophageal reflux disease) Asthma Elevated cholesterol HTN (hypertension) Osteoarthritis History of hepatitis C Diabetes Pneumonia Depression with anxiety Excessive daytime sleepiness Diabetic peripheral neuropathy Bilateral shoulder pain Sleep apnea Chronic back pain Seasonal allergic rhinitis Obesity (Unknown) Family History Family History Father Prostate cancer Parkinsons Mother Stroke Son No problems noted. Son No problems noted. Daughter No problems noted. Sister Lung cancer Family history of problems with anesthesia: No Surgical History Surgical History Hx of tubal ligation History of esophagogastroduodenoscopy (EGD) History of colonoscopy Left patella fracture History of cholecystectomy History of tonsillectomy History of Problems with Anesthesia: No Social History Social History Household Members: None Housing: Apartment Are you a primary medicare sales representative to a significant other at home: No Do you presently have visiting nurse or other home services: No Alcohol intake: never Comment: 04/10 headache, will have caffinated beverage in D/C area Patient Tobacco Use Status: Former Tobacco user e-Cigarette/Vaping Use: Never Used Second Hand Smoke Exposure: No Use of substances other than those prescribed or required for medical reasons: No Have you been hit, kicked, punched, or otherwise hurt by someone within the past year? If so, by whom?: No Are you DNR?: No Advance Directives: No Advance Directives Information Provided: Yes Advance Directives Date on File: 11/07/21 Recently lost weight without trying: No Nutrition Risks: No Nutritional Risk service: No Current occupational status: disabled Current occupational exposures/hazards: No Cognitive needs: No Hearing needs: No Vision needs: No Meds Allergies Allergy/AdvReac Type Severity Reaction Status Date / Time No Known Allergies Allergy Verified 01/26/25 12:18 Exam Height,Weight and Vital Signs: Height 5 ft 4 in Weight 86.636 kg Pertinent Lab Results Pertinent Lab Results: Laboratory Tests 01/12/25 19:22 WBC 9.0 Hgb 14.8 Hct 43.6 Plt Count 289 Sodium 140 Potassium 4.1 Chloride 107 Carbon Dioxide 26 BUN 17 H Creatinine 0.81 Narrative Narrative: EKG 12/2024 Vent. Rate : 76 BPM Atrial Rate : 76 BPM P-R Int : 160 ms QRS Dur : 92 ms QT Int : 392 ms P-R-T Axes : 55 -48 33 degrees QTcB Int : 441 ms Normal sinus rhythm Left anterior fascicular block Abnormal ECG When compared with ECG of 01-Jan-2023 12:26, No significant change was found Assessment and Plan Assessment Anesthesia Assessment: Chart Reviewed Final Anesthetic Review Family History of Problems with Anesthesia: No History of Problems with Anesthesia: No
[2025-01-26 12:32] VITALS: BMI 32.9
[2025-01-26 12:35] VITALS: BP 114/64; PULSE 75; RESP 12; TEMP 36.3; O2SAT 96; BMI 32.9
[2025-01-26] MEDS: Lactated Ringers 1,000 ML 100 ML IVCONT (12:38)
[2025-01-26 13:14] LABS: Glucose, Whole Blood 139 mg/dL (60-115)
--- NOTE | 2025-01-26 13:33 | MHC.SHP ---
Pre-Procedural Eval Section A - 24 Hr Update-Section A only Date of Service: 01/26/25 The patient is an INPATIENT: No The patient has been examined within 24 hours of the surgical procedure. The History & Physical has been completed within 30 days and I have reviewed it.: No Section B - Complete if H&P > 30 days Chief Complaint: FU of Malignant carcinoid tumor of the stomach Relevant Family History (Specify if Yes): No Relevant Social History: None Present Medications: see Short Stay Collaborative assessment Medical History: Significant History (Thyroid disease GERD (gastroesophageal reflux disease) Asthma Elevated cholesterol HTN (hypertension) Osteoarthritis History of hepatitis C Diabetes Pneumonia Depression with anxiety Excessive daytime sleepiness Diabetic peripheral neuropathy Bilateral shoulder pain Sleep apnea Vaginal dryness Chron) History of Previous Operations: Relevant previous surgery/procedure and date(s) (Hx of tubal ligation History of esophagogastroduodenoscopy (EGD) History of colonoscopy Left patella fracture History of cholecystectomy History of tonsillectomy) Allergies: Allergies Allergy/AdvReac Type Severity Reaction Status Date / Time No Known Allergies Allergy Verified 01/26/25 12:18 Review of Systems Sugical H&P ROS: Negative: Constitution, Cardiovascular, Respiratory and Gastrointestinal Exam Surgical H&P Exam: Normal: Heart, Normal: Lungs, Normal: Extremities and Normal: Abdomen Plan Diagnosis/Plan: Unchanged I have reviewed the history and physical and performed a pertinent physical examination on my patient. No changes have occurred unless specified. Time Spent With Patient Time: Total time managing care of this patient today ____ minutes.
--- NOTE | 2025-01-26 13:46 | P.OP_ITS ---
Operative Note Operative Note Date of Service: 01/26/25 Narrative: FLEXIBLE TRANSORAL UPPER GASTROINTESTINAL ENDOSCOPY WITH BIOPSIES Pre-op diagnosis: Follow-up of gastric carcinoid Post-op diagnosis: Gastritis, Endoscopist:? Anna Vigil MD Anesthesia:?MAC UPPER ENDOSCOPY Consent: Indications for the procedure and potential complications of bleeding, perforation, reaction to medications and missed diagnosis were discussed with the patient and informed consent was obtained. Instrument: Olympus GIF H 190 mid size upper endoscope Monitoring: Vital signs and clinical assessment, continuous EKG monitoring, Pulse oximetry, Carbon Dioxide monitoring and blood pressure monitoring were done throughout the procedure. Procedure: The patient was placed in the left lateral decubitis position and pre-procedure medications were administered and a bite block was placed. The endoscope was inserted into the mouth and advanced under direct vision to the third part of duodenum. A careful inspection was made as the upper endoscope was withdrawn including a retroflexed examination of the proximal stomach; Findings and interventions are described below. Findings: Larynx: Normal Esophagus: GE junction at 35 cms. No esophagitis, Olvera's, stricture or ring. Stomach: Moderate diffuse gastric erythema. Biopsies were obtained from the gastric antrum and body during a previous EGD.? Polypectomy site (marked by T spot) identified at 50 cms (a well differentiated carcinoid was removed during a previous EGD in 05/2023). Multiple biopsies were obtained from the polypectomy site. Grade 2 flap valve on retroflexed examination of the cardia. Duodenum: Normal bulb and descending duodenum Intervention: Biopsies as noted above Impression and Post Procedure Diagnosis: Endoscopy Findings: ESOPHAGUS: Normal STOMACH: Polypectomy site (marked by T spot) identified at 50 cms (a well dif ferentiated carcinoid was removed during a previous EGD in 05/2023). Multiple biopsies were obtained from the polypectomy site. DUODENUM: Normal Plan: Pt has a FU appointment on 02/12/25 with Lisa Vaughan NP. Above findings were reviewed with the patient and relevant handouts were given and the discharge area.
[2025-01-26 14:02] VITALS: BP 107/81; PULSE 71; RESP 16; TEMP 36.1; O2SAT 98
[2025-01-26 14:15] VITALS: BP 112/59; PULSE 81; RESP 16; TEMP 36.4; O2SAT 98
== END 2025-01-26 14:40 | disposition home or self-care (01) ==
PROVIDERS: PCP Family Medicine; Visit Provider Internal Medicine Gastroenterology
PROC: 0DJ08ZZ Inspection of Upper Intestinal Tract, Via Natural or Artificial Opening Endoscopic (ICD-10-PCS; CPT 43235; principal; 2025-01-26 13:40)
DX: K29.50 Unspecified chronic gastritis without bleeding (principal); Z85.020 Personal history of malignant carcinoid tumor of stomach; K21.9 Gastro-esophageal reflux disease without esophagitis; I10 Essential (primary) hypertension; E78.00 Pure hypercholesterolemia, unspecified; J45.909 Unspecified asthma, uncomplicated; E07.9 Disorder of thyroid, unspecified; E11.42 Type 2 diabetes mellitus with diabetic polyneuropathy; F41.9 Anxiety disorder, unspecified; Z86.19 Personal history of other infectious and parasitic diseases; Z87.01 Personal history of pneumonia (recurrent); Z79.84 Long term (current) use of oral hypoglycemic drugs; Z79.85 Long-term (current) use of injectable non-insulin antidiabetic drugs; Z79.899 Other long term (current) drug therapy; Z98.890 Other specified postprocedural states
CPT/HCPCS: 43239; 82947; 88305; 88313; 88342; J2003; J2704

== ENCOUNTER → 2025-01-26 11:54 | Outpatient (BNV) | payer MEDICARE, MEDICAID, SELFPAY | PROVIDERS: PCP Family Medicine; Visit Provider Internal Medicine Gastroenterology | DX: K29.70 Gastritis, unspecified, without bleeding (principal) | CPT/HCPCS: 43239 ==

== ENCOUNTER 2025-02-12 11:23 | Outpatient (AMB) | payer MEDICARE, MEDICAID, SELFPAY ==
--- NOTE | 2025-02-12 12:09 | A.OFFVIS_ITS ---
Vital Signs 02/12/25 12:15 Height 5 ft 4 in Weight 187 lb 13.341 oz BMI 32.2 BP 122/64 Blood Pressure Location Rt brachial Position Sitting Pulse 96 Pulse Source Pulse Oximeter Pulse Oximetry (%) 96 Oxygen Delivery Method Room Air Intake Visit Reasons: s/p repeat egd Intake Note: ESTABLISHED PATIENT for s/p EGD. Chief Complaint; C/O constipation. Pt states that they had originally gone off of the citrucel because they had been doing OK without it. However; since starting their new regimen of vitamins, they have been having difficulties again. Pt is not sure if they should restart citrucel or if they should try another variety. No additional concerns reported. 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 No longer needs PPI. Moderate gastric erythema noted on upper endoscopy, biopsy showed no dysplasia. Recommendation was made for patient to return for upper endoscopy in 6 months to re-evaluate. Patient reports that she is currently moving her bowels without any issues. No longer needs to take Linzess. Patient was encouraged to increase fluid intake and activity to promote better bowel motility. Patient was also encouraged to increase fiber in her diet. May take probiotics daily. Follow-up in the office in after endoscopy, sooner on as needed basis. She is agreeable to this plan and verbalizes understanding of instructions. She was given the opportunity to ask questions and all questions answered. ? Thank you for allowing me to participate in her care Medications Discontinued pantoprazole Discontinued Reason: Patient no longer taking 40 mg PO QAM 90 tabs 2RF sucralfate Discontinued Reason: Patient no longer taking 1 g PO BEDTIME 90 tabs 1RF R19.7 linaclotide (Linzess) Discontinued Reason: Patient no longer taking 145 mcg PO DAILY 30 caps 2RF ENDOSCOPY: Findings: Larynx: Normal Esophagus: GE junction at 35 cms. No esophagitis, Olvera's, stricture or ring. Stomach: Moderate diffuse gastric erythema. Biopsies were obtained from the gastric antrum and body during a previous EGD.? Polypectomy site (marked by T spot) identified at 50 cms (a well differentiated carcinoid was removed during a previous EGD in 05/2023). Multiple biopsies were obtained from the polypectomy site. Grade 2 flap valve on retroflexed examination of the cardia. Duodenum: Normal bulb and descending duodenum Intervention: Biopsies as noted above Impression and Post Procedure Diagnosis: Endoscopy Findings: ESOPHAGUS: Normal STOMACH: Polypectomy site (marked by T spot) identified at 50 cms (a well differentiated carcinoid was removed during a previous EGD in 05/2023). Multiple biopsies were obtained from the polypectomy site. DUODENUM: Normal Plan: Above findings were reviewed with the patient and relevant handouts were given and the discharge area. PATHOLOGY: Diagnosis Stomach, polypectomy site, biopsy: Gastric antral and body mucosa within normal limits; negative for Helicobacter pylori, intestinal metaplasia and dysplasia. COMMENT: Diagnostic features of neuroendocrine tumor are not seen TODAY'S VISIT Patient is here today for follow-up and to discuss upper endoscopy results. Patient denies any ill effects from anesthesia or procedure itself. Patient reports that she has been feeling fairly well. As mentioned above in HPI patient has been diagnosed with carcinoid tumor in her stomach that was completely removed. Endoscopy showed no neuroendocrine tumor. No H pylori. Gastric mucosa within normal limits. Patient reports that she has been feeling well overall. A1c up to 8.8% in December from 6.6 in August. Patient is on Moun jaro and reports to be taking as prescribed. Patient is also on metformin. Reports to be more constipated lately. No longer is taking Citrucel. Patient denies any nausea or vomiting. Denies any other GI concerning symptoms. [facility] Medical History Diverticulosis Thyroid disease GERD (gastroesophageal reflux disease) Asthma Elevated cholesterol HTN (hypertension) Osteoarthritis History of hepatitis C Diabetes Pneumonia Depression with anxiety Excessive daytime sleepiness Diabetic peripheral neuropathy Bilateral shoulder pain Sleep apnea Chronic back pain Seasonal allergic rhinitis Obesity (Unknown) Surgical History Hx of tubal ligation History of esophagogastroduodenoscopy (EGD) History of colonoscopy Left patella fracture History of cholecystectomy History of tonsillectomy Family History Father Prostate cancer Parkinsons Mother Stroke Son No problems noted. Son No problems noted. Daughter No problems noted. Sister Lung cancer Social History Household Members: None Housing: Apartment Are you a primary family member caretaker to a significant other at home: No Do you presently have visiting nurse or other home services: No Alcohol intake: never Comment: 04/10 headache, will have caffinated beverage in D/C area Patient Tobacco Use Status: Former Tobacco user e-Cigarette/Vaping Use: Never Used Second Hand Smoke Exposure: No Advance Directives Date on File: 11/07/21 service: No Current occupational status: disabled Current occupational exposures/hazards: No Cognitive needs: No Hearing needs: No Vision needs: No Review of Systems Const Denies weight gain and Denies weight loss ENT Reports no additional complaints, Denies dysphagia and Denies odynophagia Card Reports no additional complaints Resp Reports no additional complaints GI Denies abdominal pain, Denies belching, Denies melena, Reports bloating, Denies change in bowel habits, Reports constipation, Denies dysphagia, Denies excessive flatus, Denies dyspepsia, Denies heartburn, Denies diarrhea, Denies loose stools, Denies nausea, Denies odynophagia and Denies vomiting Reports no additional complaints Musc Reports no additional complaints Neuro Reports no additional complaints Psych Reports no additional complaints Endo Reports no additional complaints Physical Exam Vital Signs: Last Vital Signs Pulse 96 02/12/25 12:15 BP 122/64 02/12/25 12:15 Pulse Ox 96 02/12/25 12:15 Oxygen Delivery Method Room Air 02/12/25 12:15 BMI result Body Mass Index 32.2 Const General: healthy appearing and no acute distress Nutritional Appearance: obese Orientation/consciousness: patient oriented x3 Resp Effort & Inspection: normal respiratory effort, able to speak in complete sentences, no tracheal deviation and symmetric chest movement Auscultation: clear to auscultation bilaterally Cardio Rate: regular rate GI Inspection: Yes normal to inspection, No distended and Yes obesity Palpation (GI): Soft to palpation, not firm, nontender and No hepatosplenomegaly present Auscultation: normal bowel sounds General: Yes no CVA tenderness Back/Spine/Pelvis Back: no CVA tenderness Skin General skin exam: elasticity normal, turgor normal and dry skin Neuro General: patient oriented x3 Psych Appearance: grossly normal Mental Status: mental status grossly normal Assessment & Plan Assessment & Plan (1) Diverticulosis: Code(s): K57.90 - Diverticulosis of intestine, part unspecified, without perforation or abscess without bleeding Category: Medical (2) 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: Code(s): D3A.092 - Benign carcinoid tumor of the stomach Category: Medical (3) History of hepatitis C: Code(s): Z86.19 - Personal history of other infectious and parasitic diseases Category: Medical (4) GERD (gastroesophageal reflux disease): Code(s): K21.9 - Gastro-esophageal reflux disease without esophagitis Qualifiers: Esophagitis presence: esophagitis presence not specified Qualified Code(s): K21.9 - Gastro-esophageal reflux disease without esophagitis (5) Constipation: Code(s): K59.00 - Constipation, unspecified Qualifiers: Constipation type: slow transit constipation Qualified Code(s): K59.01 - Slow transit constipation Plan Continue avoiding dietary triggers and late night snacking. Staying upright for minimum 3 hours after meals discussed with patient. Patient will start taking MiraLax daily. Increase fluid intake and activity to promote better bowel motility. Patient will follow-up in the office in 6 months, sooner on as needed basis. She is agreeable to this plan and verbalizes understanding of instructions. She was given the opportunity to ask questions and all questions answered. 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
[2025-02-12 12:15] VITALS: BP 122/64; PULSE 96; O2SAT 96; BMI 32.2
== END 2025-02-12 12:35 | disposition home or self-care (01) ==
PROVIDERS: PCP Family Medicine; Visit Provider Nurse Practitioner Family
DX: K57.90 Diverticulosis of intestine, part unspecified, without perforation or abscess without bleeding (principal); D3A.092 Benign carcinoid tumor of the stomach; Z86.19 Personal history of other infectious and parasitic diseases; K21.9 Gastro-esophageal reflux disease without esophagitis; K59.01 Slow transit constipation
CPT/HCPCS: 99214; G2211

== ENCOUNTER → 2025-02-12 11:23 | Outpatient (BNVA) | payer MEDICARE, MEDICAID, SELFPAY | PROVIDERS: PCP Family Medicine; Visit Provider Nurse Practitioner Family | DX: K59.01 Slow transit constipation (principal); K57.90 Diverticulosis of intestine, part unspecified, without perforation or abscess without bleeding; K21.9 Gastro-esophageal reflux disease without esophagitis; D3A.092 Benign carcinoid tumor of the stomach; Z86.19 Personal history of other infectious and parasitic diseases | CPT/HCPCS: 99212 ==

== ENCOUNTER 2025-05-21 13:22 | Outpatient (AMB) | payer MEDICARE, MEDICAID, SELFPAY ==
[2025-05-21 13:25] VITALS: BP 150/84; PULSE 86; O2SAT 98; BMI 32.2
--- NOTE | 2025-05-21 13:25 | A.OFFVIS_ITS ---
Vital Signs 05/21/25 13:25 Height 5 ft 4 in Weight 187 lb 6.287 oz BMI 32.2 BP 150/84 H Blood Pressure Location Rt brachial Position Sitting Pulse 86 Pulse Source Pulse Oximeter Pulse Oximetry (%) 98 Oxygen Delivery Method Room Air Intake Visit Reasons: T2DM Intake Note: Patient present today for Type 2 Diabetes Mellitus Last Diabetic eye exam: 03/2025 Last Podiatry Visit: Patient does not see a Volleyball Referee Random Glucose: 112 mg/dL HgA1C: 6.5%, 05/21/2025 Separator Operator Required: No Accompanied by: Self / Same As Patient Allergies No Known Allergies Allergy (Verified 05/21/25 13:40) Medication List - Last Reconciled 05/21/25 by Griselda Fernandez PA-C albuterol sulfate 2.5 mg (3 mL) inhalation Q4-6H PRN 30 days albuterol sulfate 90 mcg/actuation 1 puff inhalation Q4H PRN 1 month atorvastatin 10 mg PO DAILY blood sugar diagnostic (FreeStyle Lite Strips) USE DIRECTED 4 TO 5 TIMES A DAY. blood-glucose meter (FreeStyle Lite Meter kit) Test blood sugar 4-5x a day, As directed, 999 days [diabetic shoes extra depth orthopedic shoes ( 1 pair ) with customize heat molded multi density inner soles ( 3 pair) Dispense 1 Sig: As directed DX: And IDDM /polyneuropathy ( E11 0.42 ); hammertoe foot deformity ( M 20.41, and 20.42 ) pre ulcerative skin lesion ( L 85.1 ) Diagnosis ( E11 0.42 ) type 2 diabetes with polyneuropathy] lancets (FreeStyle Lancets) bid and prn glucose testing levothyroxine 37.5 mcg PO DAILY 90 days lidocaine 5% 1 patch topical DAILY PRN lisinopril-hydrochlorothiazide 20-12.5 mg 1 tab PO DAILY 90 days metformin ER 500 mg PO BID methylcellulose (laxative) (Citrucel) 1,000 mg (2 x 500 mg) PO DAILY miscellaneous medical supply diabetic shoes as directed; nebulizers Use every 4-6 hours prn for wheezing, shortness of breath polyethylene glycol 3350 (Miralax) 17 grams PO DAILY tirzepatide (Mounjaro) 10 mg (0.5 mL) subcut QWEEK HPI HPI T2DM: Details: Patient is a 64-year-old female who presents today for a diabetic follow-up. Endo: DM-her A1c last A1c was 8.8 and today it is 6.5. She is currently on Mounjaro 10 mg weekly and metformin 1000 mg nightly. Her blood sugar today in the office is 112. trulicity caused n/v. She does not check her blood sugars. -Does not follow with a solar hot water installer. No sores. Denies any known retinopathy. Follows annually with Ophthalmology. She does have microalbuminuria and is on an BERTHA-inhibitor. CV: Blood pressure today in the office is 150/84. She states that she is compliant with the lisinopril/hydrochlorothiazide 20/12.5 mg daily. She did take it this morning. She does monitor her blood pressures at home and states that they are normal.. Believes that she has been compliant with the atorvastatin 10 mg nightly. She says that she is going to check at home and let me know for sure. Reminded her that labs are ordered for her. [facility] Medical History (Updated 05/21/25 @ 13:29 by Griselda Fernandez PA-C) Diverticulosis Thyroid disease GERD (gastroesophageal reflux disease) Asthma Elevated cholesterol HTN (hypertension) Osteoarthritis History of hepatitis C Diabetes Pneumonia Depression with anxiety Excessive daytime sleepiness Diabetic peripheral neuropathy Bilateral shoulder pain Sleep apnea Chronic back pain Seasonal allergic rhinitis Obesity (Unknown) Surgical History Hx of tubal ligation History of esophagogastroduodenoscopy (EGD) History of colonoscopy Left patella fracture History of cholecystectomy History of tonsillectomy Family History Father Prostate cancer Parkinsons Mother Stroke Son No problems noted. Son No problems noted. Daughter No problems noted. Sister Lung cancer Social History Household Members: None Housing: Apartment Are you a primary field care manager to a significant other at home: No Do you presently have visiting nurse or other home services: No Alcohol intake: never Comment: 04/10 headache, will have caffinated beverage in D/C area Patient Tobacco Use Status: Former Tobacco user e-Cigarette/Vaping Use: Never Used Second Hand Smoke Exposure: No Advance Directives Date on File: 11/07/21 service: No Current occupational status: disabled Current occupational exposures/hazards: No Cognitive needs: No Hearing needs: No Vision needs: No Physical Exam Const Orientation/consciousness: patient oriented x3 Neck Neck: Yes no lymphadenopathy Thyroid: Thyroid normal Carotids: no bruits Resp Auscultation: clear to auscultation bilaterally Cardio Rate: regular rate Rhythm: regular rhythm Heart sounds: S1 normal heart sound present and S2 normal heart sound present Peripheral pulses: dorsalis pedis present Neuro General: patient oriented x3, gait normal and no focal motor deficits Extrem Other: Monofilament sensation intact bilaterally. Vibratory sensation intact bilaterally. Skin intact. General: Yes normal to inspection Results AMB Hemoglobin A1c AMB Hemoglobin A1c 6.5 % Last Edit by ERIK Mobley on 05/21/25 13:40 Results Reviewed Results Reviewed: Laboratory Tests 07/07/24 01/08/25 01/12/25 13:28 09:25 19:22 Creatinine 0.81 Estimated GFR > 60 POC Glucose Hgb A1c (Clinic) 8.8 H AST 21 ALT 21 Triglycerides 219 H Cholesterol 154 LDL Cholesterol, Calc 74 HDL Cholesterol 37 L 01/26/25 12:53 Creatinine Estimated GFR POC Glucose 139 H Hgb A1c (Clinic) AST ALT Triglycerides Cholesterol LDL Cholesterol, Calc HDL Cholesterol Assessment & Plan Assessment & Plan (1) Uncontrolled type 2 diabetes mellitus with hyperglycemia: Code(s): E11.65 - Type 2 diabetes mellitus with hyperglycemia Category: Medical Plan: Increase Mounjaro to 12.5 mg weekly. Continue with the metformin. Patient would like to lose a few lb. I have encouraged her to continue working on diet and lifestyle modifications. Labs ordered for her to complete prior to her next appointment. (2) Dyslipidemia: Code(s): E78.5 - Hyperlipidemia, unspecified Category: Medical Plan: Lipids and LFTs ordered. Advised her to complete labs (3) HTN (hypertension): Code(s): I10 - Essential (primary) hypertension Category: Medical Qualifiers: Hypertension type: primary hypertension Qualified Code(s): I10 - Essential (primary) hypertension Plan: She will monitor blood pressures at home and let me know. Orders: Orders AMB Hemoglobin A1c Today E11.65 - Type 2 diabetes mellitus with hyperglycemia Medications: New tirzepatide (Mounjaro) 12.5 mg (0.5 mL) subcut QWEEK 2 mL 5RF Changed From lancets (FreeStyle Lancets) bid and prn glucose testing 100 ea 5RF E11.65 - Type 2 diabetes mellitus with hyperglycemia To lancets (FreeStyle Lancets) Use to monitor blood sugars daily 100 ea 5RF E11.65 - Type 2 diabetes mellitus with hyperglycemia From blood sugar diagnostic (FreeStyle Lite Strips) USE DIRECTED 4 TO 5 TIMES A DAY. 100 ea 5RF E11.65 - Type 2 diabetes mellitus with hyperglycemia To blood sugar diagnostic (FreeStyle Lite Strips) use daily to monitor blood sugar 100 ea 3RF E11.65 - Type 2 diabetes mellitus with hyperglycemia From blood-glucose meter (FreeStyle Lite Meter kit) Test blood sugar 4-5x a day, As directed, 999 days 1 ea 3RF E11.65 - Type 2 diabetes mellitus with hyperglycemia To blood-glucose meter (FreeStyle Lite Meter kit) use daily to monitor blood sugars 1 ea 0RF E11.65 - Type 2 diabetes mellitus with hyperglycemia Discontinued tirzepatide (Mounjaro) Discontinued Reason: Doctor's Order 10 mg (0.5 mL) subcut QWEEK 2 mL 5RF E11.40 - Type 2 diabetes mellitus with diabetic neuropathy, unspecified, E11.9 - Type 2 diabetes mellitus without complications Coding Level of Care Code Est Pt Level 4 (78910) Complex EM visit Add On G2211 Diagnoses Uncontrolled type 2 diabetes mellitus with hyperglycemia E11.65 Dyslipidemia E78.5 Primary hypertension I10 Hypertension type: primary hypertension
[2025-05-21 13:34] LABS: Glucose, Whole Blood 112 mg/dL (60-115)
--- OUTSIDE RECORDS SUMMARY | 2025-05-21 14:05 | XMS_ITS | Patient Health Record ---
Author Organization [facility] Address [address] [place] [address] Care Team Providers Care Women'S Studies Professor Name Role Phone Sweta Hunter Primary Care Provider UnavailHarry Azevedo Unavailable [phone] Reason For Referral No Information Plan Of Treatment No Information Insurance Providers Payer Name Payer Address Payer Phone Subscriber Number Group Number Insured Name Patient Relationship to Insured Coverage Start Date Coverage End Date [facility] [address] [place] [phone] [id number] MATEO CISNEROS Self - patient is the insured Medical (General) History Medical History History ICD Code liver biopsy 06-22-1997 hepatitis C Surgical History Surgery Date(Month/Year) tubal ligation
== END 2025-05-21 13:45 | disposition home or self-care (01) ==
LOC: HO.ENCR 13:23
PROVIDERS: PCP Family Medicine; Visit Provider Physician Assistant
DX: E11.65 Type 2 diabetes mellitus with hyperglycemia (principal); E78.5 Hyperlipidemia, unspecified; I10 Essential (primary) hypertension

== ENCOUNTER → 2025-05-21 13:22 | Outpatient (BNVA) | payer OTHER, SELFPAY | PROVIDERS: PCP Family Medicine; Visit Provider Physician Assistant | DX: E11.65 Type 2 diabetes mellitus with hyperglycemia (principal); E11.40 Type 2 diabetes mellitus with diabetic neuropathy, unspecified; E78.5 Hyperlipidemia, unspecified; I10 Essential (primary) hypertension | CPT/HCPCS: 82947; 83036; 99212 ==

== ENCOUNTER 2025-06-20 15:24 | Outpatient (AMB) | payer OTHER, SELFPAY ==
[2025-06-20 15:40] VITALS: BP 100/62; PULSE 92; TEMP 36.4; O2SAT 98; BMI 31.6
--- NOTE | 2025-06-20 15:40 | MHC.OFFWIV ---
Intake Vital Signs 06/20/25 15:40 Height 5 ft 4 in Weight 184 lb BMI 31.6 BP 100/62 Blood Pressure Location Rt brachial Position Sitting Pulse 92 Pulse Source Pulse Oximeter Temp 97.6 F Temp Source Oral Pulse Oximetry (%) 98 Oxygen Delivery Method Room Air Intake Visit Reasons: EP anxiety/depression Intake Note: presents with severe anxiety/depression with suicidal thoughts that starting worsening yesterday. c/o body shakes, crying, dizziness, headaches Patient Tobacco Use Status: Former Tobacco user Allergies No Known Allergies Allergy (Verified 06/20/25 15:44) Do you need a note to return to daycare/school/sports/work: No HPI HPI Comments History of Present Illness Details Patient is a 64yo F who presents for depression and anxiety She sees Dr. Page for PCP but was unable to be seen today and came to She said symptoms ongoing x a few months + hx of depression in past; she used to be on medications over 10 years ago for it She said a lot of family/life stress has made it worse She said ysterday symptoms a lot worse; said was with daughter who is also going through [employer] crisis Yesterday she said she cried a lot and was dizzy with a headache Had some nausea without vomiting She called [employer] (insurance) and had someone comes to the house and was given Benadryl and nausea pill; which helped She called crisis at midnight without thought of suicide but did say she thought about if came She said today at noon she has suicidal ideation with a plan She will not elaborate on plan She admits to previous plan and attempt in the past that she told no one about Denies hospitalization for this. She does have a therapist but has not been seen in over 2 months + muscle aches in upper back Admits to decreased concentration and appetite, decreased interest + difficulty sleeping No nausea or vomiting No abdominal pain or chest pain No shortness of breath PFSH Medical History Diverticulosis Thyroid disease GERD (gastroesophageal reflux disease) Asthma Elevated cholesterol HTN (hypertension) Osteoarthritis History of hepatitis C Diabetes Pneumonia Depression with anxiety Excessive daytime sleepiness Diabetic peripheral neuropathy Bilateral shoulder pain Sleep apnea Chronic back pain Seasonal allergic rhinitis Obesity (Unknown) Surgical History Hx of tubal ligation History of esophagogastroduodenoscopy (EGD) History of colonoscopy Left patella fracture History of cholecystectomy History of tonsillectomy Family History Father Prostate cancer Parkinsons Mother Stroke Son No problems noted. Son No problems noted. Daughter No problems noted. Sister Lung cancer Social History Household Members: None Housing: Apartment Are you a primary behavioral health care coordinator to a significant other at home: No Do you presently have visiting nurse or other home services: No Alcohol intake: never Comment: 04/10 headache, will have caffinated beverage in D/C area Patient Tobacco Use Status: Former Tobacco user e-Cigarette/Vaping Use: Never Used Second Hand Smoke Exposure: No Advance Directives Date on File: 11/07/21 service: No Current occupational status: disabled Current occupational exposures/hazards: No Cognitive needs: No Hearing needs: No Vision needs: No Review of Systems Const Denies chills, Reports fatigue, Denies fever(s), Reports headache(s) and Reports poor appetite Eyes Denies exophthalmos ENT Denies otalgia, Reports headache(s) and Denies throat swelling Card Denies chest pain Resp Denies cough GI Denies abdominal pain Musc Reports myalgias Skin/Breast Denies rash Neuro Reports headache(s) Psych Reports abnormal sleep pattern, Reports anxiety, Reports change in appetite, Reports difficulty concentrating, Reports hopelessness, Reports anhedonia, Reports panic attacks (yesterday), Denies homicidal ideation and Reports suicidal ideation Endo Reports fatigue Aller/Immun Denies throat swelling Physical Exam Exam Exam: General: Non-toxic, NAD. Speaking full sentences. Tearful Skin: Warm dry throughout Eye: Wearing sunglasses Respiratory: No respiratory distress Cardiac: Reg rate MSK: Full ROM extremities. Neurology: Alert. No aphasia or facial droop. Gait without abnormality Psych: Good sad and tearful. Not making eye contact. Normal thought process. No hypervigilance or fidgiting noted Vital Signs: Last Vital Signs Temp 97.6 F 06/20/25 15:40 Pulse 92 06/20/25 15:40 BP 100/62 06/20/25 15:40 Pulse Ox 98 06/20/25 15:40 Oxygen Delivery Method Room Air 06/20/25 15:40 BMI result Body Mass Index 31.6 Assessment & Plan Assessment & Plan (1) Suicidal ideation: Code(s): R45.851 - Suicidal ideations Plan: Call placed to 911 for transport to [place] [facility] per pt and son request (2) Depression: Code(s): F32.A - Depression, unspecified Qualifiers: Depression Type: unspecified Qualified Code(s): F32.A - Depression, unspecified Plan: See above Coding Level of Care Code Est Pt Level 5 (66352) Diagnoses Suicidal ideation R45.851 Depression, unspecified depression type F32.A Depression Type: unspecified
--- OUTSIDE RECORDS SUMMARY | 2025-06-20 16:17 | XMS_ITS | Patient Health Record ---
Author Organization [facility] Address [address] [place] [address] Care Team Providers Care Corporate Relations Director Name Role Phone Sweta Hunter Primary Care Provider UnavailHarry Azevedo Unavailable [phone] Reason For Referral No Information Plan Of Treatment No Information Insurance Providers Payer Name Payer Address Payer Phone Subscriber Number Group Number Insured Name Patient Relationship to Insured Coverage Start Date Coverage End Date [facility] [address] [place] [phone] [id number] MATEO CISNERSO Self - patient is the insured Medical (General) History Medical History History ICD Code liver biopsy 06-22-1997 hepatitis C Surgical History Surgery Date(Month/Year) tubal ligation
== END 2025-06-20 16:41 | disposition home or self-care (01) ==
PROVIDERS: PCP Family Medicine; Visit Provider Physician Assistant
DX: R45.851 Suicidal ideations (principal); F32.A Depression, unspecified

== ENCOUNTER → 2025-06-20 15:24 | Outpatient (BNVA) | payer OTHER, SELFPAY | PROVIDERS: PCP Family Medicine; Visit Provider Physician Assistant | DX: R45.851 Suicidal ideations (principal); F32.A Depression, unspecified; F41.9 Anxiety disorder, unspecified | CPT/HCPCS: 99212 ==

== ENCOUNTER 2025-06-20 16:51 | Inpatient (IN) | payer OTHER, SELFPAY ==
--- NOTE | 2025-06-20 | ECG_ITS ---
Test Reason : MED CLEARANCE Blood Pressure : */* mmHG Vent. Rate : 74 BPM Atrial Rate : 74 BPM P-R Int : 164 ms QRS Dur : 94 ms QT Int : 406 ms P-R-T Axes : 53 -45 31 degrees QTcB Int : 450 ms Normal sinus rhythm Left axis deviation Abnormal ECG When compared with ECG of 12-Jan-2025 17:00, No significant change was found Referred By: Oniel Vines Electronically Signed By: ALLAN ORTEGA MD
[2025-06-20 16:58] VITALS: BP 160/90; PULSE 77; O2SAT 98
--- NOTE | 2025-06-20 17:14 | MHC.CARE ---
Pt assessed by [facility] crisis ([facility]) in the community and has been deemed IPLOC. She reports Pt was at a doctor's appointment earlier day where she expressed vague SI. [facility] responded where Pt endorsed SI with a plan/intent to overdose on medical medications to which she has access. Will fax assessment to the CARE Team when complete.
[2025-06-20 17:21] VITALS: BP 134/87; PULSE 84; RESP 18; TEMP 36.5; O2SAT 99; BMI 31.2
--- NOTE | 2025-06-20 17:23 | PC.NURSE ---
patient presented to the ED via ems, self presented at the urgent care stating she has increased depression and SI with plan. patient states she was at the welfare office yesterday when staff was gossiping and her daughter somehow got involved, security was called and patient states that she became anxious and this precipitated her depression and increased anxiety. patient states she has plan to OD on her pills and diabetes injection monjaro. patient states that she has been crying a lot, has dizziness and a tension headache.
--- NOTE | 2025-06-20 17:35 | ED_ITS ---
HPI - Psych General Chief Complaint: Psychiatric Symptoms Stated Complaint: SI Time Seen by Provider: 06/20/25 17:04 Source: patient and EMS Mode of arrival: EMS History of Present Illness ED Provider: HPI Narrative: 64-year-old woman reports longstanding history of depression, suicidal ideation, anxiety, has been dealing with a for 2 months or longer but she states something happened with her yesterday that triggered worsening symptoms she has been having thoughts of harming herself and overdosing on her medications. She denies HI, no cutting. No drug use reported. She went to urgent care and was sent here. Related Data Previous Rx's ?Medication ?Instructions ?Recorded nebulizers #1 ea 11/24/21 methylcellulose (laxative) 500 mg 1,000 mg (2 x 500 mg ) PO DAILY #60 08/31/22 tablet (Citrucel) tabs miscellaneous medical supply See Rx Instructions misce llaneous 04/07/24 .COMPLEX #2 ea lidocaine 5 % topical patch 1 patch topical DAILY PRN pain 04/15/24 (scale score 7-10) #15 ea diabetic shoes #1 ea 10/09/24 polyethylene glycol 3350 17 17 g PO DAILY #510 grams 0 02/12/25 gram/dose oral powder (Miralax) levothyroxine 37.5 mcg capsule 37.5 mcg PO DAILY 90 da ys #90 caps 02/19/25 lisinopril 20 1 tab PO DAILY 90 days #90 t abs 02/19/25 mg-hydrochlorothiazide 12.5 mg tablet albuterol sulfate 2.5 mg/3 mL 2.5 mg (3 mL) inhalation Q4-6H PRN 02/23/25 (0.083 %) solution for nebulization shortness of breat h or wheezing 30 days #180 mL albuterol sulfate 90 mcg/actuation 1 puff inhalation Q 4H PRN 02/23/25 aerosol inhaler shortness of breath or wheez ing or broncospasm 1 month #8.5 grams atorvastatin 10 mg tablet 10 mg PO DAILY #30 tabs 04/02 05/25 metformin 500 mg tablet,extended 500 mg PO BID #180 ta bs 04/27/25 release 24 hr blood sugar diagnostic (FreeStyle #100 ea 05/21/25 Lite Strips) blood-glucose meter (FreeStyle #1 ea 05/21/25 Lite Meter kit) lancets 28 gauge (FreeStyle #100 ea 05/21/25 Lancets) tirzepatide 12.5 mg/0.5 mL 12.5 mg (0.5 mL) subcut QWE EK #2 mL 05/21/25 subcutaneous pen injector (Tamy) Allergies Allergy/AdvReac Type Severity Reaction Status Date / Time No Known Allergies Allergy Verified 06/20/25 17:22 Review of Systems 2 Constitutional: Constitutional: Reports as per [facility] Past Medical History Medical History Diverticulosis Thyroid disease GERD (gastroesophageal reflux disease) Asthma Elevated cholesterol HTN (hypertension) Osteoarthritis History of hepatitis C Diabetes Pneumonia Depression with anxiety Excessive daytime sleepiness Diabetic peripheral neuropathy Bilateral shoulder pain Sleep apnea Chronic back pain Seasonal allergic rhinitis Obesity (Unknown) Surgical History Hx of tubal ligation History of esophagogastroduodenoscopy (EGD) History of colonoscopy Left patella fracture History of cholecystectomy History of tonsillectomy Family History Family History Father Prostate cancer Parkinsons Mother Stroke Son No problems noted. Son No problems noted. Daughter No problems noted. Sister Lung cancer Social History Social History Household Members: None Housing: Apartment Are you a primary district manager primary care sales to a significant other at home: No Do you presently have visiting nurse or other home services: No Alcohol intake: never Comment: 04/10 headache, will have caffinated beverage in D/C area Patient Tobacco Use Status: Former Tobacco user e-Cigarette/Vaping Use: Never Used Second Hand Smoke Exposure: No Advance Directives: Yes Advance Directives on File: Yes Advance Directives Date on File: 11/07/21 service: No Current occupational status: disabled Current occupational exposures/hazards: No Cognitive needs: No Hearing needs: No Vision needs: No Physical Exam 2 Vital Signs: Vital Signs: Last Vital Signs Temp 97.7 F 06/20/25 17:21 Pulse 84 06/20/25 17:21 Resp 18 06/20/25 17:21 BP 134/87 06/20/25 17:21 Pulse Ox 99 06/20/25 17:21 O2 Del Method Room Air 06/20/25 17:21 BMI result Body Mass Index 31.2 Const: Other: * Gen: ?Overall well-appearing patient * Resp: ?No wheezing rales rhonchi no stridor moving air well * Abd: ?Bowel sounds are present, no tenderness no rebound no rigidity * Skin: Warm, dry, intact, * Neuro: ?Alert and oriented x3, moving upper and lower extremities symmetrically, no obvious facial asymmetry noted * Cooperative, depressed affect, no HI, endorsing active SI Course Reevaluation(s) Reevaluation #1: Patient is being admitted upstairs to inpatient psychTime: 19:54 Date: 06/20/25 Provider: Oniel Vines DO Physician observation ended. Patient to be admitted as inpatient to psychiatry. Time: 19:54 Medications Administered Generic Name Dose Route Start Last Admin Trade Name Freq PRN Reason Stop Dose Admin Hydrochlorothiazide 12.5 mg 06/20/25 19:00 06/20/25 19:33 Hydrochlorothiazide 12.5 Mg Tablet PO Not Given DAILY DIANA Lisinopril 20 mg 06/20/25 19:00 06/20/25 19:33 Lisinopril 20 Mg Tablet PO Not Given DAILY DIANA Discontinued Medications Generic Name Dose Route Start Last Admin Trade Name Freq PRN Reason Stop Dose Admin Acetaminophen 975 mg 06/20/25 17:31 06/20/25 18:01 Acetaminophen 325 Mg Tablet PO 06/20/25 17:32 975 mg ONCE ONE Administration Medical Decision Making Medical Decision Making [facility] Narrative: Time: 17:40 Date: 06/20/25 Provider: Oniel Vines DO Patient in physician observation for psychiatric evaluation.? No acute events reported overnight.pending CARE team evaluation. She is presenting with SI, anxiety in the setting of chronic anxiety and depression, no evidence for cutting or any other trauma. Differential Diagnosis Differential Diagnoses: The differential diagnosis associated with the presentation includes (SI, HI, alcohol use, drug use, trauma) Consult Healthcare Provider Management of the patient was discussed with: Behavioral Health Provider Lab Data MDM Lab Attestation statement: I reviewed the patient's lab results. 06/20/25 17:56 06/20/25 17:56 Labs: Lab Results 06/20/25 06/20/25 Range/Units 17:56 18:16 WBC 9.7 (4.8-10.8) X10*3/uL RBC 4.34 (4.20-5.50) X10*6/uL Hgb 13.3 (12.0-16.0) g/dl Hct 39.5 (37.0-47.0) % MCV 91.0 (80.0-98.0) fL MCH 30.6 (27.0-33.0) pg MCHC 33.7 (31.0-35.0) g/dl RDW 12.2 (11.0-16.0) % Plt Count 274 (160-400) X10*3/uL MPV 10.0 (9.4-12.3) fL Immature Gran % (Auto) 0.3 (0.0-0.4) % Neut % (Auto) 55.0 (45-73) % Lymph % (Auto) 34.2 (20-40) % [place] % (Auto) 8.5 (2-11) % Eos % (Auto) 1.4 (0-4) % Baso % (Auto) 0.6 (0-2) % Lymph # (Auto) 3.3 (1.2-4.9) X10*3/uL [place] # (Auto) 0.8 (0.1-1.2) X10*3/uL Eos # (Auto) 0.1 (0.0-0.4) X10*3/uL Baso # (Auto) 0.1 (0.0-0.2) X10*3/uL Abs Immat Gran (auto) 0.03 (0.00-0.03) X10*3/uL Absolute Neuts (auto) 5.3 (2.0-8.3) x10*3/uL Absolute Nucleated RBC 0.000 (0.0-0.012) X10*3/uL Nucleated RBC % (auto) 0.0 (0.0-0.2) /100WBC Sodium 141 (135-145) mmol/L Potassium 3.6 (3.3-5.1) mmol/L Chloride 105 (96-108) mmol/L Carbon Dioxide 26 (22-29) mmol/L Anion Gap 14 (12-20) BUN 14 (9-16) mg/dL Creatinine 0.73 (0.5-1.4) mg/dL Estim Creat Clear Calc 79.8 Estimated GFR > 60 Random Glucose 93 (60-115) mg/dL Calcium 9.3 (8.4-10.2) mg/dL Total Bilirubin 0.3 (0.0-1.0) mg/dL AST 24 (5-31) U/L ALT 18 (0-31) U/L Alkaline Phosphatase 65 (39-117) U/L Total Protein 7.0 (6.5-8.0) g/dL Albumin 4.1 (3.5-5.0) g/dL Urine Color Yellow Urine Appearance Clear Urine pH 5.5 (5.0-9.0) Ur Specific [place] 1.015 (1.005-1.025) Urine Protein Negative (Neg-Trace) mg/dL Urine Glucose (UA) Negative (Negative) mg/dL Urine Ketones Negative (Negative) mg/dL Urine Blood Negative (Negative) Urine Nitrite Negative (Negative) Ur Leukocyte Esterase Moderate (2+) H (Negative) Urine RBC 0-2 (0-2) /HPF Urine WBC 0-5 (0-5) /HPF Ur Squamous Epith Cells 0-2 (0-2) /HPF Urine Bacteria None Seen (None Seen) Hyaline Casts 0-2 (0-2) /LPF Urine Opiates Screen Not Detected (Not Detect) Ur Buprenorphine Scrn Not Detected (Not Detect) ng/mL Ur Oxycodone Screen Not Detected (Not Detect) ng/mL Urine Methadone Screen Not Detected (Not Detect) ng/mL Urine Fentanyl Screen Not Detected (Not Detect) Ur Barbiturates Screen Not Detected (Not Detect) Ur Phencyclidine Scrn Not Detected (Not Detect) Ur Amphetamines Screen Not Detected (Not Detect) U Benzodiazepines Scrn Not Detected (Not Detect) Urine Cocaine Screen Not Detected (Not Detect) U Marijuana (THC) Screen Not Detected (Not Detect) Ethyl Alcohol < 10 mg/dL Social Determinants Patient?s care significantly limited by Social Determinants of Health including: Low income and Alcoholism and drug addiction in family Discharge Plan Discharge Clinical Impression: Chronic depression, Suicidal ideation Patient Disposition: Admitted As Inpatient Interventions: [place]-Suicide Risk Severity Scale Last Done: 06/20/25 21:00
[2025-06-20 18:00] LABS: MANUAL DIFF FLAG NO
[2025-06-20 18:09] LABS: Hematocrit 39.5 % (37.0-47.0); Hemoglobin 13.3 g/dl (12.0-16.0); Imm Gran Abs Auto 0.03 X10*3/uL (0.00-0.03); Imm Gran Pct Auto 0.3 % (0.0-0.4); Lymphocytes Absolute Auto 3.3 X10*3/uL (1.2-4.9); Mean Corpuscular HGB Conc 33.7 g/dl (31.0-35.0); Mean Corpuscular Hemoglobin 30.6 pg (27.0-33.0); Mean Corpuscular Volume 91.0 fL (80.0-98.0); NRBC Abs Auto 0.000 X10*3/uL (0.0-0.012); NRBC Pct Auto 0.0 /100WBC (0.0-0.2); Platelet Count 274 X10*3/uL (160-400); Red Blood Count 4.34 X10*6/uL (4.20-5.50); White Blood Count 9.7 X10*3/uL (4.8-10.8)
[2025-06-20 18:17] LABS: Alanine Aminotransferase 18 U/L (0-31); Albumin Level 4.1 g/dL (3.5-5.0); Alkaline Phosphatase 65 U/L (39-117); Anion Gap 14 (12-20); Aspartate Amino Transferase 24 U/L (5-31); Blood Urea Nitrogen 14 mg/dL (9-16); Calcium 9.3 mg/dL (8.4-10.2); Carbon Dioxide 26 mmol/L (22-29); Chloride 105 mmol/L (96-108); Creatinine Clr Calc Pharmacy 79.8; Estimated Glomerular Filt Rate > 60; Potassium 3.6 mmol/L (3.3-5.1); Sodium 141 mmol/L (135-145); Total Protein 7.0 g/dL (6.5-8.0)
[2025-06-20 18:22] LABS: Appearance Urine Clear; Glucose Urine UA Negative (Negative); PH 5.5 (5.0-9.0); Specific Gravity - Urine 1.015 (1.005-1.025); UMIC TRIGGER UACC YES
[2025-06-20 18:33] LABS: Cannabinoid Screen Urine Not Detected (Not Detect)
--- NOTE | 2025-06-20 18:44 | PHA.MEDREC ---
Pharmacy Consult ? Medication Reconciliation Pharmacy has REVIEWED the medication reconciliation completed by nursing. Pt splits levothyroxine pill to take 37.5 mcg, and takes monjaro on Mondays.
[2025-06-20 19:02] LABS: UACC Culture Trigger YES
--- NOTE | 2025-06-20 20:42 | MHC.EDTECH ---
PT DAUGHTER TOOK ALL OF PT BELONGINGS HOME. BELONGINGS LIST SIGNED BY DAUGHTER. RN AWARE.
[2025-06-20 22:20] VITALS: BP 125/61; PULSE 89; RESP 18; TEMP 36.7; O2SAT 97
[2025-06-20 23:43] VITALS: BMI 30.9
--- NOTE | 2025-06-21 00:29 | PC.ADMIT ---
Emily was admitted from the POD on a CV for unspecified depression and unspecified anxiety with suicidal ideation. Per the crisis repost the patient became overwhelmed in the community thinking others were talking about her and she was reportedly suicidal, stating that she intended to overdose on her at home medication. she is alert and oriented X's 3, pleasant and cooperative with a depressed mood and an anxious affect. During assessment she denies current SI/HI, AVH, she endorses depression and anxiety. during the assessment she declined to disclose any recent stresses but stated that her family is going through a lot , but would not elaborate. She c/o a headache stating that she believes it to be a migraine headache because it feels like a band around my head she endorses a trauma history but did not disclose content. She stated that her last inpatient hospitalization was approximately 10 years ago. She denies being consistent with mediations and states she does not have a psychiatrist or therapist. she is hopeful to have better control over her depression and anxiety and to secure outpatient psychiatric care. All admission documentation completed ad consents signed, placed on Q 15 minute safety checks
[2025-06-21 07:00] VITALS: BMI 31.2
[2025-06-21 07:49] VITALS: BP 103/58; PULSE 80; RESP 16; TEMP 36.6; O2SAT 98
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
[2025-06-21 09:27] LABS: Alanine Aminotransferase 32 U/L (0-31); Albumin Level 4.4 g/dL (3.5-5.0); Alkaline Phosphatase 89 U/L (39-117); Anion Gap 14 (12-20); Aspartate Amino Transferase 28 U/L (5-31); Blood Urea Nitrogen 16 mg/dL (9-16); Calcium 10.1 mg/dL (8.4-10.2); Carbon Dioxide 27 mmol/L (22-29); Chloride 105 mmol/L (96-108); Cholesterol 140 mg/dL (<200); Creatinine Clr Calc Pharmacy 79.8; Estimated Glomerular Filt Rate > 60; HDL Cholesterol 38 mg/dL (>40); Potassium 4.2 mmol/L (3.3-5.1); Sodium 142 mmol/L (135-145); Total Protein 7.6 g/dL (6.5-8.0); Triglycerides 240 mg/dL (<150)
[2025-06-21 09:35] LABS: Hemoglobin A1C 183.3778 umol/L; Total Hemoglobin (HGBA1C) 3765.1546 umol/L
[2025-06-21 09:44] LABS: Free T4 (Free Thyroxine) 1.23 ng/dL (0.71-1.85); Thyroid Stimulating Hormone 0.14 uIU/mL (0.32-4.0)
[2025-06-21] MEDS: Lidocaine 4 % Patch ADH..PATCH 1 PATCH TRANSDERMA (12:17)
[2025-06-21 19:55] VITALS: BP 100/61; PULSE 106; RESP 16; TEMP 37.3; O2SAT 95
[2025-06-21 20:20] LABS: Glucose, Whole Blood 136 mg/dL (60-115)
[2025-06-22 07:43] VITALS: BP 99/50; PULSE 78; RESP 16; TEMP 36.6; O2SAT 96
[2025-06-22 08:49] VITALS: BP 139/67
--- NOTE | 2025-06-22 09:20 | HO.PSYCHPN ---
Subjective Subjective Date of Service: 06/22/25 Reason For Visit: SI with plan to OD Subjective Notes: Conditional Voluntary Interim History: Keeping to self. laying in bed most of morning. Patient reports she is feeling better; pt stated, I'm not anxious or depressed. I don't like going out there because there is too much noise. I need to leave soon because I have a hair appointment . denies SI/HI/VH/AH. Focused on discharge. Continue current tx plan. Medication Compliance: Yes Side effects from medications: No Attending Groups: No Mental Status Exam Mental Status Exam Patient Appearance: Disheveled Patient Orientation: Person, Place, Time and Situation Level of Consciousness: Awake and Alert Patient Behavior: Appropriate and Cooperative Mood Description: Calm Affect Description: Calm Ability to Follow Directions: Good Speech Pattern: Clear Memory Description: Intact Hallucinations: None Delusions: Not Present Thought Process: Intact Thought Content: positive for Intact Diagnostics Vital Signs (24Hr): Vital Signs - 24 hr 06/21/25 19:55 06/22/25 07:43 06/22/25 08:49 Temperature 99.2 F 97.9 F Pulse Rate 106 H 78 Respiratory Rate 16 16 Blood Pressure 100/61 99/50 L 139/67 Pulse Oximetry 95 96 Oxygen Delivery Method Room Air Room Air 06/22/25 08:49 Temperature Pulse Rate Respiratory Rate Blood Pressure 139/67 Pulse Oximetry Oxygen Delivery Method BMI result Body Mass Index 31.2 Labs 06/20/25 17:56 06/21/25 08:39 Labs: Laboratory Results - last 48 hr 06/20/25 06/20/25 06/21/25 17:56 18:16 08:39 WBC 9.7 RBC 4.34 Hgb 13.3 Hct 39.5 MCV 91.0 MCH 30.6 MCHC 33.7 RDW 12.2 Plt Count 274 MPV 10.0 Immature Gran % (Auto) 0.3 Neut % (Auto) 55.0 Lymph % (Auto) 34.2 Park % (Auto) 8.5 Eos % (Auto) 1.4 Baso % (Auto) 0.6 Lymph # (Auto) 3.3 Park # (Auto) 0.8 Eos # (Auto) 0.1 Baso # (Auto) 0.1 Abs Immat Gran (auto) 0.03 Absolute Neuts (auto) 5.3 Absolute Nucleated RBC 0.000 Nucleated RBC % (auto) 0.0 Sodium 141 142 Potassium 3.6 4.2 Chloride 105 105 Carbon Dioxide 26 27 Anion Gap 14 14 BUN 14 16 Creatinine 0.73 0.73 Estim Creat Clear Calc 79.8 79.8 Estimated GFR > 60 > 60 POC Glucose Random Glucose 93 138 H Estimat Average Glucose 143 Hemoglobin A1c % 6.6 H Calcium 9.3 10.1 D Total Bilirubin 0.3 0.4 AST 24 28 ALT 18 32 H Alkaline Phosphatase 65 89 Total Protein 7.0 7.6 Albumin 4.1 4.4 Triglycerides 240 H Cholesterol 140 LDL Cholesterol, Calc 54 HDL Cholesterol 38 L TSH 0.14 L Free T4 1.23 Urine Color Yellow Urine Appearance Clear Urine pH 5.5 Ur Specific [place] 1.015 Urine Protein Negative Urine Glucose (UA) Negative Urine Ketones Negative Urine Blood Negative Urine Nitrite Negative Ur Leukocyte Esterase Moderate (2+) H Urine RBC 0-2 Urine WBC 0-5 Ur Squamous Epith Cells 0-2 Urine Bacteria None Seen Hyaline Casts 0-2 Urine Opiates Screen Not Detected Ur Buprenorphine Scrn Not Detected Ur Oxycodone Screen Not Detected Urine Methadone Screen Not Detected Urine Fentanyl Screen Not Detected Ur Barbiturates Screen Not Detected Ur Phencyclidine Scrn Not Detected Ur Amphetamines Screen Not Detected U Benzodiazepines Scrn Not Detected Urine Cocaine Screen Not Detected U Marijuana (THC) Screen Not Detected Ethyl Alcohol < 10 06/21/25 20:16 WBC RBC Hgb Hct MCV MCH MCHC RDW Plt Count MPV Immature Gran % (Auto) Neut % (Auto) Lymph % (Auto) Park % (Auto) Eos % (Auto) Baso % (Auto) Lymph # (Auto) Park # (Auto) Eos # (Auto) Baso # (Auto) Abs Immat Gran (auto) Absolute Neuts (auto) Absolute Nucleated RBC Nucleated RBC % (auto) Sodium Potassium Chloride Carbon Dioxide Anion Gap BUN Creatinine Estim Creat Clear Calc Estimated GFR POC Glucose 136 H Random Glucose Estimat Average Glucose Hemoglobin A1c % Calcium Total Bilirubin AST ALT Alkaline Phosphatase Total Protein Albumin Triglycerides Cholesterol LDL Cholesterol, Calc HDL Cholesterol TSH Free T4 Urine Color Urine Appearance Urine pH Ur Specific [place] Urine Protein Urine Glucose (UA) Urine Ketones Urine Blood Urine Nitrite Ur Leukocyte Esterase Urine RBC Urine WBC Ur Squamous Epith Cells Urine Bacteria Hyaline Casts Urine Opiates Screen Ur Buprenorphine Scrn Ur Oxycodone Screen Urine Methadone Screen Urine Fentanyl Screen Ur Barbiturates Screen Ur Phencyclidine Scrn Ur Amphetamines Screen U Benzodiazepines Scrn Urine Cocaine Screen U Marijuana (THC) Screen Ethyl Alcohol Medications Medications Current Medications Acetaminophen (Acetaminophen 325 Mg Tablet) 650 mg PO Q6H PRN PRN Reason: Headache/Pain, Scale 1-10 Last Admin: 06/21/25 12:11 Dose: 650 mg Al Hydroxide/Mg Hydroxide (Magnesium Hydrox/Alum Hydrox 30 Ml Oral.Susp) 30 ml PO Q6H PRN PRN Reason: Heartburn/Nausea Albuterol Sulfate (Albuterol Sulfate (0.083%) 2.5 Mg/3 Ml Vial.Neb) 2.5 mg INHALE Q4H PRN PRN Reason: shortness of breath or wheezing Albuterol Sulfate (Albuterol Sulfate 90 Mcg 8 Gm Inhaler) 1 puff INHALE Q4H PRN PRN Reason: shortness of breath or wheezing or broncospasm Atorvastatin Calcium (Atorvastatin Calcium 10 Mg Tablet) 10 mg PO DAILY [facility] Last Admin: 06/22/25 08:49 Dose: 10 mg Hydrochlorothiazide (Hydrochlorothiazide 12.5 Mg Tablet) 12.5 mg PO DAILY [facility] Last Admin: 06/22/25 08:49 Dose: 12.5 mg Hydroxyzine HCl (Hydroxyzine Hcl 25 Mg Tablet) 25 mg PO Q6H PRN PRN Reason: mild anxiety Last Admin: 06/21/25 21:54 Dose: 25 mg Levothyroxine Sodium (Levothyroxine Sodium 75 Mcg Tablet) 37.5 mcg PO DAILY@0600 [facility] Last Admin: 06/22/25 06:28 Dose: 37.5 mcg Lidocaine (Lidocaine 4 % Patch Adh..Patch) 1 patch TRANSDERMA DAILY [facility] Last Admin: 06/22/25 08:53 Dose: Not Given Lisinopril (Lisinopril 20 Mg Tablet) 20 mg PO DAILY [facility] Last Admin: 06/22/25 08:49 Dose: 20 mg Lorazepam (Lorazepam 0.5 Mg Tablet) 0.5 mg PO Q8H PRN PRN Reason: severe anxiety Last Admin: 06/21/25 12:10 Dose: 0.5 mg Magnesium Hydroxide (Milk Of Magnesia 30 Ml Oral.Susp) 30 ml PO DAILY PRN PRN Reason: Constipation Metformin HCl (Metformin Hcl Er 500 Mg Tab.Er.24h) 500 mg PO BID [facility] Last Admin: 06/22/25 08:48 Dose: 500 mg Mirtazapine (Mirtazapine 7.5 Mg Tablet) 7.5 mg PO BEDTIME [facility] Last Admin: 06/21/25 21:49 Dose: 7.5 mg Nicotine (Nicotine 21 Mg Patch.Td24) 21 mg TRANSDERMA DAILY PRN PRN Reason: nicotine craving Nicotine Polacrilex (Nicotine Polacrilex 2 Mg Gum) 2 mg BUCCAL Q2H PRN PRN Reason: Nicotine Cravings Non-Formulary Medication (Tirzepatide [Mounjaro]) 12.5 mg SUBCUT Mo@0900 [facility] Olanzapine (Olanzapine 5 Mg Tablet) 5 mg PO BID PRN PRN Reason: agitation Polyethylene Glycol (Polyethylene Glycol 3350 17 Gm Powd.Pack) 17 gm PO DAILY [facility] Last Admin: 06/22/25 08:50 Dose: 17 gm Sertraline HCl (Sertraline Hcl 50 Mg Tablet) 50 mg PO DAILY [facility] Last Admin: 06/22/25 08:48 Dose: 50 mg Trazodone HCl (Trazodone Hcl 50 Mg Tablet) 50 mg PO BEDTIME MRX1 PRN PRN Reason: Insomnia Last Admin: 06/21/25 21:54 Dose: 50 mg Allergies Allergies Allergy/AdvReac Type Severity Reaction Status Date / Time No Known Allergies Allergy Verified 06/20/25 17:22 Assessment & Plan Assessment & Plan (1) Suicidal ideation: Status: Acute Code(s): R45.851 - Suicidal ideations (2) Depression: Qualifiers: Depression Type: unspecified Qualified Code(s): F32.A - Depression, unspecified Status: Acute Code(s): F32.A - Depression, unspecified (3) PTSD (post-traumatic stress disorder): Status: Acute Code(s): F43.10 - Post-traumatic stress disorder, unspecified (4) HTN (hypertension): Qualifiers: Hypertension type: primary hypertension Qualified Code(s): I10 - Essential (primary) hypertension Status: Acute Code(s): I10 - Essential (primary) hypertension (5) Hypertriglyceridemia: Status: Acute Code(s): E78.1 - Pure hyperglyceridemia (6) Dyslipidemia: Status: Acute Code(s): E78.5 - Hyperlipidemia, unspecified Plan HPI: Patient is a 64 years old female with history of depression, high cholesterol, hypertension, diabetes, hypothyroidism who was assessed by [facility] crisis secondary to her presenting to the PCP's office in which patient endorsed increased depression and anxiety symptoms, increased tearfulness, poor sleep, and suicidal thoughts. Formulation/clinical reasoning: Increased stress the past couple of months, thinking about recent lost in the family, stress from her daughters issue (not discussed in detail), increase anxiety and depression, feeling like she has panic attack, tense body and tense muscle, decrease in sleep and appetite, history of PTSD, and depression, history of 2 suicide attempts, has been having suicidal thoughts in the past couple of months: anxiety and depression, sadness, loneliness increase causing her to feel suicdal. Given above information, patient will be safe in the restrictive environment for own safety, for the treatment of depression and anxiety with medication, and in a therapeutic environment, refer patient to outpatient psychiatric care services upon discharge. Hospital course: 06/21/25: Zoloft 50 mg daily for depression/anxiety First dose today. Monitor for GI side effects. Remeron 7.5 mg at bedtime for insomnia. We will titrate as tolerate to target the insomnia. Ativan point 5q 8 hours p.r.n.-short-term use for severe anxiety/panic attack. We will not continue upon discharge. 06/22:Keeping to self. laying in bed most of morning. Patient reports she is feeling better; pt stated, I'm not anxious or depressed. I don't like going out there because there is too much noise. I need to leave soon because I have a hair appointment . denies SI/HI/VH/AH. Focused on discharge. Continue current tx plan. Plan Patient on 15 minute checks for safety. Admitted to [facility]. CV. Work with treatment team to do collateral and refer patient to outpatient psychiatric services if possible for aftercare. She has no provider/therapist, but has active PCP who manage medical medication. Patient educated on: diagnosis and medication risk/benefits Reason for continued inpatient stay Substantial Risk for: med/psych decompensation Time Spent With Patient Time: Total time managing care of this patient today _15___ minutes.
[2025-06-22 20:00] VITALS: BP 121/58; PULSE 95; RESP 16; TEMP 36.7; O2SAT 96
[2025-06-22 21:11] LABS: Glucose, Whole Blood 158 mg/dL (60-115)
[2025-06-23] MEDS: traZODone HCL 25 MG HALFTAB PO ×2 (01:12→23:51)
[2025-06-23 07:15] VITALS: BP 92/54; PULSE 75; RESP 20; TEMP 36.5; O2SAT 95
[2025-06-23 07:32] LABS: Glucose, Whole Blood 107 mg/dL (60-115)
--- NOTE | 2025-06-23 07:51 | P.PNPSI_ITS ---
Subjective Subjective Date of Service: 06/23/25 Reason For Visit: SI with plan to OD Subjective Notes: Conditional Voluntary Interim History: Patient reports doing better today as less anxious and less depressed. No sedation with trazodone adjustments and feeling thankful for this. Denies SI. No psychosis. Sleep okay. Medication Compliance: Yes Side effects from medications: No Attending Groups: Intermittent Review of Systems Acute medical concerns: No Review of Systems Review of Systems Unremarkable Mental Status Exam Mental Status Exam Narrative: Patient is alert and orientedx4; behavior is cooperative, friendly with moderate anxiety and depression; patient is not in distress; dressed in hospital attire with kempt hair and adequate hygiene; mood is described as getting better and affect congruent; eye contact appropriate; Speech is normal rate, volume and prosody and not pressured; no psychomotor agitation/retardation present; thought process is organized and goal directed; Thought content is WNL, pertinent to relevant topics and without any delusional content, paranoid ideation or grandiosity; denies any SI/SIB/HI. Denies AH and there is no evidence of perceptual disturbance. Patient's insight and judgment improving. Diagnostics Vital Signs (24Hr): Vital Signs - 24 hr 06/22/25 08:49 06/22/25 08:49 06/22/25 20:00 Temperature 98.1 F Pulse Rate 95 Respiratory Rate 16 Blood Pressure 139/67 139/67 121/58 L Pulse Oximetry 96 Oxygen Delivery Method Room Air 06/23/25 07:15 Temperature 97.7 F Pulse Rate 75 Respiratory Rate 20 Blood Pressure 92/54 L Pulse Oximetry 95 Oxygen Delivery Method Room Air BMI result Body Mass Index 31.2 Labs 06/20/25 17:56 06/21/25 08:39 Labs: Laboratory Results - last 48 hr 06/21/25 06/21/25 06/22/25 08:39 20:16 21:06 Sodium 142 Potassium 4.2 Chloride 105 Carbon Dioxide 27 Anion Gap 14 BUN 16 Creatinine 0.73 Estim Creat Clear Calc 79.8 Estimated GFR > 60 POC Glucose 136 H 158 H Random Glucose 138 H Estimat Average Glucose 143 Hemoglobin A1c % 6.6 H Calcium 10.1 D Total Bilirubin 0.4 AST 28 ALT 32 H Alkaline Phosphatase 89 Total Protein 7.6 Albumin 4.4 Triglycerides 240 H Cholesterol 140 LDL Cholesterol, Calc 54 HDL Cholesterol 38 L TSH 0.14 L Free T4 1.23 06/23/25 07:27 Sodium Potassium Chloride Carbon Dioxide Anion Gap BUN Creatinine Estim Creat Clear Calc Estimated GFR POC Glucose 107 Random Glucose Estimat Average Glucose Hemoglobin A1c % Calcium Total Bilirubin AST ALT Alkaline Phosphatase Total Protein Albumin Triglycerides Cholesterol LDL Cholesterol, Calc HDL Cholesterol TSH Free T4 Medications Medications Current Medications Acetaminophen (Acetaminophen 325 Mg Tablet) 650 mg PO Q6H PRN PRN Reason: Headache/Pain, Scale 1-10 Last Admin: 06/22/25 20:16 Dose: 650 mg Al Hydroxide/Mg Hydroxide (Magnesium Hydrox/Alum Hydrox 30 Ml Oral.Susp) 30 ml PO Q6H PRN PRN Reason: Heartburn/Nausea Albuterol Sulfate (Albuterol Sulfate (0.083%) 2.5 Mg/3 Ml Vial.Neb) 2.5 mg INHALE Q4H PRN PRN Reason: shortness of breath or wheezing Albuterol Sulfate (Albuterol Sulfate 90 Mcg 8 Gm Inhaler) 1 puff INHALE Q4H PRN PRN Reason: shortness of breath or wheezing or broncospasm Atorvastatin Calcium (Atorvastatin Calcium 10 Mg Tablet) 10 mg PO DAILY [facility] Last Admin: 06/22/25 08:49 Dose: 10 mg Hydrochlorothiazide (Hydrochlorothiazide 12.5 Mg Tablet) 12.5 mg PO DAILY [facility] Last Admin: 06/22/25 08:49 Dose: 12.5 mg Hydroxyzine HCl (Hydroxyzine Hcl 25 Mg Tablet) 25 mg PO Q6H PRN PRN Reason: mild anxiety Last Admin: 06/21/25 21:54 Dose: 25 mg Levothyroxine Sodium (Levothyroxine Sodium 75 Mcg Tablet) 37.5 mcg PO DAILY@0600 [facility] Last Admin: 06/23/25 06:28 Dose: 37.5 mcg Lidocaine (Lidocaine 4 % Patch Adh..Patch) 1 patch TRANSDERMA DAILY [facility] Last Admin: 06/22/25 08:53 Dose: Not Given Lisinopril (Lisinopril 20 Mg Tablet) 20 mg PO DAILY [facility] Last Admin: 06/22/25 08:49 Dose: 20 mg Lorazepam (Lorazepam 0.5 Mg Tablet) 0.5 mg PO Q8H PRN PRN Reason: severe anxiety Last Admin: 06/21/25 12:10 Dose: 0.5 mg Magnesium Hydroxide (Milk Of Magnesia 30 Ml Oral.Susp) 30 ml PO DAILY PRN PRN Reason: Constipation Metformin HCl (Metformin Hcl Er 500 Mg Tab.Er.24h) 500 mg PO BID [facility] Last Admin: 06/22/25 22:28 Dose: 500 mg Mirtazapine (Mirtazapine 7.5 Mg Tablet) 7.5 mg PO BEDTIME [facility] Last Admin: 06/22/25 22:29 Dose: 7.5 mg Nicotine (Nicotine 21 Mg Patch.Td24) 21 mg TRANSDERMA DAILY PRN PRN Reason: nicotine craving Nicotine Polacrilex (Nicotine Polacrilex 2 Mg Gum) 2 mg BUCCAL Q2H PRN PRN Reason: Nicotine Cravings Olanzapine (Olanzapine 5 Mg Tablet) 5 mg PO BID PRN PRN Reason: agitation Polyethylene Glycol (Polyethylene Glycol 3350 17 Gm Powd.Pack) 17 gm PO DAILY [facility] Last Admin: 06/22/25 08:50 Dose: 17 gm Sertraline HCl (Sertraline Hcl 50 Mg Tablet) 50 mg PO DAILY [facility] Last Admin: 06/22/25 08:48 Dose: 50 mg Trazodone HCl (Trazodone Hcl 25 Mg Halftab) 25 mg PO BEDTIME PRN PRN Reason: Insomnia Last Admin: 06/23/25 01:12 Dose: 25 mg Allergies Allergies Allergy/AdvReac Type Severity Reaction Status Date / Time No Known Allergies Allergy Verified 06/20/25 17:22 Assessment & Plan Assessment & Plan (1) Suicidal ideation: Status: Acute Code(s): R45.851 - Suicidal ideations (2) Depression: Qualifiers: Depression Type: unspecified Qualified Code(s): F32.A - Depression, unspecified Status: Acute Code(s): F32.A - Depression, unspecified (3) PTSD (post-traumatic stress disorder): Status: Acute Code(s): F43.10 - Post-traumatic stress disorder, unspecified (4) HTN (hypertension): Qualifiers: Hypertension type: primary hypertension Qualified Code(s): I10 - Essential (primary) hypertension Status: Acute Code(s): I10 - Essential (primary) hypertension (5) Hypertriglyceridemia: Status: Acute Code(s): E78.1 - Pure hyperglyceridemia (6) Dyslipidemia: Status: Acute Code(s): E78.5 - Hyperlipidemia, unspecified Plan HPI: Patient is a 64 years old female with history of depression, high cholesterol, hypertension, diabetes, hypothyroidism who was assessed by [facility] crisis secondary to her presenting to the PCP's office in which patient endorsed increased depression and anxiety symptoms, increased tearfulness, poor sleep, and suicidal thoughts. Formulation/clinical reasoning: Increased stress the past couple of months, thinking about recent lost in the family, stress from her daughters issue (not discussed in detail), increase anxiety and depression, feeling like she has panic attack, tense body and tense muscle, decrease in sleep and appetite, history of PTSD, and depression, history of 2 suicide attempts, has been having suicidal thoughts in the past couple of months: anxiety and depression, sadness, loneliness increase causing her to feel suicdal. Given above information, patient will be safe in the restrictive environment for own safety, for the treatment of depression and anxiety with medication, and in a therapeutic environment, refer patient to outpatient psychiatric care services upon discharge. Hospital course: 06/21/25: Zoloft 50 mg daily for depression/anxiety First dose today. Monitor for GI side effects. Remeron 7.5 mg at bedtime for insomnia. We will titrate as tolerate to target the insomnia. Ativan point 5q 8 hours p.r.n.-short-term use for severe anxiety/panic attack. We will not continue upon discharge. 06/22:Keeping to self. laying in bed most of morning. Patient reports she is feeling better; pt stated, I'm not anxious or depressed. I don't like going out there because there is too much noise. I need to leave soon because I have a hair appointment . denies SI/HI/VH/AH. Focused on discharge. Continue current tx plan. 06/23/2025: No changes Plan Patient on 15 minute checks for safety. Admitted to [facility]. CV. Work with treatment team to do collateral and refer patient to outpatient psychiatric services if possible for aftercare. She has no provider/therapist, but has active PCP who manage medical medication. Reason for continued inpatient stay Substantial Risk for: rapid decompensation Time Spent With Patient Time: Total time managing care of this patient today ____ minutes.
[2025-06-23 08:12] VITALS: BP 128/71; PULSE 84
[2025-06-23] MEDS: Magnesium Hydrox/Alum Hydrox 30 ML ORAL.SUSP PO (14:56)
[2025-06-23 16:50] LABS: Glucose, Whole Blood 87 mg/dL (60-115)
[2025-06-23 20:00] VITALS: BP 95/52; PULSE 74; RESP 14; TEMP 36.7; O2SAT 94
[2025-06-24] MEDS: Magnesium Hydrox/Alum Hydrox 30 ML ORAL.SUSP PO (01:02)
[2025-06-24 07:15] VITALS: BP 113/55; PULSE 80; RESP 14; TEMP 36.8; O2SAT 96
[2025-06-24 07:29] LABS: Glucose, Whole Blood 102 mg/dL (60-115)
--- NOTE | 2025-06-24 10:25 | HO.PSYCHPN ---
Subjective Subjective Date of Service: 06/24/25 Reason For Visit: SI with plan to OD Interim History: Overall continues to report doing well and anxity/depression improving. Sleep overall ok. Denies SI. No psychosis. No med cocnerns. In milieu. Medication Compliance: Yes Side effects from medications: No Attending Groups: Intermittent Review of Systems Acute medical concerns: No Review of Systems Review of Systems Unremarkable Yes all other systems are reviewed and are negative Constitutional: Reports as per HPI Mental Status Exam Mental Status Exam Narrative: Patient is alert and orientedx4; behavior is cooperative, friendly with lessening anxiety and depression; patient is not in distress; dressed in hospital attire with adequate hygiene; mood is described as getting there and affect congruent; eye contact appropriate; Speech is normal rate, volume and prosody and not pressured; no psychomotor agitation/retardation present; thought process is organized and goal directed; Thought content is WNL, pertinent to relevant topics and without any delusional content, paranoid ideation or grandiosity; denies any SI/SIB/HI. Denies AH and there is no evidence of perceptual disturbance. Patient's insight and judgment improving. Diagnostics Vital Signs (24Hr): Vital Signs - 24 hr 06/23/25 20:00 06/24/25 07:15 Temperature 98.0 F 98.2 F Pulse Rate 74 80 Respiratory Rate 14 14 Blood Pressure 95/52 L 113/55 L Pulse Oximetry 94 96 Oxygen Delivery Method Room Air Room Air BMI result Body Mass Index 31.2 Labs 06/20/25 17:56 06/21/25 08:39 Labs: Laboratory Results - last 48 hr 06/22/25 06/23/25 06/23/25 21:06 07:27 16:47 POC Glucose 158 H 107 87 06/24/25 07:25 POC Glucose 102 Medications Medications Current Medications Acetaminophen (Acetaminophen 325 Mg Tablet) 650 mg PO Q6H PRN PRN Reason: Headache/Pain, Scale 1-10 Last Admin: 06/22/25 20:16 Dose: 650 mg Al Hydroxide/Mg Hydroxide (Magnesium Hydrox/Alum Hydrox 30 Ml Oral.Susp) 30 ml PO Q6H PRN PRN Reason: Heartburn/Nausea Last Admin: 06/24/25 01:02 Dose: 30 ml Albuterol Sulfate (Albuterol Sulfate (0.083%) 2.5 Mg/3 Ml Vial.Neb) 2.5 mg INHALE Q4H PRN PRN Reason: shortness of breath or wheezing Albuterol Sulfate (Albuterol Sulfate 90 Mcg 8 Gm Inhaler) 1 puff INHALE Q4H PRN PRN Reason: shortness of breath or wheezing or broncospasm Atorvastatin Calcium (Atorvastatin Calcium 10 Mg Tablet) 10 mg PO DAILY [facility] Last Admin: 06/24/25 08:53 Dose: 10 mg Hydrochlorothiazide (Hydrochlorothiazide 12.5 Mg Tablet) 12.5 mg PO DAILY [facility] Last Admin: 06/24/25 08:53 Dose: 12.5 mg Hydroxyzine HCl (Hydroxyzine Hcl 25 Mg Tablet) 25 mg PO Q6H PRN PRN Reason: mild anxiety Last Admin: 06/23/25 14:49 Dose: 25 mg Levothyroxine Sodium (Levothyroxine Sodium 75 Mcg Tablet) 37.5 mcg PO DAILY@0600 [facility] Last Admin: 06/24/25 06:35 Dose: 37.5 mcg Lidocaine (Lidocaine 4 % Patch Adh..Patch) 1 patch TRANSDERMA DAILY [facility] Last Admin: 06/24/25 08:56 Dose: Not Given Lisinopril (Lisinopril 20 Mg Tablet) 20 mg PO DAILY [facility] Last Admin: 06/24/25 08:52 Dose: 20 mg Lorazepam (Lorazepam 0.5 Mg Tablet) 0.5 mg PO Q8H PRN PRN Reason: severe anxiety Last Admin: 06/24/25 01:02 Dose: 0.5 mg Magnesium Hydroxide (Milk Of Magnesia 30 Ml Oral.Susp) 30 ml PO DAILY PRN PRN Reason: Constipation Metformin HCl (Metformin Hcl Er 500 Mg Tab.Er.24h) 500 mg PO BID [facility] Last Admin: 06/24/25 08:52 Dose: 500 mg Mirtazapine (Mirtazapine 7.5 Mg Tablet) 7.5 mg PO BEDTIME [facility] Last Admin: 06/23/25 22:44 Dose: 7.5 mg Nicotine (Nicotine 21 Mg Patch.Td24) 21 mg TRANSDERMA DAILY PRN PRN Reason: nicotine craving Nicotine Polacrilex (Nicotine Polacrilex 2 Mg Gum) 2 mg BUCCAL Q2H PRN PRN Reason: Nicotine Cravings Olanzapine (Olanzapine 5 Mg Tablet) 5 mg PO BID PRN PRN Reason: agitation Polyethylene Glycol (Polyethylene Glycol 3350 17 Gm Powd.Pack) 17 gm PO DAILY [facility] Last Admin: 06/24/25 08:52 Dose: 17 gm Sertraline HCl (Sertraline Hcl 50 Mg Tablet) 50 mg PO DAILY [facility] Last Admin: 06/24/25 08:52 Dose: 50 mg Trazodone HCl (Trazodone Hcl 25 Mg Halftab) 25 mg PO BEDTIME PRN PRN Reason: Insomnia Last Admin: 06/23/25 23:51 Dose: 25 mg Allergies Allergies Allergy/AdvReac Type Severity Reaction Status Date / Time No Known Allergies Allergy Verified 06/20/25 17:22 Assessment & Plan Assessment & Plan (1) Suicidal ideation: Status: Acute Code(s): R45.851 - Suicidal ideations (2) Depression: Qualifiers: Depression Type: unspecified Qualified Code(s): F32.A - Depression, unspecified Status: Acute Code(s): F32.A - Depression, unspecified (3) PTSD (post-traumatic stress disorder): Status: Acute Code(s): F43.10 - Post-traumatic stress disorder, unspecified (4) HTN (hypertension): Qualifiers: Hypertension type: primary hypertension Qualified Code(s): I10 - Essential (primary) hypertension Status: Acute Code(s): I10 - Essential (primary) hypertension (5) Hypertriglyceridemia: Status: Acute Code(s): E78.1 - Pure hyperglyceridemia (6) Dyslipidemia: Status: Acute Code(s): E78.5 - Hyperlipidemia, unspecified Plan HPI: Patient is a 64 years old female with history of depression, high cholesterol, hypertension, diabetes, hypothyroidism who was assessed by [facility] secondary to her presenting to the PCP's office in which patient endorsed increased depression and anxiety symptoms, increased tearfulness, poor sleep, and suicidal thoughts. Formulation/clinical reasoning: Increased stress the past couple of months, thinking about recent lost in the family, stress from her daughters issue (not discussed in detail), increase anxiety and depression, feeling like she has panic attack, tense body and tense muscle, decrease in sleep and appetite, history of PTSD, and depression, history of 2 suicide attempts, has been having suicidal thoughts in the past couple of months: anxiety and depression, sadness, loneliness increase causing her to feel suicdal. Given above information, patient will be safe in the restrictive environment for own safety, for the treatment of depression and anxiety with medication, and in a therapeutic environment, refer patient to outpatient psychiatric care services upon discharge. Hospital course: 06/21/25: Zoloft 50 mg daily for depression/anxiety First dose today. Monitor for GI side effects. Remeron 7.5 mg at bedtime for insomnia. We will titrate as tolerate to target the insomnia. Ativan point 5q 8 hours p.r.n.-short-term use for severe anxiety/panic attack. We will not continue upon discharge. 06/22:Keeping to self. laying in bed most of morning. Patient reports she is feeling better; pt stated, I'm not anxious or depressed. I don't like going out there because there is too much noise. I need to leave soon because I have a hair appointment . denies SI/HI/VH/AH. Focused on discharge. Continue current tx plan. 06/23/2025: No changes 06/24: no changes Plan Patient on 15 minute checks for safety. Admitted to [facility]. CV. Work with treatment team to do collateral and refer patient to outpatient psychiatric services if possible for aftercare. She has no provider/therapist, but has active PCP who manage medical medication. Reason for continued inpatient stay Substantial Risk for: inability to function and rapid decompensation Time Spent With Patient Time: Total time managing care of this patient today ____ minutes.
[2025-06-24 16:59] LABS: Glucose, Whole Blood 125 mg/dL (60-115)
[2025-06-24 19:25] VITALS: BP 110/68; PULSE 91; RESP 18; TEMP 36.6; O2SAT 96
[2025-06-24 19:26] VITALS: BP 115/62; PULSE 98
[2025-06-24] MEDS: traZODone HCL 25 MG HALFTAB PO (20:29)
[2025-06-25 07:42] LABS: Glucose, Whole Blood 121 mg/dL (60-115)
[2025-06-25 08:00] VITALS: BP 103/62; PULSE 71; RESP 14; TEMP 36.3; O2SAT 97
--- NOTE | 2025-06-25 11:50 | P.PNPSI_ITS ---
Subjective Subjective Date of Service: 06/25/25 Reason For Visit: SI with plan to OD Subjective Notes: Conditional Voluntary Healthcare Proxy: No Guardianship: No Medical Problems Affecting Mental Status: No Interim History: Medical record and nursing notes reviewed; case discussed during rounds with team/nursing staff, and met with patient for supportive therapy/psychoeducation, as well as medication management. Slept well, less anxious- feeling anxious d/t peer who was talking loudly, denies depression. Denies safety concerns. Feeling ready for tomorrow discharge. Discuss with patient of Ativan which would not be sent home with. Family will pick her up in the morning. Working on sending meds to prefer pharmacy. Medication Compliance: Yes (refused lidocaine patch. ) Side effects from medications: No Attending Groups: Intermittent Review of Systems Acute medical concerns: No Medical Review of Systems: unchanged Review of Systems Review of Systems Constitutional: Denies fatigue and Denies fever(s) Cardiovascular: Denies chest pain and Denies dyspnea Respiratory: Denies dyspnea Gastrointestinal: Denies abdominal pain Psychiatric: denies suicidal ideation Endocrine: Denies fatigue Yes all other systems are reviewed and are negative Mental Status Exam Mental Status Exam Narrative: Patient is alert and orientedx4; behavior is cooperative, friendly with lessening anxiety; patient is not in distress; dressed in hospital attire with adequate hygiene; mood is described as good and affect congruent; eye contact appropriate; Speech is normal rate, volume and prosody and not pressured; no psychomotor agitation/retardation present; thought process is organized and goal directed; Thought content is WNL, pertinent to relevant topics and without any delusional content, paranoid ideation or grandiosity; denies any SI/SIB/HI. Denies AH and there is no evidence of perceptual disturbance. Patient's insight and judgment fair Diagnostics Vital Signs (24Hr): Vital Signs - 24 hr 06/24/25 19:25 06/24/25 19:26 06/25/25 08:00 Temperature 97.9 F 97.4 F Pulse Rate 91 98 71 Respiratory Rate 18 14 Blood Pressure 110/68 115/62 103/62 Pulse Oximetry 96 97 Oxygen Delivery Method Room Air Room Air BMI result Body Mass Index 31.2 Labs 06/20/25 17:56 06/21/25 08:39 Labs: Laboratory Results - last 48 hr 06/23/25 06/24/25 06/24/25 16:47 07:25 16:54 POC Glucose 87 102 125 H 06/25/25 07:38 POC Glucose 121 H Medications Medications Current Medications Acetaminophen (Acetaminophen 325 Mg Tablet) 650 mg PO Q6H PRN PRN Reason: Headache/Pain, Scale 1-10 Last Admin: 06/22/25 20:16 Dose: 650 mg Al Hydroxide/Mg Hydroxide (Magnesium Hydrox/Alum Hydrox 30 Ml Oral.Susp) 30 ml PO Q6H PRN PRN Reason: Heartburn/Nausea Last Admin: 06/24/25 01:02 Dose: 30 ml Albuterol Sulfate (Albuterol Sulfate (0.083%) 2.5 Mg/3 Ml Vial.Neb) 2.5 mg INHALE Q4H PRN PRN Reason: shortness of breath or wheezing Albuterol Sulfate (Albuterol Sulfate 90 Mcg 8 Gm Inhaler) 1 puff INHALE Q4H PRN PRN Reason: shortness of breath or wheezing or broncospasm Atorvastatin Calcium (Atorvastatin Calcium 10 Mg Tablet) 10 mg PO DAILY [facility] Last Admin: 06/25/25 09:10 Dose: 10 mg Hydrochlorothiazide (Hydrochlorothiazide 12.5 Mg Tablet) 12.5 mg PO DAILY [facility] Last Admin: 06/25/25 09:10 Dose: 12.5 mg Hydroxyzine HCl (Hydroxyzine Hcl 25 Mg Tablet) 25 mg PO Q6H PRN PRN Reason: mild anxiety Last Admin: 06/23/25 14:49 Dose: 25 mg Levothyroxine Sodium (Levothyroxine Sodium 75 Mcg Tablet) 37.5 mcg PO DAILY@0600 [facility] Last Admin: 06/25/25 06:02 Dose: 37.5 mcg Lidocaine (Lidocaine 4 % Patch Adh..Patch) 1 patch TRANSDERMA DAILY [facility] Last Admin: 06/25/25 09:16 Dose: Not Given Lisinopril (Lisinopril 20 Mg Tablet) 20 mg PO DAILY [facility] Last Admin: 06/25/25 09:09 Dose: 20 mg Magnesium Hydroxide (Milk Of Magnesia 30 Ml Oral.Susp) 30 ml PO DAILY PRN PRN Reason: Constipation Metformin HCl (Metformin Hcl Er 500 Mg Tab.Er.24h) 500 mg PO BID [facility] Last Admin: 06/25/25 09:09 Dose: 500 mg Mirtazapine (Mirtazapine 7.5 Mg Tablet) 7.5 mg PO BEDTIME [facility] Last Admin: 06/24/25 20:26 Dose: 7.5 mg Nicotine (Nicotine 21 Mg Patch.Td24) 21 mg TRANSDERMA DAILY PRN PRN Reason: nicotine craving Nicotine Polacrilex (Nicotine Polacrilex 2 Mg Gum) 2 mg BUCCAL Q2H PRN PRN Reason: Nicotine Cravings Patient Own ( (Tizepatide 12.5 Mg)) 12.5 mg IM Mo@0900 [facility] Olanzapine (Olanzapine 5 Mg Tablet) 5 mg PO BID PRN PRN Reason: agitation Polyethylene Glycol (Polyethylene Glycol 3350 17 Gm Powd.Pack) 17 gm PO DAILY [facility] Last Admin: 06/25/25 09:09 Dose: 17 gm Sertraline HCl (Sertraline Hcl 50 Mg Tablet) 50 mg PO DAILY [facility] Last Admin: 06/25/25 09:10 Dose: 50 mg Trazodone HCl (Trazodone Hcl 25 Mg Halftab) 25 mg PO BEDTIME PRN PRN Reason: Insomnia Last Admin: 06/24/25 20:29 Dose: 25 mg Allergies Allergies Allergy/AdvReac Type Severity Reaction Status Date / Time No Known Allergies Allergy Verified 06/20/25 17:22 Assessment & Plan Assessment & Plan (1) Suicidal ideation: Status: Acute Code(s): R45.851 - Suicidal ideations (2) Depression: Qualifiers: Depression Type: unspecified Qualified Code(s): F32.A - Depression, unspecified Status: Acute Code(s): F32.A - Depression, unspecified (3) PTSD (post-traumatic stress disorder): Status: Acute Code(s): F43.10 - Post-traumatic stress disorder, unspecified (4) HTN (hypertension): Qualifiers: Hypertension type: primary hypertension Qualified Code(s): I10 - Essential (primary) hypertension Status: Acute Code(s): I10 - Essential (primary) hypertension (5) Hypertriglyceridemia: Status: Acute Code(s): E78.1 - Pure hyperglyceridemia (6) Dyslipidemia: Status: Acute Code(s): E78.5 - Hyperlipidemia, unspecified Plan HPI: Patient is a 64 years old female with history of depression, high cholesterol, hypertension, diabetes, hypothyroidism who was assessed by [facility] secondary to her presenting to the PCP's office in which patient endorsed increased depression and anxiety symptoms, increased tearfulness, poor sleep, and suicidal thoughts. Formulation/clinical reasoning: Increased stress the past couple of months, thinking about recent lost in the family, stress from her daughters issue (not discussed in detail), increase anxiety and depression, feeling like she has panic attack, tense body and tense muscle, decrease in sleep and appetite, history of PTSD, and depression, history of 2 suicide attempts, has been having suicidal thoughts in the past couple of months: anxiety and depression, sadness, loneliness increase causing her to feel suicdal. Given above information, patient will be safe in the restrictive environment for own safety, for the treatment of depression and anxiety with medication, and in a therapeutic environment, refer patient to outpatient psychiatric care services upon discharge. Hospital course: 06/21/25: Zoloft 50 mg daily for depression/anxiety First dose today. Monitor for GI side effects. Remeron 7.5 mg at bedtime for insomnia. We will titrate as tolerate to target the insomnia. Ativan point 5q 8 hours p.r.n.-short-term use for severe anxiety/panic attack. We will not continue upon discharge. 06/22:Keeping to self. laying in bed most of morning. Patient reports she is feeling better; pt stated, I'm not anxious or depressed. I don't like going out there because there is too much noise. I need to leave soon because I have a hair appointment . denies SI/HI/VH/AH. Focused on discharge. Continue current tx plan. 06/23/2025: No changes 06/24: no changes 06/25: slept well, less anxious- feeling anxious d/t peer who was talking loudly, denies depression. Denies safety concerns. Feeling ready for tomorrow discharge. Discuss with patient of Ativan which would not be sent home with. Family will pick her up in the morning. Working on sending meds to prefer pharmacy. Plan Patient on 15 minute checks for safety. Admitted to [facility]. CV. Work with treatment team to do collateral and refer patient to outpatient psychiatric services if possible for aftercare. She has no provider/therapist, but has active PCP who manage medical medication. Patient educated on: diagnosis, medication risk/benefits and therapeutic strategies Informed Consent: understands Reason for continued inpatient stay Substantial Risk for: med/psych decompensation Time Spent With Patient Time: Total time managing care of this patient today ____ minutes.
[2025-06-25] MEDS: TIRZEPATIDE 12.5 EACH IM (12:02)
[2025-06-25] MEDS: Magnesium Hydrox/Alum Hydrox 30 ML ORAL.SUSP PO ×2 (13:08→20:23)
[2025-06-25 17:17] LABS: Glucose, Whole Blood 87 mg/dL (60-115)
[2025-06-25 20:00] VITALS: BP 98/53; PULSE 72; RESP 16; TEMP 36.4; O2SAT 95
[2025-06-25] MEDS: traZODone HCL 25 MG HALFTAB PO ×2 (21:12→23:12)
[2025-06-26 07:45] LABS: Glucose, Whole Blood 119 mg/dL (60-115)
[2025-06-26 08:00] VITALS: BP 112/60; PULSE 90; RESP 16; O2SAT 98
[2025-06-26] MEDS: Lidocaine 4 % Patch ADH..PATCH 1 PATCH TRANSDERMA (08:26)
[2025-06-26 08:28] VITALS: BP 112/60
[2025-06-26 08:29] VITALS: BP 112/60
--- NOTE | 2025-06-26 09:28 | P.DS_ITS ---
DS: Providers Provider Date of Service: 06/26/25 Date of admission: 06/20/25 20:53 Date of discharge: 06/26/25 Primary care physician: Unknown Physician Attending physician on admission: Shruti Toth Discharging clinician: Shruti Toth DS: Diagnosis Discharge Diagnosis (1) Suicidal ideation: Status: Acute (2) Depression: Status: Acute (3) PTSD (post-traumatic stress disorder): Status: Acute (4) HTN (hypertension): Status: Acute (5) Hypertriglyceridemia: Status: Acute (6) Dyslipidemia: Status: Acute DS: Medications Discharge Medications Home Medications: Previous Rx's ?Medication ?Instructions ?Recorded nebulizers #1 ea 11/24/21 methylcellulose (laxative) 500 mg 1,000 mg (2 x 500 mg ) PO DAILY #60 08/31/22 tablet (Citrucel) tabs miscellaneous medical supply See Rx Instructions misce llaneous 04/07/24 .COMPLEX #2 ea lidocaine 5 % topical patch 1 patch topical DAILY PRN pain 04/15/24 (scale score 7-10) #15 ea diabetic shoes #1 ea 10/09/24 levothyroxine 37.5 mcg capsule 37.5 mcg PO DAILY 90 da ys #90 caps 02/19/25 lisinopril 20 1 tab PO DAILY 90 days #90 t abs 02/19/25 mg-hydrochlorothiazide 12.5 mg tablet albuterol sulfate 2.5 mg/3 mL 2.5 mg (3 mL) inhalation Q4-6H PRN 02/23/25 (0.083 %) solution for nebulization shortness of breat h or wheezing 30 days #180 mL albuterol sulfate 90 mcg/actuation 1 puff inhalation Q 4H PRN 02/23/25 aerosol inhaler shortness of breath or wheez ing or broncospasm 1 month #8.5 grams blood sugar diagnostic (FreeStyle #100 ea 05/21/25 Lite Strips) blood-glucose meter (FreeStyle #1 ea 05/21/25 Lite Meter kit) lancets 28 gauge (FreeStyle #100 ea 05/21/25 Lancets) tirzepatide 12.5 mg/0.5 mL 12.5 mg (0.5 mL) subcut QWE EK #2 mL 05/21/25 subcutaneous pen injector (Tamy) atorvastatin 10 mg tablet 10 mg PO DAILY high Choleste rol 06/25/25 #30 tabs metformin 500 mg tablet,extended 500 mg PO BID #180 ta bs 06/25/25 release 24 hr mirtazapine 7.5 mg tablet 7.5 mg PO BEDTIME insomnia #30 06/25/25 tabs polyethylene glycol 3350 17 gram 17 g PO DAILY Constip ation #30 ea 06/25/25 oral powder packet sertraline 50 mg tablet 50 mg PO DAILY Depression #3 0 tabs 06/25/25 trazodone 50 mg tablet 25 mg (1/2 x 50 mg) PO BEDTI ME PRN 06/25/25 Insomnia #30 tabs Mental Status Exam Mental Status Exam Narrative: Patient presents well-groomed, casually dressed. Affect is euthymic with full range. Speech is clear and coherent. Thought process is linear and logical. Thought content is appropriate and relevant. Patient denies suicidal or homicidal ideation intent or plan. No overt psychotic symptoms elicited. Insight is good. Judgment is good. Data Data Completed and Pending Completed studies during hospitalization [Text1]: 06/20/25 06/20/25 06/21/25 17:56 18:16 08:39 WBC 9.7 RBC 4.34 Hgb 13.3 Hct 39.5 MCV 91.0 MCH 30.6 MCHC 33.7 RDW 12.2 Plt Count 274 MPV 10.0 Immature Gran % (Auto) 0.3 Neut % (Auto) 55.0 Lymph % (Auto) 34.2 [place] % (Auto) 8.5 Eos % (Auto) 1.4 Baso % (Auto) 0.6 Lymph # (Auto) 3.3 [place] # (Auto) 0.8 Eos # (Auto) 0.1 Baso # (Auto) 0.1 Abs Immat Gran (auto) 0.03 Absolute Neuts (auto) 5.3 Absolute Nucleated RBC 0.000 Nucleated RBC % (auto) 0.0 Sodium 141 142 Potassium 3.6 4.2 Chloride 105 105 Carbon Dioxide 26 27 Anion Gap 14 14 BUN 14 16 Creatinine 0.73 0.73 Estim Creat Clear Calc 79.8 79.8 Estimated GFR > 60 > 60 POC Glucose Random Glucose 93 138 H Estimat Average Glucose 143 Hemoglobin A1c % 6.6 H Calcium 9.3 10.1 D Total Bilirubin 0.3 0.4 AST 24 28 ALT 18 32 H Alkaline Phosphatase 65 89 Total Protein 7.0 7.6 Albumin 4.1 4.4 Triglycerides 240 H Cholesterol 140 LDL Cholesterol, Calc 54 HDL Cholesterol 38 L TSH 0.14 L Free T4 1.23 Urine Color Yellow Urine Appearance Clear Urine pH 5.5 Ur Specific [place] 1.015 Urine Protein Negative Urine Glucose (UA) Negative Urine Ketones Negative Urine Blood Negative Urine Nitrite Negative Ur Leukocyte Esterase Moderate (2+) H Urine RBC 0-2 Urine WBC 0-5 Ur Squamous Epith Cells 0-2 Urine Bacteria None Seen Hyaline Casts 0-2 Urine Opiates Screen Not Detected Ur Buprenorphine Scrn Not Detected Ur Oxycodone Screen Not Detected Urine Methadone Screen Not Detected Urine Fentanyl Screen Not Detected Ur Barbiturates Screen Not Detected Ur Phencyclidine Scrn Not Detected Ur Amphetamines Screen Not Detected U Benzodiazepines Scrn Not Detected Urine Cocaine Screen Not Detected U Marijuana (THC) Screen Not Detected Ethyl Alcohol < 10 06/21/25 06/22/25 06/23/25 20:16 21:06 07:27 WBC RBC Hgb Hct MCV MCH MCHC RDW Plt Count MPV Immature Gran % (Auto) Neut % (Auto) Lymph % (Auto) [place] % (Auto) Eos % (Auto) Baso % (Auto) Lymph # (Auto) [place] # (Auto) Eos # (Auto) Baso # (Auto) Abs Immat Gran (auto) Absolute Neuts (auto) Absolute Nucleated RBC Nucleated RBC % (auto) Sodium Potassium Chloride Carbon Dioxide Anion Gap BUN Creatinine Estim Creat Clear Calc Estimated GFR POC Glucose 136 H 158 H 107 Random Glucose Estimat Average Glucose Hemoglobin A1c % Calcium Total Bilirubin AST ALT Alkaline Phosphatase Total Protein Albumin Triglycerides Cholesterol LDL Cholesterol, Calc HDL Cholesterol TSH Free T4 Urine Color Urine Appearance Urine pH Ur Specific [place] Urine Protein Urine Glucose (UA) Urine Ketones Urine Blood Urine Nitrite Ur Leukocyte Esterase Urine RBC Urine WBC Ur Squamous Epith Cells Urine Bacteria Hyaline Casts Urine Opiates Screen Ur Buprenorphine Scrn Ur Oxycodone Screen Urine Methadone Screen Urine Fentanyl Screen Ur Barbiturates Screen Ur Phencyclidine Scrn Ur Amphetamines Screen U Benzodiazepines Scrn Urine Cocaine Screen U Marijuana (THC) Screen Ethyl Alcohol 06/23/25 06/24/25 06/24/25 16:47 07:25 16:54 WBC RBC Hgb Hct MCV MCH MCHC RDW Plt Count MPV Immature Gran % (Auto) Neut % (Auto) Lymph % (Auto) [place] % (Auto) Eos % (Auto) Baso % (Auto) Lymph # (Auto) [place] # (Auto) Eos # (Auto) Baso # (Auto) Abs Immat Gran (auto) Absolute Neuts (auto) Absolute Nucleated RBC Nucleated RBC % (auto) Sodium Potassium Chloride Carbon Dioxide Anion Gap BUN Creatinine Estim Creat Clear Calc Estimated GFR POC Glucose 87 102 125 H Random Glucose Estimat Average Glucose Hemoglobin A1c % Calcium Total Bilirubin AST ALT Alkaline Phosphatase Total Protein Albumin Triglycerides Cholesterol LDL Cholesterol, Calc HDL Cholesterol TSH Free T4 Urine Color Urine Appearance Urine pH Ur Specific [place] Urine Protein Urine Glucose (UA) Urine Ketones Urine Blood Urine Nitrite Ur Leukocyte Esterase Urine RBC Urine WBC Ur Squamous Epith Cells Urine Bacteria Hyaline Casts Urine Opiates Screen Ur Buprenorphine Scrn Ur Oxycodone Screen Urine Methadone Screen Urine Fentanyl Screen Ur Barbiturates Screen Ur Phencyclidine Scrn Ur Amphetamines Screen U Benzodiazepines Scrn Urine Cocaine Screen U Marijuana (THC) Screen Ethyl Alcohol 06/25/25 06/25/25 06/26/25 07:38 17:07 07:39 WBC RBC Hgb Hct MCV MCH MCHC RDW Plt Count MPV Immature Gran % (Auto) Neut % (Auto) Lymph % (Auto) [place] % (Auto) Eos % (Auto) Baso % (Auto) Lymph # (Auto) [place] # (Auto) Eos # (Auto) Baso # (Auto) Abs Immat Gran (auto) Absolute Neuts (auto) Absolute Nucleated RBC Nucleated RBC % (auto) Sodium Potassium Chloride Carbon Dioxide Anion Gap BUN Creatinine Estim Creat Clear Calc Estimated GFR POC Glucose 121 H 87 119 H Random Glucose Estimat Average Glucose Hemoglobin A1c % Calcium Total Bilirubin AST ALT Alkaline Phosphatase Total Protein Albumin Triglycerides Cholesterol LDL Cholesterol, Calc HDL Cholesterol TSH Free T4 Urine Color Urine Appearance Urine pH Ur Specific [place] Urine Protein Urine Glucose (UA) Urine Ketones Urine Blood Urine Nitrite Ur Leukocyte Esterase Urine RBC Urine WBC Ur Squamous Epith Cells Urine Bacteria Hyaline Casts Urine Opiates Screen Ur Buprenorphine Scrn Ur Oxycodone Screen Urine Methadone Screen Urine Fentanyl Screen Ur Barbiturates Screen Ur Phencyclidine Scrn Ur Amphetamines Screen U Benzodiazepines Scrn Urine Cocaine Screen U Marijuana (THC) Screen Ethyl Alcohol 06/20/25 Unknown Urine clean catch - Clean Catch Midstream Urine Culture - Final DS: Summary Hospital Course Hospital Course: HPI: Patient is a 64 years old female with history of depression, high cholesterol, hypertension, diabetes, hypothyroidism who was assessed by [facility] secondary to her presenting to the PCP's office in which patient endorsed increased depression and anxiety symptoms, increased tearfullness, poor sleep, and suicidal thoughts. Formulation/clinical reasoning: Increased stress the past couple of months, thinking about recent lost in the family, stress from her daughters issue (not discussed in detail), increase anxiety and depression, feeling like she has panic attack, tense body and tense muscle, decrease in sleep and appetite, history of PTSD, and depression, history of 2 suicide attempts, has been having suicidal thoughts in the past couple of months: anxiety and depression, sadness, loneliness increase causing her to feel suicdal. Given above information, patient will be safe in the restrictive environment for own safety, for the treatment of depression and anxiety with medication, and in a therapeutic environment, refer patient to outpatient psychiatric care services upon discharge. Hospital course: 06/21/25: Zoloft 50 mg daily for depression/anxiety First dose today. Monitor for GI side effects. Remeron 7.5 mg at bedtime for insomnia. We will titrate as tolerate to target the insomnia. Ativan point 5q 8 hours p.r.n.-short-term use for severe anxiety/panic attack. We will not continue upon discharge. 06/22:Keeping to self. laying in bed most of morning. Patient reports she is feeling better; pt stated, I'm not anxious or depressed. I don't like going out there because there is too much noise. I need to leave soon because I have a hair appointment . denies SI/HI/VH/AH. Focused on discharge. Continue current tx plan. 06/23/2025: No changes 06/24: no changes 06/25: slept well, less anxious- feeling anxious d/t peer who was talking loudly, denies depression. Denies safety concerns. Feeling ready for tomorrow discharge. Discuss with patient of Ativan which would not be sent home with. Family will pick her up in the morning. Working on sending meds to prefer pharmacy. 06/26/25: patient is ready for discharge. Son will pick her up by 1030. Denies safety concerns with mild anxiety sometimes but not at the day of discharge. Patient instructed to take medication as prescribed. Time spent discussing smoking cessation with patient: 3 to 10 minutes Status at Discharge Cognitive/behavioral status at discharge: CONDITION ON DISCHARGE: CURRENT STATUS IT RELATES TO ADMISSION CRITERIA: Stable, improved. Improvements in depression, anxiety, and suicidal ideation. Improvements in sleep, energy, and appetite. and no hallucination or paranoia/delusional thought. Functional status at discharge: independent ambulation Overall status at discharge: patient is back to baseline Time Spent with Patient Time attestation: Total time managing care of this patient today ____ minutes. Time spent: Greater than 30 minutes Discharge Plan Discharge Anticipated Discharge Date/Time: 06/26/25 10:30 Patient Disposition: Home, Self-Care Discharge Diagnosis: Depression, PTSD, HTN, elevated lipid profile, Referrals: Heart Nurse: Yesy Lawson ([facility]) [Other] - 1 Week Referral Note: Yesy should be reaching out to you via phone sometime this week. You may contact her at the above number and Ext. [phone] to request assistance in accessing additional services or resources Jean Carlos Page MD [Physician, Internal Medicine] - 1 Week Referral Note: 06-25-25 Your Primary Care Provider has been notified of your discharge and will be in contact with the date and time of your follow up appt. Discharge Medications: New mirtazapine 7.5 mg Tablet 7.5 mg PO BEDTIME Qty: 30 0RF sertraline 50 mg Tablet 50 mg PO DAILY Qty: 30 0RF trazodone 50 mg tablet 25 mg PO BEDTIME PRN (Reason: Insomnia) Qty: 30 0RF polyethylene glycol 3350 17 gram Powder In Packet 17 g PO DAILY Qty: 30 0RF Continued (DME) nebulizers Misc See Rx Instructions .Route Qty: 1 0RF Rx Instructions: Use every 4-6 hours prn for wheezing, shortness of breath lisinopril-hydrochlorothiazide 20-12.5 mg tablet 1 tab PO DAILY 90 Days Qty: 90 2RF levothyroxine 37.5 mcg capsule 37.5 mcg PO DAILY 90 Days Qty: 90 3RF albuterol sulfate 90 mcg/actuation HFA aerosol inhaler 1 puff inhalation Q4H PRN (Reason: shortness of breath or wheezing or broncospasm) 30 Days Qty: 8.5 5RF albuterol sulfate 2.5 mg /3 mL (0.083 %) solution for nebulization 2.5 mg inhalation Q4-6H PRN (Reason: shortness of breath or wheezing) 30 Days Qty: 180 3RF atorvastatin 10 mg tablet 10 mg PO DAILY Qty: 30 0RF metformin 500 mg tablet extended release 24 hr 500 mg PO BID Qty: 180 3RF lidocaine 5 % adhesive patch,medicated 1 patch topical DAILY PRN (Reason: pain (scale score 7-10)) Qty: 15 0RF Rx Instructions: leave on most painful area for up to 12 hrs Citrucel 500 mg tablet 1,000 mg PO DAILY Qty: 60 2RF Rx Instructions: take it with full glass of water miscellaneous medical supply Misc See Rx Instructions miscellaneous .COMPLEX Qty: 2 1RF Rx Instructions: diabetic shoes as directed; (DME) diabetic shoes See Rx Instructions .ROUTE .MEDSUPPLY Qty: 1 0RF Rx Instructions: extra depth orthopedic shoes ( 1 pair ) with customize heat molded multi density inner soles ( 3 pair) Dispense 1 Sig: As directed DX: And IDDM /polyneuropathy ( E11 0.42 ); hammertoe foot deformity ( M 20.41, and 20.42 ) pre ulcerative skin lesion ( L 85.1 ) Diagnosis ( E11 0.42 ) type 2 diabetes with polyneuropathy (DME) blood-glucose meter [FreeStyle Lite Meter] Kit See Rx Instructions .Route Qty: 1 0RF Rx Instructions: use daily to monitor blood sugars (DME) FreeStyle Lite Strips Strip See Rx Instructions .ROUTE .COMPLEX Qty: 100 3RF Dose Instruction: USE DIRECTED 4 TO 5 TIMES A DAY. Rx Instructions: use daily to monitor blood sugar Mounjaro 12.5 mg/0.5 mL pen injector 12.5 mg subcut QWEEK Qty: 2 5RF Rx Instructions: MONDAYS Discontinued polyethylene glycol 3350 [Miralax] 17 gram/dose powder 17 g PO DAILY Qty: 510 2RF No Action (DME) lancets [FreeStyle Lancets] 28 gauge misc See Rx Instructions .ROUTE .MEDSUPPLY Qty: 100 5RF Rx Instructions: Use to monitor blood sugars daily Discharge Orders: Discharge Order (Routine); Ordered 06/26/25 Ordered By: Shruti Toth Diet: Regular diet Activity on Discharge: As tolerated Stand Alone Forms: Patient Portal Discharge page, Community Support Print Language: Yoruba Care Plan Goals: Maintain mood and safe behaviors Take medications as prescribed Continue to pursue sobriety Practice coping skills Continue with outpatient providers and reach out to them as needed Health Concerns: Mood stability and behaviors Sobriety Plan of Treatment: Follow up with your PCP, psychiatric provider and other outpatient providers re garding above concerns Take medications as prescribed Assessment: Assessment: Risk assessment at time of discharge: Patient was interviewed prior to discharge and found to be fully oriented and without any SI or HI. Patient has improved insight and judgment and wants to continue treatment. Patient is not in imminent risk of harm to self or others and has a safety plan that includes presenting to the closest ER or calling 911 if feeling unsafe. Patient has been observed closely by nursing and unit staff throughout admission; patient has not engaged in any behaviors that suggest dangerousness to self or others and has demonstrated appropriate behaviors and impulse control Discharge Date/Time: 06/26/25 10:22
== END 2025-06-26 10:22 | disposition home or self-care (01) | DRG 881 ==
LOC: HO.ED 20:43 → HO.PADLT16 20:54
PROVIDERS: Admitting Provider Nurse Practitioner Psychiatric/Mental Health; Emergency Provider Emergency Medicine; Visit Provider Nurse Practitioner Psychiatric/Mental Health
DX: F32.A Depression, unspecified (principal); R45.851 Suicidal ideations; F43.10 Post-traumatic stress disorder, unspecified; E78.2 Mixed hyperlipidemia; I10 Essential (primary) hypertension; Z87.891 Personal history of nicotine dependence; Z79.84 Long term (current) use of oral hypoglycemic drugs; Z79.890 Hormone replacement therapy; Z79.899 Other long term (current) drug therapy
CPT/HCPCS: 36415; 80053; 80061; 80307; 81001; 82947; 83036; 84439; 84443; 85025; 87086; 93005; 99285

== ENCOUNTER → 2025-06-20 19:14 | Outpatient (BNV) | payer OTHER, SELFPAY | PROVIDERS: Admitting Provider Nurse Practitioner Psychiatric/Mental Health; Emergency Provider Emergency Medicine; Visit Provider Internal Medicine Cardiovascular Disease | DX: R94.31 Abnormal electrocardiogram [ECG] [EKG] (principal); Z13.6 Encounter for screening for cardiovascular disorders | CPT/HCPCS: 93010 ==

== ENCOUNTER → 2025-06-20 20:53 | Outpatient (BNV) | payer OTHER, SELFPAY | PROVIDERS: Admitting Provider Nurse Practitioner Psychiatric/Mental Health; Emergency Provider Emergency Medicine; Visit Provider Nurse Practitioner Psychiatric/Mental Health | DX: R45.851 Suicidal ideations (principal); F32.A Depression, unspecified; F43.10 Post-traumatic stress disorder, unspecified; I10 Essential (primary) hypertension; E78.1 Pure hyperglyceridemia; E78.5 Hyperlipidemia, unspecified | CPT/HCPCS: 90792; 99231; 99238 ==

== ENCOUNTER 2025-07-19 09:13 | Outpatient (AMB) | payer OTHER, SELFPAY ==
--- NOTE | 2025-07-19 09:15 | MHC.PC.OV ---
Vital Signs 07/19/25 09:24 Height 5 ft 4 in Weight 185 lb 4 oz BMI 31.8 BP 133/61 Blood Pressure Location Rt brachial Position Sitting Respiration 16 Pulse 77 Pulse Source Pulse Oximeter Temp 98.8 F Temp Source Oral Pulse Oximetry (%) 98 Oxygen Delivery Method Room Air Intake Visit Reasons: HDF/[facility]/depression/suicidal D/C 06/26/25 Intake Note: patient here for [facility]- [facility], depression and suicidal. D/C on 06/26/25 Steward/Stewardess Smoke Room Required: No Is last menstrual period known: No Post menopausal: No Patient : No Allergies No Known Allergies Allergy (Verified 07/19/25 09:22) Medication List - Last Reconciled 07/19/25 by Jean Carlos Page MD albuterol sulfate 2.5 mg (3 mL) inhalation Q4-6H PRN 30 days albuterol sulfate 90 mcg/actuation 1 puff inhalation Q4H PRN 1 month atorvastatin 10 mg PO DAILY blood sugar diagnostic (FreeStyle Lite Strips) use daily to monitor blood sugar blood-glucose meter (FreeStyle Lite Meter kit) use daily to monitor blood sugars [diabetic shoes extra depth orthopedic shoes ( 1 pair ) with customize heat molded multi density inner soles ( 3 pair) Dispense 1 Sig: As directed DX: And IDDM /polyneuropathy ( E11 0.42 ); hammertoe foot deformity ( M 20.41, and 20.42 ) pre ulcerative skin lesion ( L 85.1 ) Diagnosis ( E11 0.42 ) type 2 diabetes with polyneuropathy] lancets (FreeStyle Lancets) Use to monitor blood sugars daily levothyroxine 37.5 mcg PO DAILY 90 days lidocaine 5% 1 patch topical DAILY PRN lisinopril-hydrochlorothiazide 20-12.5 mg 1 tab PO DAILY 90 days metformin ER 500 mg PO BID methylcellulose (laxative) (Citrucel) 1,000 mg (2 x 500 mg) PO DAILY mirtazapine 7.5 mg PO BEDTIME miscellaneous medical supply diabetic shoes as directed; nebulizers Use every 4-6 hours prn for wheezing, shortness of breath polyethylene glycol 3350 17 grams PO DAILY sertraline 50 mg PO DAILY tirzepatide (Mounjaro) 12.5 mg (0.5 mL) subcut QWEEK trazodone 25 mg (1/2 x 50 mg) PO BEDTIME PRN Tobacco use date assessed: 07/19/25 Fall risk assessment: No Falls in past year Last assessed Fall Risk: 07/19/25 Dental Screening Dental Screen Date: 07/19/25 Did you have a dental visit in the last 12 months?: No Did you have a dental problem in the last 6 months where you did not have access to dental care?: No Was dental information given to patient?: Patient has dentist HPI [place] [place]/suicidal D/C 06/26/25 HPI Details Pt presents to f/u hospital discharge visit. Patient presented to this office and saw Remedios Pitt MD for anxiety depression. Was [place] ambulance [place] [facility] [place]. The patient was started on Zoloft and mirtazapine was added. Also given trazodone for sleep. Patient was discharged on 06/26/2025 in stable condition. Pt notes she feels stable on her current medication regimen. She states she has an appt. with her therapist tomorrow. HPI Comments History of Present Illness Details Documentation assistance for Jean Carlos Page MD, was provided by Frank Mclaughlin,? Camp Dining Room Attendant on at 9:42 AM EST. I, Dr. Page, have read, observed, and verified documentation. ? PFSH Medical History Diverticulosis Thyroid disease GERD (gastroesophageal reflux disease) Asthma Elevated cholesterol HTN (hypertension) Osteoarthritis History of hepatitis C Diabetes Pneumonia Depression with anxiety Excessive daytime sleepiness Diabetic peripheral neuropathy Bilateral shoulder pain Sleep apnea Chronic back pain Seasonal allergic rhinitis Obesity (Unknown) Surgical History Hx of tubal ligation History of esophagogastroduodenoscopy (EGD) History of colonoscopy Left patella fracture History of cholecystectomy History of tonsillectomy Family History Father Prostate cancer Parkinsons Mother Stroke Son No problems noted. Son No problems noted. Daughter No problems noted. Sister Lung cancer Social History Household Members: None Housing: Apartment Are you a primary career guidance technician to a significant other at home: No Do you presently have visiting nurse or other home services: No Alcohol intake: never Comment: 04/10 headache, will have caffinated beverage in D/C area Patient Tobacco Use Status: Former Tobacco user e-Cigarette/Vaping Use: Never Used Second Hand Smoke Exposure: No Advance Directives Date on File: 11/07/21 service: No Current occupational status: disabled Current occupational exposures/hazards: No Sexual orientation: Straight/Heterosexual Cognitive needs: No Hearing needs: No Vision needs: No Questionnaire Thrive Questionnaire Date Thrive assessed: 07/13/25 I am a: Patient What is your living situation today?: I have a steady place to live Within the past 12 months, did the food you bought not last and you didn't have the money to get more?: Never true Within the past 12 months, did you worry whether your food would run out before you got money to buy more?: Never true Do you have trouble paying for medicines?: No Do you have trouble getting transportation to medical appointments?: No Do you have trouble paying your heating and electricity bill?: No Do you have trouble taking care of your child, family member or friend?: No Do you have trouble with day-to-day activities such as bathing, preparing meals, shopping, managing finances, etc.?: No Are you currently unemployed and looking for a job?: Yes Are you interested in more education?: I choose not to answer this question Please select the resources that you would like help with: Daily support Currently or been in a relationship where the following occur: I choose not to answer THRIVE Score: 0 MARIUM-7 AMB Questionnaire MARIUM-7 Date MARIUM - 7 assessed: 12/23/21 Source: Developed by Drs. Harry Hahn, Aury Ceja, Hang Dumont and colleagues, with an educational adrian from [employer]. Review of Systems Const Denies chills, Denies fatigue, Denies fever(s), Denies headache(s) and Denies weakness ENT Denies dizziness and Denies headache(s) Card Denies dyspnea Resp Denies cough, Denies dyspnea, Denies wheezing and Denies other (shortness of breath) Musc Denies numbness and Denies tingling Neuro Denies dizziness, Denies headache(s), Denies numbness, Denies tingling and Denies weakness Psych Denies anxiety and Denies depression Endo Denies fatigue Aller/Immun Denies wheezing Physical exam (Primary Care) Vital Signs: Last Vital Signs Temp 98.8 F 07/19/25 09:24 Pulse 77 07/19/25 09:24 Resp 16 07/19/25 09:24 BP 133/61 07/19/25 09:24 Pulse Ox 98 07/19/25 09:24 Oxygen Delivery Method Room Air 07/19/25 09:24 BMI result Body Mass Index 31.8 Tobacco/Smoking Status: Tobacco use Status Tobacco use date assessed 07/19/25 07/19/25 09:27 Patient Tobacco Use Status Former Tobacco user 07/19/25 09:18 e-Cigarette/Vaping Use Never Used 07/19/25 09:18 Thrive Assessment: Date of Thrive Assessment Date Thrive assessed 07/13/25 07/19/25 09:18 Currently or been in a relationship where the following occur: I choose not to answer Const General: well developed; No acute distress Nutritional Appearance: well nourished Orientation/consciousness: patient oriented x3 HENMT Head: Yes normocephalic and Yes atraumatic Eyes General: appearance normal, both eyes and all related structures Pupils: Equal, round and reactive pupils present EOM: EOMs intact bilaterally Resp Effort & Inspection: normal respiratory effort Neuro General: patient oriented x3 and gait normal Cranial nerves: Yes Equal, round and reactive pupils present Psych Affect: normal affect Coding Level of Care Code Est Pt Level 3 (23689) Diagnoses Depression with anxiety F41.8 PTSD (post-traumatic stress disorder) F43.10 Primary hypertension I10 Hypertension type: primary hypertension Assessment & Plan Assessment & Plan (1) Depression with anxiety: Code(s): F41.8 - Other specified anxiety disorders Category: Medical (2) PTSD (post-traumatic stress disorder): Code(s): F43.10 - Post-traumatic stress disorder, unspecified Category: Medical (3) HTN (hypertension): Code(s): I10 - Essential (primary) hypertension Category: Medical Qualifiers: Hypertension type: primary hypertension Qualified Code(s): I10 - Essential (primary) hypertension Plan: Blood pressure is controlled. Goal is less than 140/90 Continue current medication Plan Patient presented to this office and saw Remedios Pitt MD for anxiety depression. Was sent by ambulance to [facility] due to SI. The patient was started on Zoloft and mirtazapine was added. Also given trazodone for sleep. Patient was discharged on 06/26/2025 in stable condition. Continues medications - sending refills today She has her 1st therapy appointment by phone today. Medications: Changed From trazodone 25 mg (1/2 x 50 mg) PO BEDTIME PRN 30 tabs 0RF Insomnia To trazodone 25 mg (1/2 x 50 mg) PO BEDTIME PRN 30 tabs 1RF Insomnia 30 days From sertraline 50 mg PO DAILY 30 tabs 0RF Depression To sertraline 50 mg PO DAILY 30 tabs 2RF Depression 30 days From mirtazapine 7.5 mg PO BEDTIME 30 tabs 0RF insomnia To mirtazapine 7.5 mg PO BEDTIME 30 tabs 2RF insomnia 30 days Refilled lidocaine 5% leave on most painful area for up to 12 hrs 1 patch topical DAILY PRN 15 ea 0RF pain (scale score 7-10) M79.18 - Myalgia, other site
[2025-07-19 09:24] VITALS: BP 133/61; PULSE 77; RESP 16; TEMP 37.1; O2SAT 98; BMI 31.8
--- OUTSIDE RECORDS SUMMARY | 2025-07-19 10:42 | XMS_ITS | Patient Health Record ---
Author Organization [facility] Address [address] [place] [address] Care Team Providers Care Spray Cementer Name Role Phone Sweta Hunter Primary Care Provider UnavailHarry Azevedo Unavailable [phone] Reason For Referral No Information Plan Of Treatment No Information Insurance Providers Payer Name Payer Address Payer Phone Subscriber Number Group Number Insured Name Patient Relationship to Insured Coverage Start Date Coverage End Date [facility] [address] [place] [phone] [id number] MATEO CISNEROS Self - patient is the insured Medical (General) History Medical History History ICD Code liver biopsy 06-22-1997 hepatitis C Surgical History Surgery Date(Month/Year) tubal ligation
== END 2025-07-19 09:48 | disposition home or self-care (01) ==
LOC: HO.HMCFM 09:13
PROVIDERS: PCP Family Medicine; Visit Provider Family Medicine
DX: F41.8 Other specified anxiety disorders (principal); F43.10 Post-traumatic stress disorder, unspecified; I10 Essential (primary) hypertension

== ENCOUNTER → 2025-07-19 09:13 | Outpatient (BNVA) | payer OTHER, SELFPAY | PROVIDERS: PCP Family Medicine; Visit Provider Family Medicine | DX: I10 Essential (primary) hypertension (principal); F41.8 Other specified anxiety disorders; F43.10 Post-traumatic stress disorder, unspecified; F41.9 Anxiety disorder, unspecified; F32.A Depression, unspecified; E11.9 Type 2 diabetes mellitus without complications; Z79.899 Other long term (current) drug therapy | CPT/HCPCS: 99212 ==

== ENCOUNTER 2025-08-20 11:10 | Outpatient (AMB) | payer OTHER, SELFPAY ==
--- NOTE | 2025-08-20 11:14 | A.OFFVIS_ITS ---
Vital Signs 08/20/25 11:15 Height 5 ft 4 in Weight 185 lb 6.54 oz BMI 31.8 BP 130/72 Blood Pressure Location Lt brachial Position Sitting Pulse 81 Pulse Source Pulse Oximeter Pulse Oximetry (%) 97 Oxygen Delivery Method Room Air Intake Visit Reasons: dm Intake Note: Patient present today for Type 2 Diabetes Mellitus Last Diabetic eye exam: Last exam was on 01/23/25 Last Podiatry Visit:?Does not have a boarding kennel or cattery operator. Random Glucose: 130? mg/dl HgA1C: 6.6%? 06/21/25 Grain Processor Required: No Accompanied by: Self / Same As Patient Allergies No Known Allergies Allergy (Verified 08/20/25 11:19) Medication List - Last Reconciled 08/20/25 by Griselda Fernandez PA-C albuterol sulfate 2.5 mg (3 mL) inhalation Q4-6H PRN 30 days albuterol sulfate 90 mcg/actuation 1 puff inhalation Q4H PRN 1 month atorvastatin 10 mg PO DAILY blood sugar diagnostic (FreeStyle Lite Strips) use daily to monitor blood sugar blood-glucose meter (FreeStyle Lite Meter kit) use daily to monitor blood sugars [diabetic shoes extra depth orthopedic shoes ( 1 pair ) with customize heat molded multi density inner soles ( 3 pair) Dispense 1 Sig: As directed DX: And IDDM /polyneuropathy ( E11 0.42 ); hammertoe foot deformity ( M 20.41, and 20.42 ) pre ulcerative skin lesion ( L 85.1 ) Diagnosis ( E11 0.42 ) type 2 diabetes with polyneuropathy] lancets (FreeStyle Lancets) Use to monitor blood sugars daily levothyroxine 37.5 mcg PO DAILY 90 days lidocaine 5% 1 patch topical DAILY PRN lisinopril-hydrochlorothiazide 20-12.5 mg 1 tab PO DAILY 90 days methylcellulose (laxative) (Citrucel) 1,000 mg (2 x 500 mg) PO DAILY mirtazapine 7.5 mg PO BEDTIME 30 days miscellaneous medical supply diabetic shoes as directed; nebulizers Use every 4-6 hours prn for wheezing, shortness of breath polyethylene glycol 3350 17 grams PO DAILY sertraline 50 mg PO DAILY 30 days tirzepatide (Mounjaro) 15 mg (0.5 mL) subcut QWEEK trazodone 25 mg (1/2 x 50 mg) PO BEDTIME PRN 30 days HPI HPI dm: Details: Patient is a 64-year-old female who presents today for a diabetic follow-up. Endo: DM-her A1c last A1c was 6.6. She is currently on Mounjaro 12.5 mg weekly and metformin 1000 mg nightly. -no side effects from mounjaro. lost 15-20 lbs with this and it has helped her mood. She has more energy with the mounjaro. trulicity caused n/v. She does not check her blood sugars. -Does not follow with a boarding kennel or cattery operator. No sores. Denies any known retinopathy. Follows annually with Ophthalmology. She does have microalbuminuria and is on an BERTHA-inhibitor. CV: Blood pressure today in the office is 130/72. She states that she is compliant with the lisinopril/hydrochlorothiazide 20/12.5 mg daily. Believes that she has been compliant with the atorvastatin 10 mg nightly. Psych: she was hospitalized for depression this summer and states that she had a lot of issues with her family and that caused the exacerbation, not the medications. She states it was completelt situational and that has gotten better. She is following with and feels this is helpful. [facility] Medical History (Updated 07/19/25 @ 09:41 by Frank Mclaughlin) Depression with anxiety Diverticulosis Thyroid disease GERD (gastroesophageal reflux disease) Asthma Elevated cholesterol HTN (hypertension) Osteoarthritis History of hepatitis C Diabetes Pneumonia Excessive daytime sleepiness Diabetic peripheral neuropathy Bilateral shoulder pain Sleep apnea Chronic back pain Seasonal allergic rhinitis Obesity (Unknown) Surgical History Hx of tubal ligation History of esophagogastroduodenoscopy (EGD) History of colonoscopy Left patella fracture History of cholecystectomy History of tonsillectomy Family History Father Prostate cancer Parkinsons Mother Stroke Son No problems noted. Son No problems noted. Daughter No problems noted. Sister Lung cancer Social History Household Members: None Housing: Apartment Are you a primary childcare center director to a significant other at home: No Do you presently have visiting nurse or other home services: No Alcohol intake: never Comment: 04/10 headache, will have caffinated beverage in D/C area Patient Tobacco Use Status: Former Tobacco user e-Cigarette/Vaping Use: Never Used Second Hand Smoke Exposure: No Advance Directives Date on File: 11/07/21 service: No Current occupational status: disabled Current occupational exposures/hazards: No Sexual orientation: Straight/Heterosexual Cognitive needs: No Hearing needs: No Vision needs: No Physical Exam Vital Signs: Last Vital Signs Pulse 81 08/20/25 11:15 BP 130/72 08/20/25 11:15 Pulse Ox 97 08/20/25 11:15 Oxygen Delivery Method Room Air 08/20/25 11:15 BMI result Body Mass Index 31.8 Const Orientation/consciousness: patient oriented x3 Neck Neck: Yes no lymphadenopathy Thyroid: Thyroid normal Carotids: no bruits Resp Auscultation: clear to auscultation bilaterally Cardio Rate: regular rate Rhythm: regular rhythm Heart sounds: S1 normal heart sound present and S2 normal heart sound present Peripheral pulses: dorsalis pedis present Neuro General: patient oriented x3, gait normal and no focal motor deficits Extrem Other: Monofilament sensation intact bilaterally. Vibratory sensation intact bilaterally. Skin intact. General: Yes normal to inspection Assessment & Plan Assessment & Plan (1) Uncontrolled type 2 diabetes mellitus with hyperglycemia: Code(s): E11.65 - Type 2 diabetes mellitus with hyperglycemia Category: Medical Plan: Increase Mounjaro to 15 mg weekly. We will discontinue metformin. Patient would like to lose a few lb. I have encouraged her to continue working on diet and lifestyle modifications. Labs ordered for her to complete prior to her next appointment. (2) HTN (hypertension): Code(s): I10 - Essential (primary) hypertension Category: Medical Plan: wnl. has been compliant. Medications: New tirzepatide (Mounjaro) 15 mg (0.5 mL) subcut QWEEK 2 mL 5RF Discontinued metformin ER Discontinued Reason: Doctor's Order 500 mg PO BID 180 tabs 3RF E11.9 - Type 2 diabetes mellitus without complications tirzepatide (Mounjaro) MONDAYS Discontinued Reason: Doctor's Order 12.5 mg (0.5 mL) subcut QWEEK 2 mL 5RF Coding Level of Care Code Est Pt Level 4 (95846) Complex EM visit Add On G2211 Diagnoses Uncontrolled type 2 diabetes mellitus with hyperglycemia E11.65 HTN (hypertension) I10
[2025-08-20 11:15] VITALS: BP 130/72; PULSE 81; O2SAT 97; BMI 31.8
[2025-08-20 11:29] LABS: Glucose, Whole Blood 130 mg/dL (60-115)
--- OUTSIDE RECORDS SUMMARY | 2025-08-20 13:44 | XMS_ITS | Patient Health Record ---
Author Organization [facility] Address [address] [place] [address] Care Team Providers Care Horse Race Timer Name Role Phone Sweta Hunter Primary Care Provider UnavailHarry Azevedo Unavailable [phone] Reason For Referral No Information Plan Of Treatment No Information Insurance Providers Payer Name Payer Address Payer Phone Subscriber Number Group Number Insured Name Patient Relationship to Insured Coverage Start Date Coverage End Date [facility] [address] [place] [phone] [id number] MATEO CISNEROS Self - patient is the insured Medical (General) History Medical History History ICD Code liver biopsy 06-22-1997 hepatitis C Surgical History Surgery Date(Month/Year) tubal ligation
== END 2025-08-20 11:39 | disposition home or self-care (01) ==
LOC: HO.ENCR 11:11
PROVIDERS: PCP Family Medicine; Visit Provider Physician Assistant
DX: E11.65 Type 2 diabetes mellitus with hyperglycemia (principal); I10 Essential (primary) hypertension

== ENCOUNTER → 2025-08-20 11:10 | Outpatient (BNVA) | payer OTHER, SELFPAY | PROVIDERS: PCP Family Medicine; Visit Provider Physician Assistant | DX: E11.65 Type 2 diabetes mellitus with hyperglycemia (principal); I10 Essential (primary) hypertension; Z79.85 Long-term (current) use of injectable non-insulin antidiabetic drugs | CPT/HCPCS: 82947; 99212 ==

== ENCOUNTER 2025-10-01 10:22 | Outpatient (AMB) | payer OTHER, SELFPAY ==
--- NOTE | 2025-10-01 10:41 | MHC.OFFVIS ---
Vital Signs 10/01/25 10:46 Height 5 ft 4 in Weight 184 lb BMI 31.6 BP 108/62 Blood Pressure Location Rt brachial Position Sitting Pulse 76 Pulse Source Pulse Oximeter Pulse Oximetry (%) 94 Oxygen Delivery Method Room Air Intake Visit Reasons: 6 month follow up Carcinoid tumor Intake Note: Est pt for mgmt of GERD + Stomach CA. CC; Pt denies any current GI sx or concerns. Confirms she is doing OK with current therapy plan - no PPI currently. 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 Staying upright for minimum 3 hours after meals discussed with patient. Patient will start taking MiraLax daily. Increase fluid intake and activity to promote better bowel motility. Patient will follow-up in the office in 6 months, sooner on as needed basis. She is agreeable to this plan and verbalizes understanding of instructions. She was given the opportunity to ask questions and all questions answered. ? Thank you for allowing me to participate in her care New polyethylene glycol 3350 (Miralax) 17 grams PO DAILY 510 grams 2RF TODAY'S VISIT Patient is here today for follow-up. Patient reports that she has been doing quite well lately. She is no longer taking any PPI or H2 blockers. She is not having any episodes. Patient denies dyspepsia, dysphagia or odynophagia. Patient denies melena, hematochezia, unintentional weight loss or ribbon like stools. Patient is on Mounjaro and denies any GI concerning symptoms. Reports that she is moving her bowels well without any issues. Patient reports that she has been doing well. Follows with Endocrinology frequently COUNTS INCLUDE 234 BEDS AT THE [facility] Medical History Depression with anxiety Diverticulosis Thyroid disease GERD (gastroesophageal reflux disease) Asthma Elevated cholesterol HTN (hypertension) Osteoarthritis History of hepatitis C Diabetes Pneumonia Excessive daytime sleepiness Diabetic peripheral neuropathy Bilateral shoulder pain Sleep apnea Chronic back pain Seasonal allergic rhinitis Obesity (Unknown) Surgical History Hx of tubal ligation History of esophagogastroduodenoscopy (EGD) History of colonoscopy Left patella fracture History of cholecystectomy History of tonsillectomy Family History Father Prostate cancer Parkinsons Mother Stroke Son No problems noted. Son No problems noted. Daughter No problems noted. Sister Lung cancer Social History Household Members: None Housing: Apartment Are you a primary healthcare insurance sales agent to a significant other at home: No Do you presently have visiting nurse or other home services: No Alcohol intake: never Comment: 04/10 headache, will have caffinated beverage in D/C area Patient Tobacco Use Status: Former Tobacco user e-Cigarette/Vaping Use: Never Used Second Hand Smoke Exposure: No Advance Directives Date on File: 11/07/21 service: No Current occupational status: disabled Current occupational exposures/hazards: No Sexual orientation: Straight/Heterosexual Cognitive needs: No Hearing needs: No Vision needs: No Review of Systems Const Denies weight gain and Denies weight loss ENT Reports no additional complaints, Denies dysphagia and Denies odynophagia Card Reports no additional complaints Resp Reports no additional complaints GI Denies abdominal pain, Denies belching, Denies melena, Denies bloating, Denies change in bowel habits, Denies dysphagia, Denies excessive flatus, Denies dyspepsia, Denies heartburn, Denies diarrhea, Denies loose stools, Denies nausea, Denies odynophagia and Denies vomiting Musc Reports no additional complaints Neuro Reports no additional complaints Psych Reports no additional complaints Endo Reports no additional complaints Physical Exam Vital Signs: Last Vital Signs Pulse 76 10/01/25 10:46 BP 108/62 10/01/25 10:46 Pulse Ox 94 10/01/25 10:46 Oxygen Delivery Method Room Air 10/01/25 10:46 BMI result Body Mass Index 31.6 Const General: healthy appearing and no acute distress Nutritional Appearance: obese Orientation/consciousness: patient oriented x3 Resp Effort & Inspection: normal respiratory effort, able to speak in complete sentences, no tracheal deviation and symmetric chest movement Auscultation: clear to auscultation bilaterally Cardio Rate: regular rate GI Inspection: Yes normal to inspection, No distended and Yes obesity Palpation (GI): Soft to palpation, not firm, nontender and No hepatosplenomegaly present Auscultation: normal bowel sounds General: Yes no CVA tenderness Back/Spine/Pelvis Back: no CVA tenderness Skin General skin exam: elasticity normal, turgor normal and dry skin Neuro General: patient oriented x3 Psych Appearance: grossly normal Mental Status: mental status grossly normal Assessment & Plan Assessment & Plan (1) Diverticulosis: Code(s): K57.90 - Diverticulosis of intestine, part unspecified, without perforation or abscess without bleeding Category: Medical (2) 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: Code(s): D3A.092 - Benign carcinoid tumor of the stomach Category: Medical (3) History of hepatitis C: Code(s): Z86.19 - Personal history of other infectious and parasitic diseases Category: Medical (4) Gastroesophageal reflux disease: Code(s): K21.9 - Gastro-esophageal reflux disease without esophagitis Qualifiers: Esophagitis presence: esophagitis presence not specified Qualified Code(s): K21.9 - Gastro-esophageal reflux disease without esophagitis (5) Constipation: Code(s): K59.00 - Constipation, unspecified Qualifiers: Constipation type: slow transit constipation Qualified Code(s): K59.01 - Slow transit constipation Plan Patient will continue current regimen. She is feeling better. Continue GLP 1. Patient will go for upper endoscopy to evaluate stomach. History of carcinoid tumor removed over a year ago. I will see patient in the office after the procedure. She will call if she will have any GI concerning symptoms. She is agreeable to plan and verbalizes understanding of instructions. She was given the opportunity to ask questions and all questions answered. 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
[2025-10-01 10:46] VITALS: BP 108/62; PULSE 76; O2SAT 94; BMI 31.6
--- OUTSIDE RECORDS SUMMARY | 2025-10-01 13:00 | XMS_ITS | Data Portability ---
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 Inspector Name Role Phone HIM CHRIS OTHER Assessment Encounter Date Assessment Date Assessment LastModified by Organization Details LastModified Time 06/19/2025 06/19/2025 service called for anxiety found 64 chuck with hx anxiety depression c/o increase in anxiety regarding psychosocial stressors +nausea, tremulous has BH appt episode improving at time of visit VSS reported exam: calm, conversant, appropriate #Anxiety ondansetron 4mg ODT benadryl 25 IM continue with BH [email or web address] Not available 06/19/2025 16:56:06 Plan of Treatment Reminders Order Date Submit Date Provider Last Modified By Organization Details Last Modified Time Details Appointments None recorded. Lab glucose, fingerstick , blood 2024 025 [facility], [address] [place] [address], [id number] 5 18:40:40 Referral None recorded. Procedures None recorded. Surgeries None recorded. Imaging None recorded. Medication Orders ondansetron 4 mg disintegrat ing tablet [address], [address] [place] [address], [id number], 5 16:52:16 diphenhydra mine 50 mg/mL injection solution [address], [address] [place] [address], [id number], 5 16:52:16 Patient TargetsNo targets recorded. Patient InstructionsNo instructions recorded. Reason for Referral None Reported. Results Created Date Observation Date Name Description Value Unit Range Abnormal Flag Note LastModifiedBy Organization Detail LastModifiedTime Result Notes None recorded. Medical Equipment None Reported. Allergies No known drug allergies Medications Name Sig Start Date Stop Date Status Note LastModified by Organization Details LastModified Time cefuroxime axetil 250 mg tablet TAKE ONE TABLET BY MOUTH TWICE A DAY FOR 7 DAYS active Not Available Not Available No t Available atorvastatin 10 mg tablet TAKE ONE TABLET BY MOUTH EVERY DAY active Not Available Not Available No t Available lisinopril 20 mg-hydrochlo rothiazide 12.5 mg tablet TAKE ONE TABLET BY MOUTH EVERY DAY active Not Available Not Available No t Available bisacodyl 5 mg tablet,delay ed release TAKE 4 TABLETS ONCE FOR COLON PREP FOR 1 DAY. TAKE 4 TABLETS BY MOUTH THE DAY BEFORE THE COLONOSCOPY APPOINTMENT active Not Available Not Available Not Available metformin ER 500 mg tablet,exten ded release 24 hr TAKE ONE TABLET BY MOUTH TWICE A DAY active Not Available Not Available No t Available ClearLax 17 gram/dose oral powder SEE ATTACHED DIRECTIONS active Not Available Not Available N ot Available Tirosint 37.5 mcg capsule TAKE ONE CAPSULE BY MOUTH EVERY DAY active Not Available Not Available No t Available Vitals Date Recorded Body height Oxygen saturation Respiratory rate Heart rate Body weight Body temperature Systolic And Diastolic Provider Name and Address Organization Details Last Updated DateTime 5 162.56 cm 96 % 18 /min 86 /min 65807.3 36 g 98 [degF] 126/83 mm[Hg] Not Available [facility] - production 5 16:45:02 Social History None recorded. Functional Status None recorded. Mental Status None recorded. Family History Nothing Reported. Medical History No medical history recorded. Gynecological HistoryNo gynecological history recorded. Obstetrics History GPAL:G 0 P 0 0 0 0 Past Encounters Encounter ID Performer Location Encounter Start Date Encounter Closed Date Diagnosis/Indication Diagnosis SNOMED-CT Code Diagnosis ICD10 Code Diagnosis IMO Codes Diagnosis Note [id number] Holden Barrios MD Main-inst ED Medical [facility] [address] [place] [address] 06/19/2025 16:44:56 06/20/2025 12:26:47 Anxiety 80848939 F41.9 80965 Health Concerns Section Related Observation LastModified by Organization Detai ls LastModified Time None Recorded Concern Status LastModified by Organization Details LastModified Time None Recorded Advance Directives Directive None Recorded Payers Insurance Date Sequence Insurance Name Policy Number Policy Harrison Covered Member ID Harrison Member ID Guarantor Name 06/19/2025 1 [facility] - DOS ON OR AFTER 2023 - DUAL ELIGIBLE - [employer]CI OPTIONS AND ONE CARE (MEDICARE REPLACEMENT/ADV ANTAGE - HMO) Emily Lawson [id number] Emily Lawson Notes Date Note Type Note Provider Name and Address Organization Details Recorded Time 06/19/2025 text/html HPI: HIGH PRIORITY MAY CALL 911 for this member as I stay on phone.Emily called into [facility] stating she thinks she is having anxiety. She states she is experiencing shakiness and dizziness. She states she called her PCP but no return call. 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 Emily states her daughter is full of anger. She denies SI. She states she sometimes has thoughts that she would like to go away or , but does not want to or does not have a plan. She states she does not want to go to the hospital. she is accepting an [facility] visit at this time. I am staying on phone with her! She does not want me to call CRISIS, I dont want to be locked up . .................... .................... .................... .................... .................... .................... .................... . [facility] Nurse Triage Notes (Marisol Page): Chief Complaints: Mental Health PMH Reviewed at 06/19/2025 - 14:40 Allergies Reviewed at 06/19/2025 - 14:40 Comments: Reviewed HPI. 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 Address: [address] [place] [address], Play Reader: Soy HERNANDEZ No.: [id number] Cryptography Teacher POC Test Results from [facility] Blood Glucose Measurement (16:43:22) Blood Glucose: 103mg/dL .................... .................... .................... .................... .................... .................... .................... . Cryptography Teacher Note From [facility]ckenna [facility]: Sent to a call for a pt complaining of anxiety. SC8 arrives on scene, pt is alert and oriented, airway is patent. Pt appears calm, and ambulates with a steady gait. Pt states she has a history of depression and anxiety, but has been pushing against medication. Pt states she has been medicated in past, but doesn't like to take lots of medicine. Pt complains of diarrhea x 1.5 weeks (now resolved x 2 days). Pt complains of headache, shakiness and nausea starting at approx 12:30pm with panic attack, followed by dizziness when standing at approx 2pm. Pt states shakiness and dizziness have decreased, but are still present. Pt states she spoke with nurse on phone earlier who helped pt calm down. Pt denies suicidal ideation/homicidal ideation. Pt denies vision changes, cp, sob, vomiting, abd pain, black/bloody stool, fever, or loc. Allergies verified: NKDA. Pt is advised we have limited medication to prescribe for anxiety/depression through [facility]. (sitting) BP:126/83, P:86, RR:18, SpO2:96% RA, T:98.0, B; (standing) BP:125/85; C consulted and orders Zofran 4mg ODT and Benadryl 25mg IM. Pt states she will follow up with PCP regarding anxiety/depression for further treatment plan/sooner appt then previously planned appt for 07/12. 5 med rights verified. Zofran 4mg ODT and Benadryl 25mg IM administered. Pt states she feels better and feels safe to stay at home. Pt advised to rest and stay hydrated. Red flags discussed. Pt has no further questions. [facility] Lab Orders: glucose, fingerstick, blood: Performed [facility] Medication Orders: ondansetron 4 mg disintegrating tablet: Performed diphenhydramine 50 mg/mL injection solution: Performed .................... .................... .................... .................... .................... .................... .................... . [facility] Consulted: Holden Barrios .................... .................... .................... .................... .................... .................... .................... . Disposition: Fulfilled Holden Barrios MD [address] [facility],[address], [place], [address], [employer] 06/19/2025 22:45:57 OBGyn Episode No OBEpisode recorded.
== END 2025-10-01 11:32 | disposition home or self-care (01) ==
LOC: HO.HGI 10:23
PROVIDERS: PCP Family Medicine; Visit Provider Nurse Practitioner Family
DX: K57.90 Diverticulosis of intestine, part unspecified, without perforation or abscess without bleeding (principal); D3A.092 Benign carcinoid tumor of the stomach; Z86.19 Personal history of other infectious and parasitic diseases; K21.9 Gastro-esophageal reflux disease without esophagitis; K59.01 Slow transit constipation
CPT/HCPCS: 99213

== ENCOUNTER → 2025-10-01 10:22 | Outpatient (BNVA) | payer OTHER, SELFPAY | PROVIDERS: PCP Family Medicine; Visit Provider Nurse Practitioner Family | DX: D3A.092 Benign carcinoid tumor of the stomach (principal); K57.90 Diverticulosis of intestine, part unspecified, without perforation or abscess without bleeding; K21.9 Gastro-esophageal reflux disease without esophagitis; K59.01 Slow transit constipation; Z86.19 Personal history of other infectious and parasitic diseases; Z79.85 Long-term (current) use of injectable non-insulin antidiabetic drugs | CPT/HCPCS: 99212 ==

== ENCOUNTER 2025-10-22 21:47 | Emergency (ER) | payer OTHER, SELFPAY ==
--- NOTE | 2025-10-22 | ECG_ITS ---
Test Reason : CP Blood Pressure : */* mmHG Vent. Rate : 64 BPM Atrial Rate : 64 BPM P-R Int : 172 ms QRS Dur : 84 ms QT Int : 394 ms P-R-T Axes : 55 -30 32 degrees QTcB Int : 406 ms Normal sinus rhythm Left axis deviation Abnormal ECG When compared with ECG of 20-Jun-2025 19:14, No significant change was found Referred By: Generic ED Physician Electronically Signed By: ALLAN ORTEGA MD
--- NOTE | ~2025-10-22 | XR_ITS ---
CLINICAL HISTORY: chest tightness 2 view chest x-ray Comparison: CR - XR CHEST 1V - 01/12/25 23:52 EDT Findings: No consolidation or effusion. Normal size heart. No acute fracture. IMPRESSION: 1. No acute findings. This document has been electronically signed by: Devante Valdes MD, PHD on 10/23/2025 00:20:55
[2025-10-22 21:55] VITALS: BP 125/76; PULSE 66; O2SAT 99
[2025-10-22 21:58] VITALS: BP 153/78; PULSE 64; RESP 14; TEMP 36.7; O2SAT 95
[2025-10-22 22:05] VITALS: BMI 35.8
--- OUTSIDE RECORDS SUMMARY | 2025-10-22 22:38 | XMS_ITS | Continuity of Care Document ---
Author Name [facility], Medical Address [address] [place] [id number] Organization Unknown Address [address] [place] [address] Medications No known medications Problems No known problems
--- OUTSIDE RECORDS SUMMARY | 2025-10-22 22:38 | XMS_ITS | Patient Health Record ---
Author Organization [facility] Address [address] [place] [address] Care Team Providers Care Contract Engineer Name Role Phone Sweta Hunter Primary Care Provider UnavailHarry Azevedo Unavailable [phone] Reason For Referral No Information Plan Of Treatment No Information Insurance Providers Payer Name Payer Address Payer Phone Subscriber Number Group Number Insured Name Patient Relationship to Insured Coverage Start Date Coverage End Date [facility] [address] [place] [phone] [id number] MATEO CISNEROS Self - patient is the insured Medical (General) History Medical History History ICD Code liver biopsy 06-22-1997 hepatitis C Surgical History Surgery Date(Month/Year) tubal ligation
--- OUTSIDE RECORDS SUMMARY | 2025-10-22 22:38 | XMS_ITS | Data Portability ---
Author Organization [facility] Address [address] [place] [phone] Care Team Providers Care Engineer Rf Deployment Name Role Phone HIM CCA OTHER MARIA G HOOD Primary Care Provider Assessment Encounter Date Assessment Date Assessment LastModified [...] fingerstick , blood 2024 025 [facility], [address] [place] [address], [id number] 18:40:40 Referral None recorded. Procedures None recorded. Surgeries None recorded. Imaging None recorded. Medication Orders ondansetron 4 mg disintegrat ing tablet 2024 025 [email or web address] [facility], [address] [place] [address], [address], 16:52:16 diphenhydra mine 50 mg/mL injection solution 2024 025 [email or web address] [facility], [address] [place], [address], 16:52:16 Patient TargetsNo targets recorded. Patient InstructionsNo [...] cm 96 % 18 /min 86 /min 64880.3 36 g 98 [degF] 126/83 mm[Hg] Not [...] ICD10 Code Diagnosis IMO Codes Diagnosis Note [id number] Holden Barrios MD Main-inst ED Medical [facility] [address] [place] [address] 06/19/2025 16:44:56 06/20/2025 12:26:47 Anxiety [id number] F41.9 [address] Health Concerns Section Related Observation LastModified by Organization Detai ls LastModified Time None Recorded Concern Status LastModified by Organization Details LastModified Time None Recorded Advance Directives Directive None Recorded Payers Insurance Date Sequence Insurance Name Policy Number Policy Harrison Covered Member ID Harrison Member ID Guarantor Name 06/19/2025 1 [facility] - DOS ON OR AFTER 2023 - DUAL ELIGIBLE - 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 Address: [address] [place] [address], Supervisor Mill: Soy HERNANDEZ No.: [id number] Cutter Finisher POC Test Results from [facility] Blood Glucose Measurement (16:43:22) Blood Glucose: 103mg/dL .................... .................... .................... .................... .................... .................... .................... . Cutter Finisher Note From [facility]: Sent to a [...] RR:18, SpO2:96% RA, T:98.0, B; (standing) BP:125/85; [facility] consulted and orders Zofran 4mg ODT and [...] flags discussed. Pt has no further questions. [facility] Lab Orders: glucose, fingerstick, blood: Performed [facility] Medication Orders: ondansetron 4 mg disintegrating tablet: Performed diphenhydramine 50 mg/mL injection solution: Performed .................... .................... .................... .................... .................... .................... .................... . [facility] Consulted: Holden Barrios .................... .................... .................... .................... .................... .................... .................... . Disposition: Fulfilled Holden Barrios MD [address] [facility],[address], [place], [address], [employer] 06/19/2025 22:45:57 OBGyn Episode No OBEpisode recorded.
[2025-10-22 22:45] LABS: MANUAL DIFF FLAG NO
[2025-10-22 22:47] LABS: Hematocrit 40.4 % (37.0-47.0); Hemoglobin 13.4 g/dl (12.0-16.0); Imm Gran Abs Auto 0.02 X10*3/uL (0.00-0.03); Imm Gran Pct Auto 0.2 % (0.0-0.4); Lymphocytes Absolute Auto 3.5 X10*3/uL (1.2-4.9); Mean Corpuscular HGB Conc 33.2 g/dl (31.0-35.0); Mean Corpuscular Hemoglobin 30.7 pg (27.0-33.0); Mean Corpuscular Volume 92.7 fL (80.0-98.0); NRBC Abs Auto 0.000 X10*3/uL (0.0-0.012); NRBC Pct Auto 0.0 /100WBC (0.0-0.2); Platelet Count 254 X10*3/uL (160-400); Red Blood Count 4.36 X10*6/uL (4.20-5.50); White Blood Count 8.6 X10*3/uL (4.8-10.8)
[2025-10-22 23:03] LABS: Alanine Aminotransferase 22 U/L (0-31); Albumin Level 4.1 g/dL (3.5-5.0); Alkaline Phosphatase 85 U/L (39-117); Anion Gap 12 (12-20); Aspartate Amino Transferase 24 U/L (5-31); Blood Urea Nitrogen 13 mg/dL (9-16); Calcium 9.5 mg/dL (8.4-10.2); Carbon Dioxide 29 mmol/L (22-29); Chloride 108 mmol/L (96-108); Creatinine Clr Calc Pharmacy 80.6; Estimated Glomerular Filt Rate > 60; Lipase 37 U/L (8-78); Magnesium 2.0 mg/dL (1.6-2.6); Potassium 3.9 mmol/L (3.3-5.1); Sodium 145 mmol/L (135-145); Total Protein 7.1 g/dL (6.5-8.0)
[2025-10-22 23:11] LABS: Troponin-I High Sensitivity < 2.7 ng/L (<3.5-17.0)
[2025-10-22 23:23] LABS: Resp Syncy Virus RNA Qual PCR NEGATIVE (Negative); SARS COV2 PCR INHOUSE NEGATIVE (Negative)
--- NOTE | 2025-10-23 00:02 | PC.NURSE ---
Pt found resting comfortably in the stretcher with room lights on, eyes closed, and hand covering eyes to block the light. She reports being unable to sleep the previous night and is well appearing at this time as she awaits primary provider eval. The pt was provided with warm blankets for comfort, second side rail lifted for safety and call monroe provided. Pt offers no complaints at this time.
[2025-10-23 00:25] VITALS: BP 116/67; PULSE 74; RESP 15; TEMP 36.8; O2SAT 97
--- NOTE | 2025-10-23 01:11 | ED_ITS ---
HPI - Chest Pain General Chief Complaint: Chest Pain Stated Complaint: chest pressure Time Seen by Provider: 10/23/25 00:48 Source: patient and EMS Mode of arrival: EMS Limitations: no limitations History of Present Illness ED Provider: Dr. Salena Leyva HPI narrative: Patient comes to the emergency room complaining of right-sided chest pain that started a proximally 15 hours ago. Patient states that she was around the house, not doing anything physical. Patient states that the pain has been present for last 15 hours straight, but has gradually been decreasing and it is almost gone now.. Denies any heavy lifting or any trauma. Related Data Previous Rx's ?Medication ?Instructions ?Recorded nebulizers #1 ea 11/24/21 miscellaneous medical supply See Rx Instructions misce llaneous 04/07/24 .COMPLEX #2 ea diabetic shoes #1 ea 10/09/24 levothyroxine 37.5 mcg capsule 37.5 mcg PO DAILY 90 da ys #90 caps 02/19/25 lisinopril 20 1 tab PO DAILY 90 days #90 t abs 02/19/25 mg-hydrochlorothiazide 12.5 mg tablet albuterol sulfate 2.5 mg/3 mL 2.5 mg (3 mL) inhalation Q4-6H PRN 02/23/25 (0.083 %) solution for nebulization shortness of breat h or wheezing 30 days #180 mL albuterol sulfate 90 mcg/actuation 1 puff inhalation Q 4H PRN 02/23/25 aerosol inhaler shortness of breath or wheez ing or broncospasm 1 month #8.5 grams blood sugar diagnostic (FreeStyle #100 ea 05/21/25 Lite Strips) blood-glucose meter (FreeStyle #1 ea 05/21/25 Lite Meter kit) lancets 28 gauge (FreeStyle #100 ea 05/21/25 Lancets) polyethylene glycol 3350 17 gram 17 g PO DAILY Constip ation #30 ea 06/25/25 oral powder packet lidocaine 5 % topical patch 1 patch topical DAILY PRN pain 07/19/25 (scale score 7-10) #15 ea mirtazapine 7.5 mg tablet 7.5 mg PO BEDTIME insomnia 30 07/19/25 days #30 tabs trazodone 50 mg tablet 25 mg (1/2 x 50 mg) PO BEDTI ME PRN 07/19/25 Insomnia 30 days #30 tabs atorvastatin 10 mg tablet 10 mg PO DAILY high Choleste rol 08/02/25 #30 tabs tirzepatide 15 mg/0.5 mL 15 mg (0.5 mL) subcut QWEEK #2 mL 08/20/25 subcutaneous pen injector (Tamy) sertraline 50 mg tablet 50 mg PO DAILY Depression 30 days 10/09/25 #30 tabs Allergies Allergy/AdvReac Type Severity Reaction Status Date / Time No Known Allergies Allergy Verified 10/22/25 22:09 Review of Systems 2 Review of Systems: Constitutional : No Weight loss, No Fever, No Chills, No Night Sweats, No Fatigue, No Malaise ENT/Mouth : No Hearing loss, No Ear Pain, No Nasal Congestion, No Sinus Pain, No Hoarseness, No sore throat, No Rhinorrhea, No Swallowing Difficulty Eyes: No Eye Pain, No Swelling, No Redness, No Foreign Body, No Discharge, No Vision Changes Cardiovascular : Complaining of right-sided chest pain, No SOB, No Dyspnea on Exertion, No Orthopnea, No Edema, No Palpitations Respiratory : No Cough, No Sputum, No Wheezing, No Smoke Exposure, No Dyspnea Gastrointestinal : No Nausea, No Vomiting, No Diarrhea, No Constipation, No abdominal Pain, No Hematochezia, No Melena Genitourinary : no irregular bleeding, No Dysuria, No Urinary Frequency, No Hematuria, No Urinary Incontinence, No Urgency, No Flank Pain, No Urinary Flow Changes, No Hesitancy Musculoskeletal : No joint pain, No Myalgias, No Joint Swelling Skin : No Skin Lesions, No rash Neuro : No Weakness, No Numbness, No Paresthesias, No Loss of Consciousness, No Dizziness, No Headache Psych : No Anxiety/Panic, No Depression, No SI/HI/AH/VH, No Social Issues, Heme/Lymph: No Bruising, No Bleeding,No Lymphadenopathy Endocrine : No Polyuria, No Polydipsia, No Temperature Intolerance [facility] Past Medical History Medical History Depression with anxiety Diverticulosis Thyroid disease GERD (gastroesophageal reflux disease) Asthma Elevated cholesterol HTN (hypertension) Osteoarthritis History of hepatitis C Diabetes Pneumonia Excessive daytime sleepiness Diabetic peripheral neuropathy Bilateral shoulder pain Sleep apnea Chronic back pain Seasonal allergic rhinitis Obesity (Unknown) Surgical History Hx of tubal ligation History of esophagogastroduodenoscopy (EGD) History of colonoscopy Left patella fracture History of cholecystectomy History of tonsillectomy Family History Family History Father Prostate cancer Parkinsons Mother Stroke Son No problems noted. Son No problems noted. Daughter No problems noted. Sister Lung cancer Social History Social History Household Members: None Housing: Apartment Are you a primary transitions rn care coordinator to a significant other at home: No Do you presently have visiting nurse or other home services: No Alcohol intake: never Comment: 04/10 headache, will have caffinated beverage in D/C area Patient Tobacco Use Status: Former Tobacco user e-Cigarette/Vaping Use: Never Used Second Hand Smoke Exposure: No Use of substances other than those prescribed or required for medical reasons: No Advance Directives: Yes Advance Directives on File: Yes Advance Directives Date on File: 11/07/21 Do you have a plan to hurt others: No Plan service: No Current occupational status: disabled Current occupational exposures/hazards: No Sexual orientation: Straight/Heterosexual Cognitive needs: No Hearing needs: No Vision needs: No Physical Exam 2 Exam: Exam: Appearance: Alert. Oriented X3. No acute distress. Eyes: Pupils equal, round and reactive to light. ENT: Pharynx normal. Neck: Normal inspection. Neck supple. No lymph nodes noted. No crepitus CVS: Normal heart rate and rhythm. Pulses normal. Normal S1 and S2 Respiratory: No respiratory distress. Breath sounds normal. No Wheezing. No rales Abdomen: Soft and nontender. No rigidity. No distention. Skin: Skin warm and dry. Normal skin color. Normal skin turgor. Extremities: No lower extremity edema. No Lacerations. No Rash Neuro: Oriented X 3. No motor deficit. No sensory deficit. Moving all extremities. No slurred speech. CN 2 through 12 grossly intact Psych: calm, cooperative, normal affect Vital Signs: Vital Signs: Last Vital Signs Temp 98.2 F 10/23/25 00:25 Pulse 74 10/23/25 00:25 Resp 15 10/23/25 00:25 BP 116/67 10/23/25 00:25 Pulse Ox 97 10/23/25 00:25 O2 Del Method Room Air 10/23/25 00:25 BMI result Body Mass Index 35.8 Medical Decision Making Medical Decision Making [facility] Narrative: My interpretation of EKG: Normal sinus rhythm, heart rate 64, no ST segment depression elevation, no T-wave inversion, QTC 406 My interpretation of labs: No significant abnormality patient's hematology and chemistry, normal troponin Chest x-ray negative While patient was waiting to be seen, patient was on the monitoring analyst, no arrhythmias were detected. At this time that I assessed the patient, patient states that her chest pain is nearly resolved, on the right side. I discussed the above-mentioned with the patient, patient states that she feels much better. Patient's description of chest pain does not seem to be typical for ACS I discussed with the patient that if he continues having symptoms, she could be referred through her primary care physician to Cardiology for a stress test Differential Diagnosis Differential Diagnoses: The differential diagnosis associated with the presentation includes (ACS, anxiety, muscle spasms, pleurisy, costochondritis) Admission/Observation Consideration of admission/observation: Escalation of care including admission/observation considered (Given patient's age and symptoms, observation was considered) Lab Data [facility] Lab Attestation statement: I reviewed the patient's lab results. 10/22/25 22:40 10/22/25 22:40 Labs: Lab Results 10/22/25 Range/Units 22:40 WBC 8.6 (4.8-10.8) X10*3/uL RBC 4.36 (4.20-5.50) X10*6/uL Hgb 13.4 (12.0-16.0) g/dl Hct 40.4 (37.0-47.0) % MCV 92.7 (80.0-98.0) fL MCH 30.7 (27.0-33.0) pg MCHC 33.2 (31.0-35.0) g/dl RDW 12.5 (11.0-16.0) % Plt Count 254 (160-400) X10*3/uL MPV 10.0 (9.4-12.3) fL Immature Gran % (Auto) 0.2 (0.0-0.4) % Neut % (Auto) 45.3 (45-73) % Lymph % (Auto) 40.7 H (20-40) % [place] % (Auto) 11.4 H (2-11) % Eos % (Auto) 1.6 (0-4) % Baso % (Auto) 0.8 (0-2) % Lymph # (Auto) 3.5 (1.2-4.9) X10*3/uL [place] # (Auto) 1.0 (0.1-1.2) X10*3/uL Eos # (Auto) 0.1 (0.0-0.4) X10*3/uL Baso # (Auto) 0.1 (0.0-0.2) X10*3/uL Abs Immat Gran (auto) 0.02 (0.00-0.03) X10*3/uL Absolute Neuts (auto) 3.9 (2.0-8.3) x10*3/uL Absolute Nucleated RBC 0.000 (0.0-0.012) X10*3/uL Nucleated RBC % (auto) 0.0 (0.0-0.2) /100WBC Sodium 145 (135-145) mmol/L Potassium 3.9 (3.3-5.1) mmol/L Chloride 108 (96-108) mmol/L Carbon Dioxide 29 (22-29) mmol/L Anion Gap 12 (12-20) BUN 13 (9-16) mg/dL Creatinine 0.72 (0.5-1.4) mg/dL Estim Creat Clear Calc 80.6 Estimated GFR > 60 Random Glucose 99 (60-115) mg/dL Calcium 9.5 (8.4-10.2) mg/dL Magnesium 2.0 (1.6-2.6) mg/dL Total Bilirubin 0.3 (0.0-1.0) mg/dL AST 24 (5-31) U/L ALT 22 (0-31) U/L Alkaline Phosphatase 85 (39-117) U/L Troponin I High Sens < 2.7 (<3.5-17.0) ng/L Total Protein 7.1 (6.5-8.0) g/dL Albumin 4.1 (3.5-5.0) g/dL Lipase 37 (8-78) U/L Influenza Type A (PCR) NEGATIVE (Negative) Influenza Type B (PCR) NEGATIVE (Negative) RSV RNA Qual (PCR) NEGATIVE (Negative) SARS-CoV-2 RNA (RT-PCR) NEGATIVE (Negative) Independent Interpretation I performed an independent interpretation of an: EKG and Plain X-Ray Radiology Impression Discussion of test interpretation with radiology: I have reviewed the radiologist's reading. Radiologist Impression: No consolidation or effusion. Normal size heart. No acute fracture. IMPRESSION: 1. No acute findings. Critical Care Time Critical Care Time Critical Care Time: Yes Total Critical Care Time: 35 Attestation: I have personally provided critical care time. Time includes review of lab data, radiology results, discussion with consultants, and monitoring for potential decompensation. Intervention performed as documented. Discharge Plan Discharge Clinical Impression: Atypical chest pain Patient Disposition: Home, Self-Care Instructions: Chest Pain (ED) Additional Instructions: Please follow-up with your primary care physician tomorrow. If you have any worsening or new symptoms, please return to the emergency room or call 911 Prescriptions: No Action (DME) nebulizers Misc See Rx Instructions .Route Qty: 1 0RF Rx Instructions: Use every 4-6 hours prn for wheezing, shortness of breath lisinopril-hydrochlorothiazide 20-12.5 mg tablet 1 tab PO DAILY 90 Days Qty: 90 2RF levothyroxine 37.5 mcg capsule 37.5 mcg PO DAILY 90 Days Qty: 90 3RF albuterol sulfate 90 mcg/actuation HFA aerosol inhaler 1 puff inhalation Q4H PRN (Reason: shortness of breath or wheezing or broncospasm) 30 Days Qty: 8.5 5RF albuterol sulfate 2.5 mg /3 mL (0.083 %) solution for nebulization 2.5 mg inhalation Q4-6H PRN (Reason: shortness of breath or wheezing) 30 Days Qty: 180 3RF atorvastatin 10 mg tablet 10 mg PO DAILY Qty: 30 0RF sertraline 50 mg tablet 50 mg PO DAILY 30 Days Qty: 30 2RF polyethylene glycol 3350 17 gram Powder In Packet 17 g PO DAILY Qty: 30 0RF miscellaneous medical supply Misc See Rx Instructions miscellaneous .COMPLEX Qty: 2 1RF Rx Instructions: diabetic shoes as directed; (DME) diabetic shoes See Rx Instructions .ROUTE .MEDSUPPLY Qty: 1 0RF Rx Instructions: extra depth orthopedic shoes ( 1 pair ) with customize heat molded multi density inner soles ( 3 pair) Dispense 1 Sig: As directed DX: And IDDM /polyneuropathy ( E11 0.42 ); hammertoe foot deformity ( M 20.41, and 20.42 ) pre ulcerative skin lesion ( L 85.1 ) Diagnosis ( E11 0.42 ) type 2 diabetes with polyneuropathy Mounjaro 15 mg/0.5 mL pen injector 15 mg subcut QWEEK Qty: 2 5RF lidocaine 5 % adhesive patch,medicated 1 patch topical DAILY PRN (Reason: pain (scale score 7-10)) Qty: 15 0RF Rx Instructions: leave on most painful area for up to 12 hrs trazodone 50 mg tablet 25 mg PO BEDTIME PRN (Reason: Insomnia) 30 Days Qty: 30 1RF mirtazapine 7.5 mg tablet 7.5 mg PO BEDTIME 30 Days Qty: 30 2RF (DME) lancets [FreeStyle Lancets] 28 gauge misc See Rx Instructions .ROUTE .MEDSUPPLY Qty: 100 5RF Rx Instructions: Use to monitor blood sugars daily (DME) blood-glucose meter [FreeStyle Lite Meter] Kit See Rx Instructions .Route Qty: 1 0RF Rx Instructions: use daily to monitor blood sugars (DME) FreeStyle Lite Strips Strip See Rx Instructions .ROUTE .COMPLEX Qty: 100 3RF Dose Instruction: USE DIRECTED 4 TO 5 TIMES A DAY. Rx Instructions: use daily to monitor blood sugar Print Language: Thai
[2025-10-23 01:29] VITALS: BP 107/54; PULSE 72; RESP 14; TEMP 36.8; O2SAT 96
[2025-10-23 01:33] VITALS: BP 107/54; PULSE 72; RESP 14; TEMP 36.8; O2SAT 96
== END 2025-10-23 01:34 | disposition home or self-care (01) ==
PROVIDERS: Emergency Provider Emergency Medicine; PCP Family Medicine
DX: R07.89 Other chest pain (principal); Z03.818 Encounter for observation for suspected exposure to other biological agents ruled out; R94.31 Abnormal electrocardiogram [ECG] [EKG]; J45.909 Unspecified asthma, uncomplicated; I10 Essential (primary) hypertension; E11.9 Type 2 diabetes mellitus without complications; F17.200 Nicotine dependence, unspecified, uncomplicated; Z71.6 Tobacco abuse counseling
CPT/HCPCS: 36415; 71046; 80053; 83690; 83735; 84484; 85025; 87637; 93005; 99283; 99285

== ENCOUNTER → 2025-10-22 22:00 | Outpatient (BNV) | payer OTHER, SELFPAY | PROVIDERS: Emergency Provider Emergency Medicine; PCP Family Medicine; Visit Provider Internal Medicine Cardiovascular Disease | DX: R94.31 Abnormal electrocardiogram [ECG] [EKG] (principal); R07.9 Chest pain, unspecified | CPT/HCPCS: 93010 ==

== ENCOUNTER → 2025-10-22 23:01 | Outpatient (BNV) | payer OTHER, SELFPAY | PROVIDERS: Emergency Provider Emergency Medicine; PCP Family Medicine; Visit Provider General Practice | DX: R07.89 Other chest pain (principal) | CPT/HCPCS: 71046 ==

== ENCOUNTER 2025-10-30 17:25 | Emergency (ER) | payer OTHER, SELFPAY ==
[2025-10-30 17:36] VITALS: BP 118/64; BP 130/69; PULSE 81; PULSE 88; RESP 18; TEMP 36.4; O2SAT 97; O2SAT 98; BMI 34.0
--- NOTE | 2025-10-30 18:11 | ED_ITS ---
HPI - Back Pain/Injury General Chief Complaint: Back Pain/Injury Stated Complaint: back pain, hip pain x2m getting worse Time Seen by Provider: 10/30/25 17:25 History of Present Illness ED Provider: ERAN ALARCON MD HPI Narrative: [age] FEMALE WITH MULTIPLE COMORBID MEDICAL CONDITIONS WITH ATRAUMATIC LEFT UPPER BUTTOCK LOW BACK PAIN RADIATING DOWN THE LEFT LEG. NUMBNESS TINGLING WEAKNESS NO CONSTIPATION RETENTION PERINEAL PARESTHESIA Related Data Previous Rx's ?Medication ?Instructions ?Recorded nebulizers #1 ea 11/24/21 miscellaneous medical supply See Rx Instructions misce llaneous 04/07/24 .COMPLEX #2 ea diabetic shoes #1 ea 10/09/24 levothyroxine 37.5 mcg capsule 37.5 mcg PO DAILY 90 da ys #90 caps 02/19/25 lisinopril 20 1 tab PO DAILY 90 days #90 t abs 02/19/25 mg-hydrochlorothiazide 12.5 mg tablet albuterol sulfate 2.5 mg/3 mL 2.5 mg (3 mL) inhalation Q4-6H PRN 02/23/25 (0.083 %) solution for nebulization shortness of breat h or wheezing 30 days #180 mL albuterol sulfate 90 mcg/actuation 1 puff inhalation Q 4H PRN 02/23/25 aerosol inhaler shortness of breath or wheez ing or broncospasm 1 month #8.5 grams blood sugar diagnostic (FreeStyle #100 ea 05/21/25 Lite Strips) blood-glucose meter (FreeStyle #1 ea 05/21/25 Lite Meter kit) lancets 28 gauge (FreeStyle #100 ea 05/21/25 Lancets) polyethylene glycol 3350 17 gram 17 g PO DAILY Constip ation #30 ea 06/25/25 oral powder packet lidocaine 5 % topical patch 1 patch topical DAILY PRN pain 07/19/25 (scale score 7-10) #15 ea mirtazapine 7.5 mg tablet 7.5 mg PO BEDTIME insomnia 30 07/19/25 days #30 tabs trazodone 50 mg tablet 25 mg (1/2 x 50 mg) PO BEDTI ME PRN 07/19/25 Insomnia 30 days #30 tabs atorvastatin 10 mg tablet 10 mg PO DAILY high Choleste rol 08/02/25 #30 tabs tirzepatide 15 mg/0.5 mL 15 mg (0.5 mL) subcut QWEEK #2 mL 08/20/25 subcutaneous pen injector (Tamy) sertraline 50 mg tablet 50 mg PO DAILY Depression 30 days 10/09/25 #30 tabs cyclobenzaprine 10 mg tablet 10 mg PO TID PRN muscle s pasm #14 10/30/25 tabs naproxen 500 mg tablet 500 mg PO BID #10 tabs 10/30 Allergies Allergy/AdvReac Type Severity Reaction Status Date / Time No Known Allergies Allergy Verified 10/30/25 17:43 [facility] Past Medical History Medical History Depression with anxiety Diverticulosis Thyroid disease GERD (gastroesophageal reflux disease) Asthma Elevated cholesterol HTN (hypertension) Osteoarthritis History of hepatitis C Diabetes Pneumonia Excessive daytime sleepiness Diabetic peripheral neuropathy Bilateral shoulder pain Sleep apnea Chronic back pain Seasonal allergic rhinitis Obesity (Unknown) Surgical History Hx of tubal ligation History of esophagogastroduodenoscopy (EGD) History of colonoscopy Left patella fracture History of cholecystectomy History of tonsillectomy Family History Family History Father Prostate cancer Parkinsons Mother Stroke Son No problems noted. Son No problems noted. Daughter No problems noted. Sister Lung cancer Social History Social History Household Members: None Housing: Apartment Are you a primary nursing care partner to a significant other at home: No Do you presently have visiting nurse or other home services: No Alcohol intake: never Comment: 04/10 headache, will have caffinated beverage in D/C area Patient Tobacco Use Status: Former Tobacco user Smoked in Last 30 Days: No e-Cigarette/Vaping Use: Never Used Second Hand Smoke Exposure: No Use of substances other than those prescribed or required for medical reasons: No Advance Directives: Yes Advance Directives on File: Yes Advance Directives Date on File: 11/07/21 service: No Current occupational status: disabled Current occupational exposures/hazards: No Sexual orientation: Straight/Heterosexual Cognitive needs: No Hearing needs: No Vision needs: No Physical Exam Exam: Exam: EXAM: Gen: Alert, awake, well appearing, well hydrated. Head: Atraumatic Eyes: Anicteric, Normal conjunctiva. ENT: Moist mucosa, no pallor. ? Neck: Supple. Skin: ?No observable rash or bruising on exposed or examined skin Respiratory: Breathing comfortably, No distress.Clear to auscultation bilaterally, symmetric chest expansion, No wheeze, rales, ronchi. Cardiovascular: Regular rate and rhythm. No murmurs or rub. Well perfused periphery, warm extremities. No edema. ? Abdominal: No focal tenderness. Soft, no objective distension. No palpable masses or obvious organomegaly. ?No guarding, no rebound tenderness or other peritoneal findings. : No flank tenderness. Neuro: Alert. Gross movement of all extremities intact. ? Psych: Calm. Cooperative. MSK: No grossly visible deformity. TENDER LEFT UPPER BUTTOCK MUSCULATURE WITH PALPABLE SPASM NO BRUISING NO MIDLINE LOW BACK TENDERNESS OR STEP-OFF. NO NO CVAT STRAIGHT LEG TEST RIGHT SIDE POSITIVE. LIMITED LEFT LEG ELEVATION SECONDARY TO PAIN HOWEVER SHE HAS STRONG 5/5 STRENGTH DISTAL PLANTAR AND DORSIFLEXION OF THE FEET Vital signs: See flowsheet Vital Signs: Vital Signs: Last Vital Signs Temp 97.9 F 10/30/25 21:09 Pulse 77 10/30/25 21:09 Resp 17 10/30/25 21:09 BP 111/60 10/30/25 21:09 Pulse Ox 95 10/30/25 21:09 O2 Del Method Room Air 10/30/25 21:09 BMI result Body Mass Index 34.0 Medications Administered Discontinued Medications Generic Name Dose Route Start Last Admin Trade Name Zafar PRN Reason Stop Dose Admin Acetaminophen 975 mg 10/30/25 17:42 10/30/25 18:08 Acetaminophen 325 Mg Tablet PO 10/30/25 17:43 975 mg ONCE ONE Administration Diazepam 2 mg 10/30/25 17:42 10/30/25 18:08 Diazepam 2 Mg Tablet PO 10/30/25 17:43 2 mg ONCE ONE Administration Ketorolac Tromethamine 15 mg 10/30/25 17:42 10/30/25 18:08 Ketorolac Tromethamine 15 Mg/Ml Vial IVPUSH 10/30/25 17:43 15 mg ONCE ONE Administration Lidocaine 1 patch 10/30/25 17:43 10/30/25 18:13 Lidocaine 4 % Patch Adh..Patch TRANSDERMA 10/30/25 17:44 1 patch ONCE ONE Administration Protocol Morphine Sulfate 2 mg 10/30/25 17:42 10/30/25 18:07 Morphine Sulfate 4 Mg/Ml Cartridge IVPUSH 10/30/25 17:43 2 mg ONCE ONE Administration Protocol Medical Decision Making Medical Decision Making MDM Narrative: Medical Decision Makin-YEAR-OLD FEMALE WITH ATRAUMATIC LEFT UPPER BUTTOCK PAIN CONSISTENT WITH SCIATICA SYNDROME POSSIBLY PIRIFORMIS VERSUS RADICULOPATHY. NO MOTOR DEFICITS SENSORY CHANGES OR SUGGESTION OF CORD COMPRESSION OR CAUDA EQUINA SYNDROME. NO TOXIC HABITS TO PUT HER AT RISK FOR ALIGNER BARREL AND RECEIVER INFECTION Preliminary Favored Differential Diagnosis: lumbar radiculopathy, priformis synd, strain, contusion, spasm , NO urinary or abd sx to suggest or intraabdominal etiology among additional considered etiologies Testing Interpreted Independently: ?See below for details Radiology or Lab testing Results Reviewed: ?See below for details Consults: ?See below for details Independent Historians/External Chart Reviews: ?See below for details Social Determinants of Health Impacting MDM/Planning: ?See below for details Lab Data Labs: Lab Results 10/30/25 Range/Units 20:16 POC Glucose 130 H (60-115) mg/dL Discharge Plan Discharge Clinical Impression: Sciatic nerve pain Patient Disposition: Home, Self-Care Instructions: Sciatica (ED), Lower Back Exercises (ED) Prescriptions: New cyclobenzaprine 10 mg tablet 10 mg PO TID PRN (Reason: muscle spasm) Qty: 14 0RF naproxen 500 mg tablet 500 mg PO BID Qty: 10 0RF No Action (DME) nebulizers Misc See Rx Instructions .Route Qty: 1 0RF Rx Instructions: Use every 4-6 hours prn for wheezing, shortness of breath lisinopril-hydrochlorothiazide 20-12.5 mg tablet 1 tab PO DAILY 90 Days Qty: 90 2RF levothyroxine 37.5 mcg capsule 37.5 mcg PO DAILY 90 Days Qty: 90 3RF albuterol sulfate 90 mcg/actuation HFA aerosol inhaler 1 puff inhalation Q4H PRN (Reason: shortness of breath or wheezing or bronco spasm) 30 Days Qty: 8.5 5RF albuterol sulfate 2.5 mg /3 mL (0.083 %) solution for nebulization 2.5 mg inhalation Q4-6H PRN (Reason: shortness of breath or wheezing) 30 Days Qty: 180 3RF atorvastatin 10 mg tablet 10 mg PO DAILY Qty: 30 0RF sertraline 50 mg tablet 50 mg PO DAILY 30 Days Qty: 30 2RF polyethylene glycol 3350 17 gram Powder In Packet 17 g PO DAILY Qty: 30 0RF [facility] See Rx Instructions miscellaneous .COMPLEX Qty: 2 1RF Rx Instructions: diabetic shoes as directed; (DME) diabetic shoes See Rx Instructions .ROUTE .MEDSUPPLY Qty: 1 0RF Rx Instructions: extra depth orthopedic shoes ( 1 pair ) with customize heat molded multi d ensity inner soles ( 3 pair) Dispense 1 Sig: As directed DX: And IDDM /polyneuropathy ( E11 0.42 ); hammertoe foot deformity ( M 20.41, and 20.42 ) pre ulcerative skin lesion ( L 85.1 ) Diagnosis ( E11 0.42 ) type 2 diabetes with polyneuropathy Mounjaro 15 mg/0.5 mL pen injector 15 mg subcut QWEEK Qty: 2 5RF lidocaine 5 % adhesive patch,medicated 1 patch topical DAILY PRN (Reason: pain (scale score 7-10)) Qty: 15 0RF Rx Instructions: leave on most painful area for up to 12 hrs trazodone 50 mg tablet 25 mg PO BEDTIME PRN (Reason: Insomnia) 30 Days Qty: 30 1RF mirtazapine 7.5 mg tablet 7.5 mg PO BEDTIME 30 Days Qty: 30 2RF (DME) lancets [FreeStyle Lancets] 28 gauge [facility] See Rx Instructions .ROUTE .MEDSUPPLY Qty: 100 5RF Rx Instructions: Use to monitor blood sugars daily (DME) blood-glucose meter [FreeStyle Lite Meter] Kit See Rx Instructions .Route Qty: 1 0RF Rx Instructions: use daily to monitor blood sugars (DME) FreeStyle Lite Strips Strip See Rx Instructions .ROUTE .COMPLEX Qty: 100 3RF Dose Instruction: USE DIRECTED 4 TO 5 TIMES A DAY. Rx Instructions: use daily to monitor blood sugar Interventions: ED Discharge Assessment Last Done: 10/30/25 21:09 Discharge Date/Time: 10/30/25 21:14 Print Language: Indonesian
[2025-10-30] MEDS: Lidocaine 4 % Patch ADH..PATCH 1 PATCH TRANSDERMA (18:13)
--- OUTSIDE RECORDS SUMMARY | 2025-10-30 19:15 | XMS_ITS | Data Portability ---
Author Organization [facility] [email or web address] [facility] [place] Address [address] [place] [phone] Care Team Providers Care Safety Deposit Clerk Name Role Phone HIM CCA OTHER MARIA [...] with BH [email or web address] Not available 06/19/2025 16:56:06 10/22/2025 10/22/2025 service called for chest pain founnd 64 chuck with hx T2DM HTN HL c/o 1d constant chest pain, pressure worsened with activity denies SOB, diaphoresis prior episode 1 wk that self resolved VS 98.3 153/85 68 16 98%RA EKG: sinus, no ST elev, +TWI #Chest Pain medical risk factors for CAD with some abnormality on EKG refer ED for evaluation [email or web address] Not available 10/22/2025 21:46:09 Plan of Treatment Reminders Order Date Submit Date Provider Last Modified By Organization Details Last Modified Time Details Appointments None recorded. Lab glucose, fingerstick , blood 2024 025 [facility], [address] [place] [address], [id number] 5 18:40:40 Referral None recorded. Procedures None recorded. Surgeries None recorded. Imaging electrocard iogram 2024 025 [facility], [address] [place] [address], [phone] 15:13:11 Medication Orders ondansetron 4 mg disintegrat ing tablet 2024 025 [email or web address] [facility], [address] [place] [address], [id number], 5 16:52:16 diphenhydra mine 50 mg/mL injection solution [email or web address], [address] [place] [address], [id number], 5 16:52:16 Patient TargetsNo targets recorded. Patient InstructionsNo instructions recorded. Reason for Referral None Reported. Results Created Date Observation Date Name Description Value Unit Range Abnormal Flag Note LastModifiedBy Organization Detail LastModifiedTime 10/22/2010/22/2025 elect amisha cotegr am No observ ation record ed. [address], [phone] 10/22/2025 22:15:30 Result Notes None recorded. Medical Equipment None [...] and Address Organization Details Last Updated DateTime 162.56 cm 96 % 18 /min 86 /min 10832.3 36 g 98 [degF] 126/83 mm[Hg] Not Available [facility] 16:45:02 Date Recorded Body temperature Oxygen saturation Respiratory rate Heart rate Systolic And Diastolic Provider Name and Address Organization Details Last Updated DateTime 98.3 [degF] 98 % 16 /min 68 /min 153/85 mm[Hg] Not Available [facility] 21:42:37 Social History None recorded. Functional Status None recorded. Mental Status None recorded. Family History Nothing Reported. Medical History No medical history recorded. Gynecological HistoryNo gynecological history recorded. Obstetrics History GPAL:G 0 P 0 0 0 0 Past Encounters Encounter ID Performer Location Encounter Start Date Encounter Closed Date Diagnosis/Indication Diagnosis SNOMED-CT Code Diagnosis ICD10 Code Diagnosis IMO Codes Diagnosis Note [id number] Holden Barrios MD [facility] [address] [address] 06/19/2025 16:44:56 06/20/2025 12:26:47 Anxiety 66829901 F41.9 [id number] Holden Barrios MD [facility] [address] [address] 10/22/2025 21:42:27 10/26/2025 19:09:47 Precordial pain 03706800 R07.2 40221 Health Concerns Section Related Observation LastModified by Organization Detai ls LastModified Time None Recorded Concern Status LastModified by Organization Details LastModified Time None Recorded Advance Directives Directive None Recorded Payers Insurance Date Sequence Insurance Name Policy Number Policy Harrison Covered Member ID Harrison Member ID Guarantor Name 10/26/2025 1 [facility] - DOS ON OR AFTER 2023 - DUAL ELIGIBLE - NURSING HOME OPTIONS AND ONE CARE (MEDICARE REPLACEMENT/ADV ANTAGE - HMO) Emily Lawson [id number] Emily Lawson Notes Date Note Type Note [...] or four hours and then went to pickling solution maker her medicine at [facility] and said she just feels like [...] dont want to be locked up . ..................... ..................... ..................... ..................... ..................... ..................... ............... [facility] Nurse Triage Notes (Marisol Page): Chief Complaints: Mental Health PMH Reviewed at 06/19/2025 - 14:40 Allergies Reviewed at 06/19/2025 - 14:40 Comments: Reviewed HPI. Conformal Pad Former Organization Information for Mckenna Fox Business Legal Name: [employer] Address: [address] [place] [address], High School Tutor: Soy HERNANDEZ No.: [id number] Conformal Pad Former POC Test Results from Mckenna Fox Blood Glucose Measurement (16:43:22) Blood Glucose: 103mg/dL ..................... ..................... ..................... ..................... ..................... ..................... ............... Conformal Pad Former Note From Mckenna Fox: Sent to a [...] flags discussed. Pt has no further questions. C Lab Orders: glucose, fingerstick, blood: Performed C Medication Orders: ondansetron 4 mg disintegrating tablet: Performed diphenhydramine 50 mg/mL injection solution: Performed ..................... ..................... ..................... ..................... ..................... ..................... ............... [facility] Consulted: Holden Barrios ..................... ..................... ..................... ..................... ..................... ..................... ............... Disposition: Fulfilled Holden Barrios MD [address] [place] [address],[address], [place], [phone] 06/19/2025 22:45:57 10/22/2025 text/html [facility] Nurse Triage Notes (Yodit Chaves): Reason For Request: Pt reporting left side chest pressure, like a finger pushing in, and when she moves it hurts a little more, constant the whole day Denies: Mckeon Flash, circumferential mckeon Mckeon reported with black tissue to the area Open skin area after a fall with uncontrolled bleeding Abscess/infection with streaking noted, presence of fever or without History of cellulitis, isolated redness noted Fever and chills noted in setting of wound Rash Bites -bugs, spider Abscess Chief Complaints: Chest Pain PMH: Hyperlipidemia, Hypertension, Diabetes Mellitus Type 2 PMH Reviewed at 10/22/2025 - 20:50 (ET) Allergies Reviewed at 10/22/2025 - 20:50 (ET) Comments: 64 y.o female complains of Wound Care Patient self referring. Patient states she has an area about the size of a quarter on her right chest 5 fingers below her collar bone and above her nipple that is painful describes it as burning.. constant in nature. able to raise arm over head . denies any numbness or tingling don the left arm ,Had the same thing a couple weeks ago and went away on its own. denies any injury to the area no discoloration to the area. denies lightheadedness or dizziness. no crushing chest pain. denies fever or chills. denies any kidney issues and not on any blood thinners requesting insted assessment. I provided information on the mobile health provider response time and advised the patient and/or caregiver to monitor reported signs and symptoms. I discussed the warning signs of when to seek emergency care. Conformal Pad Former Organization Information for Coy Pereira Business Legal Name: [employer] Address: [address] [place] [address], High School Tutor: Soy De Jesus MD CLIA No.: [id number] Conformal Pad Former POC Test Results from Coy Pereira EKG (21:13:07) EKG test performed. Attachments uploaded as part of this test result can be found under Documents section. EKG (21:13:07) - This test has been updated by the popcorn machine operator, Coy Pereira at (10/22/2025 21:36:50 ET). The changes are marked in bold. EKG test performed. Attachments uploaded as part of this test result can be found under Documents section. ..................... ..................... ..................... ..................... ..................... ..................... ............... Con[employer] Former Note From Coy Pereira: Dispatched to the call address for the female with chest pain. Pt states she has been having chest pain (described as pressure) all day. It started off as a small spot on her left chest but now has gotten larger. She states she had this issue about 3 weeks ago but never sought medical attention and it went away on its own after half a day or so. She states the pain came on suddenly while just sitting on couch. She does not have a cardiac Hx but does have DM2, hypertension and high cholesterol. She denies shortness of breath, n/v/d, cough, headache, fevers or other complaints at this time. Pt was found sitting in living room chair, CAOx4, airway open and patent, breathing non labored, able to speak in full sentences, -JVD, -HEENT, skin PWD with good turgor, mucous membranes pink and moist, abd soft non tender/distended, pupils PERRL, lungs CTA, afebrile, +CMSx4, -edema/swelling. NSR, 12 lead non diagnostic Chest pain. Pt was assessed. 12 lead EKG results uploaded to Pts portal. [facility] consulted. ED advised- Pt agreeable. 911 called for the Pt, I remained on scene until EMS arrived. Pt given 324 ASA after confirming med rights. Pt transported to [facility] per her request. ALL times are approx. ..................... ..................... ..................... ..................... ..................... ..................... ............... [facility] Consulted: Holden Barrios ..................... ..................... ..................... ..................... ..................... ..................... ............... Disposition: Fulfilled Holden Barrios MD [address] [place] [address],[address], [place], [phone], [email or web address] [facility] 10/26/2025 15:03:32 OBGyn Episode No OBEpisode recorded.
--- OUTSIDE RECORDS SUMMARY | 2025-10-30 19:15 | XMS_ITS | Continuity of Care Document ---
Author Organization [facility] Address [address] [place] [phone] Care Team Providers Care Rn Field Case Manager Name Role Phone HIM CCA OTHER MARIA G HOOD Primary Care Provider Assessment Encounter Date Assessment Date Assessment LastModified by Organization Details LastModified Time 10/22/2025 10/22/2025 service called for chest pain [...] Modified Time Details Appointments None recorded. Lab None recorded. Referral None recorded. Procedures None recorded. Surgeries None recorded. Imaging electrocard iogram 2024 025 [facility], [address] [place] [address], [phone] 15:13:11 Medication Orders None recorded. Patient TargetsNo targets recorded. Patient InstructionsNo instructions recorded. Reason for Referral None Reported. Results Created Date Observation Date Name Description Value Unit Range Abnormal Flag Note LastModifiedBy Organization Detail LastModifiedTime 10/22/2010/22/2025 elect amisha cotegr am No observ ation record ed. [email or web address] [address], [phone] 10/22/2025 22:15:30 Result Notes None recorded. Medical [...] No t Available Vitals Date Recorded Body temperature Oxygen saturation Respiratory rate Heart rate Systolic And Diastolic Provider Name and Address Organization Details Last Updated DateTime 98.3 [degF] 98 % 16 /min 68 /min 153/85 mm[Hg] Not Available [facility] 21:42:37 Social History None recorded. Functional Status None recorded. Mental Status None recorded. Family History Nothing Reported. Medical History No medical history recorded. Gynecological HistoryNo gynecological history recorded. Obstetrics History GPAL:G 0 P 0 0 0 0 Past Encounters Encounter ID Performer Location Encounter Start Date Encounter Closed Date Diagnosis/Indication Diagnosis SNOMED-CT Code Diagnosis ICD10 Code Diagnosis IMO Codes Diagnosis Note [id number] Holden Barrios MD [facility] [address] [address] 10/22/2025 21:42:27 10/26/2025 19:09:47 Precordial pain 51604523 R07.2 20881 Health Concerns Section Related Observation LastModified by Organization Detai ls LastModified Time None Recorded Concern Status LastModified by Organization Details LastModified Time None Recorded Payers Encounter Date Sequence Insurance Name Policy Number Policy Harrison Covered Member ID Harrison Member ID Guarantor Name 10/22/2025 1 [facility] - DOS ON OR AFTER 2023 - DUAL ELIGIBLE - LONG TERM OPTIONS AND ONE CARE (MEDICARE REPLACEMENT/ADV ANTAGE - HMO) Emily Renny [id number] Emily Bowmango Notes Date Note Type Note Provider Name and Address Organization Details Recorded Time 10/22/2025 text/html [facility] Nurse Triage Notes (Yodit [...] signs of when to seek emergency care. Lard Tub Washer Organization Information for Coy Pereira Business Legal Name: [employer]. Address: [address] [place] [address], Sales Merchandiser: Soy De Jesus MD CLIA No.: [id number] Lard Tub Washer POC Test Results from Coy Pereira EKG (21:13:07) EKG test performed. Attachments uploaded as part of this test result can be found under Documents section. EKG (21:13:07) - This test has been updated by the piercing machine operator, Coy Pereira at (10/22/2025 21:36:50 ET). The changes are marked in bold. EKG test performed. Attachments uploaded as part of this test result can be found under Documents section. ..................... ..................... ..................... ..................... ..................... ..................... ............... Lard Tub Washer Note From Coy Pereira: Dispatched to the [...] lead EKG results uploaded to Pts portal. C consulted. ED advised- Pt agreeable. 911 called for the Pt, I remained on scene until EMS arrived. Pt given 324 ASA after confirming med rights. Pt transported to [facility] per her request. ALL times are approx. ..................... ..................... ..................... ..................... ..................... ..................... ............... [facility] Consulted: Holden Barrios ..................... ..................... ..................... ..................... ..................... ..................... ............... Disposition: Fulfilled Holden Barrios MD [address] [place] [address],[address], [place], [phone], [employer] 10/26/2025 15:03:32 OBGyn Episode No OBEpisode recorded.
--- OUTSIDE RECORDS SUMMARY | 2025-10-30 19:15 | XMS_ITS | Patient Health Record ---
Author Organization [facility] Address [address] [place] [address] Care Team Providers Care Agent Based Modeler Name Role Phone Sweta Hunter Primary Care Provider UnavailHarry Azevedo Unavailable [phone] Reason For Referral No Information Plan Of Treatment No Information Insurance Providers Payer Name Payer Address Payer Phone Subscriber Number Group Number Insured Name Patient Relationship to Insured Coverage Start Date Coverage End Date [facility] [address] [place] [phone] [id number] MATEO CISNEROS Self - patient is the insured Medical (General) History Medical History History ICD Code liver biopsy 06-22-1997 hepatitis C Surgical History Surgery Date(Month/Year) tubal ligation
[2025-10-30 20:12] VITALS: BP 111/60; PULSE 77; RESP 17; TEMP 36.6; O2SAT 95
[2025-10-30 20:20] LABS: Glucose, Whole Blood 130 mg/dL (60-115)
[2025-10-30 21:09] VITALS: BP 111/60; PULSE 77; RESP 17; TEMP 36.6; O2SAT 95
== END 2025-10-30 21:14 | disposition home or self-care (01) ==
PROVIDERS: Emergency Provider Emergency Medicine; PCP Family Medicine
DX: M54.42 Lumbago with sciatica, left side (principal); E11.9 Type 2 diabetes mellitus without complications; I10 Essential (primary) hypertension; E78.5 Hyperlipidemia, unspecified; J45.909 Unspecified asthma, uncomplicated; Z87.891 Personal history of nicotine dependence; Z79.02 Long term (current) use of antithrombotics/antiplatelets; Z79.899 Other long term (current) drug therapy
CPT/HCPCS: 82947; 96374; 96375; 99284; J1885; J2270